=== PATIENT | female | born 1945 | race Caucasian/White ===

== ENCOUNTER → 2019-02-20 11:33 | Outpatient (BNVA) | payer MEDICARE, OTHER, SELFPAY | PROVIDERS: Family Provider Family Medicine; PCP Family Medicine; Visit Provider Orthopaedic Surgery | DX: S42.341D Displaced spiral fracture of shaft of humerus, right arm, subsequent encounter for fracture with routine healing (principal); X58.XXXD Exposure to other specified factors, subsequent encounter | CPT/HCPCS: 73060 ==

== ENCOUNTER → 2019-03-29 10:48 | Outpatient (BNVA) | payer MEDICARE, OTHER, SELFPAY | PROVIDERS: Family Provider Family Medicine; PCP Family Medicine; Visit Provider Orthopaedic Surgery | DX: S42.341D Displaced spiral fracture of shaft of humerus, right arm, subsequent encounter for fracture with routine healing (principal); X58.XXXD Exposure to other specified factors, subsequent encounter | CPT/HCPCS: 73060 ==

== ENCOUNTER 2019-08-27 20:00 | Outpatient (CLI) | payer MEDICARE, OTHER, SELFPAY | END 2019-08-27 20:01 | disposition home or self-care (01) | LOC: SLEEP 08-28 09:43 | PROVIDERS: Family Provider Family Medicine; PCP Family Medicine; Visit Provider Family Medicine | DX: G47.33 Obstructive sleep apnea (adult) (pediatric) (principal); J44.9 Chronic obstructive pulmonary disease, unspecified | CPT/HCPCS: 95811 ==

== ENCOUNTER 2020-10-12 08:13 | Emergency (ER) | payer MEDICARE, OTHER, SELFPAY ==
[2020-10-12 08:18] VITALS: BP 130/76; PULSE 61; RESP 18; TEMP 36.6; BMI 34.2
--- NOTE | 2020-10-12 08:34 | PC.NURSE ---
unable to obtain accurate pulse oximeter reading. will chart when accurate reading obtained
[2020-10-12 08:35] VITALS: BP 130/76; PULSE 67
--- NOTE | 2020-10-12 08:35 | ED_ITS ---
HPI - General Adult General: Chief complaint: Fall Stated complaint: FALL HIT HEAD; CONFUSED Time Seen by Provider: 10/12/20 08:21 History of Present Illness: HPI narrative: Patient is a 75-year-old female with a history of hypertension, hypothyroidism, CAD who presents to the emergency room after an episode of mechanical fall. Patient reports that today she was walking on floor tiles when she fell onto her right side and hit her head. She denies any associated chest pain shortness breath, palpitation, nausea, lightheadedness prior to the fall. She reports that her legs gave way and she fell because of that. Patient has a right elbow hematoma and right elbow pain. Lives at home by herself and alerted EMS with her medical brace. Per triage note, patient was noted by EMS to be confused. However on arrival, patient is AAO x3 GCS 15 and fully conversant. Onset:30 minutes ago Duration:30 minutes Location:home Severity:moderate Review of Systems Narrative: Constitutional: No fever, no chills. HEENT: No vision changes CV: No chest pain, no palpitations PULM: no cough, no dyspnea. GI: No abdominal pain, no N/V/D. : No dysuria MSKEL: +R elbow pain and hematoma, +b/l gluteal pain SKIN: No new rashes, no lesions. NEURO: No headache, no focal weakness. HEME: No visible bruises PSYCH: Normal mood PFSH ED PFSH: Medical History (Updated 10/12/20 @ 18:27 by Ravi Marcelino MD) Displaced spiral fracture of shaft of right humerus with routine healing Fracture of humerus, proximal, right, closed Physical Exam Narrative: EXAM NARRATIVE: Head: Atraumatic Eyes: PERRL, conjunctiva without injection ENT: Mucous membrane moist NECK: Supple, ROM intact LUNGS: LCTAB, no crackles/rhonchi CV: RRR ABDOMEN: Soft, nontender in all quadrants EXTREMITY: +Normal ROM of the R elobw with moderate tenderness to palpation, mild hematoma overr the R elbow, 2+ radial pulse R, neurovascular exam intact in the R upper extremities, no gross deformity, Forearm and arm compartments R non tense. SKIN: No rash or erythema NEURO: AAOX3, no focal motor deficits, GCS 15 PSYCH: Normal mood and affect Course Vital Signs: Vital signs: Vital Signs Temperature 97.8 F 10/12/20 08:18 Pulse Rate 75 10/12/20 10:06 Respiratory Rate 18 10/12/20 10:06 Blood Pressure 160/45 10/12/20 10:06 Pulse Oximetry 97 10/12/20 10:06 MDM - General Adult MDM Narrative: Medical decision making narrative: 75-year-old female presented to the emergency room after an episode of fall. Based on story, it is likely that this is a mechanical fall. Patient denies any chest pain shortness breath palpitation prior to the fall. No suspicion for anything cardiac at this time. On arrival, patient is hemodynamically stable, will evaluate for trauma with CT brain, x-ray of the elbow, and x-ray pelvis. Intervention: Tylenol for pain On reassessment, imaging studies today negative for any acute fractures or brain bleed. Continues to GCS 15, HDS, without any increased in pain. I have discussed need for warm compress and pain control. At baseline, patient ambulates with a walker. Given hx of living at home by self, I have ordered physical therapy and OT for patient through our case manger. Patient aware of the need to follow up with these services for evaluations of symptoms. Disposition: Discharge. Patient is given strict return precaution for any worsening pain, fever/chills, nausea vomiting, focal weakness, headache, confusion, or any new or concerning complaints. Lab Data: Labs: Lab Results 10/12/20 Range/Units 16:49 POC Glucose 157 H (70-110) mg/dL Imaging Data^: Other Imaging: Radiologist's impression: [address] [address]IWrt ReportSigned Patient: Elzbieta Church #: [id number]: 4Acct#:[id number]/Sex: 75 / FADM Date: 10/12/20Loc: ERRoom/Bed:Attending Dr: Ordering Provider/Ordering MD: Ravi Marcelino MD Date of Service: 10/12/20 Procedure(s): XR elbow RT 2V 42297 Accession Number(s): [id number] Report Number: [id number] PROCEDURE INFORMATION: Exam: XR Right Elbow Exam date and time: 10/12/2020 8:33 AM Age: 75 years old Clinical indication: Injury or trauma; Fall; Blunt trauma (contusions or hematomas); Elbow; Right; Additional info: Elbow hematoma TECHNIQUE: Imaging protocol: XR Right elbow. Views: 1 or 2 views. Total images: 2 COMPARISON: No relevant prior studies available. FINDINGS: Bones/joints: Small enthesophytes off the olecranon and lateral epicondyle. No acute fracture nor subluxation. No osseous erosion nor periosteal reaction. Soft tissues: Normal. XR/XR elbow RT 2V 95029 IMPRESSION: No acute osseous pathology. Dictated By:Aditya Epstein MDSigned By:Aditya Epstein MDSigned Date/Time:10/12/2033/ [address] [address]VWbn ReportSigned Patient: Elzbieta Church #: [id number]: 4Acct#:[id number]/Sex: 75 / FADM Date: 10/12/20Loc: ERRoom/Bed:Attending Dr: Ordering Provider/Ordering MD: Ravi Marcelino MD Date of Service: 10/12/20 Procedure(s): XR pelvis 1-2V* 65571 Accession Number(s): [id number] Report Number: [id number] PROCEDURE INFORMATION: Exam: XR Pelvis Exam date and time: 10/12/2020 8:33 AM Age: 75 years old Clinical indication: Injury or trauma; Fall; Blunt trauma (contusions or hematomas); Bilateral; Pelvic region; Additional info: Lower back pain TECHNIQUE: Imaging protocol: XR pelvis. Views: 1 or 2 view. Total images: 1 COMPARISON: No relevant prior studies available. FINDINGS: Bones/joints: Unremarkable. No acute fracture. Soft tissues: Unremarkable. Vasculature: Atherosclerosis is evident. XR/XR pelvis 1-2V* [id number] IMPRESSION: No acute findings. Dictated By:Aditya Epstein MDSigned By:Aditya Epsteinigned Date/Time:10/12/2034/ [address] [address]GH Scan ReportSigned Patient: Elzbieta Church #: [id number]: 4Acct#:[id number]/Sex: 75 / FADM Date: 10/12/20Loc: ERRoom/Bed:Attending Dr: Ordering Provider/Ordering MD: Ravi Marcelino MD Date of Service: 10/12/20 Procedure(s): CT head wo con* 46316 Accession Number(s): [id number] Report Number: [id number] PROCEDURE INFORMATION: Exam: CT Head Without Contrast Exam date and time: 10/12/2020 8:33 AM Age: 75 years old Clinical indication: Injury or trauma; Fall; Blunt trauma (contusions or hematomas); Additional info: Rule out brain bleed, fall, loc TECHNIQUE: Imaging protocol: Computed tomography of the head without contrast. Total images: 188 Radiation optimization: All CT scans at this facility use at least one of these dose optimization techniques: automated exposure control; mA and/or kV adjustment per patient size (includes targeted exams where dose is matched to clinical indication); or iterative reconstruction. COMPARISON: CT head wo con* [id number] 01/03/2019 1:54 AM RADIATION DOSE METRICS: Total DLP (mGy-cm): 587.36 FINDINGS: Brain: Global brain atrophy and chronic white matter ischemic changes are present. Multifocal encephalomalacia. Cerebral ventricles: Ventricles are appropriate in size for degree of atrophy. Paranasal sinuses: Visualized sinuses are unremarkable. No fluid levels. Mastoid air cells: Visualized mastoid air cells are well aerated. Orbital cavity: Prior bilateral lens replacements noted. Bones/joints: Unremarkable. No acute fracture. Soft tissues: Unremarkable. CT/CT head wo con* [id number] IMPRESSION: No acute intracranial abnormality. Radiation Dose CTDIVOL = (mGy): DLP = 587.36 (mGy-cm) Dictated By:Aditya Epstein MDSigned By:Aditya Epstein MDSigned Date/Time:10/12/2035DD/ [address] [address]GKnp ReportSigned Patient: Elzbieta Church #: [id number]: 1945cct#:[id number]/Sex: 75 / FADM Date: 10/12/20Loc: ERRoom/Bed:Attending Dr: Ordering Provider/Ordering MD: Ravi Marcelino MD Date of Service: 10/12/20 Procedure(s): XR pelvis 1-2V* 03973 Accession Number(s): [id number] Report Number: [id number] PROCEDURE INFORMATION: Exam: XR Pelvis Exam date and time: 10/12/2020 8:33 AM Age: 75 years old Clinical indication: Injury or trauma; Fall; Blunt trauma (contusions or hematomas); Bilateral; Pelvic region; Additional info: Lower back pain TECHNIQUE: Imaging protocol: XR pelvis. Views: 1 or 2 view. Total images: 1 COMPARISON: No relevant prior studies available. FINDINGS: Bones/joints: Unremarkable. No acute fracture. Soft tissues: Unremarkable. Vasculature: Atherosclerosis is evident. XR/XR pelvis 1-2V* 18948 IMPRESSION: No acute findings. Dictated By:Aditya Epstein MDSigned By:Aditya Epstein MDSigned Date/Time:0 10/12/2034DD/ 0 Discharge Plan Discharge Patient Disposition: Home Clinical Impression: Fall Condition: Stable Prescriptions: New acetaminophen 500 mg tablet 500 mg PO TID PRN (Reason: pain) 7 Days Qty: 21 RF: 0 No Action cholecalciferol (vitamin D3) 1,000 unit capsule 1,000 unit PO DAILY RF: 0 lutein-zeaxanthin [Ocuvite Lutein 25] 25-5 mg capsule 1 cap PO BID RF: 0 furosemide [Lasix] 20 mg tablet 20 mg PO QAM RF: 0 amiodarone 200 mg tablet 200 mg PO BID RF: 0 clonazepam [Klonopin] 1 mg tablet 1 mg PO BID PRN (Reason: Anxiety) RF: 0 aspirin [Adult Low Dose Aspirin] 81 mg tablet,delayed release (DR/EC) 81 mg PO DAILY RF: 0 alprazolam 0.5 mg tablet 0.5 mg PO QID PRN (Reason: Anxiety) RF: 0 clopidogrel 75 mg tablet 75 mg PO DAILY RF: 0 levothyroxine [Synthroid] 175 mcg tablet 175 mcg PO DAILY RF: 0 Spiriva with HandiHaler 18 mcg capsule, w/inhalation device 1 cap INHALATION DAILY RF: 0 atorvastatin 10 mg tablet 10 mg PO DAILY RF: 0 Discharge Orders: Discharge ED (Routine); Ordered 10/12/20 Ordered By: Ravi Marcelino Referrals: Marco Antonio Thompson MD [Primary Care Provider] - Discharge Diet: Advance as tolerated Discharge Activity: Resume usual activity Patient Instructions: Fall Prevention (ED) Activity Restrictions/Additional Instructions: Come back to the ER if you have any new or concerning issues. Coding Level of Care Code ED Roll Up Helper for Pattie Cisneros
[2020-10-12] MEDS: acetaminophen 500 mg Tablet 1000 MG PO (08:42)
[2020-10-12 08:47] VITALS: O2SAT 94
[2020-10-12 10:06] VITALS: BP 160/45; PULSE 75; RESP 18; O2SAT 97
[2020-10-12 16:52] LABS: Glucose Point of Care 157 mg/dL (70-110)
--- NOTE | 2020-10-15 09:27 | DCPLANNER ---
court manager had message to have patient follow up with occupational therapy and physical therapy. court manager called phone number [phone], unable to speak with patient or leave a voicemail for patient at this time.
== END 2020-10-12 10:06 | disposition home or self-care (01) ==
PROVIDERS: Emergency Provider Emergency Medicine; PCP Family Medicine
DX: S50.01XA Contusion of right elbow, initial encounter (principal); I10 Essential (primary) hypertension; E03.9 Hypothyroidism, unspecified; I25.10 Atherosclerotic heart disease of native coronary artery without angina pectoris; R40.2412 Glasgow coma scale score 13-15, at arrival to emergency department; W18.39XA Other fall on same level, initial encounter; Y92.009 Unspecified place in unspecified non-institutional (private) residence as the place of occurrence of the external cause
CPT/HCPCS: 36416; 70450; 72170; 73070; 82962; 99283

== ENCOUNTER 2020-10-12 16:53 | Emergency (ER) | payer MEDICARE, OTHER, SELFPAY ==
[2020-10-12] VITALS (7 sets, daily range): BP systolic 106–162; BP diastolic 50–119; PULSE 83–90; RESP 14–20; TEMP 36.4; O2SAT 97–100
--- NOTE | 2020-10-12 17:05 | CTR_ITS ---
PROCEDURE INFORMATION: Exam: CT Head Without Contrast Exam date and time: 10/12/2020 5:05 PM Age: 75 years old Clinical indication: Speech disturbance; Patient HX: Sudden onset of aphasia/slurred speech. History of RT sided stroke. ; Additional info: Poss CVA TECHNIQUE: Imaging protocol: Computed tomography of the head without contrast. Radiation optimization: All CT scans at this facility use at least one of these dose optimization techniques: automated exposure control; mA and/or kV adjustment per patient size (includes targeted exams where dose is matched to clinical indication); or iterative reconstruction. Other technique: STROKE PROTOCOL was implemented. COMPARISON: CT head wo con* [id number] 10/12/2020 8:57 AM RADIATION DOSE METRICS: Total DLP (mGy-cm): 782.1 FINDINGS: Brain: There are old cortical infarcts in the right posterior parietal, right frontal and right temporal lobes and also in the left occipital region. There is moderate cortical atrophy. Low-density changes in the white matter are consistent with nonspecific small vessel chronic ischemic change. There is no intracranial mass, hemorrhage or edema. Cerebral ventricles: No ventriculomegaly. Paranasal sinuses: Visualized sinuses are unremarkable. No fluid levels. Mastoid air cells: Visualized mastoid air cells are well aerated. Bones/joints: Unremarkable. No acute fracture. Soft tissues: Unremarkable. CT/CT head wo con* [id number] IMPRESSION: Old infarcts. No acute intracranial finding. ASSESSMENT: ASPECTS ([place] Stroke Program Early CT Score) is 10. Radiation Dose CTDIVOL = (mGy): DLP = 782.1 (mGy-cm)
--- NOTE | 2020-10-12 17:06 | CTR_ITS ---
PROCEDURE INFORMATION: Exam: CT Angiography Head With Contrast, Arteriography Exam date and time: 10/12/2020 5:06 PM Age: 75 years old Clinical indication: Speech disturbance; Patient HX: Sudden onset of aphasia/slurred speech. History of RT sided stroke. ; Additional info: Poss CVA TECHNIQUE: Imaging protocol: Computed tomography angiography of the head with contrast. Exam focused on the arteries. 3D rendering (Not supervised by radiologist): MIP and/or 3D reconstructed images were created by the technologist. Radiation optimization: All CT scans at this facility use at least one of these dose optimization techniques: automated exposure control; mA and/or kV adjustment per patient size (includes targeted exams where dose is matched to clinical indication); or iterative reconstruction. Contrast material: VISI 320; Contrast volume: 95 ml; Contrast route: INTRAVENOUS (IV); COMPARISON: CT head wo con* [id number] 10/12/2020 4:58 PM RADIATION DOSE METRICS: Total DLP (mGy-cm): 4654.87 FINDINGS: Limitations: Study is significantly limited by patient motion. ANTERIOR CIRCULATION: Right internal carotid artery: There is extensive atherosclerotic plaque in severe stenosis in the right cavernous carotid artery. Right middle cerebral artery: Unremarkable. No occlusion or significant stenosis. No aneurysm. Right anterior cerebral artery: Unremarkable. No occlusion or significant stenosis. No aneurysm. Left internal carotid artery: Left internal carotid artery is occluded from the skull base through the level of the cavernous carotid artery. Distally left internal carotid artery reconstitutes via collateral flow from the left ophthalmic artery Left middle cerebral artery: Unremarkable. No occlusion or significant stenosis. No aneurysm. Left anterior cerebral artery: Unremarkable. No occlusion or significant stenosis. No aneurysm. POSTERIOR CIRCULATION: Right vertebral artery: There is narrowing and possible stenosis of the distal right V4 segment. This is difficult to say with certainty due to motion artifact. Left vertebral artery: Left vertebral artery is dominant and provides most of the supply to basilar artery. Basilar artery: Unremarkable. No occlusion or significant stenosis. No aneurysm. Right posterior cerebral artery: Unremarkable. No occlusion or significant stenosis. No aneurysm. Left posterior cerebral artery: Unremarkable. No occlusion or significant stenosis. No aneurysm. Brain: No definite mass, mass effect, or midline shift. Cerebral ventricles: No ventriculomegaly. Bones/joints: Unremarkable. No acute fracture. Soft tissues: Unremarkable. IMPRESSION: 1. Proximal occlusion of the left internal carotid artery of uncertain age. 2. Stenosis distal right vertebral artery. 3. No gross intracranial occlusion or aneurysm is identified. 4. Limited study due to patient motion PROCEDURE INFORMATION: Exam: CT Angiography Neck With Contrast Exam date and time: 10/12/2020 5:06 PM Age: 75 years old Clinical indication: Speech disturbance; Patient HX: Sudden onset of aphasia/slurred speech. History of RT sided stroke. ; Additional info: Poss CVA TECHNIQUE: Imaging protocol: Computed tomography angiography of the neck with contrast. 3D rendering (Not supervised by radiologist): MIP and/or 3D reconstructed images were created by the technologist. Radiation optimization: All CT scans at this facility use at least one of these dose optimization techniques: automated exposure control; mA and/or kV adjustment per patient size (includes targeted exams where dose is matched to clinical indication); or iterative reconstruction. Contrast material: VISI 320; Contrast volume: 95 ml; Contrast route: INTRAVENOUS (IV); COMPARISON: CT head wo con* [id number] 10/12/2020 4:58 PM RADIATION DOSE METRICS: Total DLP (mGy-cm): 4654.87 FINDINGS: Limitations: Study is significantly limited by patient motion. Right common carotid artery: No stenosis. No dissection or occlusion. Right internal carotid artery: There is severe focal stenosis in the proximal right internal carotid artery at the level of the bifurcation. This is difficult to measure due to motion artifact but appears to be measure in the 60-80% range as measured according to the NASCET criteria. Right external carotid artery: Stenotic origin. Left common carotid artery: Left common carotid artery does not enhance and appears to be occluded from its origin. Left internal carotid artery: There is extensive calcified plaque at the left carotid bifurcation. Short segment of the proximal left internal carotid artery reconstitutes via collaterals but the left internal carotid artery is proximally occluded which is a finding of uncertain age but the left internal carotid artery occlusion is a new finding from 01/04/2019. Left external carotid artery: Patent but with stenotic origin. Right vertebral artery: There is very severe stenosis or occlusion in the proximal right vertebral artery. The mid V2 vertebral artery reconstitutes apparently via collaterals. Left vertebral artery: Origin of the left vertebral artery is not well seen on this examination but is patent. There is mild focal calcified plaque in the mid left V2 segment but no hemodynamically significant stenosis. Soft tissues: Normal. No significant soft tissue swelling. Bones/joints: No acute fracture. CT/CT angio headneck* [id number] IMPRESSION: 1. Occlusion left common carotid artery 2. Occlusion left internal carotid artery 3. Severe stenosis right internal carotid artery 4. Proximal occlusion of the right vertebral artery. REFERENCES: NASCET CRITERIA. The degree of internal carotid artery stenosis is based on NASCET criteria. Normal is no stenosis. Mild is less than 50% stenosis. Moderate is 50-69% stenosis. Severe is 70% to 99% stenosis. Total occlusion is no detectable patent lumen. Radiation Dose CTDIVOL = (mGy): DLP = 4654.87~4654.87 (mGy-cm)
[2020-10-12] MEDS: iodixanol 320 mg/mL 100mL Btl IV (17:23)
--- NOTE | 2020-10-12 18:12 | ECG_ITS ---
[facility] Test Date: 2020-10-12 Pat Name: Elzbieta Church Department: Room: Gender: Female Bogger Operator: : 1945 Requested By: Ravi Marcelino Order Number: [id number] Jas MD: Tariq Gilliam M.D. Measurements Intervals [place] Rate: 87 P: -90 SC: 133 QRS: 80 QRSD: 129 T: 36 QT: 410 QTc: 493 Interpretive Statements SINUS RHYTHM RIGHT BUNDLE BRANCH BLOCK [120+ ms QRS DURATION, UPRIGHT V1, 40+ ms S IN I/aVL/V4/V5/V6] Compared to ECG 01/03/2019 08:38:58 Right-axis deviation no longer present Electronically Signed On 10-13-2020 6:58:31 CDT by Tariq Gilliam M.D. [email or web address] Technologieswiser [facility] for women and infantsCyber-[facility].[employer]/store/OV/[id number]
--- NOTE | 2020-10-12 18:16 | ED_ITS ---
HPI - General Adult General: Chief complaint: Neuro Symptoms/Deficit Stated complaint: STROKE LIKE SYMPTOMS Time Seen by Provider: 10/12/20 17:39 History of Present Illness: HPI narrative: CC: R sided weakness and aphsia HPI: 75yo patient w/ hx of stroke in 2019, HTN, CAD on ASA and plavix only brought in by friend for sudden onset of acute R sided weakness and expressive aphasia x 3 hrs and 40 minutes ago. Patient was last seen normal at 1:10PM and woke up at 2:20pm with complete R sided paralysis and expressive aphasia. Since then, symptoms have been persistent and have not improved. Denies any chest pain, SOB, palpitations, /GI complaints. Patient is not on any anticoagulation. Onset: 1:10PM Duration: 3 hrs and 40 minutes ago Location: home Severity: severe Review of Systems Narrative: Constitutional: No fever, no chills. HEENT: No vision changes CV: No chest pain, no palpitations PULM: No cough, no dyspnea. GI: No abdominal pain, no N/V/D. : No dysuria MSKEL: No edema SKIN: No new rashes, no lesions. NEURO: +Focal weakness of the R arm and leg +difficulty speaking HEME: No visible bruises PSYCH: Normal mood PFSH ED PFSH: Medical History (Updated 10/12/20 @ 18:27 by Ravi Marcelino MD) Displaced spiral fracture of shaft of right humerus with routine healing Fracture of humerus, proximal, right, closed Physical Exam Narrative: EXAM NARRATIVE: Head: Atraumatic Eyes: PERRL, conjunctiva without injection ENT: Mucous membrane moist NECK: Supple without lymphadenopathy LUNGS: CTA CV: RRR ABDOMEN: Soft, nontender EXTREMITY: Normal ROM SKIN: No rash or erythema NEURO: NIHSS: 8 1. Level of Consciousness A) LOC Responsiveness 0 B) LOC Questions 0 C) LOC Commands 0 2. Horizontal Eye Movement 0 3. Visual field test 0 4. Facial Palsy 0 5. Motor Arm 3 6. Motor Leg 3 7. Limb Ataxia 0 9. Language 1 10. Speech 1 11. Extinction and Inattention 0 PSYCH: Normal mood and affect. Course Vital Signs: Vital signs: Vital Signs Temperature 97.5 F L 10/12/20 16:55 Pulse Rate 89 10/12/20 18:04 Respiratory Rate 18 10/12/20 18:04 Blood Pressure 161/111 10/12/20 18:04 Pulse Oximetry 100 10/12/20 18:04 MDM - General Adult MDM Narrative: Medical decision making narrative: [99]yo patient w/ pMH of CA D, HTN, prior stroke > 1 yr presenting for focal neurological deficits. Presentation concerning for possible ischemic stroke requiring workup. Given History and Exam I have lower suspicion for infectious etiology, neurologic changes secondary to toxicologic ingestion, seizure, complex migraine. Fingerstick of 157. PMH risk factors: CAD, HTN, prior stroke Neurologic Deficits: R arm and R leg weakness, dysarthria, and expressive aphasia Last known Well Time:1:10pm NIH Stroke Score: 8 At [4:52], a stroke alert was called. Case was discussed with Dr. Banegas from [facility] telestroke service regarding patient?s neurological symptoms and last well-known time approximately 1:10PM and eligibility for TPA criteria. EKG without evidence of STEMI or ischemia, fingerstick BS not hypoglycemic, and clinical picture does not suggest other stroke mimic. Plan to workup for acute CVA/TIA. [4:56] Telestroke Neurology discussed case and agrees with plans for TPA since patient?s onset of symptoms < 4.5 hours. Risks and benefits of TPA discussed with the patient. Patient verbalizes understanding and agrees to proceed with administration of tPA. Patient does NOT have the following absolute contraindications to TPA including: Current intracranial hemorrhage, Subarachnoid hemorrhage, Active internal bleeding, Recent (within 3 months) intracranial or intraspinal surgery or serious head trauma, presence of intracranial conditions that may increase the risk of bleeding,bBleeding diathesis, or current severe uncontrolled hypertension. [5:15] TPA administered at 0.9mg/kg IV (max 90mg total). 10% of dose is administered as bolus; rest is given over 60min. CT showed old infarcations and CTA findings showed L ICA/CCA complete occlusion, severe R ICA occlusoin and R proximal vertebral occlusion. [5:45] On reassessment, patient improved significantly while on TPA. NIHSS improved from 8 to 3. Patient nows appears to have drift on the L and R arms (2) with mild disarthyria. Case discussed with Dr. Banks at [facility] who agrees with plan for transfer to tertiary ICU and possible mechanical thrombectomy. BP stable w/ SBP <185, will not need nicardipine drip. Disposition: Transfer to outside hospital Lab Data: Labs: Lab Results 10/12/20 Range/Units 16:55 PT 13.20 (12.1-14.9) SECO NDS INR 0.97 (0.8-1.2) Imaging Data^: Other Imaging: Radiologist's impression: [place] [id number], [place] [address]TO Scan ReportSigned Patient: Elzbieta Church #: [id number]: [id number]#:[id number]/Sex: 75 / FADM Date: 10/12/20Loc: ERRoom/Bed:Attending Dr: Ordering Provider/Ordering MD: Ravi Marcelino MD Date of Service: 10/12/20 Procedure(s): CT angio headneck* [id number] Accession Number(s): [id number] Report Number: [id number] PROCEDURE INFORMATION: Exam: CT Angiography Head With Contrast, Arteriography Exam date and time: 10/12/2020 5:06 PM Age: 75 years old Clinical indication: Speech disturbance; Patient HX: Sudden onset of aphasia/slurred speech. History of RT sided stroke. ; Additional info: Poss CVA TECHNIQUE: Imaging protocol: Computed tomography angiography of the head with contrast. Exam focused on the arteries. 3D rendering (Not supervised by radiologist): MIP and/or 3D reconstructed images were created by the technologist. Radiation optimization: All CT scans at this facility use at least one of these dose optimization techniques: automated exposure control; mA and/or kV adjustment per patient size (includes targeted exams where dose is matched to clinical indication); or iterative reconstruction. Contrast material: VISI 320; Contrast volume: 95 ml; Contrast route: INTRAVENOUS (IV); COMPARISON: CT head wo con* [id number] 10/12/2020 4:58 PM RADIATION DOSE METRICS: Total DLP (mGy-cm): 4654.87 FINDINGS: Limitations: Study is significantly limited by patient motion. ANTERIOR CIRCULATION: Right internal carotid artery: There is extensive atherosclerotic plaque in severe stenosis in the right cavernous carotid artery. Right middle cerebral artery: Unremarkable. No occlusion or significant stenosis. No aneurysm. Right anterior cerebral artery: Unremarkable. No occlusion or significant stenosis. No aneurysm. Left internal carotid artery: Left internal carotid artery is occluded from the skull base through the level of the cavernous carotid artery. Distally left internal carotid artery reconstitutes via collateral flow from the left ophthalmic artery Left middle cerebral artery: Unremarkable. No occlusion or significant stenosis. No aneurysm. Left anterior cerebral artery: Unremarkable. No occlusion or significant stenosis. No aneurysm. POSTERIOR CIRCULATION: Right vertebral artery: There is narrowing and possible stenosis of the distal right V4 segment. This is difficult to say with certainty due to motion artifact. Left vertebral artery: Left vertebral artery is dominant and provides most of the supply to basilar artery. Basilar artery: Unremarkable. No occlusion or significant stenosis. No aneurysm. Right posterior cerebral artery: Unremarkable. No occlusion or significant stenosis. No aneurysm. Left posterior cerebral artery: Unremarkable. No occlusion or significant stenosis. No aneurysm. Brain: No definite mass, mass effect, or midline shift. Cerebral ventricles: No ventriculomegaly. Bones/joints: Unremarkable. No acute fracture. Soft tissues: Unremarkable. IMPRESSION: 1. Proximal occlusion of the left internal carotid artery of uncertain age. 2. Stenosis distal right vertebral artery. 3. No gross intracranial occlusion or aneurysm is identified. 4. Limited study due to patient motion PROCEDURE INFORMATION: Exam: CT Angiography Neck With Contrast Exam date and time: 10/12/2020 5:06 PM Age: 75 years old Clinical indication: Speech disturbance; Patient HX: Sudden onset of aphasia/slurred speech. History of RT sided stroke. ; Additional info: Poss CVA TECHNIQUE: Imaging protocol: Computed tomography angiography of the neck with contrast. 3D rendering (Not supervised by radiologist): MIP and/or 3D reconstructed images were created by the technologist. Radiation optimization: All CT scans at this facility use at least one of these dose optimization techniques: automated exposure control; mA and/or kV adjustment per patient size (includes targeted exams where dose is matched to clinical indication); or iterative reconstruction. Contrast material: VISI 320; Contrast volume: 95 ml; Contrast route: INTRAVENOUS (IV); COMPARISON: CT head wo con* [id number] 10/12/2020 4:58 PM RADIATION DOSE METRICS: Total DLP (mGy-cm): 4654.87 FINDINGS: Limitations: Study is significantly limited by patient motion. Right common carotid artery: No stenosis. No dissection or occlusion. Right internal carotid artery: There is severe focal stenosis in the proximal right internal carotid artery at the level of the bifurcation. This is difficult to measure due to motion artifact but appears to be measure in the 60-80% range as measured according to the NASCET criteria. Right external carotid artery: Stenotic origin. Left common carotid artery: Left common carotid artery does not enhance and appears to be occluded from its origin. Left internal carotid artery: There is extensive calcified plaque at the left carotid bifurcation. Short segment of the proximal left internal carotid artery reconstitutes via collaterals but the left internal carotid artery is proximally occluded which is a finding of uncertain age but the left internal carotid artery occlusion is a new finding from 01/04/2019. Left external carotid artery: Patent but with stenotic origin. Right vertebral artery: There is very severe stenosis or occlusion in the proximal right vertebral artery. The mid V2 vertebral artery reconstitutes apparently via collaterals. Left vertebral artery: Origin of the left vertebral artery is not well seen on this examination but is patent. There is mild focal calcified plaque in the mid left V2 segment but no hemodynamically significant stenosis. Soft tissues: Normal. No significant soft tissue swelling. Bones/joints: No acute fracture. CT/CT angio headneck* [id number] IMPRESSION: 1. Occlusion left common carotid artery 2. Occlusion left internal carotid artery 3. Severe stenosis right internal carotid artery 4. Proximal occlusion of the right vertebral artery. REFERENCES: NASCET CRITERIA. The degree of internal carotid artery stenosis is based on NASCET criteria. Normal is no stenosis. Mild is less than 50% stenosis. Moderate is 50-69% stenosis. Severe is 70% to 99% stenosis. Total occlusion is no detectable patent lumen. Radiation Dose CTDIVOL = (mGy): DLP = 4654.87~4654.87 (mGy-cm) Dictated By:Yanelis Leahyigned By:Gaurav Leahy Date/Time:10/12/201747DD/ [address] [address]IC Scan ReportSigned Patient: Elzbieta Church #: [id number]: [id number]#:[id number] ge/Sex: 75 / FADM Date: 10/12/20Loc: ERRoom/Bed:Attending Dr: Ordering Provider/Ordering MD: Ravi Marcelino MD Date of Service: 10/12/20 Procedure(s): CT head wo con* [id number] Accession Number(s): [id number] Report Number: [id number] PROCEDURE INFORMATION: Exam: CT Head Without Contrast Exam date and time: 10/12/2020 5:05 PM Age: 75 years old Clinical indication: Speech disturbance; Patient HX: Sudden onset of aphasia/slurred speech. History of RT sided stroke. ; Additional info: Poss CVA TECHNIQUE: Imaging protocol: Computed tomography of the head without contrast. Radiation optimization: All CT scans at this facility use at least one of these dose optimization techniques: automated exposure control; mA and/or kV adjustment per patient size (includes targeted exams where dose is matched to clinical indication); or iterative reconstruction. Other technique: STROKE PROTOCOL was implemented. COMPARISON: CT head wo con* [id number] 10/12/2020 8:57 AM RADIATION DOSE METRICS: Total DLP (mGy-cm): 782.1 FINDINGS: Brain: There are old cortical infarcts in the right posterior parietal, right frontal and right temporal lobes and also in the left occipital region. There is moderate cortical atrophy. Low-density changes in the white matter are consistent with nonspecific small vessel chronic ischemic change. There is no intracranial mass, hemorrhage or edema. Cerebral ventricles: No ventriculomegaly. Paranasal sinuses: Visualized sinuses are unremarkable. No fluid levels. Mastoid air cells: Visualized mastoid air cells are well aerated. Bones/joints: Unremarkable. No acute fracture. Soft tissues: Unremarkable. CT/CT head wo con* [id number] IMPRESSION: Old infarcts. No acute intracranial finding. ASSESSMENT: ASPECTS ([place] Stroke Program Early CT Score) is 10. Radiation Dose CTDIVOL = (mGy): DLP = 782.1 (mGy-cm) Dictated By:Gaurav Leahy By:Gaurav Leahy Date/Time:10/12/201726DD/ 25 Discharge Plan Discharge Patient Disposition: Transfer to ED Clinical Impression: Acute ischemic stroke, Cerebrovascular accident Condition: Stable Prescriptions: No Action cholecalciferol (vitamin D3) 1,000 unit capsule 1,000 unit PO DAILY RF: 0 lutein-zeaxanthin [Ocuvite Lutein 25] 25-5 mg capsule 1 cap PO BID RF: 0 furosemide [Lasix] 20 mg tablet 20 mg PO QAM RF: 0 amiodarone 200 mg tablet 200 mg PO BID RF: 0 clonazepam [Klonopin] 1 mg tablet 1 mg PO BID PRN (Reason: Anxiety) RF: 0 aspirin [Adult Low Dose Aspirin] 81 mg tablet,delayed release (DR/EC) 81 mg PO DAILY RF: 0 alprazolam 0.5 mg tablet 0.5 mg PO QID PRN (Reason: Anxiety) RF: 0 clopidogrel 75 mg tablet 75 mg PO DAILY RF: 0 levothyroxine [Synthroid] 175 mcg tablet 175 mcg PO DAILY RF: 0 Spiriva with HandiHaler 18 mcg capsule, w/inhalation device 1 cap INHALATION DAILY RF: 0 acetaminophen 500 mg tablet 500 mg PO TID PRN (Reason: pain) 7 Days Qty: 21 RF: 0 atorvastatin 10 mg tablet 10 mg PO DAILY RF: 0 Referrals: Marco Antonio Thompson MD [Primary Care Provider] - Coding Level of Care Code ED Import/Export [employer] for [facility] [place]
[2020-10-12 18:19] LABS: Mean Corpuscular HGB Conc 29.5 g/dL (30.0-36.0); Mean Corpuscular Hemoglobin 27.3 pg (28.0-34.0); Mean Corpuscular Volume 92.5 fl (81-99); Mean Platelet Volume 9.8 fL (7.4-10.4); Platelet Count 379 10^3/cmm (130-400); Red Blood Count 2.27 10^6/uL (4.1-5.3); Red Cell Distribution Width 16.2 % (12.1-15.1); White Blood Count 15.6 10^3/uL (4.0-10.0)
[2020-10-12 18:24] LABS: INR 0.97 (0.8-1.2)
[2020-10-12 18:31] LABS: Anion Gap 16.3 (5-19); Blood Urea Nitrogen 62 mg/dL (8-23); Calcium 9.6 mg/dL (8.5-10.5); Carbon Dioxide 32 mmol/L (22-29); Chloride 93 mmol/L (98-107); Glucose 139 mg/dL (65-115); Osmolality Calculated 304 mOsm/kg (285-295); Potassium 4.3 mmol/L (3.5-5.1); Sodium 137 mmol/L (136-145)
[2020-10-12 18:37] LABS: Hemoglobin 6.2 g/dL (11.5-15.3)
== END 2020-10-12 18:47 ==
PROVIDERS: Emergency Provider Emergency Medicine; PCP Family Medicine
DX: I63.9 Cerebral infarction, unspecified (principal); R47.01 Aphasia; G81.91 Hemiplegia, unspecified affecting right dominant side; I10 Essential (primary) hypertension; I25.10 Atherosclerotic heart disease of native coronary artery without angina pectoris; Z79.82 Long term (current) use of aspirin; Z79.02 Long term (current) use of antithrombotics/antiplatelets; R29.708 NIHSS score 8
CPT/HCPCS: 36416; 70450; 70496; 70498; 72170; 73070; 80048; 82962; 85027; 85610; 86900; 86920; 93005; 96374; 99283; 99291; 99292; J2997; P9016; Q9967

== ENCOUNTER 2020-10-30 07:44 | Emergency (ER) | payer MEDICARE, OTHER, SELFPAY ==
[2020-10-30] VITALS (9 sets, daily range): BP systolic 80–159; BP diastolic 40–68; PULSE 75–91; RESP 16–24; TEMP 36.6; O2SAT 92–100; BMI 40.4
--- NOTE | 2020-10-30 07:56 | XR_ITS ---
WS: [id number] XR chest 1V portable [id number] REASON FOR EXAM: sob FINDINGS: Moderately tortuous calcified thoracic aorta without aneurysmal dilatation. Cardiac enlargement. Extensive calcified granulomatous disease in the mediastinum and both hilar regions. There is obscura tion of the left hemidiaphragmatic contour which may indicate the presence of left lower lung consoli dation and or pleural effusion. There is a right pleural effusion XR/XR chest 1V portable [id number] IMPRESSION: Pleural fluid and possible left lung consolidation, unknown chronicity. No rece nt examination for comparison.
--- NOTE | 2020-10-30 07:56 | ED_ITS ---
HPI - SOB/Dyspnea General: Chief Complaint: Shortness of Breath/Dyspnea Stated Complaint: RESP DISTRESS/now resolved Time Seen by Provider: 10/30/20 07:50 History of Present Illness: HPI Narrative: Ms. Church is a 75-year-old lady with complex history including recent pneumonia s/p completed antibiotics, stroke, halfway resident who presents emergency department due to initial respiratory distress. She reports being on chronically 4.5 L of oxygen and tends to have fairly low exercise tolerance. She was sitting on the commode earlier and felt like she was left there too long which led to respiratory distress. Currently she was 70% on room air and placed on her home BiPAP as well as given albuterol and EMS was activated. Upon EMS arrival she was somewhat improved. On clinical exam here she is mildly hypotensive with MAP greater than 65 but mentating adequately. She denies other significant changes in health. She denies specific other exacerbating or relieving factors. Review of Systems General: Reports: 10 or more systems reviewed and unremarkable except in HPI and below PFSH ED PFSH: Medical History (Updated 10/30/20 @ 23:11 by Ian Castillo MD) Bilateral carotid artery stenosis Carotid atherosclerosis Chronic kidney disease Congestive heart failure COPD (chronic obstructive pulmonary disease) CVA (cerebral vascular accident) Displaced spiral fracture of shaft of right humerus with routine healing Fracture of humerus, proximal, right, closed History of CVA (cerebrovascular accident) Hyperlipidemia Hypertension Hypothyroidism Surgical History (Updated 10/30/20 @ 23:06 by Ian Castillo MD) History of carpal tunnel release of both wrists History of renal stent Hx of cholecystectomy Family History (Updated 10/30/20 @ 23:07 by Ian Castillo MD) Father Stroke Mother Stroke Social History (Updated 10/30/20 @ 23:07 by Ian Castillo MD) Smoking and tobacco status: former smoker Alcohol intake: never Physical Exam Narrative: EXAM NARRATIVE: GENERAL/CONSTITUTIONAL -chronically ill-appearing. No acute distress. Baseline supplemental oxygen via nasal cannula in place. Eyes - PERRL, no conjunctival injection ENMT - Atraumatic external nose and ears. Moist mucous membranes NECK - supple. trachea midline CARDIOVASCULAR -rate and rhythm. Peripheral pulses 2+ and equal RESPIRATORY -mildly diminished and coarse to auscultation bilaterally. No retractions or accessory muscle use. ABDOMEN/GI - Nontender, Nondistended. No tenderness to percussion or evidence of peritonitis MSK - Extremities without obvious deformity or tenderness to palpation SKIN - Warm, Dry NEURO - alert and appropriately oriented. strength and sensation intact. Moves all extremities equally. PSYCH - Appropriate mood and affect Course ED course: - Patient was seen and evaluated by me at bedside - Patient placed on cardiac monitors, IV access obtained - Initial evaluation notable for no acute distress, nontoxic appearance. Mild hypotension noted with adequate mentation peripheral perfusion. The patient reports a longstanding history of asymmetric blood pressures and upon checking the other arm blood pressures more consistent with patient's clinical picture and not hypotensive. She reports being at her baseline health and largely denies complaints. - Labs notable for leukocytosis which is similar to prior, normocytic anemia. Creatinine similar to prior, mildly up from baseline. - Imaging notable for possible pleural effusion versus consolidation. The patient just completed her last dose of Levaquin earlier today. - Given likely volume overload which is mild given physical exam without significant pitting edema and baseline oxygen requirement Lasix was ordered. - Upon serial reexamination after treatment the patient was similar. The steffaine desai has many complex past medical problems however she appears unchanged from her baseline and denies feeling different from her baseline. - Based on patient history, evaluation, labs, and imaging as interpreted the most likely cause of the patient's condition is unclear, possibly due to persistence of pneumonia with component of mild volume overload as noted by pleural effusions. - The results of ED evaluation were discussed with the patient including prescriptions and/or symptomatic cares (if applicable) including appropriate and responsible use, followup plan, and return precautions. The patient verbalized understanding and felt safe for discharge. - Case management to have close follow-up for patient though initial outpatient follow-up with primary care provider not possible due to her being in a nursing facility. Plan to have her nursing facility call the physician for that facility to review ED evaluation and perhaps titrate diuretic. - Patient discharged in satisfactory condition. Vital Signs: Vital signs: Vital Signs Temperature 97.8 F 10/30/20 07:50 Pulse Rate 80 10/30/20 14:00 Respiratory Rate 20 H 10/30/20 14:00 Blood Pressure 124/62 10/30/20 14:00 Pulse Oximetry 98 10/30/20 14:00 MDM - SOB/Dyspnea 2 Medical Records: Attestation: I reviewed the patient's medical records. Lab Data: Attestation: I reviewed the patient's lab results. Labs: Lab Results 10/30/20 10/30/20 10/30/20 Range/Units 08:10 08:10 08:10 WBC 15.0 H (4.0-10.0) 10^3/ uL RBC 3.52 L (4.1-5.3) 10^6/u L Hgb 9.7 L (11.5-15.3) g/dL Hct 32.1 L (37.0-47.0) % MCV 91.2 (81-99) fl MCH 27.6 L (28.0-34.0) pg MCHC 30.2 (30.0-36.0) g/dL RDW 16.5 H (12.1-15.1) % Plt Count 331 (130-400) 10^3/c mm MPV 9.4 (7.4-10.4) fL Neut % (Auto) 85.0 % Lymph % (Auto) 6.7 % [place] % (Auto) 5.5 % Eos % (Auto) 0.7 % Baso % (Auto) 0.2 % Neut # (Auto) 12.71 H (1.8-7.7) 10^3/u L Lymph # (Auto) 1.0 (0.8-4.8) 10^3/u L [place] # (Auto) 0.8 (0.2-0.9) 10^3/u L Eos # (Auto) 0.1 (0.0-0.8) 10^3/u L Baso # (Auto) 0.0 (0.0-0.1) 10^3/u L Nucleated RBC % (a uto) 0 % Nucleated RBCs # 0.0 /100WBC Specimen Type Sample Site ABG pH (7.35-7.45) ABG pCO2 (35-45) mmHg ABG pO2 (80.0-100.0) mmH g ABG HCO3 (22-26) mmol/L ABG Base Excess (-2.0-2.0) mmol/ L Julio Test Hematocrit (37-47) % Hgb O2 Saturation (95-100) % Carboxyhemoglobin (0.4-20.1) %THgb Methemoglobin (0.4-1.5) % Total Hemoglobin (12-16) g/dL O2 Delivery Device O2 Liters/Min % FiO2 % Cnc Operator ID Sodium 138 (136-145) mmol/L Potassium 4.4 (3.5-5.1) mmol/L Chloride 93 L (98-107) mmol/L Carbon Dioxide 38 H (22-29) mmol/L Anion Gap 12.4 (5-19) BUN 32 H (8-23) mg/dL Creatinine 1.6 H (0.5-0.9) mg/dL GFR Calculation Not Reportable Glucose 101 (65-115) mg/dL Calculated Osmolal ity 295 (285-295) mOsm/k g Calcium 8.2 L (8.5-10.5) mg/dL Troponin T Baselin e 52 H (0-10) ng/L Troponin T 120 Min pamunkey (0-10) ng/L Delta Troponin T (0-10) ABS# NT-Pro-B Natriuret Pep 9612 H (0-450) pg/mL Procalcitonin 0.10 (0-0.5) ng/mL 10/30/20 10/30/20 Range/Units 08:18 10:00 WBC (4.0-10.0) 10^3/ uL RBC (4.1-5.3) 10^6/u L Hgb (11.5-15.3) g/dL Hct (37.0-47.0) % MCV (81-99) fl MCH (28.0-34.0) pg MCHC (30.0-36.0) g/dL RDW (12.1-15.1) % Plt Count (130-400) 10^3/c mm MPV (7.4-10.4) fL Neut % (Auto) % Lymph % (Auto) % [place] % (Auto) % Eos % (Auto) % Baso % (Auto) % Neut # (Auto) (1.8-7.7) 10^3/u L Lymph # (Auto) (0.8-4.8) 10^3/u L [place] # (Auto) (0.2-0.9) 10^3/u L Eos # (Auto) (0.0-0.8) 10^3/u L Baso # (Auto) (0.0-0.1) 10^3/u L Nucleated RBC % (a uto) % Nucleated RBCs # /100WBC Specimen Type Arterial Sample Site Radial, left ABG pH 7.48 H (7.35-7.45) ABG pCO2 54.4 H (35-45) mmHg ABG pO2 96.1 (80.0-100.0) mmH g ABG HCO3 40.0 H (22-26) mmol/L ABG Base Excess 14.6 H (-2.0-2.0) mmol/ L Julio Test Pos Hematocrit 28.2 L (37-47) % Hgb O2 Saturation 95.8 (95-100) % Carboxyhemoglobin 1.8 (0.4-20.1) %THgb Methemoglobin 0.9 (0.4-1.5) % Total Hemoglobin 9.2 L (12-16) g/dL O2 Delivery Device Nc O2 Liters/Min 4.5 % FiO2 38.0 % Cnc Operator ID Cak Sodium (136-145) mmol/L Potassium (3.5-5.1) mmol/L Chloride (98-107) mmol/L Carbon Dioxide (22-29) mmol/L Anion Gap (5-19) BUN (8-23) mg/dL Creatinine (0.5-0.9) mg/dL GFR Calculation Glucose (65-115) mg/dL Calculated Osmolal ity (285-295) mOsm/k g Calcium (8.5-10.5) mg/dL Troponin T Baselin e (0-10) ng/L Troponin T 120 Min pamunkey 52.58 H (0-10) ng/L Delta Troponin T 0.58 (0-10) ABS# NT-Pro-B Natriuret Pep (0-450) pg/mL Procalcitonin (0-0.5) ng/mL EKG Data^: EKG 1: Attestation: I personally reviewed and interpreted this EKG as follows: EKG Interpretation Date: 10/31/20 EKG interpretation time: 08:31 Interpretation: Twelve-lead EKG shows a regular sinus rhythm at a rate of 77. WA interval 155, QRS duration 133, QTc 451.\Indeterminate axis Interpretation: Sinus rhythm, right bundle branch block. EKG 2: Attestation: I personally reviewed and interpreted this EKG as follows: EKG Interpretation Date: 10/30/20 EKG interpretation time: 10:08 Interpretation: Twelve-lead EKG shows a regular sinus rhythm with a rate of 86. WA interval 178, QRS duration 133, QTc 457. Indeterminate axis. Interpretation: Sinus rhythm. Right bundle branch block. Similar to prior. Discharge Plan Discharge Patient Disposition: Home Clinical Impression: Congestive heart failure Community acquired pneumonia Qualifiers: Laterality: right Lung location: unspecified part of lung Qualified Code(s): J18.9 - Pneumonia, unspecified organism Condition: Stable Prescriptions: New levofloxacin 750 mg tablet 750 mg PO Q24H 5 Days Qty: 5 RF: 0 No Action clonazepam [Klonopin] 1 mg tablet 0.5 mg PO DAILY RF: 0 alprazolam 0.5 mg tablet 0.5 mg PO QID PRN (Reason: Anxiety) RF: 0 levothyroxine 175 mcg Tablet 175 mcg PO DAILY RF: 0 acetaminophen 325 mg Tablet 325 mg PO QID PRN (Reason: Pain) RF: 0 DuoNeb 0.5 mg-3 mg(2.5 mg base)/3 mL Solution For Nebulization 0.5 ml INHALATION TID RF: 0 Milk of Magnesia 400 mg/5 mL Suspension 400 mg PO DAILY PRN (Reason: Constipation) RF: 0 Dulcolax (bisacodyl) 10 mg Suppository 10 mg WA DAILY PRN (Reason: Constipation) RF: 0 calcium carbonate 200 mg calcium (500 mg) Tablet,Chewable 200 mg PO BID PRN (Reason: Heartburn) RF: 0 Fleet Enema 19-7 gram/118 mL Enema 118 ml WA DAILY PRN (Reason: Constipation) RF: 0 fluoxetine 20 mg capsule 20 mg PO DAILY@0800 RF: 0 Artificial Tears (glycerin) Drops 2 drp OPHTHALMIC (EYE) Q4H PRN (Reason: Dry Eyes) RF: 0 Multivitamin And Mineral Tablet 1 tab PO DAILY@0800 RF: 0 Saline Nasal 0.65 % Aerosol,[place] 1 spray INTRANASAL QID PRN (Reason: UNKNOWN) RF: 0 metoprolol tartrate 25 mg tablet 12.5 mg PO BID@0800,2000 RF: 0 albuterol sulfate 2.5 mg/0.5 mL Solution For Nebulization 2.5 mg inhalation Q4H PRN (Reason: SOB/WHEEZING) RF: 0 Eliquis 5 mg tablet 5 mg PO BID@0800,1999 RF: 0 furosemide 40 mg tablet 40 mg PO BID RF: 0 atorvastatin 10 mg tablet 10 mg PO DAILY@0800 RF: 0 Discharge Orders: Discharge ED (Routine); Ordered 10/30/20 Ordered By: Krishna Barba Referrals: Marco Antonio Thompson MD [Primary Care Provider] - Discharge Diet: Usual diet Discharge Activity: Resume usual activity Patient Instructions: Heart Failure (ED), Pleural Effusion (ED), Pneumonia (ED) Activity Restrictions/Additional Instructions: Thank you for visiting the emergency department. You were seen and evaluated for an event of respiratory distress that resolved prior to arrival. The exact cause of your symptoms is unclear. You probably have a component of fluid overload in addition to possibly continued pneumonia. Your course of antibiotics will be extended and you received Lasix in the emergency department. Please follow-up with your primary care provider in the next day or 2. Please return to the emergency department for repeated symptoms, worsening of your breathing, or anything else that you are concerned about and feel needs emergency department evaluation. Coding Level of Care Code ED Wire Stitcher for Pattie Cisneros
--- NOTE | 2020-10-30 07:57 | ECG_ITS ---
[facility] Test Date: 2020-10-30 Pat Name: Elzbieta Church Department: Room: Gender: Female Account Installation Specialist: : 1945 Requested By: Krishna Barba Order Number: [id number] Jas MD: Leticia Galindo M.D. Measurements Intervals [place] Rate: 77 P: -36 GA: 155 QRS: 73 QRSD: 133 T: -4 QT: 397 QTc: 451 Interpretive Statements SINUS RHYTHM WITH OCCASIONAL SUPRAVENTRICULAR PREMATURE COMPLEXES RIGHT BUNDLE BRANCH BLOCK [120+ ms QRS DURATION, UPRIGHT V1, 40+ ms S IN I/aVL/V4/V5/V6] Compared to ECG 10/12/2020 16:49:58 No significant changes Electronically Signed On 10-31-2020 18:54:31 CDT by Leticia Galindo M.D. [email or web address] [id number]
[2020-10-30] MEDS: ipratropium-albuterol 3 mL Neb INHALATION (08:14)
[2020-10-30 08:22] LABS: Basophils % 0.2 %; Eosinophils # 0.1 10^3/uL (0.0-0.8); Eosinophils % 0.7 %; Hematocrit 32.1 % (37.0-47.0); Hemoglobin 9.7 g/dL (11.5-15.3); Lymphocytes % 6.7 %; Mean Corpuscular HGB Conc 30.2 g/dL (30.0-36.0); Mean Corpuscular Hemoglobin 27.6 pg (28.0-34.0); Mean Corpuscular Volume 91.2 fl (81-99); Mean Platelet Volume 9.4 fL (7.4-10.4); Monocytes # 0.8 10^3/uL (0.2-0.9); Monocytes % 5.5 %; Neutrophils # 12.71 10^3/uL (1.8-7.7); Nucleated Red Blood Cells % 0 %; Platelet Count 331 10^3/cmm (130-400); Red Blood Count 3.52 10^6/uL (4.1-5.3); Red Cell Distribution Width 16.5 % (12.1-15.1)
[2020-10-30] MEDS: sodium chloride 0.9% 500 ML 999 ML IV (08:30)
[2020-10-30 08:32] LABS: ABG PCO2 54.4 mmHg (35-45); ABG PH Result 7.48 (7.35-7.45); Arterial Blood Gas Hematocrit 28.2 % (37-47); Base Excess ABG 14.6 mmol/L (-2.0-2.0); Blood Gas Allen Test Pos; Blood Gas LPM 4.5 %; Blood Gas Operator Identificat CAK; Blood Gas Sample Site Radial, left; Blood Gas Sample Type Arterial; Carboxyhemoglobin 1.8 %THgb (0.4-20.1); HGB O2 Sat 95.8 % (95-100); Methemoglobin 0.9 % (0.4-1.5); Oxygen Device NC; PO2 ABG 96.1 mmHg (80.0-100.0); Total Hemoglobin 9.2 g/dL (12-16)
[2020-10-30 08:41] LABS: Troponin(5th) Baseline 52 ng/L (0-10)
[2020-10-30 08:48] LABS: NT Pro B Type Natriuretic Pept 9612 pg/mL (0-450)
[2020-10-30 08:53] LABS: Potassium 4.4 mmol/L (3.5-5.1); Sodium 138 mmol/L (136-145)
[2020-10-30 09:03] LABS: Anion Gap 12.4 (5-19); Blood Urea Nitrogen 32 mg/dL (8-23); Calcium 8.2 mg/dL (8.5-10.5); Carbon Dioxide 38 mmol/L (22-29); Chloride 93 mmol/L (98-107); Glucose 101 mg/dL (65-115); Osmolality Calculated 295 mOsm/kg (285-295)
[2020-10-30] MEDS: doxycycline 100 MG in sodium chloride 0.9% (plus) 100 ML IV (09:38)
[2020-10-30] MEDS: amiodarone 200 mg Tablet PO (09:55)
[2020-10-30] MEDS: clopidogrel 75 mg Tablet PO (09:55)
[2020-10-30] MEDS: FUROsemide 10 mg/mL SDV 4mL 40 MG IVP (09:57)
--- NOTE | 2020-10-30 09:57 | ECG_ITS ---
[facility] Test Date: 2020-10-30 Pat Name: Elzbieta Church Department: Room: Gender: Female Ruby Software Developer: : 1945 Requested By: Krishna Barba Order Number: [id number] Jas MD: Leticia Galindo M.D. Measurements Intervals [place] Rate: 86 P: 55 FL: 178 QRS: 78 QRSD: 133 T: -5 QT: 382 QTc: 457 Interpretive Statements SINUS RHYTHM WITH FREQUENT SUPRAVENTRICULAR PREMATURE COMPLEXES RIGHT BUNDLE BRANCH BLOCK [120+ ms QRS DURATION, UPRIGHT V1, 40+ ms S IN I/aVL/V4/V5/V6] Compared to ECG 10/30/2020 08:27:58 No significant changes Electronically Signed On 10-31-2020 19:21:04 CDT by Leticia Galindo M.D. [id number]
[2020-10-30 10:40] LABS: Troponin 5 2HR 52.58 ng/L (0-10); Troponin 5 2HR Delta 0.58 ABS# (0-10)
--- NOTE | 2020-10-30 13:23 | DCPLANNER ---
biofuels production manager had message to schedule a follow up appointment for patient with primary care. Patient is in [facility]. biofuels production manager called [facility], spoke with patients nurse. Dr. Del Castillo is the physician at the [facility], he will be back in the facility next week and will see patient when he is in the facility. biofuels production manager explained this to ER physician, he wanted case planner to call [facility] back, speak with the nurse and have the nurse speak with the physician at the facility to have them review patients information from ER visit, to make any necessary medication changes. biofuels production manager called the [facility], spoke with patients nurse Codie. Nurse stated that she would speak with the physician.
== END 2020-10-30 14:50 | disposition home or self-care (01) ==
PROVIDERS: Emergency Provider Emergency Medicine; PCP Family Medicine
DX: J44.0 Chronic obstructive pulmonary disease with (acute) lower respiratory infection (principal); J18.9 Pneumonia, unspecified organism; I11.0 Hypertensive heart disease with heart failure; I50.9 Heart failure, unspecified; Z79.01 Long term (current) use of anticoagulants; Z86.73 Personal history of transient ischemic attack (TIA), and cerebral infarction without residual deficits; E78.5 Hyperlipidemia, unspecified; Z87.891 Personal history of nicotine dependence
CPT/HCPCS: 36600; 71045; 80048; 82805; 83880; 84145; 84484; 85025; 93005; 94640; 96365; 96375; 99285; J1940; J2930; J3490; J7040

== ENCOUNTER 2020-10-30 18:38 | Emergency (ER) | payer MEDICARE, OTHER, SELFPAY ==
[2020-10-30] VITALS (8 sets, daily range): BP systolic 78–98; BP diastolic 46–65; PULSE 91–127; RESP 18–22; TEMP 36.6–36.8; O2SAT 93–99; BMI 41.0
--- NOTE | 2020-10-30 19:02 | CTR_ITS ---
PROCEDURE INFORMATION: Exam: CTA Chest With Contrast Exam date and time: 10/30/2020 7:02 PM Age: 75 years old Clinical indication: Shortness of breath; Prior surgery; Surgery type: Lung; Patient HX: HX of sarcoma; Additional info: cholo SIDHU TECHNIQUE: Imaging protocol: Computed tomographic angiography of the chest with contrast. 3D rendering (Not supervised by radiologist): MIP and/or 3D reconstructed images were created by the technologist. Total images: 887 Radiation optimization: All CT scans at this facility use at least one of these dose optimization techniques: automated exposure control; mA and/or kV adjustment per patient size (includes targeted exams where dose is matched to clinical indication); or iterative reconstruction. Contrast material: VISI 320; Contrast volume: 88 ml; Contrast route: INTRAVENOUS (IV); COMPARISON: CT chest wo [facility] [id number] 01/13/2018 2:19 PM RADIATION DOSE METRICS: Total DLP (mGy-cm): 570.96 FINDINGS: Pulmonary arteries: No visible evidence of pulmonary embolism/pulmonary arterial thrombus. Aorta: The thoracic aorta is nonaneurysmal. No grossly visible intimal flap or dissection. Moderately advanced arterial sclerotic disease. Other arteries: Right renal artery stent. Lungs: Bilateral lower lobe and right middle lobe consolidated alveolar airspace disease of segmental volume which could reflect atelectasis, focal edema, and/or pneumonia. Findings of mild interstitial edema/pulmonary edema, right lung more involved than left. Centrilobular emphysema. COPD/chronic bronchitis. Mild senile fibrosis. Pleural spaces: Small right pleural effusion. Heart: Cardiomegaly. Left ventricular prominence. No visible pericardial effusion. Advanced 3 vessel coronary artery disease. Lymph nodes: No visible evidence of active mediastinal or hilar lymphadenopathy. Calcified complexes of antecedent granulomatous disease. Few marginally prominent aortopulmonic and pretracheal nodes that have been stable since 01/13/2018. Gallbladder and bile ducts: Status post cholecystectomy. Bones/joints: No visible active or acute osseous pathology. Old right rib fractures. Antecedent compression wedge fracture T11. Age-appropriate degenerative disease and degenerative disc disease of the spine. Soft tissues: Obesity. CT/CT angio chest [place] protcl [id number] IMPRESSION: 1. No visible evidence of pulmonary embolism/pulmonary arterial thrombus. 2. Bilateral lower lobe and right middle lobe consolidated alveolar airspace disease of segmental volume which could reflect atelectasis, focal edema, and/or pneumonia. 3. Findings of mild interstitial edema/pulmonary edema, right lung more involved than left. 4. Centrilobular emphysema. COPD/chronic bronchitis. 5. Small right pleural effusion. 6. Cardiomegaly. 7. Advanced 3 vessel coronary artery disease. 8. Antecedent granulomatous disease. Radiation Dose CTDIVOL = (mGy): DLP = 570.96 (mGy-cm)
--- NOTE | 2020-10-30 20:10 | ED_ITS ---
HPI - SOB/Dyspnea General: Chief Complaint: Shortness of Breath/Dyspnea Stated Complaint: HYPOXIA Time Seen by Provider: 10/30/20 18:47 History of Present Illness: HPI Narrative: Patient is a 75-year-old female with a past medical history of COPD congestive heart failure among other complicated past medical history. She was seen here this morning for hypoxia. Was worked up and discharged on her home oxygen. When she returned back to the emergency department they were unable to find a blood pressure on her so they returned her here. States she has not had any new symptoms this since this morning. States she is chronically short of breath has been worse over the last week. No fevers chills chest pain nausea vomiting diarrhea altered mental status or syncope. Review of Systems General: Reports: 10 or more systems reviewed and unremarkable except in HPI and below PFSH ED PFSH: Medical History Displaced spiral fracture of shaft of right humerus with routine healing Fracture of humerus, proximal, right, closed Physical Exam Const: COMMON NORMALS: no acute distress, patient oriented x3, no limitations, healthy appearing and well nourished GENERAL APPEARANCE: cooperative, comfortable and well developed; not in distress, not anxious, not combative, not lethargic and not ill appearing NUTRITIONAL APPEARANCE: obese ORIENTATION/CONSCIOUSNESS: not lethargic HENMT: COMMON NORMALS: normocephalic and atraumatic HEAD & SCALP: normocephalic and atraumatic Eye: COMMON NORMALS: Equal, round and reactive pupils present and EOMs intact bilaterally PUPIL: Yes Equal, round and reactive pupils present Neck/C-Spine: COMMON NORMALS: no JVD Resp: COMMON NORMALS: normal respiratory effort, No retractions, No use of accessory muscles and clear to auscultation bilaterally EFFORT & INSPECTION: Yes able to speak in complete sentences, Yes symmetric chest movement, No abnormal respiratory pattern, No tachypneic and No respiratory distress AUSCULTATION: clear to auscultation bilaterally Cardio: COMMON NORMALS: no JVD, regular rate and regular rhythm RATE: regular rate RHYTHM: regular rhythm GI: COMMON NORMALS: Normal to inspection, nondistended, normoactive bowel sounds present and Soft to palpation PALPATION: Yes Soft to palpation Extremity: COMMON NORMALS: normal to inspection, full ROM, capillary refill normal and no clubbing, cyanosis or edema Neuro: COMMON NORMALS: patient oriented x3 and CN's II-XII intact bilaterally SENSORIUM/ORIENTATION: No lethargic Psych: COMMON NORMALS: mental status grossly normal and Normal thought process present THOUGHT PROCESS: Normal thought process present Skin: COMMON NORMALS: no rashes or lesions noted and no wounds GENERAL SKIN EXAM: no rashes or lesions noted Course ED course: Patient is well-appearing in no acute respiratory distress. She is however very tachycardic in 120s to 130s. Moderately hypotensive with a MAP of 67. She is mentating appropriately has good capillary refill so do not think she is septic at this point. Do have some concern about possible PEs we will get a CT on her. Reviewed labs and imaging from earlier.find any significant abnormalities but will repeat them here. Limited bedside ultrasound shows relatively poor left ventricular output but no cardiac wall abnormalities no pericardial effusion or tamponade. IVC seems to be normal. Do not think that she is hypovolemic and given her heart failure and elevated BNP from earlier today would be loath to give her a large fluid bolus we will give her 500 mL and reassess see if it brings her blood pressure. After 500 mL fluid blood pressure seems to be about the same with a MAP of 68- 70. Still mentating well. CT showed possible lower right middle lobe pneumonia. But no pulmonary malaise and. Will start Rocephin on her. Get blood cultures and wait for lactate. Will need to admit her for sepsis criteria Given her congestive heart failure will need to be very careful about fluid resuscitation. We will going to give her another 500mL bolus but not a full 30 mL/kg kilogram as this Patient's lactic acid was 4.0. She does have good capillary refill and good mental status. Will discuss admission for sepsis secondary to pneumonia with hospitalist Vital Signs: Vital signs: Vital Signs Temperature 98 F 10/30/20 20:41 Pulse Rate 124 H 10/30/20 20:41 Respiratory Rate 22 H 10/30/20 20:41 Blood Pressure 88/58 10/30/20 20:41 Pulse Oximetry 96 10/30/20 20:41 MDM - SOB/Dyspnea MDM Narrative: Medical decision making narrative: Pulmonary embolism, sepsis, pneumonia, hypoxia, Covid is on the differential. Patient is in no acute respiratory distress vital signs do have some concern given tachycardia and hypotension. Not requiring any oxygen past her normal Lab Data: Attestation: I reviewed the patient's lab results. Labs: Lab Results 10/30/20 10/30/20 10/30/20 Range/Units 20:22 20:22 20:22 WBC 12.8 H (4.0-10.0) 10^3/ uL RBC 3.78 L (4.1-5.3) 10^6/u L Hgb 10.3 L (11.5-15.3) g/dL Hct 34.7 L (37.0-47.0) % MCV 91.8 (81-99) fl MCH 27.2 L (28.0-34.0) pg MCHC 29.7 L (30.0-36.0) g/dL RDW 16.7 H (12.1-15.1) % Plt Count 369 (130-400) 10^3/c mm MPV 9.5 (7.4-10.4) fL Neut % (Auto) 93.3 % Lymph % (Auto) 3.2 % Louisa % (Auto) 1.5 % Eos % (Auto) 0.0 % Baso % (Auto) 0.1 % Neut # (Auto) 11.98 H (1.8-7.7) 10^3/u L Lymph # (Auto) 0.4 L (0.8-4.8) 10^3/u L Louisa # (Auto) 0.2 (0.2-0.9) 10^3/u L Eos # (Auto) 0.0 (0.0-0.8) 10^3/u L Baso # (Auto) 0.0 (0.0-0.1) 10^3/u L Nucleated RBC % (a uto) 0 % Nucleated RBCs # 0.0 /100WBC Sodium 137 (136-145) mmol/L Potassium 4.3 (3.5-5.1) mmol/L Chloride 91 L (98-107) mmol/L Carbon Dioxide 35 H (22-29) mmol/L Anion Gap 15.3 (5-19) BUN 36 H (8-23) mg/dL Creatinine 1.8 H (0.5-0.9) mg/dL GFR Calculation Not Reportable Glucose 167 H (65-115) mg/dL Calculated Osmolal ity 296 H (285-295) mOsm/k g Lactic Acid 4.0 H (0.5-2.2) mmol/L Calcium 8.6 (8.5-10.5) mg/dL Magnesium 2.1 (1.7-2.3) mg/dL Total Bilirubin 0.4 (0.15-1.2) mg/dL AST 13 (0-32) U/L ALT 38 H (0-33) U/L Alkaline Phosphata se 142 H (35-105) IU/L Total Protein 5.9 L (6.6-8.7) g/dL Albumin 3.3 L (3.5-5.2) g/dL Globulin 2.6 (1.3-4.6) g/dL SARS-CoV-2 Ag (Rap id) (Negative) 10/30/20 Range/Units 20:22 WBC (4.0-10.0) 10^3/ uL RBC (4.1-5.3) 10^6/u L Hgb (11.5-15.3) g/dL Hct (37.0-47.0) % MCV (81-99) fl MCH (28.0-34.0) pg MCHC (30.0-36.0) g/dL RDW (12.1-15.1) % Plt Count (130-400) 10^3/c mm MPV (7.4-10.4) fL Neut % (Auto) % Lymph % (Auto) % Louisa % (Auto) % Eos % (Auto) % Baso % (Auto) % Neut # (Auto) (1.8-7.7) 10^3/u L Lymph # (Auto) (0.8-4.8) 10^3/u L Louisa # (Auto) (0.2-0.9) 10^3/u L Eos # (Auto) (0.0-0.8) 10^3/u L Baso # (Auto) (0.0-0.1) 10^3/u L Nucleated RBC % (a uto) % Nucleated RBCs # /100WBC Sodium (136-145) mmol/L Potassium (3.5-5.1) mmol/L Chloride (98-107) mmol/L Carbon Dioxide (22-29) mmol/L Anion Gap (5-19) BUN (8-23) mg/dL Creatinine (0.5-0.9) mg/dL GFR Calculation Glucose (65-115) mg/dL Calculated Osmolal ity (285-295) mOsm/k g Lactic Acid (0.5-2.2) mmol/L Calcium (8.5-10.5) mg/dL Magnesium (1.7-2.3) mg/dL Total Bilirubin (0.15-1.2) mg/dL AST (0-32) U/L ALT (0-33) U/L Alkaline Phosphata se (35-105) IU/L Total Protein (6.6-8.7) g/dL Albumin (3.5-5.2) g/dL Globulin (1.3-4.6) g/dL SARS-CoV-2 Ag (Rap id) Negative (Negative) Discharge Plan Discharge Prescriptions: No Action clonazepam [Klonopin] 1 mg tablet 0.5 mg PO DAILY RF: 0 alprazolam 0.5 mg tablet 0.5 mg PO QID PRN (Reason: Anxiety) RF: 0 levothyroxine 175 mcg Tablet 175 mcg PO DAILY RF: 0 acetaminophen 325 mg Tablet 325 mg PO QID PRN (Reason: Pain) RF: 0 DuoNeb 0.5 mg-3 mg(2.5 mg base)/3 mL Solution For Nebulization 0.5 ml INHALATION TID RF: 0 Milk of Magnesia 400 mg/5 mL Suspension 400 mg PO DAILY PRN (Reason: Constipation) RF: 0 Dulcolax (bisacodyl) 10 mg Suppository 10 mg CA DAILY PRN (Reason: Constipation) RF: 0 calcium carbonate 200 mg calcium (500 mg) Tablet,Chewable 200 mg PO BID PRN (Reason: Heartburn) RF: 0 Fleet Enema 19-7 gram/118 mL Enema 118 ml CA DAILY PRN (Reason: Constipation) RF: 0 fluoxetine 20 mg capsule 20 mg PO DAILY@0800 RF: 0 Artificial Tears (glycerin) Drops 2 drp OPHTHALMIC (EYE) Q4H PRN (Reason: Dry Eyes) RF: 0 Multivitamin And Mineral Tablet 1 tab PO DAILY@0800 RF: 0 Saline Nasal 0.65 % Aerosol,[place] 1 spray INTRANASAL QID PRN (Reason: UNKNOWN) RF: 0 metoprolol tartrate 25 mg tablet 12.5 mg PO BID@799,1999 RF: 0 albuterol sulfate 2.5 mg/0.5 mL Solution For Nebulization 2.5 mg inhalation Q4H PRN (Reason: SOB/WHEEZING) RF: 0 Eliquis 5 mg tablet 5 mg PO BID@799,1999 RF: 0 furosemide 40 mg tablet 40 mg PO BID RF: 0 levofloxacin 750 mg tablet 750 mg PO Q24H 5 Days Qty: 5 RF: 0 atorvastatin 10 mg tablet 10 mg PO DAILY@0800 RF: 0 Coding Level of Care Code ED 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
[2020-10-30 20:33] LABS: Basophils % 0.1 %; Hematocrit 34.7 % (37.0-47.0); Hemoglobin 10.3 g/dL (11.5-15.3); Lymphocytes # 0.4 10^3/uL (0.8-4.8); Lymphocytes % 3.2 %; Mean Corpuscular HGB Conc 29.7 g/dL (30.0-36.0); Mean Corpuscular Hemoglobin 27.2 pg (28.0-34.0); Mean Corpuscular Volume 91.8 fl (81-99); Mean Platelet Volume 9.5 fL (7.4-10.4); Monocytes # 0.2 10^3/uL (0.2-0.9); Monocytes % 1.5 %; Neutrophils # 11.98 10^3/uL (1.8-7.7); Neutrophils % 93.3 %; Nucleated Red Blood Cells % 0 %; Platelet Count 369 10^3/cmm (130-400); Red Blood Count 3.78 10^6/uL (4.1-5.3); Red Cell Distribution Width 16.7 % (12.1-15.1); White Blood Count 12.8 10^3/uL (4.0-10.0)
[2020-10-30 20:57] LABS: SARS Covid-2 Antigen Negative (Negative)
[2020-10-30 20:58] LABS: Alanine Aminotransferase 38 U/L (0-33); Albumin Level 3.3 g/dL (3.5-5.2); Alkaline Phosphatase 142 IU/L (35-105); Anion Gap 15.3 (5-19); Aspartate Amino Transferase 13 U/L (0-32); Blood Urea Nitrogen 36 mg/dL (8-23); Calcium 8.6 mg/dL (8.5-10.5); Carbon Dioxide 35 mmol/L (22-29); Chloride 91 mmol/L (98-107); Globulin 2.6 g/dL (1.3-4.6); Glucose 167 mg/dL (65-115); Magnesium 2.1 mg/dL (1.7-2.3); Osmolality Calculated 296 mOsm/kg (285-295); Potassium 4.3 mmol/L (3.5-5.1); Sodium 137 mmol/L (136-145); Total Bilirubin 0.4 mg/dL (0.15-1.2); Total Protein 5.9 g/dL (6.6-8.7)
[2020-10-30] MEDS: sodium chloride 0.9% 500 ML 999 ML IV ×2 (21:01→21:35)
[2020-10-30 21:02] LABS: NT Pro B Type Natriuretic Pept 8264 pg/mL (0-450)
[2020-10-30] MEDS: cefTRIAXone 1,000 MG in sodium chloride 0.9% (plus) 50 ML 100 MG IV (21:35)
--- NOTE | 2020-10-30 22:03 | PC.NURSE ---
Blood pressure has been reported to Dr Dodson.
[2020-10-30 22:17] LABS: Reflex Lactate Order REFLEX LACTIC ORDERD
--- NOTE | 2020-10-30 22:24 | PC.NURSE ---
Dr Castillo notified of blood pressure.
--- NOTE | 2020-10-30 22:56 | P.HP_ITS ---
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 fib on Eliquis, hypertension, hyperlipidemia, hypothyroidism, CAD, COPD chronically 4 L oxygen dependent, CKD, history of right wrist fracture in a cast, who presents to [facility] due to complaints of cough and shortness of breath. Patient was recently discharged from [facility] in November 01, 2020, to [facility], she has been getting physical therapy there, for residual right upper right lower extremity weakness, she ambulates with a walker, she can feed herself, she is alert oriented x3, she was tested, negative for Covid on October 28, 2020, she tells me that recently she has been experiencing increased shortness of breath with exertion, shortness of breath at rest, productive cough, yellow-green sputum, no fevers, no chest pain, no palpitations, no lightheadedness, no dizziness, no recent falls. She presented to [facility] was diagnosed with a pneumonia, was put on Levaquin, she has finished roughly 5 days of Levaquin, however she continues to have shortness of breath, cough, fatigue, malaise so she she was brought back to the emergency room. In the emergency room patient was hypotensive, tachycardic, she was given a liter bolus, found to be in CHF, BNP elevated over 8000, leukocytosis, lactic acid 4, on 4 L, patient since septic shock. CT angiogram of the chest shows bilateral lower lobe and right middle lobe consolidation, lik roque evidence of healthcare associated pneumonia. Currently we do not have ICU beds, I have advised ER physician that patient will be in ICU hold in the ER, however they should call different facilities to see if she can be transferred for ICU beds Review of Systems Const: Reports: fatigue and malaise; Denies: fever(s) or chills Eyes: Denies: change in vision or blurry vision ENMT: Denies: nasal congestion Card: Denies: chest pain, palpitations or edema Resp: Reports: dyspnea and non-productive cough; Denies: productive cough or wheezing GI: Denies: abdominal pain, nausea, vomiting, hematemesis, diarrhea, constipation, hematochezia or melena : Denies: flank pain, dysuria, urinary frequency or oliguria Musc: Reports: joint pain; Denies: neck pain or back pain Skin/Breast: Denies: rash Neuro: Denies: headache(s), dizziness or vertigo Psych: Denies: anxiety or depression Endo: Denies: polyuria or polydipsia Medications/Allergies Home Medications Medication Instructions Recorded Confirmed Last Taken Type alprazolam 0.5 mg tablet 0.5 mg PO QID PRN 02/20/19 10/30/20 Unknown History clonazepam 1 mg tablet 0.5 mg PO DAILY 02/20/19 10/30/20 10/29/20 History atorvastatin 10 mg PO DAILY@0800 10/12/20 10/30/20 10/29/20 History acetaminophen 325 mg PO QID PRN 10/30/20 10/30/20 Unknown History albuterol sulfate 2.5 mg INHALATION Q4H PRN 10/30/20 10/30/20 Unknown History apixaban [Eliquis] 5 mg PO BID@08,199910/30/20 10/30/20 10/29/20 History bisacodyl [Dulcolax (bisacodyl)] 10 mg FL DAILY PRN 10/30/20 10/30/20 Unknown History calcium carbonate 200 mg PO BID PRN 10/30/20 10/30/20 Unknown History fluoxetine 20 mg PO DAILY@0800 10/30/20 10/30/20 10/29/20 History furosemide 40 mg PO BID 10/30/20 10/30/20 10/29/20 History glycerin [Artificial Tears 2 drp OPHTHALMIC (EYE) Q4H PRN 10/30/20 10/30/20 Unknown History (glycerin)] ipratropium-albuterol [DuoNeb] 0.5 ml INHALATION TID 10/30/20 10/30/20 10/30/20 History levofloxacin 750 mg PO Q24H 5 Days #5 tab 10/30/20 Unknown Rx levothyroxine 175 mcg PO DAILY 10/30/20 10/30/20 10/29/20 History magnesium hydroxide [Milk of 400 mg PO DAILY PRN 10/30/20 10/30/20 Unknown History Magnesia] metoprolol tartrate 12.5 mg PO BID@0800,199910/30/20 10/30/20 10/29/20 History multivitamin,oa-xoec-Wk-FA-min 1 tab PO DAILY@0800 10/30/20 10/30/20 10/29/20 History [Multivitamin And Mineral] sodium chloride [Saline Nasal] 1 spray INTRANASAL QID PRN 10/30/20 10/30/20 10/29/20 History sodium phosphates [Fleet Enema] 118 ml FL DAILY PRN 10/30/20 10/30/20 Unknown History Allergies Allergy/AdvReac Type Severity Reaction Status Date / Time codeine Allergy unknown Verified 10/12/20 16:55 ketoprofen [From Oruvail] Allergy unknown Verified 10/12/20 16:55 nitrofurantoin Allergy unknown Verified 10/12/20 16:55 [From Macrobid] olmesartan [From Benicar] Allergy unknown Verified 10/12/20 16:55 quinapril [From Accupril] Allergy unknown Verified 10/12/20 16:55 Zobavvm-Zfu-Yin Reductase Allergy unknowm Verified 10/12/20 16:55 Inhibitor PFSH Acute PFSH: Medical History (Updated 10/30/20 @ 23:11 by Ian Castillo MD) Bilateral carotid artery stenosis Carotid atherosclerosis Chronic kidney disease Congestive heart failure COPD (chronic obstructive pulmonary disease) CVA (cerebral vascular accident) Displaced spiral fracture of shaft of right humerus with routine healing Fracture of humerus, proximal, right, closed History of CVA (cerebrovascular accident) Hyperlipidemia Hypertension Hypothyroidism Surgical History (Updated 10/30/20 @ 23:06 by Ian Castillo MD) History of carpal tunnel release of both wrists History of renal stent Hx of cholecystectomy Family History (Updated 10/30/20 @ 23:07 by Ian Castillo MD) Father Stroke Mother Stroke Social History (Updated 10/30/20 @ 23:07 by Ian Castillo MD) Smoking and tobacco status: former smoker Alcohol intake: never Substance/Drug Use: never Vitals/I&O/Wt Last Vital Signs Temp 98.2 F 10/30/20 21:41 Pulse 91 10/30/20 22:21 Resp 22 H 10/30/20 22:21 BP 80/46 10/30/20 22:21 Pulse Ox 93 10/30/20 22:21 10/30/20 10/30/20 10/30/20 06:59 14:59 22:59 Intake Total 550 / 550 Balance 550 / 550 Weight last 48 hrs Weight 95.254 kg Physical Exam Const: COMMON NORMALS: no acute distress and patient oriented x3 HENMT: COMMON NORMALS: normocephalic HEAD & SCALP: normocephalic Eye: COMMON NORMALS: Equal, round and reactive pupils present and EOMs intact bilaterally GENERAL EYE: appearance normal, both eyes and all related structures PUPIL: Yes Equal, round and reactive pupils present Neck/C-Spine: COMMON NORMALS: full ROM and no lymphadenopathy THYROID: Thyroid normal Lymph: LYMPHATIC: no lymphadenopathy noted Resp: COMMON NORMALS: normal respiratory effort, No retractions and No use of accessory muscles AUSCULTATION: crackles and rales Cardio: COMMON NORMALS: S1 normal heart sound present, S2 normal heart sound present, No gallops present (Cardio), No clicks present (Cardio) and No murmurs present (Cardio) RATE: tachycardic RHYTHM: abnormal rhythm irregularly irregular HEART SOUNDS: S1 normal heart sound present and S2 normal heart mariano nd present GI: COMMON NORMALS: Normal to inspection, nondistended, normoactive bowel sounds present, Soft to palpation, non-tender and No hepatosplenomegaly present PALPATION: Yes Soft to palpation and Yes No hepatosplenomegaly present Extremity: COMMON NORMALS: normal to inspection, full ROM and no pedal edema Neuro: COMMON NORMALS: patient oriented x3, CN's II-XII intact bilaterally and moves all extremities OTHER: Right upper extremity weakness, right lower extremity weakness Psych: COMMON NORMALS: mental status grossly normal, Normal thought process present and cooperative THOUGHT PROCESS: Normal thought process present Sepsis: Is patient septic: Yes Focused sepsis exam performed: Yes Date exam was performed: 10/30/20 Time exam was performed: 22:00 Data : 10/30/20 20:22 10/30/20 20:22 Micro: Microbiology 10/30/20 20:22 Blood Culture - Preliminary Blood SPECIMEN COLLECTED A&P Assessment and plan (1) Healthcare-associated pneumonia: Plan: -Admit to ICU, currently ICU hold, working on transfer to higher level of care -Monitor respiratory status closely -Currently hypercarbic, start BiPAP -After CVA, she might have had recurrent aspiration events, start dysphagia diet, speech therapy eval, aspiration precautions -Solu-Medrol 125, followed by 40 every 8 hours -Creatinine 1.8, start Bumex 1 mg every 24 hours, monitor urine output, place Buck -Broad-spectrum antibiotic therapy, vancomycin, cefepime, Levaquin -Follow blood cultures, sputum cultures, urine bacterial antigen, MRSA nares PCR -Continue DuoNeb treatment -Maintain MAP greater than 65, currently on Levophed, avoid fluid boluses given heart failure -Await cardiac echocardiogram -Telemetry monitoring, such, serial EKGs, serial troponins -Protonix for GI prophylaxis -Full code -Eliquis for DVT prophylaxis Septic shock secondary to healthcare associate pneumonia, treatment as above COPD exacerbation, treated as above CHF exacerbation, treated as above SHILPA on CKD, monitor urine output, monitor creatinine, likely second to sepsis, CHF Lactic acidosis secondary to sepsis History of CVA, with right-sided deficits, residual right upper right lower extremity weakness Hypothyroidism, continue home medications Hypertension, hold home medications Anxiety depression, continue alprazolam, hold clonazepam Status: Acute (2) Septic shock: Status: Acute (3) COPD exacerbation: Status: Acute (4) CHF exacerbation: Status: Acute (5) Acute kidney injury superimposed on CKD: Status: Acute (6) Lactic acidosis: Status: Acute Attestations Medical Necessity Statement*: Patient requires hospitalization for healthcare associate pneumonia, septic shock, COPD exacerbation, CHF exacerbation, inpatient, greater than 2 midnights, required ICU admission Coding Level of Care Code Acute Clerk To Justice for [facility] Diagnoses Healthcare-associated pneumonia J18.9 Septic shock A41.9; R65.21 COPD exacerbation J44.1 CHF exacerbation I50.9 Acute kidney injury superimposed on CKD N17.9; N18.9 Lactic acidosis E87.2 Sepsis Event Note Evaluation Current stage of sepsis: severe sepsis Initial hypotension due to sepsis/infection: SBP < 90 mmHg Persistent hypotension due to sepsis/infection: SBP < 90 mmHg Possible source: pulmonary Focused Exam Vital Signs Temp Pulse Pulse Resp BP BP Pulse Ox 10/30/20 22:21 91 22 H 80/46 93 10/30/20 21:45 78/48 10/30/20 21:41 98.2 F 117 H 22 H 95 10/30/20 20:41 98 F 124 H 22 H 88/58 96 10/30/20 20:04 98.2 F 120 H 18 98/62 99 10/30/20 18:45 97.8 F 122 H 22 H 94/54 98 Respiratory exam: Present wheezes Cardiovascular exam: Present tachycardia and irregular rhythm Capillary refill: < 3 Seconds Peripheral pulse strength: 2+ Slightly Diminished Skin exam: normal turgor Date exam was performed: 10/30/20 Time exam was performed: 23:09 Problem List (1) Healthcare-associated pneumonia: Status: Acute (2) Septic shock: Status: Acute (3) COPD exacerbation: Status: Acute (4) CHF exacerbation: Status: Acute (5) Acute kidney injury superimposed on CKD: Status: Acute (6) Lactic acidosis: Status: Acute
--- NOTE | 2020-10-30 23:20 | XRR_ITS ---
PROCEDURE INFORMATION: Exam: XR Chest Exam date and time: 10/30/2020 11:20 PM Age: 75 years old Clinical indication: Other vascular access device placement or adjustment; Central line, non-tunnelled TECHNIQUE: Imaging protocol: XR of the chest. Views: 1 view. COMPARISON: CR XR chest 1V portable [id number] 10/30/2020 8:02 AM FINDINGS: Tubes, catheters and devices: A right internal jugular vein central venous line is placed with its tip at the level of the superior vena cava. Lungs: Increased densities are seen in the retrocardiac region, findings that could represent a left basilar infiltrate or atelectasis. Pleural spaces: The right hemidiaphragm is obscured possibly secondary to a small right pleural effusion. Heart/Mediastinum: There are calcified mediastinal and hilar lymph nodes seen. Bones/joints: Unremarkable. XR/XR chest 1V portable [id number] IMPRESSION: 1. There are findings similar to those present earlier today. No new acute findings are seen. 2. Probable small right pleural effusion 3. Increased densities in the retrocardiac region could represent atelectasis although left basilar pneumonia cannot be excluded. 4. Right internal jugular vein central venous line placed with tip the level of the superior vena cava.
[2020-10-30 23:48] LABS: Troponin(5th) Baseline 37 ng/L (0-10)
[2020-10-30 23:54] LABS: Procalcitonin 0.09 ng/mL (0-0.5)
[2020-10-31] VITALS (18 sets, daily range): BP systolic 101–127; BP diastolic 71–90; PULSE 102–123; RESP 17–26; TEMP 36.8; O2SAT 81–96
[2020-10-31 00:04] LABS: C Reactive Protein 53.6 mg/L (0.0-4.9)
[2020-10-31 00:46] LABS: Add Urine Microscopic? NO; Urine Appearance Clear (CLEAR); Urine Color Yellow (Yellow); pH Urine 8 (5-7)
[2020-10-31 00:47] LABS: Bilirubin Urine Neg (Negative); Blood Urine Neg (Negative); Glucose Urine UA Norm (Normal); Ketones Urine Negative (Negative); Leukocyte Esterase Urine Negative (Negative); Nitrate Urine Negative (Negative); Protein Urine Neg (Negative); Specific Gravity, Urine 1.005 (1.005-1.030); Sulfosalicylic Acid Urine Negative (Negative); Urobilinogen Urine Norm (Negative)
[2020-10-31 00:48] LABS: Charge for UA Resulting for Rev
[2020-10-31] MEDS: pantoprazole 40 mg SDV IVP (00:56)
[2020-10-31] MEDS: cefepime 2,000 MG in sodium chloride 0.9% (plus) 50 ML 100 MG IV (00:58)
[2020-10-31] MEDS: vancomycin 750 MG in sodium chloride 0.9% 250 ML 250 MG IV (01:02)
--- NOTE | 2020-10-31 01:04 | PC.PHAR ---
Vancomycin is dosed at 750mg IVPB every 24 hours to produce a predicted trough level of 18.5 (population based pharmacokinetic analysis). A trough level has been ordered from the lab to be obtained before the fourth dose to confirm and adjust if needed.
[2020-10-31 01:36] LABS: Troponin 5 2HR 40.89 ng/L (0-10); Troponin 5 2HR Delta 3.89 ABS# (0-10)
--- NOTE | 2020-10-31 01:36 | PC.NURSE ---
report called to Melany ALEGRE
--- NOTE | 2020-10-31 01:52 | PC.NURSE ---
calling [facility] at this time for air transport.
--- NOTE | 2020-10-31 01:54 | PC.NURSE ---
Reilly at states that [facility] is closest aircraft and will be dispatching them to [facility] for transfer pending weather check.
--- NOTE | 2020-10-31 01:58 | PC.NURSE ---
0158 [facility] declined flight d/t low visibility.
--- NOTE | 2020-10-31 01:59 | PC.NURSE ---
contacting [facility] at this time for possible air transport
--- NOTE | 2020-10-31 02:00 | PC.NURSE ---
[facility] decline flight d/t decreased visibility in the area.
--- NOTE | 2020-10-31 02:09 | PC.NURSE ---
calling [facility] at this time for possible flight. Was advised by [facility] that [facility] has instrument ratings for their arcrafts
--- NOTE | 2020-10-31 04:04 | PC.NURSE ---
[facility] here to transport patient. [facility].
== END 2020-10-31 04:18 | disposition short-term general hospital (02) ==
PROVIDERS: Family Medicine; Emergency Provider Family Medicine; PCP Family Medicine
DX: R09.02 Hypoxemia (principal); Z79.1 Long term (current) use of non-steroidal anti-inflammatories (NSAID); Z20.822 Contact with and (suspected) exposure to COVID-19; J44.0 Chronic obstructive pulmonary disease with (acute) lower respiratory infection; J18.9 Pneumonia, unspecified organism; I11.0 Hypertensive heart disease with heart failure; I50.9 Heart failure, unspecified; Z79.01 Long term (current) use of anticoagulants; Z86.73 Personal history of transient ischemic attack (TIA), and cerebral infarction without residual deficits; E78.5 Hyperlipidemia, unspecified; Z87.891 Personal history of nicotine dependence
CPT/HCPCS: 36600; 51702; 71045; 71275; 80048; 80053; 81003; 82805; 83605; 83735; 83880; 84145; 84484; 85025; 86140; 86403; 87040; 87205; 87426; 93005; 94640; 96365; 96366; 96367; 96375; 99285; 99291; C9113; J0692; J0696; J1940; J2930; J3370; J3490; J7040; J7050; Q9967

== ENCOUNTER → 2020-11-17 13:30 | Outpatient (BNVA) | payer MEDICARE, OTHER, SELFPAY | PROVIDERS: PCP Family Medicine; Visit Provider Specialist | DX: S52.501A Unspecified fracture of the lower end of right radius, initial encounter for closed fracture (principal); X58.XXXA Exposure to other specified factors, initial encounter; Z46.89 Encounter for fitting and adjustment of other specified devices; S52.591D Other fractures of lower end of right radius, subsequent encounter for closed fracture with routine healing; X58.XXXD Exposure to other specified factors, subsequent encounter | CPT/HCPCS: 73110 ==

== ENCOUNTER 2020-11-17 14:50 | Outpatient (CLI) | payer MEDICARE, OTHER, SELFPAY | END 2020-11-17 14:51 | disposition home or self-care (01) | LOC: SPT 14:51 | PROVIDERS: PCP Family Medicine; Visit Provider Specialist | DX: Z46.89 Encounter for fitting and adjustment of other specified devices (principal); S52.591D Other fractures of lower end of right radius, subsequent encounter for closed fracture with routine healing; X58.XXXD Exposure to other specified factors, subsequent encounter | CPT/HCPCS: 97760; L3982 ==

== ENCOUNTER 2020-11-17 18:40 | Inpatient (IN) | payer MEDICARE, OTHER, SELFPAY ==
[2020-11-17 18:59] VITALS: BP 144/60; PULSE 91; RESP 30; TEMP 36.8; O2SAT 100; BMI 38.0
--- NOTE | 2020-11-17 19:17 | XRR_ITS ---
PROCEDURE INFORMATION: Exam: XR Chest Exam date and time: 11/17/2020 7:17 PM Age: 75 years old Clinical indication: Shortness of breath; Additional info: Dyspnea TECHNIQUE: Imaging protocol: XR of the chest. Views: 1 view. COMPARISON: CR (CHEST, ) 10/30/2020 11:23 PM FINDINGS: There is cardiomegaly. There are basilar infiltrates. There is increased interstitial markings throughout the lungs. There is no pleural effusion or pneumothorax. Previously seen central venous catheter has been removed. XR/XR chest 1V portable [id number] IMPRESSION: 1. Cardiomegaly, stable. 2. Basilar infiltrates. 3. Increased interstitial markings. Radiation Dose CTDIVOL = (mGy): DLP = (mGy-cm)
--- NOTE | 2020-11-17 19:17 | ECG_ITS ---
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 Measurements Intervals [place] Rate: 83 P: -79 [place]: 158 QRS: 73 QRSD: 134 T: 5 QT: 396 QTc: 467 Interpretive Statements ECTOPIC ATRIAL RHYTHM RIGHT BUNDLE BRANCH BLOCK [120+ ms QRS DURATION, UPRIGHT V1, 40+ ms S IN I/aVL/V4/V5/V6] Compared to ECG 11/18/2020 00:59:08 Ectopic atrial rhythm now present Sinus rhythm no longer present Electronically Signed On 11-18-2020 17:29:03 CDT by Ganesh Maguire M.D. [id number]
[2020-11-17 19:46] LABS: Basophils % 0.4 %; Eosinophils # 0.2 10^3/uL (0.0-0.8); Eosinophils % 2.6 %; Hematocrit 28.3 % (37.0-47.0); Hemoglobin 8.1 g/dL (11.5-15.3); Lymphocytes # 1.3 10^3/uL (0.8-4.8); Lymphocytes % 18.7 %; Mean Corpuscular HGB Conc 28.6 g/dL (30.0-36.0); Mean Corpuscular Volume 90.7 fl (81-99); Mean Platelet Volume 9.6 fL (7.4-10.4); Monocytes # 0.6 10^3/uL (0.2-0.9); Monocytes % 7.8 %; Neutrophils # 4.82 10^3/uL (1.8-7.7); Neutrophils % 68.8 %; Nucleated Red Blood Cells % 0.4 %; Platelet Count 322 10^3/cmm (130-400); Red Blood Count 3.12 10^6/uL (4.1-5.3); Red Cell Distribution Width 17.6 % (12.1-15.1)
--- NOTE | 2020-11-17 19:55 | W.ED.GENADLT ---
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 Jones for evaluation of right distal radial fracture for concerns of hypoxemia. Patient says that since her discharge from [facility] for septic shock secondary to pneumonia she has lingering dyspnea. However the last few days it has gotten significantly worse. Patient went to see Dr. Jones. Noted that her O2 sat was low. EMS was called patient was brought to the emergency room for evaluation. Arrival, patient is satting at 70% on room air improved to 10 L on NRB. Denies any fever/chills, abdominal complaints or complaints. Patient denies any diarrhea, loss of taste, runny nose/sore throat, generalized malaise. Patient was tested multiple times for Covid in the past which are all negative. Onset: 4 days ago acutely Duration:4 days Location:home Severity:severe Review of Systems Narrative: Constitutional: No fever, no chills. HEENT: No vision changes CV: No chest pain, no palpitations PULM: +cough, +dyspnea. GI: No abdominal pain, no N/V/D. : No dysuria MSKEL: No muscle pain SKIN: No new rashes, no lesions. NEURO: No headache, no focal weakness. HEME: No visible bruises PSYCH: Normal mood PFSH ED PFSH: Medical History (Updated 01/08/21 @ 00:01 by ) Acute and chronic respiratory failure with hypoxia Acute exacerbation of chronic obstructive airways disease Anemia Atrial fibrillation with rapid ventricular response Bilateral carotid artery stenosis Carotid atherosclerosis Chronic kidney disease Congestive heart failure Congestive heart failure COPD (chronic obstructive pulmonary disease) CVA (cerebral vascular accident) Displaced spiral fracture of shaft of right humerus with routine healing DNR (do not resuscitate) Fracture of humerus, proximal, right, closed Fracture of right distal radius Healthcare-associated pneumonia Heme positive stool History of CVA (cerebrovascular accident) Hyperlipidemia Hypertension Hypothyroidism Lung infiltrate on CT NSAID long-term use Physical deconditioning Pneumonia Severe pulmonary hypertension Steroid-induced hyperglycemia Subclavian steal syndrome Thrombus of atrial appendage Surgical History History of carpal tunnel release of both wrists History of renal stent Hx of cholecystectomy Family History Father Stroke Mother Stroke Social History Smoking and tobacco status: former smoker Alcohol intake: never Female Reproductive History: Date of last menstrual period: 05/08/20 Physical Exam Narrative: EXAM NARRATIVE: Head: Atraumatic Eyes: PERRL, conjunctiva without injection ENT: Mucous membrane moist NECK: Supple, ROM intact LUNGS: +Coarse breath sounds b/l, +able to speak full sentence without issues CV: RRR ABDOMEN: Soft, nontender in all quadrants EXTREMITY: Normal ROM SKIN: No rash or erythema NEURO: Awake and alert, no focal motor deficits PSYCH: Normal mood and affect Course Vital Signs: Vital signs: Vital Signs Temperature 97.4 F L 11/21/20 12:15 Pulse Rate 98 11/21/20 12:15 Respiratory Rate 21 H 11/21/20 12:15 Blood Pressure 87/62 11/21/20 12:15 Pulse Oximetry 95 11/21/20 12:15 MDM - General Adult MDM Narrative: Medical decision making narrative: 75-year-old female with history of pneumonia, right-sided hemiplegia presenting to the emergency room for evaluation of new onset of dyspnea and hypoxemia today. On exam, patient has coarse breath sounds bilaterally. Was satting at 70s on room air to improve to 90% on 7 L nasal cannula. WBC wnl. CTA is consistent with possible new interstitial findings. Covid negative. Patient received cefepime, vancomycin and azithromycin in the ER. Patient will be admitted to hospital for evaluation of worsening hypoxemia, increased oxygen requirement, possible superimposed vs worsening pneumonia. Disposition: Admission Lab Data: Labs: Lab Results 11/17/20 11/17/20 11/17/20 19:15 19:15 19:15 WBC 7.0 10^3/uL 10^3/ uL (4.0-10.0) RBC 3.12 10^6/uL L 10 ^6/uL (4.1-5.3) Hgb 8.1 g/dL L g/dL (11.5-15.3) Hct 28.3 % L % (37.0-47.0) MCV 90.7 fl fl (81-99) MCH 26.0 pg L pg (28.0-34.0) MCHC 28.6 g/dL L g/dL (30.0-36.0) RDW 17.6 % H % (12.1-15.1) Plt Count 322 10^3/cmm 10^3 /cmm (130-400) MPV 9.6 fL fL (7.4-10.4) Neut % (Auto) 68.8 % % Lymph % (Auto) 18.7 % % [place] % (Auto) 7.8 % % Eos % (Auto) 2.6 % % Baso % (Auto) 0.4 % % Neut # (Auto) 4.82 10^3/uL 10^3 /uL (1.8-7.7) Lymph # (Auto) 1.3 10^3/uL 10^3/ uL (0.8-4.8) [place] # (Auto) 0.6 10^3/uL 10^3/ uL (0.2-0.9) Eos # (Auto) 0.2 10^3/uL 10^3/ uL (0.0-0.8) Baso # (Auto) 0.0 10^3/uL 10^3/ uL (0.0-0.1) Nucleated RBC % (a uto) 0.4 % % Nucleated RBCs # 0.0 /100WBC /100W BC Specimen Type Sample Site ABG pH ABG pCO2 ABG pO2 ABG HCO3 ABG O2 Saturation ABG Base Excess Julio Test A-a O2 Gradient Hematocrit Hgb O2 Saturation Carboxyhemoglobin Methemoglobin Total Hemoglobin Ionized Calcium O2 Delivery Device O2 Liters/Min Personal Fitness Trainer ID Sodium 139 mmol/L mmol/L (136-145) Potassium 4.7 mmol/L mmol/L (3.5-5.1) Chloride 97 mmol/L L mmol/ L (98-107) Carbon Dioxide 34 mmol/L H mmol/ L (22-29) Anion Gap 12.7 (5-19) BUN 24 mg/dL H mg/dL (8-23) Creatinine 1.3 mg/dL H mg/dL (0.5-0.9) GFR Calculation Not Reportable Glucose 114 mg/dL mg/dL (65-115) Calculated Osmolal ity 293 mOsm/kg mOsm/ kg (285-295) Lactic Acid 1.1 mmol/L mmol/L (0.5-2.2) Calcium 8.8 mg/dL mg/dL (8.5-10.5) Total Bilirubin 0.4 mg/dL mg/dL (0.15-1.2) AST 17 U/L U/L (0-32) ALT 17 U/L U/L (0-33) Alkaline Phosphata se 110 IU/L H IU/L (35-105) Troponin T Baselin e Troponin T 120 Min [place] Troponin T NT-Pro-B Natriuret Pep 7259 pg/mL H pg/m L (0-450) Total Protein 5.9 g/dL L g/dL (6.6-8.7) Albumin 3.1 g/dL L g/dL (3.5-5.2) Globulin 2.8 g/dL g/dL (1.3-4.6) Lipase 37 U/L U/L (13-60) SARS-CoV-2 Ag (Rap id) Beta-(1,3)-D-Gluca n B-(1,3)-D-Glucan I ntrp 11/17/20 11/17/20 11/17/20 19:15 19:15 19:35 WBC RBC Hgb Hct MCV MCH MCHC RDW Plt Count MPV Neut % (Auto) Lymph % (Auto) [place] % (Auto) Eos % (Auto) Baso % (Auto) Neut # (Auto) Lymph # (Auto) [place] # (Auto) Eos # (Auto) Baso # (Auto) Nucleated RBC % (a uto) Nucleated RBCs # Specimen Type Sample Site ABG pH ABG pCO2 ABG pO2 ABG HCO3 ABG O2 Saturation ABG Base Excess Julio Test A-a O2 Gradient Hematocrit Hgb O2 Saturation Carboxyhemoglobin Methemoglobin Total Hemoglobin Ionized Calcium O2 Delivery Device O2 Liters/Min Personal Fitness Trainer ID Sodium Potassium Chloride Carbon Dioxide Anion Gap BUN Creatinine GFR Calculation Glucose Calculated Osmolal ity Lactic Acid Calcium Total Bilirubin AST ALT Alkaline Phosphata se Troponin T Baselin e 53 ng/L H ng/L (0-10) Troponin T 120 Min [place] Troponin T NT-Pro-B Natriuret Pep Total Protein Albumin Globulin Lipase SARS-CoV-2 Ag (Rap id) Negative (Negative) Beta-(1,3)-D-Gluca n <31 pg/mL pg/mL B-(1,3)-D-Glucan I ntrp Negative 11/17/20 11/17/20 19:59 21:30 WBC RBC Hgb Hct MCV MCH MCHC RDW Plt Count MPV Neut % (Auto) Lymph % (Auto) [place] % (Auto) Eos % (Auto) Baso % (Auto) Neut # (Auto) Lymph # (Auto) [place] # (Auto) Eos # (Auto) Baso # (Auto) Nucleated RBC % (a uto) Nucleated RBCs # Specimen Type Arterial Sample Site Radial, left ABG pH 7.44 (7.35-7.45) ABG pCO2 54.9 mmHg H mmHg (35-45) ABG pO2 50.4 mmHg L mmHg (80.0-100.0) ABG HCO3 37.6 mmol/L H mmo l/L (22-26) ABG O2 Saturation 86.7 ABG Base Excess 12.1 mmol/L H mmo l/L (-2.0-2.0) Julio Test Pos A-a O2 Gradient 4.3 mmHg L mmHg (5-10) Hematocrit 26.0 % L % (37-47) Hgb O2 Saturation 84.1 % L % (95-100) Carboxyhemoglobin 2.4 %THgb %THgb (0.4-20.1) Methemoglobin 0.7 % % (0.4-1.5) Total Hemoglobin 8.5 g/dL L g/dL (12-16) Ionized Calcium 1.2 mmol/L mmol/L (1.1-1.4) O2 Delivery Device Nc O2 Liters/Min 6.0 % % Personal Fitness Trainer ID Buttr Sodium 138.0 mmol/L mmol /L (131-143) Potassium 4.3 mmol/L mmol/L (3.5-5.0) Chloride Carbon Dioxide Anion Gap BUN Creatinine GFR Calculation Glucose 126.0 mg/dL H mg/ dL (70-115) Calculated Osmolal ity Lactic Acid Calcium Total Bilirubin AST ALT Alkaline Phosphata se Troponin T Baselin e Troponin T 120 Min [place] 54.82 ng/L H ng/L (0-10) Delta Troponin T 1.82 ABS# ABS# (0-10) NT-Pro-B Natriuret Pep Total Protein Albumin Globulin Lipase SARS-CoV-2 Ag (Rap id) Beta-(1,3)-D-Gluca n B-(1,3)-D-Glucan I ntrp Imaging Data^: Other Imaging: Radiologist's impression: [employer] [address] [id number] [place], [place] [address]VD Scan ReportSigned Patient: Elzbieta Church #: [id number]: 1945cct#:[id number]/Sex: 75 / FADM Date: 11/17/20Loc: ERRoom/Bed:Attending Dr: Ordering Provider/Ordering MD: Ravi Marcelino MD Date of Service: 11/17/20 Procedure(s): CT angio chest PE protcl [id number] Accession Number(s): [id number] Report Number: [id number] PROCEDURE INFORMATION: Exam: CTA Chest With Contrast Exam date and time: 11/17/2020 7:54 PM Age: 75 years old Clinical indication: Cough and shortness of breath; Additional info: Evaluate of worsening multifocal pna TECHNIQUE: Imaging protocol: Computed tomographic angiography of the chest with contrast. 3D rendering (Not supervised by radiologist): MIP and/or 3D reconstructed images were created by the technologist. Radiation optimization: All CT scans at this facility use at least one of these dose optimization techniques: automated exposure control; mA and/or kV adjustment per patient size (includes targeted exams where dose is matched to clinical indication); or iterative reconstruction. Contrast material: VISI 320; Contrast volume: 69 ml; Contrast route: INTRAVENOUS (IV); COMPARISON: CT angio chest PE protcl [id number] 10/30/2020 7:16 PM RADIATION DOSE METRICS: Total DLP (mGy-cm): 569.61 FINDINGS: Basilar infiltrates and bilateral pleural effusions are again noted. These appear similar to the prior exam. There is new infiltrate within the left upper lobe with increased interstitial markings throughout the lungs. There are no suspicious pulmonary nodules. The central airways are normal in caliber. The thyroid gland is unremarkable. There is no axillary adenopathy. There is mediastinal adenopathy which is unchanged. There is no hilar adenopathy. There is no evidence for pulmonary embolism. The aorta is normal in caliber with no evidence for aneurysm or dissection. The heart size is prominent but stable. The upper abdominal structures demonstrate a left renal cyst. CT/CT angio chest PE protcl [id number] IMPRESSION: 1. Basilar infiltrates appear similar to the old exam. 2. New infiltrates within the right upper lobe with increased interstitial markings throughout both lungs. 3. Stable mediastinal adenopathy. Radiation Dose CTDIVOL = (mGy): DLP = 569.61 (mGy-cm) Dictated By:Gigi Mena MDSigned By:Gigi Mena MDSigned Date/Time:11/17/20/ [address] [id number] ReportSigned Patient: Elzbieta Church #: [id number]: 1945cct#:[id number]/Sex: 75 / FADM Date: 11/17/20Loc: ERRoom/Bed:Attending Dr: Ordering Provider/Ordering MD: Ravi Marcelino MD Date of Service: 11/17/20 Procedure(s): XR chest 1V portable [id number] Accession Number(s): [id number] Report Number: [id number] PROCEDURE INFORMATION: Exam: XR Chest Exam date and time: 11/17/2020 7:17 PM Age: 75 years old Clinical indication: Shortness of breath; Additional info: Dyspnea TECHNIQUE: Imaging protocol: XR of the chest. Views: 1 view. COMPARISON: CR (CHEST, ) 10/30/2020 11:23 PM FINDINGS: There is cardiomegaly. There are basilar infiltrates. There is increased interstitial markings throughout the lungs. There is no pleural effusion or pneumothorax. Previously seen central venous catheter has been removed. XR/XR chest 1V portable [id number] IMPRESSION: 1. Cardiomegaly, stable. 2. Basilar infiltrates. 3. Increased interstitial markings. Radiation Dose CTDIVOL = (mGy): DLP = (mGy-cm) Dictated By:Gigi Mena MDSigned By:Gigi Menaigned Date/Time:11/17/202037DD/ 16 Discharge Plan Discharge Patient Disposition: Admitted As Inpatient Admit Provider: Carola Lakhani Clinical Impression: Pneumonia, Hypoxemia Condition: Stable Discharge Diet: Cardiac Discharge Activity: Increase activity as tolerated and As per PT/OT instructions Coding Level of Care Code ED Curb Setter for Chg Fwd Documented by User: Carola Lakhani MD 01/16/21 12:10 HPI - General Adult History of Present Illness: HPI narrative: Addendum by Dr. Carola Lakhani per medical records request. This chart has been assigned to my que to co sign for unclear reason. Please note this is ER physician documentation and assessment. For my charting and assessment please see my dictated H&P for this admission. PFS ED PFSH: Medical History (Updated 01/08/21 @ 00:01 by ) Acute and chronic respiratory failure with hypoxia Acute exacerbation of chronic obstructive airways disease Anemia Atrial fibrillation with rapid ventricular response Bilateral carotid artery stenosis Carotid atherosclerosis Chronic kidney disease Congestive heart failure Congestive heart failure COPD (chronic obstructive pulmonary disease) CVA (cerebral vascular accident) Displaced spiral fracture of shaft of right humerus with routine healing DNR (do not resuscitate) Fracture of humerus, proximal, right, closed Fracture of right distal radius Healthcare-associated pneumonia Heme positive stool History of CVA (cerebrovascular accident) Hyperlipidemia Hypertension Hypothyroidism Lung infiltrate on CT NSAID long-term use Physical deconditioning Pneumonia Severe pulmonary hypertension Steroid-induced hyperglycemia Subclavian steal syndrome Thrombus of atrial appendage Surgical History History of carpal tunnel release of both wrists History of renal stent Hx of cholecystectomy Family History Father Stroke Mother Stroke Social History Smoking and tobacco status: former smoker Alcohol intake: never Course Vital Signs: Vital signs: Vital Signs Temperature 97.4 F L 11/21/20 12:15 Pulse Rate 98 11/21/20 12:15 Respiratory Rate 21 H 11/21/20 12:15 Blood Pressure 87/62 11/21/20 12:15 Pulse Oximetry 95 11/21/20 12:15 [facility] - General Adult Lab Data: Labs: Lab Results 11/17/20 11/17/20 11/17/20 19:15 19:15 19:15 WBC 7.0 10^3/uL 10^3/ uL (4.0-10.0) RBC 3.12 10^6/uL L 10 ^6/uL (4.1-5.3) Hgb 8.1 g/dL L g/dL (11.5-15.3) Hct 28.3 % L % (37.0-47.0) MCV 90.7 fl fl (81-99) MCH 26.0 pg L pg (28.0-34.0) MCHC 28.6 g/dL L g/dL (30.0-36.0) RDW 17.6 % H % (12.1-15.1) Plt Count 322 10^3/cmm 10^3 /cmm (130-400) MPV 9.6 fL fL (7.4-10.4) Neut % (Auto) 68.8 % % Lymph % (Auto) 18.7 % % [place] % (Auto) 7.8 % % Eos % (Auto) 2.6 % % Baso % (Auto) 0.4 % % Neut # (Auto) 4.82 10^3/uL 10^3 /uL (1.8-7.7) Lymph # (Auto) 1.3 10^3/uL 10^3/ uL (0.8-4.8) [place] # (Auto) 0.6 10^3/uL 10^3/ uL (0.2-0.9) Eos # (Auto) 0.2 10^3/uL 10^3/ uL (0.0-0.8) Baso # (Auto) 0.0 10^3/uL 10^3/ uL (0.0-0.1) Nucleated RBC % (a uto) 0.4 % % Nucleated RBCs # 0.0 /100WBC /100W BC Specimen Type Sample Site ABG pH ABG pCO2 ABG pO2 ABG HCO3 ABG O2 Saturation ABG Base Excess Julio Test A-a O2 Gradient Hematocrit Hgb O2 Saturation Carboxyhemoglobin Methemoglobin Total Hemoglobin Ionized Calcium O2 Delivery Device O2 Liters/Min Personal Fitness Trainer ID Sodium 139 mmol/L mmol/L (136-145) Potassium 4.7 mmol/L mmol/L (3.5-5.1) Chloride 97 mmol/L L mmol/ L (98-107) Carbon Dioxide 34 mmol/L H mmol/ L (22-29) Anion Gap 12.7 (5-19) BUN 24 mg/dL H mg/dL (8-23) Creatinine 1.3 mg/dL H mg/dL (0.5-0.9) GFR Calculation Not Reportable Glucose 114 mg/dL mg/dL (65-115) Calculated Osmolal ity 293 mOsm/kg mOsm/ kg (285-295) Lactic Acid 1.1 mmol/L mmol/L (0.5-2.2) Calcium 8.8 mg/dL mg/dL (8.5-10.5) Total Bilirubin 0.4 mg/dL mg/dL (0.15-1.2) AST 17 U/L U/L (0-32) ALT 17 U/L U/L (0-33) Alkaline Phosphata se 110 IU/L H IU/L (35-105) Troponin T Baselin e Troponin T 120 Min [place] Troponin T NT-Pro-B Natriuret Pep 7259 pg/mL H pg/m L (0-450) Total Protein 5.9 g/dL L g/dL (6.6-8.7) Albumin 3.1 g/dL L g/dL (3.5-5.2) Globulin 2.8 g/dL g/dL (1.3-4.6) Lipase 37 U/L U/L (13-60) SARS-CoV-2 Ag (Rap id) Beta-(1,3)-D-Gluca n B-(1,3)-D-Glucan I ntrp 11/17/20 11/17/20 11/17/20 19:15 19:15 19:35 WBC RBC Hgb Hct MCV MCH MCHC RDW Plt Count MPV Neut % (Auto) Lymph % (Auto) [place] % (Auto) Eos % (Auto) Baso % (Auto) Neut # (Auto) Lymph # (Auto) [place] # (Auto) Eos # (Auto) Baso # (Auto) Nucleated RBC % (a uto) Nucleated RBCs # Specimen Type Sample Site ABG pH ABG pCO2 ABG pO2 ABG HCO3 ABG O2 Saturation ABG Base Excess Julio Test A-a O2 Gradient Hematocrit Hgb O2 Saturation Carboxyhemoglobin Methemoglobin Total Hemoglobin Ionized Calcium O2 Delivery Device O2 Liters/Min Personal Fitness Trainer ID Sodium Potassium Chloride Carbon Dioxide Anion Gap BUN Creatinine GFR Calculation Glucose Calculated Osmolal ity Lactic Acid Calcium Total Bilirubin AST ALT Alkaline Phosphata se Troponin T Baselin e 53 ng/L H ng/L (0-10) Troponin T 120 Min [place] Troponin T NT-Pro-B Natriuret Pep Total Protein Albumin Globulin Lipase SARS-CoV-2 Ag (Rap id) Negative (Negative) Beta-(1,3)-D-Gluca n <31 pg/mL pg/mL B-(1,3)-D-Glucan I ntrp Negative 11/17/20 11/17/20 19:59 21:30 WBC RBC Hgb Hct MCV MCH MCHC RDW Plt Count MPV Neut % (Auto) Lymph % (Auto) [place] % (Auto) Eos % (Auto) Baso % (Auto) Neut # (Auto) Lymph # (Auto) [place] # (Auto) Eos # (Auto) Baso # (Auto) Nucleated RBC % (a uto) Nucleated RBCs # Specimen Type Arterial Sample Site Radial, left ABG pH 7.44 (7.35-7.45) ABG pCO2 54.9 mmHg H mmHg (35-45) ABG pO2 50.4 mmHg L mmHg (80.0-100.0) ABG HCO3 37.6 mmol/L H mmo l/L (22-26) ABG O2 Saturation 86.7 ABG Base Excess 12.1 mmol/L H mmo l/L (-2.0-2.0) Julio Test Pos A-a O2 Gradient 4.3 mmHg L mmHg (5-10) Hematocrit 26.0 % L % (37-47) Hgb O2 Saturation 84.1 % L % (95-100) Carboxyhemoglobin 2.4 %THgb %THgb (0.4-20.1) Methemoglobin 0.7 % % (0.4-1.5) Total Hemoglobin 8.5 g/dL L g/dL (12-16) Ionized Calcium 1.2 mmol/L mmol/L (1.1-1.4) O2 Delivery Device Nc O2 Liters/Min 6.0 % % Personal Fitness Trainer ID Buttr Sodium 138.0 mmol/L mmol /L (131-143) Potassium 4.3 mmol/L mmol/L (3.5-5.0) Chloride Carbon Dioxide Anion Gap BUN Creatinine GFR Calculation Glucose 126.0 mg/dL H mg/ dL (70-115) Calculated Osmolal ity Lactic Acid Calcium Total Bilirubin AST ALT Alkaline Phosphata se Troponin T Baselin e Troponin T 120 Min [place] 54.82 ng/L H ng/L (0-10) [place] Troponin T 1.82 ABS# ABS# (0-10) NT-Pro-B Natriuret Pep Total Protein Albumin Globulin Lipase SARS-CoV-2 Ag (Rap id) Beta-(1,3)-D-Gluca n B-(1,3)-D-Glucan I ntrp Discharge Plan Discharge Patient Disposition: Admitted As Inpatient Admit Provider: Carola Lakhani Clinical Impression: Pneumonia, Hypoxemia Condition: Stable Discharge Diet: Cardiac Discharge Activity: Increase activity as tolerated and As per PT/OT instructions Coding Level of Care Code ED Curb Setter for Pattie Cisneros
[2020-11-17 20:00] VITALS: BP 151/78; PULSE 77; RESP 20; O2SAT 93
[2020-11-17 20:00] LABS: ABG PCO2 54.9 mmHg (35-45); ABG PH Result 7.44 (7.35-7.45); Alveolar-Arterial Oxygen Gradi 4.3 mmHg (5-10); Base Excess ABG 12.1 mmol/L (-2.0-2.0); Blood Gas Allen Test Pos; Blood Gas Sample Site Radial, left; Blood Gas Sample Type Arterial; Carboxyhemoglobin 2.4 %THgb (0.4-20.1); HCO3 ABG 37.6 mmol/L (22-26); HGB O2 Sat 84.1 % (95-100); Ionized Calcium Level - ABG 1.2 mmol/L (1.1-1.4); Methemoglobin 0.7 % (0.4-1.5); Oxygen Device NC; Oxygen Saturation ABG 86.7; PO2 ABG 50.4 mmHg (80.0-100.0); Potassium Level - ABG 4.3 mmol/L (3.5-5.0); Total Hemoglobin 8.5 g/dL (12-16)
[2020-11-17 20:28] LABS: SARS Covid-2 Antigen Negative (Negative)
[2020-11-17 20:39] LABS: Lactic Sepsis W/Reflex 1.1 mmol/L (0.5-2.2)
[2020-11-17 20:52] LABS: Troponin(5th) Baseline 53 ng/L (0-10)
[2020-11-17 21:01] LABS: Alanine Aminotransferase 17 U/L (0-33); Albumin Level 3.1 g/dL (3.5-5.2); Alkaline Phosphatase 110 IU/L (35-105); Anion Gap 12.7 (5-19); Aspartate Amino Transferase 17 U/L (0-32); Blood Urea Nitrogen 24 mg/dL (8-23); Calcium 8.8 mg/dL (8.5-10.5); Carbon Dioxide 34 mmol/L (22-29); Chloride 97 mmol/L (98-107); Globulin 2.8 g/dL (1.3-4.6); Glucose 114 mg/dL (65-115); Lipase 37 U/L (13-60); NT Pro B Type Natriuretic Pept 7259 pg/mL (0-450); Osmolality Calculated 293 mOsm/kg (285-295); Potassium 4.7 mmol/L (3.5-5.1); Sodium 139 mmol/L (136-145); Total Bilirubin 0.4 mg/dL (0.15-1.2); Total Protein 5.9 g/dL (6.6-8.7)
[2020-11-17] MEDS: iodixanol 320 mg/mL 100mL Btl IV (21:13)
--- NOTE | 2020-11-17 21:17 | ECG_ITS ---
[facility] Test Date: 2020-11-17 Pat Name: Elzbieta Church Department: Room: 108 Gender: Female Component Lab Tech: : 1945 Requested By: Ravi Marcelino Order Number: [id number] Jas MD: Ganesh Maguire M.D. Measurements Intervals [place] Rate: 86 P: 54 MI: 185 QRS: 84 QRSD: 133 T: 26 QT: 386 QTc: 462 Interpretive Statements SINUS RHYTHM WITH OCCASIONAL SUPRAVENTRICULAR PREMATURE COMPLEXES RIGHT BUNDLE BRANCH BLOCK [120+ ms QRS DURATION, UPRIGHT V1, 40+ ms S IN I/aVL/V4/V5/V6] Compared to ECG 10/30/2020 10:03:22 No significant changes Electronically Signed On 11-18-2020 17:31:06 CDT by Ganesh Maguire M.D. [email or web address] medical [facility].Jalousier/store/NU/[id number] f
[2020-11-17 21:35] VITALS: BP 139/87; PULSE 88; RESP 22; O2SAT 94
[2020-11-17 22:14] LABS: Add Urine Microscopic? YES; Bilirubin Urine Neg (Negative); Blood Urine Neg (Negative); Glucose Urine UA Norm (Normal); Ketones Urine Negative (Negative); Leukocyte Esterase Urine Negative (Negative); Nitrate Urine Negative (Negative); Protein Urine 2+ (Negative); Urine Appearance Clear (CLEAR); Urine Color Straw (Yellow); Urobilinogen Urine Norm (Negative); pH Urine 7 (5-7)
[2020-11-17 22:17] LABS: Troponin 5 2HR 54.82 ng/L (0-10); Troponin 5 2HR Delta 1.82 ABS# (0-10)
[2020-11-17 22:24] LABS: Add Urine Culture? No; Bacteria Urine TRACE /hpf
[2020-11-17] MEDS: cefepime 1,000 MG in sodium chloride 0.9% (plus) 50 ML 100 MG IV (22:46)
[2020-11-17] MEDS: azithromycin 250 mg Tablet 500 MG PO (22:47)
[2020-11-17 22:49] VITALS: BP 151/87; PULSE 81; RESP 22; O2SAT 94
[2020-11-17 23:21] VITALS: BP 126/33; PULSE 86; RESP 14; TEMP 36.4; O2SAT 91
[2020-11-18] VITALS (20 sets, daily range): BP systolic 110–160; BP diastolic 47–64; PULSE 80–99; RESP 10–28; TEMP 36.7–36.8; O2SAT 90–100
[2020-11-18 01:01] LABS: Basophils % 0.7 %; Eosinophils # 0.2 10^3/uL (0.0-0.8); Eosinophils % 3.6 %; Hematocrit 27.8 % (37.0-47.0); Hemoglobin 7.8 g/dL (11.5-15.3); Lymphocytes # 1.1 10^3/uL (0.8-4.8); Mean Corpuscular HGB Conc 28.1 g/dL (30.0-36.0); Mean Corpuscular Hemoglobin 25.9 pg (28.0-34.0); Mean Corpuscular Volume 92.4 fl (81-99); Mean Platelet Volume 9.8 fL (7.4-10.4); Monocytes # 0.6 10^3/uL (0.2-0.9); Monocytes % 9.3 %; Neutrophils # 3.88 10^3/uL (1.8-7.7); Neutrophils % 65.7 %; Nucleated Red Blood Cells % 0 %; Platelet Count 300 10^3/cmm (130-400); Red Blood Count 3.01 10^6/uL (4.1-5.3); Red Cell Distribution Width 17.9 % (12.1-15.1); White Blood Count 5.9 10^3/uL (4.0-10.0)
--- NOTE | 2020-11-18 01:17 | ECG_ITS ---
[facility] Test Date: 2020-11-18 Pat Name: Elzbieta Church Department: Room: 108 Gender: Female Instructor Bridge: : 1945 Requested By: Ravi Marcelino Order Number: [id number] Jas MD: Ganesh Maguire M.D. Measurements Intervals [place] Rate: 79 P: -73 ND: 161 QRS: 86 QRSD: 134 T: 42 QT: 413 QTc: 476 Interpretive Statements SINUS RHYTHM RIGHT BUNDLE BRANCH BLOCK [120+ ms QRS DURATION, UPRIGHT V1, 40+ ms S IN I/aVL/V4/V5/V6] Compared to ECG 11/17/2020 22:40:32 No significant changes Electronically Signed On 11-18-2020 17:31:18 CDT by Ganesh Maguire M.D. [email or web address] Localneshoba county general hospitalGaia Power Technologiesohio[facility].[employer]/store/OM/[id number]
[2020-11-18 01:29] LABS: Troponin 5 6HR 62.16 ng/L (0-10); Troponin 5 6HR Delta 9.16 ng/L (0-12)
[2020-11-18 01:31] LABS: Alanine Aminotransferase 14 U/L (0-33); Albumin Level 2.8 g/dL (3.5-5.2); Alkaline Phosphatase 96 IU/L (35-105); Anion Gap 13.2 (5-19); Aspartate Amino Transferase 15 U/L (0-32); Blood Urea Nitrogen 25 mg/dL (8-23); Carbon Dioxide 32 mmol/L (22-29); Chloride 95 mmol/L (98-107); Globulin 3.3 g/dL (1.3-4.6); Glucose 108 mg/dL (65-115); Osmolality Calculated 287 mOsm/kg (285-295); Potassium 4.2 mmol/L (3.5-5.1); Sodium 136 mmol/L (136-145); Total Bilirubin 0.4 mg/dL (0.15-1.2); Total Protein 6.1 g/dL (6.6-8.7)
--- NOTE | 2020-11-18 02:16 | P.HP_ITS ---
Providers/Chief Complaint Admitting Physician: Carola Lakhani MD Primary Care Provider: Marco Antonio Thompson MD Chief Complaint: SOB History of Present Illness Elzbieta Church is a 75 year old female with a past medical history of left ICA/cca stenosis, severe stenosis of right internal carotid artery, with history of left-sided CVA with residual right-sided deficits status post TPA and transferred to [facility], . fib on Eliquis, hypertension, hyperlipidemia, hypothyroidism, CAD, COPD chronically 4 L oxygen dependent, CKD, history of right wrist fracture in a cast, recetly seen at the ER on 10/30 for hospital acquired pneumonia and septic shock needing tx to OSH for higer level of care. She was discharged from latter facility to a SNF. Presented as outpatie nt today to Dr. Roberts's office for wrist frature follow up, noted to have 02 sat in the 70s and transfererd to ER for hypoxia, dyspnea. She initially required between 10-15lpm on NRB upon presentation, now between 6-8lpm on NC. She uses CPAP at night time. ABG today showed hypoxemia. CTA chest negative for any PE, unchanged bibasilar infiltrates, increased interstitial markings in both lungs. Patient reports feeling more short of breath over the last 3-4 days, denies any fever, chest pain, palpitations, increased cough or sputum production. Review of Systems General: Reports: 10 or more systems reviewed and unremarkable except in HPI and below Const: Denies: fever(s), chills or body aches Eyes: Denies: change in vision, blurry vision or photophobia ENMT: Reports: hoarseness; Denies: throat pain, enlarged tonsils, odynophagia or nasal congestion Card: Denies: chest pain, palpitations, irregular heart rhythm, edema, swelling of feet/ankles, lightheadedness, pre-syncope, dyspnea on exertion or orthopnea Resp: Denies: dyspnea, productive cough, non-productive cough, wheezing, stridor, pain on inspiration, change in phlegm color, hemoptysis or chest congestion GI: Denies: abdominal pain, nausea, vomiting, hematemesis, coffee ground emesis, dysphagia, heartburn, diarrhea, constipation, GI cramping, change in stool character, hematochezia or melena : Denies: flank pain, difficulty voiding, dysuria, urinary frequency, urinary urgency, urinary hesitancy or hematuria Musc: Denies: neck pain, back pain, extremity pain, joint swelling, joint warmth or deformity Neuro: Denies: headache(s), numbness in extremities, weakness in extremities, sensory changes, difficulty walking, frequent falls, dizziness, vertigo, behavioral changes, Slurred speech present or seizure-like activity Psych: Denies: anxiety, depression, suicidal ideation or homicidal ideation Endo: Denies: polyuria, polydipsia, tired all the time, cold intolerance or hot flashes Estevan/Lymph: Denies: easy bruising or easy bleeding Medications/Allergies Home Medications Medication Instructions Recorded Confirmed Last Taken Type alprazolam 0.5 mg tablet 0.5 mg PO QID PRN 02/20/19 11/17/20 Unknown History atorvastatin 10 mg PO DAILY@0800 10/12/20 11/17/20 10/29/20 History acetaminophen 325 mg PO QID PRN 10/30/20 11/17/20 Unknown History albuterol sulfate 2.5 mg INHALATION Q4H PRN 10/30/20 11/17/20 Unknown History apixaban [Eliquis] 5 mg PO BID@0800,199910/30/20 11/17/20 10/29/20 History bisacodyl [Dulcolax (bisacodyl)] 10 mg DE DAILY PRN 10/30/20 11/17/20 Unknown History fluoxetine 20 mg PO DAILY@0800 10/30/20 11/17/20 10/29/20 History furosemide 40 mg PO BID 10/30/20 11/17/20 10/29/20 History glycerin [Artificial Tears 2 drp OPHTHALMIC (EYE) Q4H PRN 10/30/20 11/17/20 Unknown History (glycerin)] ipratropium-albuterol [DuoNeb] 0.5 ml INHALATION TID 10/30/20 11/17/20 10/30/20 History levothyroxine 175 mcg PO DAILY 10/30/20 11/17/20 10/29/20 History Fast Form Cock Up Splint #1 ea 11/17/20 11/17/20 Unknown Rx bisacodyl 10 mg PO DAILY PRN 11/18/20 11/18/20 Unknown History calcium carbonate 600 mg PO BID PRN 11/18/20 11/18/20 Unknown History pantoprazole 40 mg PO DAILY 11/18/20 11/18/20 Unknown History Allergies Allergy/AdvReac Type Severity Reaction Status Date / Time codeine Allergy unknown Verified 11/17/20 13:17 ketoprofen [From Oruvail] Allergy unknown Verified 11/17/20 13:17 nitrofurantoin Allergy unknown Verified 11/17/20 13:17 [From Macrobid] olmesartan [From Benicar] Allergy unknown Verified 11/17/20 13:17 quinapril [From Accupril] Allergy unknown Verified 11/17/20 13:17 Tocxhim-Rux-Qbd Reductase Allergy unknowm Verified 11/17/20 13:17 Inhibitor PFSH Acute PFSH: Medical History Bilateral carotid artery stenosis Carotid atherosclerosis Chronic kidney disease Congestive heart failure COPD (chronic obstructive pulmonary disease) CVA (cerebral vascular accident) Displaced spiral fracture of shaft of right humerus with routine healing Fracture of humerus, proximal, right, closed History of CVA (cerebrovascular accident) Hyperlipidemia Hypertension Hypothyroidism Surgical History History of carpal tunnel release of both wrists History of renal stent Hx of cholecystectomy Family History Father Stroke Mother Stroke Social History Smoking and tobacco status: former smoker Alcohol intake: never Female Reproductive History: Date of last menstrual period: 05/08/20 Vitals/I&O/Wt Last Vital Signs Temp 97.5 F L 11/17/20 23:21 Pulse 83 11/18/20 01:10 Resp 14 11/17/20 23:21 BP 126/33 11/17/20 23:21 Pulse Ox 96 11/18/20 01:10 11/17/20 11/17/20 11/18/20 14:59 22:59 06:59 Intake Total 50 / 50 Balance 50 / 50 Weight last 48 hrs Weight 88.451 kg Physical Exam Narrative: EXAM NARRATIVE: General: No acute distress, AO x3 HEENT: PERRLA, pupils bilaterally equal and reactive, pallors not present Chest: B/L fine crackles to auscultation CVS: S1-S2 regular, no murmurs, no tachycardia, no gallops, no rubs Abdomen: Soft, nontender, no organomegaly, bowel sounds present Neuro: No focal deficits, no facial deformity, AO x3, power 5/5 in all limbs Data : 11/18/20 00:46 11/18/20 00:46 Micro: Microbiology 11/17/20 19:33 Blood Culture - Preliminary Blood SPECIMEN COLLECTED 11/17/20 19:15 Blood Culture - Preliminary Blood SPECIMEN COLLECTED A&P Assessment and plan (1) Hypoxemia: Suspect this to be multifactorial related to known COPD, CHF exacerbation and deconditioning CTA without PE, increased B/L interstitial markings noted which may be business process representative of inflammatory vs infectious changes vs fluid Check procalcitonin, lower possibility of pneumonia given absence of fever, increased cough/expectoration or leukocytosis. Monitor off abx for now Duoneb inhalation q6h lm,, add budesonide 0.25mg BID inhalation Lasix 40mg iv q12h for CHF , monitor I/O, urine output check COVID PCR CPAP for night time use Status: Acute (2) CHF exacerbation: this is a clinical diagnosis currently Check echocardiogram elevat dtroponin with 2 hr delta 1.8 and 6 hr delta of 9, may be additionally related to CHF. Status: Acute Qualifiers: Heart failure type: unspecified Qualified Code(s): I50.9 - Heart failure, unspecified (3) Lung infiltrate on CT: may be business process representative of inflammatory vs infectious changes vs fluid check urine histoplasma Ag, PJP screen with serum LDH and BD glucan assay , though lower suspicion given lack of overt immunocompromising conditions, no recent steroid use Status: Acute Additional A&P Information Epistaxis: Noted to have nasal bleed with fresh red blood trickling down face, stopped spontaneously, holding eliquis for now until resolved. 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
[2020-11-18 02:47] LABS: Lactate Dehydrogenase 247 U/L (135-214)
[2020-11-18 02:54] LABS: Procalcitonin 0.24 ng/mL (0-0.5)
[2020-11-18] MEDS: ipratropium-albuterol 3 mL Neb INHALATION ×4 (02:57→20:11)
[2020-11-18] MEDS: FUROsemide 10 mg/mL SDV 4mL 40 MG IVP ×2 (04:27→15:05)
--- NOTE | 2020-11-18 05:57 | USCV_ITS ---
Elzbieta Church Age: 75 Gender: F : 1945 Exam Date: 11/18/2020 06:27 Ordering Phys: Carola Lakhani MD Technologist: STALIN [place] [facility] [place]: [place]B BP: 148 / 47 HR: 85 Rhythm: Sinus Technical Quality: Technically difficult study MEASUREMENTS (Male / Female) Normal Values 2D ECHO LV Diastolic Diameter PLAX 3.1 cm 4.2 - 5.9 / 3.9 - 5.3 cm LV Systolic Diameter PLAX 2.2 cm IVS Diastolic Thickness 1.7 cm 0.6 - 1.0 / 0.6 - 0.9 cm IVS Systolic Thickness 2.1 cm LVPW Diastolic Thickness 1.8 cm 0.6 - 1.0 / 0.6 - 0.9 cm LVPW Systolic Thickness 2.2 cm LVOT Diameter 2.0 cm LV Ejection Fraction 2D Teich 59.1 % LV Ejection Fraction MOD 2C 54.1 % LV Ejection Fraction 2C AL 54.7 % LA Diameter 2.9 cm LA Width 3.5 cm LA Height 4.9 cm RA Width 3.3 cm RA Height 4.7 cm Aorta at Sinotubular Diameter 1.8 cm DOPPLER AV Peak Velocity 187.0 cm/s LVOT Peak Velocity 90.0 cm/s AV Area Cont Eq vti 1.8 cm squared AV Area Cont Eq pk 1.5 cm squared MV Area PHT 5.0 cm squared Mitral E to A Ratio 1.0 MV E' Velocity 79.3 cm/s Mitral E to MV E' Ratio 15.9 Mitral E to LV E' Lateral Ratio 13.0 Mitral E to LV E' Septal Ratio 20.7 TR Peak Velocity 329.0 cm/s TR Peak Gradient 43.3 mmHg TV Peak E Velocity 68.0 cm/s Right Atrial Pressure 3.0 mmHg Pulmonary Artery Systolic Pressu 46.3 mmHg PV Peak Velocity 92.0 cm/s RV Acceleration Time 0.1 s RV Ejection Time 0.4 s RV AcT/ET 0.2 FINDINGS Left Ventricle Normal left ventricular size and systolic function, EF 55 %. Segmental wall motion analysis difficult because of the poor ultrasonic window. However no gross abnormalities noted.Grade I/IV diastolic dysfunction (abnormal relaxation filling pattern), normal to mildly elevated filling pressures. Right Ventricle Right ventricle appears to be mildly dilated with a normal ejection fraction. Right Atrium Mildly dilated right atrium. Left Atrium The left atrium is normal in size. Mitral Valve Mild-moderate mitral valve regurgitation. Aortic Valve Thickened aortic valve. Tricuspid Valve Moderate tricuspid valve regurgitation. Estimated pulmonary artery peak systolic pressure was 30 mmHg. Pulmonic Valve Not visualized well Pericardium Normal pericardium without effusion. Aorta Normal ascending aorta dimension. CONCLUSIONS Normal left ventricular size and systolic function, EF 55 %. Segmental wall motion analysis difficult because of the poor ultrasonic window. However no gross abnormalities noted.Grade I/IV diastolic dysfunction (abnormal relaxation filling pattern), normal to mildly elevated filling pressures. Mild-moderate mitral valve regurgitation. Moderate tricuspid valve regurgitation. Estimated pulmonary artery peak systolic pressure was 60 mmHg. There is no pericardial effusion. There are no intracardiac masses. Compared to the study from 01/03/2019, the pulmonary hypertension, mitral and tricuspid regurgitation, etc. appear to be new Dr Ganesh Maguire MD FAC (Electronically Signed) Final Date: 18 November 2020 17:46 S
[2020-11-18] MEDS: saline nasal spray 44mL Btl 1 SPRAY NASAL (06:20)
[2020-11-18] MEDS: fluoxetine 20 mg Capsule PO (08:25)
[2020-11-18] MEDS: levothyroxine 175 mcg Tablet PO (08:25)
[2020-11-18] MEDS: pantoprazole DR 40 mg Tablet PO (08:26)
[2020-11-18] MEDS: atorvastatin 40 mg Tablet 10 MG PO (08:26)
[2020-11-18] MEDS: budesonide 0.5 mg/2 mL Neb INHALATION ×2 (09:55→20:11)
--- NOTE | 2020-11-18 12:47 | P.PN_ITS ---
Subjective Subjective: Interval history: Patient was seen and examined this morning, we did discuss CHF exacerbation and need of diuretics, at baseline she requires 4 L currently doing well on 6 L, has mild conversational dyspnea, cardiac wheezing Vitals/I&O/Wt Last Vital Signs Temp 98.2 F 11/18/20 04:29 Pulse 84 11/18/20 10:04 Resp 17 11/18/20 09:55 BP 110/64 11/18/20 09:13 Pulse Ox 98 11/18/20 09:55 11/17/20 11/18/20 11/18/20 22:59 06:59 14:59 Intake Total 1050 / 1050 Output Total 500 / 500 Balance 550 / 550 Weight last 48 hrs Weight 88.904 kg Weight 88.451 kg Physical Exam Narrative: EXAM NARRATIVE: Patient was sitting comfortably in her bed, appears stated age Saturating well on 6 L nasal cannula No active chest pain Cardiac wheezing bilateral crackles Abdomen soft Lower extremity no edema Awake alert oriented x3 GCS 15 Appropriate mood and affect Mild conversational dyspnea noted Data : 11/18/20 00:46 11/18/20 00:46 Micro: Microbiology 11/17/20 19:33 Blood Culture - Preliminary Blood SPECIMEN COLLECTED 11/17/20 19:15 Blood Culture - Preliminary Blood SPECIMEN COLLECTED A&P Assessment and plan (1) CHF exacerbation: Status: Acute Qualifiers: Heart failure type: unspecified Qualified Code(s): I50.9 - Heart failure, unspecified (2) COPD exacerbation: Status: Acute Additional A&P Information Acute on chronic hypoxic respiratory failure with underlying chronic obstructive pulmonary disease due to CHF exacerbation, EF unkown, will get echo High BNP, CT scan evident with bilateral interstitial infiltrates consistent with vascular congestion Patient has cardiac wheezing currently saturating well on 6 L nasal cannula at baseline uses 4 L Continue IV diuretics Follow-up with echo I do not see any evidence of pneumonia, follow-up with procalcitonin, I would not continue antibiotics at this time, no signs of sepsis CKD cr at baseline, no decompemsation Full code Cardiac diet DVT prophylaxis Lovenox Attestations Medical Necessity Statement*: continue med management Time Spent in Patient Care: less than 15 minutes Coding Level of Care Code Acute Arc Furnace Operator for g Fwd Diagnoses CHF exacerbation I50.9 Heart failure type: unspecified COPD exacerbation J44.1
[2020-11-18] MEDS: ALPRAZolam 0.5 mg Tablet PO ×2 (19:16→23:08)
[2020-11-18 20:04] LABS: Coronavirus Test Green County Not Detected
[2020-11-19] VITALS (19 sets, daily range): BP systolic 142–168; BP diastolic 49–67; PULSE 66–88; RESP 16–25; TEMP 36.5–36.7; O2SAT 90–100
[2020-11-19] MEDS: ipratropium-albuterol 3 mL Neb INHALATION ×4 (01:35→21:07)
[2020-11-19] MEDS: FUROsemide 10 mg/mL SDV 4mL 40 MG IVP (03:43)
[2020-11-19 04:59] LABS: Basophils % 0.4 %; Eosinophils # 0.4 10^3/uL (0.0-0.8); Eosinophils % 7.4 %; Hematocrit 25.9 % (37.0-47.0); Hemoglobin 7.5 g/dL (11.5-15.3); Lymphocytes % 18.5 %; Mean Corpuscular Hemoglobin 25.9 pg (28.0-34.0); Mean Corpuscular Volume 89.3 fl (81-99); Mean Platelet Volume 9.6 fL (7.4-10.4); Monocytes # 0.6 10^3/uL (0.2-0.9); Monocytes % 11.5 %; Neutrophils # 3.19 10^3/uL (1.8-7.7); Neutrophils % 60.9 %; Nucleated Red Blood Cells % 0 %; Platelet Count 313 10^3/cmm (130-400); Red Cell Distribution Width 17.9 % (12.1-15.1); White Blood Count 5.2 10^3/uL (4.0-10.0)
[2020-11-19 05:25] LABS: Anion Gap 9.2 (5-19); Blood Urea Nitrogen 24 mg/dL (8-23); Calcium 8.8 mg/dL (8.5-10.5); Carbon Dioxide 37 mmol/L (22-29); Chloride 95 mmol/L (98-107); Glucose 98 mg/dL (65-115); Osmolality Calculated 288 mOsm/kg (285-295); Potassium 4.2 mmol/L (3.5-5.1); Sodium 137 mmol/L (136-145)
--- NOTE | 2020-11-19 07:33 | PC.NURSE ---
Pt lying in bed eating breakfast and talking to staff. Pt resp even and non-labored no distress noted. Pt had no c/o pain or discomfort at the present time. No needs voiced. Call light in reach. Will cont to monitor.
--- NOTE | 2020-11-19 07:43 | XR_ITS ---
WS: [id number] XR chest 1V portable [id number] REASON FOR EXAM: Pl. oedema, hypoxia FINDINGS: Consolidation in both lower lungs. Pleural effusions. Stable compared with the previous examination o f 11/17/2020 There appears to be a decrease in the interstitial infiltrative changes seen on 11/17/2020 No new findings are identified. XR/XR chest 1V portable [id number] IMPRESSION: Possible decreasing interstitial changes which may indicate resolving pulmonary edema. Chest otherwise stable.
[2020-11-19 08:13] LABS: Hematocrit 27.4 % (37.0-47.0); Hemoglobin 7.9 g/dL (11.5-15.3)
[2020-11-19] MEDS: budesonide 0.5 mg/2 mL Neb INHALATION ×2 (08:23→21:07)
[2020-11-19] MEDS: fluoxetine 20 mg Capsule PO (09:31)
[2020-11-19] MEDS: atorvastatin 40 mg Tablet 10 MG PO (09:31)
[2020-11-19] MEDS: levothyroxine 175 mcg Tablet PO (09:32)
[2020-11-19] MEDS: pantoprazole DR 40 mg Tablet PO (09:32)
--- NOTE | 2020-11-19 12:09 | PM.PN ---
Subjective Subjective: Interval history: Patient was seen and examined this morning she is endorsing dry cough, she is saturating well on 3 L nasal cannula, Buck cath was placed because of her incontinence and indication of accurate ins and outs, still has mild wheezing, creatinine today worsened to 1.5 however baseline creatinine seems around 1.6 H&H repeated this morning, hemoglobin 7.9 Afebrile, no leukocytosis Levaquin added Procalcitonin unremarkable Vitals/I&O/Wt Last Vital Signs Temp 97.8 F 11/19/20 08:00 Pulse 82 11/19/20 08:28 Resp 17 11/19/20 08:28 BP 157/52 11/19/20 08:00 Pulse Ox 98 11/19/20 08:28 11/18/20 11/19/20 11/19/20 22:59 06:59 14:59 Output Total 1150 / 1150 250 / 1400 850 / 850 Balance -1150 / -1150 -250 / -1400 -850 / -850 Weight last 48 hrs Weight 88.904 kg Weight 88.451 kg Physical Exam Narrative: EXAM NARRATIVE: Patient was sitting in her bed saturating well on 3 L nasal cannula Awake alert oriented x3 GCS 15 Wheezing noted in diffuse pattern on expiration Chest congestion dry hacking cough Clinically looks euvolemic Abdomen soft Lower symmetry no edema Urinary Catheter Management^: Buck: Cath Placed During This Visit: yes Reason for Continuing Indwelling Catheter: Accurate Measurement of Urinary Output in Critically Ill Patients Urinary Catheter Date of Insertion: 11/18/20 Urinary Catheter Time of Insertion: 16:30 Data : 11/19/20 08:00 11/19/20 04:35 Micro: Microbiology 11/19/20 04:30 Legionella Urinary Antigen - Final Urine,Voided 11/17/20 19:33 Blood Culture - Preliminary Blood NEGATIVE TO DATE 11/17/20 19:15 Blood Culture - Preliminary Blood NEGATIVE TO DATE A&P Assessment and plan (1) Lung infiltrate on CT: Status: Acute (2) Hypoxemia: Status: Acute (3) Acute kidney injury superimposed on CKD: Status: Acute (4) CHF exacerbation: Status: Acute Qualifiers: Heart failure type: unspecified Qualified Code(s): I50.9 - Heart failure, unspecified (5) COPD exacerbation: Status: Acute Additional A&P Information Acute on chronic hypoxic respite failure Right upper lobe infiltrate Dry hacking cough Diffuse pattern of wheezing Physical deconditioning Acute on chronic kidney injury Acute on chronic hypoxic restaurant failure related to CHF exacerbation and possible pneumonia however procalcitonin unremarkable, patient has been afebrile no leukocytosis, I would keep her empirically on Levaquin For wheezing we will add budesonide and IV steroids For cough will add dextromethorphan and Mucomyst At baseline uses 4 L of oxygen Preserved ejection fraction heart failure exacerbation Echo shows EF 55% grade 1 diastolic dysfunction Does show evidence of pulmonary hypertension, mitral tricuspid regurgitation, Clinically does not look fluid overloaded we will cut back on her diuretics Remove Buck catheter tomorrow Physical deconditioning: Requested physical therapy, patient is stating that she has been bedbound at the custodial and physical therapy does help her no acute focal deficits, Acute on chronic kidney injury related to underlying CHF exacerbation, baseline creatinine seems to be around 1.4-1.6 This seems cardiorenal anticipating improvement with diuretics Chronic anemia: Hemoglobin stable Full code Cardiac diet DVT prophylaxis not indicated currently she is on Eliquis [facility] [place] Medical Necessity Statement*: Anticipating discharge tomorrow Time Spent in Patient Care: 16 - 35 minutes Coding Level of Care Code 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
[2020-11-19] MEDS: levoFLOXacin 750 mg Tablet PO (13:13)
[2020-11-19] MEDS: acetaminophen 325 mg Tablet 650 MG PO (13:18)
--- NOTE | 2020-11-19 15:52 | PC.NURSE ---
Applied SCDs to pts legs. Pt tolerated well.
[2020-11-19] MEDS: apixaban 5 mg Tablet PO (20:58)
[2020-11-19] MEDS: acetylcysteine 200 mg/mL SDV 4 mL 100 MG INHALATION (21:07)
[2020-11-20] VITALS (17 sets, daily range): BP systolic 101–184; BP diastolic 60–78; PULSE 83–92; RESP 17–25; TEMP 36.6–36.7; O2SAT 89–99
[2020-11-20] MEDS: acetylcysteine 200 mg/mL SDV 4 mL 100 MG INHALATION ×3 (03:50→14:30)
[2020-11-20] MEDS: ipratropium-albuterol 3 mL Neb INHALATION ×4 (03:50→20:20)
[2020-11-20 05:31] LABS: Basophils % 0.2 %; Hematocrit 27.9 % (37.0-47.0); Hemoglobin 8.2 g/dL (11.5-15.3); Lymphocytes # 0.4 10^3/uL (0.8-4.8); Lymphocytes % 7.9 %; Mean Corpuscular HGB Conc 29.4 g/dL (30.0-36.0); Mean Corpuscular Hemoglobin 26.2 pg (28.0-34.0); Mean Corpuscular Volume 89.1 fl (81-99); Mean Platelet Volume 9.8 fL (7.4-10.4); Monocytes # 0.1 10^3/uL (0.2-0.9); Monocytes % 1.4 %; Neutrophils # 4.37 10^3/uL (1.8-7.7); Neutrophils % 89.1 %; Nucleated Red Blood Cells % 0 %; Platelet Count 367 10^3/cmm (130-400); Red Blood Count 3.13 10^6/uL (4.1-5.3); Red Cell Distribution Width 17.3 % (12.1-15.1); White Blood Count 4.9 10^3/uL (4.0-10.0)
[2020-11-20 06:11] LABS: Anion Gap 13.7 (5-19); Blood Urea Nitrogen 29 mg/dL (8-23); Calcium 9.1 mg/dL (8.5-10.5); Carbon Dioxide 34 mmol/L (22-29); Chloride 93 mmol/L (98-107); Glucose 169 mg/dL (65-115); Osmolality Calculated 292 mOsm/kg (285-295); Potassium 4.7 mmol/L (3.5-5.1); Sodium 136 mmol/L (136-145); Thyroid Stimulating Hormone 0.72 uIU/mL (0.27-4.20)
[2020-11-20] MEDS: budesonide 0.5 mg/2 mL Neb INHALATION ×2 (08:11→20:20)
[2020-11-20] MEDS: fluoxetine 20 mg Capsule PO (08:45)
[2020-11-20] MEDS: levothyroxine 175 mcg Tablet PO (08:45)
[2020-11-20] MEDS: atorvastatin 40 mg Tablet 10 MG PO (08:46)
[2020-11-20] MEDS: apixaban 5 mg Tablet PO ×2 (08:46→20:01)
[2020-11-20] MEDS: pantoprazole DR 40 mg Tablet PO (08:46)
--- NOTE | 2020-11-20 09:49 | PC.SOCIAL ---
IMM Update Pg. 2 of IMM updated and reviewed with patient, who verbalized understanding. Copy provided.
--- NOTE | 2020-11-20 11:19 | PM.PN ---
Subjective Subjective: Interval history: Yesterday chest x-ray showed mild improvement in interstitial infiltrates however overnight oxygen requirement was increased to 9 L oxygen mask this morning she still requiring 8 L, she was saturating 84 to 85% on 6L Patient is not endorsing active chest pain however today she is bringing up clear sputum with her cough, still noticing wheezing she is getting Mucomyst and breathing regimen IV steroids were started yesterday along with Levaquin repeat chest x-ray today, requested ABG PE ruled out she is on Eliquis Hemoglobin stable 8.2 Compared to the study from 01/03/2019, the pulmonary hypertension, mitral and tricuspid regurgitation, etc. appear to be new At [facility] she does take Lasix 40 mg Will need Covid swab before she goes back to [facility] Target oxygen level above 89 considering severe pulmonary hypertension Vitals/I&O/Wt Last Vital Signs Temp 97.8 F 11/20/20 07:30 Pulse 87 11/20/20 08:14 Resp 18 11/20/20 08:14 BP 184/78 11/20/20 07:30 Pulse Ox 96 11/20/20 08:14 11/19/20 11/20/20 11/20/20 22:59 06:59 14:59 Intake Total 350 / 350 358 / 358 Output Total 400 / 1250 Balance -50 / -900 358 / 358 Weight last 48 hrs Weight 92.986 kg Physical Exam Narrative: EXAM NARRATIVE: Patient was sitting in his bed saturating 80-89% on 8 L nasal cannula S1, S2 systolic murmur Clinically looks euvolemic Active wheezing noted She is bringing up clear sputum as well EOMI, PERRLA Abdomen soft Lower symmetry no edema Has SCDs on No active bleeding, petechia noted left davdi no active bleeding or cellulitis Urinary Catheter Management^: Buck: Cath Placed During This Visit: yes Reason for Continuing Indwelling Catheter: Accurate Measurement of Urinary Output in Critically Ill Patients Urinary Catheter Date of Insertion: 11/18/20 Urinary Catheter Time of Insertion: 16:30 Data : 11/20/20 04:19 11/20/20 04:19 Micro: Microbiology 11/19/20 18:25 Bacterial Antigens - Final Urine,Clean Catch 11/19/20 04:30 Legionella Urinary Antigen - Final Urine,Voided A&P Assessment and plan (1) Lung infiltrate on CT: Status: Acute (2) Pneumonia: Status: Acute (3) Hypoxemia: Status: Acute (4) Acute kidney injury superimposed on CKD: Status: Acute (5) CHF exacerbation: Status: Acute Qualifiers: Heart failure type: unspecified Qualified Code(s): I50.9 - Heart failure, unspecified (6) Severe pulmonary hypertension: Status: Acute (7) COPD exacerbation: Status: Acute (8) Acute and chronic respiratory failure with hypoxia: Status: Acute (9) Physical deconditioning: Status: Acute Additional A&P Information Acute on chronic hypoxic respiratory failure Hypoxia is worsening requiring 8-9 L oxygen now, at baseline she requires 4 L Echo is revealing worsening of mitral and tricuspid valve regurgitation, severe pulmonary hypertension PE was ruled out We will repeat chest x-ray today ABG today Continue Eliquis DuoNeb treatment, Mucomyst She is also on Levaquin cultures have been negative so far O2 saturation goal is above 89% considering pulmonary hypertension Acute COPD exacerbation with underlying CHF exacerbation due to severe pulmonary hypertension Active wheezing currently on IV steroids and Levaquin Pneumonia to be ruled out Acute preserved ejection fraction heart failure exacerbation Diastolic dysfunction De-escalate diuretic regimen, discontinue Buck catheter Creatinine around baseline Adequate urine output Normal TSH Hypertension and tachycardia, added Bumex, amlodipine and Coreg Full code Will discharge back to [facility] once her wheezing improves Will need Covid test as well Cardiac diet DVT prophylaxis currently on Eliquis PT recommendation appreciated [employer] company Home to replace her machine at the detention Attestations Medical Necessity Statement*: Will discharge once clinically stable, reevaluate in 24 hours Time Spent in Patient Care: 16 - 35 minutes Coding Level of Care Code Acute Veterans' Counselor for Pattie Cisneros Diagnoses Lung infiltrate on CT R91.8 Pneumonia J18.9 Hypoxemia R09.02 Acute kidney injury superimposed on CKD N17.9; N18.9 CHF exacerbation I50.9 Heart failure type: unspecified Severe pulmonary hypertension I27.20 COPD exacerbation J44.1 Acute and chronic respiratory failure with hypoxia J96.21 Physical deconditioning R53.81
[2020-11-20 12:01] LABS: ABG PCO2 55.5 mmHg (35-45); ABG PH Result 7.41 (7.35-7.45); Arterial Blood Gas Hematocrit 27.7 % (37-47); Base Excess ABG 9.4 mmol/L (-2.0-2.0); Blood Gas Allen Test Pos; Blood Gas Sample Site Brachial, left; Blood Gas Sample Type Arterial; HCO3 ABG 35.3 mmol/L (22-26); Oxygen Device NC; PO2 ABG 98.4 mmHg (80.0-100.0)
[2020-11-20] MEDS: carvedilol 6.25 mg Tablet PO ×2 (12:24→17:21)
[2020-11-20] MEDS: bumetanide 1 mg Tablet 2 MG PO (12:24)
[2020-11-20] MEDS: amlodipine 10 mg Tablet PO (12:24)
[2020-11-20] MEDS: acetaminophen 325 mg Tablet 650 MG PO (14:03)
--- NOTE | 2020-11-20 18:16 | PC.NURSE ---
Asked patricia if he wanted another covid test on pt and he ordered to cancel request.
[2020-11-20] MEDS: ALPRAZolam 0.5 mg Tablet PO (20:01)
[2020-11-21] VITALS (12 sets, daily range): BP systolic 87–145; BP diastolic 51–63; PULSE 75–98; RESP 16–24; TEMP 36.3; O2SAT 90–99
--- NOTE | 2020-11-21 00:02 | PC.NURSE ---
Patient has had several episodes of urinary incontinence. Patient's absorbent pads have been replaced and skin cleansed each time.
--- NOTE | 2020-11-21 02:45 | PC.NURSE ---
Patient has been rounded on hourly. Patient frequent uses call light between rounds. Patient hit call light and stated to nurse, I feel like there's something on my face, can you scratch it for me?
--- NOTE | 2020-11-21 02:53 | PC.NURSE ---
Patient hit call light and asked for a drink of water. Patient was handed cup of water. Patient states, you're going to have to put it in my mouth for me, I can't do it. Patient was educated and encouraged to try to keep her strength up. Patient took the cup of water from the nurse.
[2020-11-21] MEDS: ipratropium-albuterol 3 mL Neb INHALATION ×2 (03:20→08:22)
[2020-11-21] MEDS: levoFLOXacin 750 mg Tablet PO (04:31)
[2020-11-21 06:39] LABS: Basophils % 0.1 %; Hematocrit 27.2 % (37.0-47.0); Hemoglobin 7.8 g/dL (11.5-15.3); Lymphocytes # 0.7 10^3/uL (0.8-4.8); Lymphocytes % 8.3 %; Mean Corpuscular HGB Conc 28.7 g/dL (30.0-36.0); Mean Corpuscular Hemoglobin 25.3 pg (28.0-34.0); Mean Corpuscular Volume 88.3 fl (81-99); Mean Platelet Volume 9.8 fL (7.4-10.4); Monocytes # 0.4 10^3/uL (0.2-0.9); Monocytes % 4.6 %; Neutrophils # 7.22 10^3/uL (1.8-7.7); Neutrophils % 86.2 %; Nucleated Red Blood Cells % 0 %; Platelet Count 395 10^3/cmm (130-400); Red Blood Count 3.08 10^6/uL (4.1-5.3); Red Cell Distribution Width 17.1 % (12.1-15.1); White Blood Count 8.4 10^3/uL (4.0-10.0)
[2020-11-21 06:57] LABS: Anion Gap 12.4 (5-19); Blood Urea Nitrogen 34 mg/dL (8-23); Calcium 9.4 mg/dL (8.5-10.5); Carbon Dioxide 33 mmol/L (22-29); Chloride 95 mmol/L (98-107); Glucose 133 mg/dL (65-115); Osmolality Calculated 292 mOsm/kg (285-295); Potassium 4.4 mmol/L (3.5-5.1); Sodium 136 mmol/L (136-145)
--- NOTE | 2020-11-21 08:10 | PC.NURSE ---
Addendum entered by Urvashi Bhatt RN 11/21/20 08:23: Entered on incorrect patient. Original Note: HARDBOARD PRESS OPERATOR at bedside with patient and came to nurse to report that patient was not feeling good. Patient became very flushed, diaphoretic, and short of breath. Dr. Lakhani came to bedside. Patient's heart rate 160s. Patient given 5 Lopressor IV at 0628, 10 Cardizem IV at 0632, 5 Cardizem IV at 0640, 20 Lasix at 0637, 5 Cardizem at 0655, Cardizem drip started at 0650, 200 PO Amio at 0718, 20 Lasix IV at 0647. Chest x-ray taken, ABG taken, EKG taken x2 per order at bedside. Ordered to get another ABG at 0830. PO Cardizem ordered q6 hours.
[2020-11-21] MEDS: budesonide 0.5 mg/2 mL Neb INHALATION (08:22)
[2020-11-21] MEDS: acetylcysteine 200 mg/mL SDV 4 mL 100 MG INHALATION (08:23)
[2020-11-21] MEDS: atorvastatin 40 mg Tablet 10 MG PO (09:06)
[2020-11-21] MEDS: pantoprazole DR 40 mg Tablet PO (09:07)
[2020-11-21] MEDS: apixaban 5 mg Tablet PO (09:07)
[2020-11-21] MEDS: levothyroxine 175 mcg Tablet PO (09:07)
[2020-11-21] MEDS: amlodipine 10 mg Tablet PO (09:07)
[2020-11-21] MEDS: carvedilol 6.25 mg Tablet PO (09:07)
[2020-11-21] MEDS: fluoxetine 20 mg Capsule PO (09:08)
[2020-11-21] MEDS: bumetanide 1 mg Tablet 2 MG PO (09:08)
--- NOTE | 2020-11-21 11:40 | P.DS_ITS ---
Discharge Providers Date of Admission: 11/17/20 21:43 Date of Discharge: November 21, 2020 Attending Provider at Admission: Carola Lakhani MD Attending Provider at Discharge: Noah Rojo MD Primary Care Provider: Marco Antonio Thompson MD Diagnoses at Discharge Discharge Diagnosis (1) Lung infiltrate on CT: Status: Acute (2) Pneumonia: Status: Acute (3) Hypoxemia: Status: Acute (4) Acute kidney injury superimposed on CKD: Status: Acute (5) CHF exacerbation: Status: Acute Qualifiers: Heart failure type: unspecified Qualified Code(s): I50.9 - Heart failure, unspecified (6) Severe pulmonary hypertension: Status: Acute (7) COPD exacerbation: Status: Acute (8) Acute and chronic respiratory failure with hypoxia: Status: Acute (9) Physical deconditioning: Status: Acute Reason for Visit Reason for Visit: SOB Hospital Course Hospital Course History of Present Illness by Dr. 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 fib on Eliquis, hypertension, hyperlipidemia, hypothyroidism, CAD, COPD chronically 4 L oxygen dependent, CKD, history of right wrist fracture in a cast, recetly seen at the ER on 10/30 for hospital acquired pneumonia and septic shock needing tx to OSH for higer level of care. She was discharged from latter facility to a SNF. Presented as outpatient today to Dr. Roberts's office for wrist frature follow up, noted to have 02 sat in the 70s and transfererd to ER for hypoxia, dyspnea. She initially required between 10-15lpm on NRB upon presentation, now between 6-8lpm on NC. She uses CPAP at night time. ABG today showed hypoxemia. CTA chest negative for any PE, unchanged bibasilar infiltrates, increased interstitial markings in both lungs. Patient reports feeling more short of breath over the last 3-4 days, denies any fever, chest pain, palpitations, increased cough or sputum production. Hospital course Patient was admitted to the hospital from custodial for worsening shortness of breath. She was diagnosed with CHF exacerbation, was adequately diuresed with IV Lasix which was then transition to p.o., -2.5 L fluid balance which improved her oxygenation. Her ABG was repeated which showed improvement in PaO2on 7L. Patient was experiencing productive cough, with clear secretions, she remained afebrile, no leukocytosis, urine antigens, blood cultures negative, she was put on Levaquin for new infiltrate seen on CTA chest. No signs of PE. She takes Eliquis chronically. For her wheezing she was started on steroids. Her echo findings are as stated CONCLUSIONS Normal left ventricular size and systolic function, EF 55 %. Segmental wall motion analysis difficult because of the poor ultrasonic window. However no gross abnormalities noted.Grade I/IV diastolic dysfunction (abnormal relaxation filling pattern), normal to mildly elevated filling pressures. Mild-moderate mitral valve regurgitation. Moderate tricuspid valve regurgitation. Estimated pulmonary artery peak systolic pressure was 60 mmHg. There is no pericardial effusion. There are no intracardiac masses. Compared to the study from 01/03/2019, the pulmonary hypertension, mitral and tricuspid regurgitation, etc. appear to be new I did discuss her clinical course and increased oxygen requirement with her DPOA, her friend and brother Stephan Weaver who is in [facility] phone number [phone] Patient did work with physical therapy during her hospitalization, she is suffering from physical deconditioning from staying in the bed most of the time, she does not have any active neurological deficits, TSH 0.7 Pending results of histoplasma antigen, Covid PCR negative, beta D glucan test is pending as well which was requested by admitting doctor Considering severe pulmonary hypertension her O2 saturation goal is above 89% Physical Exam Narrative: EXAM NARRATIVE: Patient was sitting in his bed saturating 92% on 6 L nasal cannula S1, S2 systolic murmur Clinically looks euvolemic Active wheezing noted She is bringing up clear sputum as well EOMI, PERRLA Abdomen soft Lower symmetry no edema Has SCDs on No active bleeding, petechia noted left david no active bleeding or cellulitis Urinary Catheter Management^: Buck: Cath Placed During This Visit: yes, but has since been removed by the nurse Reason for Continuing Indwelling Catheter: Not indwelling catheter Urinary Catheter Date of Insertion: 11/18/20 Urinary Catheter Time of Insertion: 16:30 Date Urinary Catheter Removed: 11/20/20 Time Urinary Catheter Discontinued: 17:00 Discharge Data Data Completed and Pending: Completed Studies During Hospitalization Category Date Time Status CT angio chest PE protcl [id number] Urge nt Cat Scan 11/17/20 19:54 Completed XR chest 1V terry ble [id number] Routine Exams 11/19/20 07:43 Completed XR chest 1V terry ble [id number] Urgent Exams 11/17/20 19:17 Completed CV. echo complete * [id number] Routine Ultrasound 11/18/20 05:57 Completed Pending at discharge Category Date Time Status Blood Culture Sta t Lab 11/17/20 19:33 Results Fungitell Glucan Assay Routine Lab 11/18/20 02:15 Received Histoplasma Quant itative AG Routine Lab 11/18/20 02:09 Received Immunochemical Fe sergio OCB Routine Lab 11/19/20 07:42 Uncollected Sputum Culture an d Gram Stain Routi ne Lab 11/18/20 02:09 Uncollected Labs from last 24 hours 11/21/20 11/21/20 11/20/20 06:00 06:00 11:49 WBC 8.4 RBC 3.08 L Hgb 7.8 L Hct 27.2 L MCV 88.3 MCH 25.3 L MCHC 28.7 L RDW 17.1 H Plt Count 395 MPV 9.8 Neut % (Auto) 86.2 Lymph % (Auto) 8.3 Glenn % (Auto) 4.6 Eos % (Auto) 0.0 Baso % (Auto) 0.1 Neut # (Auto) 7.22 Lymph # (Auto) 0.7 L Glenn # (Auto) 0.4 Eos # (Auto) 0.0 Baso # (Auto) 0.0 Nucleated RBC % (a uto) 0 Nucleated RBCs # 0.0 Specimen Type Arterial Sample Site Brachial, left ABG pH 7.41 ABG pCO2 55.5 H ABG pO2 98.4 ABG HCO3 35.3 H ABG Base Excess 9.4 H Julio Test Pos Hematocrit 27.7 L O2 Delivery Device Nc O2 Liters/Min 7.0 Health Professional ID [id number] Sodium 136 Potassium 4.4 Chloride 95 L Carbon Dioxide 33 H Anion Gap 12.4 BUN 34 H Creatinine 1.5 H GFR Calculation Not Reportable Glucose 133 H Calculated Osmolal ity 292 Calcium 9.4 Vitals: Last Vital Signs Temp 97.4 F L 11/21/20 11:34 Pulse 98 11/21/20 11:34 Resp 21 H 11/21/20 11:34 BP 87/62 11/21/20 11:34 Pulse Ox 95 11/21/20 11:34 Discharge Plan Discharge Patient Disposition: Xfer SNF Condition: Stable Prescriptions: New Medrol (Patricio) 4 mg tablets,dose pack See Rx Instructions .ROUTE .COMPLEX Qty: 21 RF: 0 amlodipine 10 mg tablet 10 mg PO DAILY Qty: 30 RF: 0 levofloxacin 750 mg tablet 750 mg PO DAILY 7 Days Qty: 7 RF: 0 Continued alprazolam 0.5 mg tablet 0.5 mg PO QID PRN (Reason: Anxiety) RF: 0 (DME) Fast Form Cock Up Splint See Rx Instructions .ROUTE .MEDSUPPLY Qty: 1 RF: 0 levothyroxine 175 mcg Tablet 175 mcg PO DAILY RF: 0 acetaminophen 325 mg Tablet 325 mg PO QID PRN (Reason: Fever Or Pain) RF: 0 ipratropium-albuterol 0.5 mg-3 mg(2.5 mg base)/3 mL Solution For Nebulization 0.5 ml INHALATION TID RF: 0 bisacodyl [Dulcolax (bisacodyl)] 10 mg Suppository 10 mg NM DAILY PRN (Reason: Constipation) RF: 0 fluoxetine 20 mg capsule 20 mg PO DAILY@0800 RF: 0 glycerin Drops 2 drp OPHTHALMIC (EYE) BID PRN (Reason: Dry Eyes) RF: 0 albuterol sulfate 2.5 mg/0.5 mL Solution For Nebulization 2.5 mg inhalation Q4H PRN (Reason: SOB/WHEEZING) RF: 0 Eliquis 5 mg tablet 5 mg PO BID@0800,2000 RF: 0 atorvastatin 10 mg tablet 10 mg PO DAILY@0800 RF: 0 pantoprazole 40 mg Tablet,Delayed Release (Dr/Ec) 40 mg PO DAILY RF: 0 calcium carbonate 600 mg calcium (1,500 mg) Tablet 600 mg PO BID PRN (Reason: Indigestion) RF: 0 bisacodyl 5 mg Tablet,Delayed Release (Dr/Ec) 10 mg PO DAILY PRN (Reason: Constipation) RF: 0 furosemide 40 mg tablet 40 mg PO DAILY 30 Days Qty: 30 RF: 0 Discharge Orders: Discharge Order (Routine); Ordered 11/21/20 Ordered By: Noah Rojo Referrals: Marco Antonio Thompson MD [Primary Care Provider] - 4-7 days (You will have a follow up appointment with Jay Malone on TuesdayNovember 25 at 1020am. If you cannot make this appointment, and you need to reschedule or you have question please call . ) Discharge Diet: Cardiac Discharge Activity: Increase activity as tolerated and As per PT/OT instructions Discharge Attestations Time Spent in Discharge Care*: less than 30 min Quality Metrics Clinical Quality Measures During this hospital stay, did patient experience: None Coding Level of Care Code Acute g [facility] note Diagnoses Lung infiltrate on CT R91.8 Pneumonia J18.9 Hypoxemia R09.02 Acute kidney injury superimposed on CKD N17.9; N18.9 CHF exacerbation I50.9 Heart failure type: unspecified Severe pulmonary hypertension I27.20 COPD exacerbation J44.1 Acute and chronic respiratory failure with hypoxia J96.21 Physical deconditioning R53.81
--- NOTE | 2020-11-21 15:09 | PC.RESP ---
PULMONARY REHAB INFORMATION SENT TO PATIENT.
[2020-11-22 21:08] LABS: Fungitell 1-3-B Glucan Assay <31 pg/mL; Interpretation NEGATIVE
[2020-11-25 07:08] LABS: Histoplasma Antigen (Quant) NONE DETECTED; Histoplasma Antigen Interpreta NEGATIVE; Histoplasma Antigen Specimen URINE
--- NOTE | 2020-11-26 07:52 | PC.SOCIAL ---
discharge follow up call made, spoke with Codie at [facility]. She reports pt is doing good, all medications available for patient and she is taking as prescribed. nurse voices no concerns.
== END 2020-11-21 14:42 | disposition skilled nursing facility (03) | DRG 291 ==
LOC: ER 21:57 → CSU 22:01
PROVIDERS: Admitting Provider Student in an Organized Health Care Education/Training Program; Emergency Provider Emergency Medicine; PCP Family Medicine; Visit Provider Internal Medicine
DX: I13.0 Hypertensive heart and chronic kidney disease with heart failure and stage 1 through stage 4 chronic kidney disease, or unspecified chronic kidney disease (principal); I50.31 Acute diastolic (congestive) heart failure; J96.21 Acute and chronic respiratory failure with hypoxia; I69.351 Hemiplegia and hemiparesis following cerebral infarction affecting right dominant side; J44.1 Chronic obstructive pulmonary disease with (acute) exacerbation; N17.9 Acute kidney failure, unspecified; N18.9 Chronic kidney disease, unspecified; I65.23 Occlusion and stenosis of bilateral carotid arteries; I25.10 Atherosclerotic heart disease of native coronary artery without angina pectoris; E78.5 Hyperlipidemia, unspecified; E03.9 Hypothyroidism, unspecified; Z87.891 Personal history of nicotine dependence; I48.91 Unspecified atrial fibrillation; Z99.81 Dependence on supplemental oxygen; S62.101D Fracture of unspecified carpal bone, right wrist, subsequent encounter for fracture with routine healing; X58.XXXD Exposure to other specified factors, subsequent encounter; R04.0 Epistaxis; I27.20 Pulmonary hypertension, unspecified; Z79.01 Long term (current) use of anticoagulants; I08.1 Rheumatic disorders of both mitral and tricuspid valves; D63.1 Anemia in chronic kidney disease
CPT/HCPCS: 36415; 36600; 51702; 71045; 71275; 73110; 80048; 80051; 80053; 81001; 82330; 82803; 82805; 83605; 83615; 83690; 83880; 84145; 84443; 84484; 85014; 85018; 85025; 86403; 87040; 87385; 87426; 87449; 87635; 93005; 93306; 94640; 94660; 96365; 96367; 97161; 97530; 97760; 99285; J0692; J1940; J2920; J2930; J7608; J7626; L3982; Q0144; Q9967

== ENCOUNTER 2020-11-30 08:40 | Inpatient (IN) | payer MEDICARE, OTHER, SELFPAY ==
[2020-11-30] VITALS (21 sets, daily range): BP systolic 84–161; BP diastolic 41–75; PULSE 73–813; RESP 16–27; TEMP 36.4–37.2; O2SAT 87–100; BMI 37.0
--- NOTE | 2020-11-30 09:26 | XRR_ITS ---
PROCEDURE INFORMATION: Exam: XR Chest Exam date and time: 11/30/2020 9:26 AM Age: 75 years old Clinical indication: Shortness of breath TECHNIQUE: Imaging protocol: XR of the chest. Views: 1 view. COMPARISON: CR XR chest 1V portable [id number] 11/19/2020 7:55 AM FINDINGS: Lungs: There is redistribution and indistinctness of the pulmonary vasculature, in association with haziness of the lungs and small right pleural effusion, which in the setting of cardiomegaly is consistent with pulmonary edema. Pneumonia should be excluded clinically. No pneumothorax. Pleural spaces: See Lungs finding. Heart/Mediastinum: Stable cardiomediastinal silhouette. Bones/joints: Unremarkable. XR/XR chest 1V portable [id number] IMPRESSION: Imaging findings of pulmonary edema. Pneumonia should be excluded clinically. Radiation Dose CTDIVOL = (mGy): DLP = (mGy-cm)
--- NOTE | 2020-11-30 09:29 | ECG_ITS ---
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 Measurements Intervals [place] Rate: 83 P: 52 [place]: 167 QRS: 79 QRSD: 136 T: 11 QT: 409 QTc: 481 Interpretive Statements SINUS RHYTHM WITH OCCASIONAL SUPRAVENTRICULAR PREMATURE COMPLEXES RIGHT BUNDLE BRANCH BLOCK [120+ ms QRS DURATION, UPRIGHT V1, 40+ ms S IN I/aVL/V4/V5/V6] Compared to ECG 11/18/2020 05:35:33 Ectopic atrial rhythm no longer present Electronically Signed On 11-30-2020 21:03:59 CDT by Leticia Galindo M.D. [id number]
[2020-11-30 09:49] LABS: Basophils % 0.2 %; Eosinophils # 0.1 10^3/uL (0.0-0.8); Eosinophils % 0.4 %; Hematocrit 30.7 % (37.0-47.0); Hemoglobin 8.8 g/dL (11.5-15.3); Lymphocytes # 0.9 10^3/uL (0.8-4.8); Lymphocytes % 5.5 %; Mean Corpuscular HGB Conc 28.7 g/dL (30.0-36.0); Mean Corpuscular Hemoglobin 24.4 pg (28.0-34.0); Mean Platelet Volume 9.5 fL (7.4-10.4); Monocytes # 1.4 10^3/uL (0.2-0.9); Monocytes % 8.2 %; Neutrophils # 14.14 10^3/uL (1.8-7.7); Neutrophils % 83.2 %; Nucleated Red Blood Cells % 0.1 %; Platelet Count 360 10^3/cmm (130-400); Red Blood Count 3.61 10^6/uL (4.1-5.3); Red Cell Distribution Width 17.5 % (12.1-15.1)
[2020-11-30 09:55] LABS: INR 1.25 (0.8-1.2)
[2020-11-30 10:03] LABS: Troponin(5th) Baseline 63 ng/L (0-10)
[2020-11-30 10:11] LABS: Alanine Aminotransferase 16 U/L (0-33); Albumin Level 3.3 g/dL (3.5-5.2); Alkaline Phosphatase 97 IU/L (35-105); Aspartate Amino Transferase 14 U/L (0-32); Blood Urea Nitrogen 32 mg/dL (8-23); Carbon Dioxide 35 mmol/L (22-29); Chloride 95 mmol/L (98-107); Globulin 2.7 g/dL (1.3-4.6); Glucose 142 mg/dL (65-115); Lipase 20 U/L (13-60); NT Pro B Type Natriuretic Pept 3699 pg/mL (0-450); Osmolality Calculated 295 mOsm/kg (285-295); Sodium 138 mmol/L (136-145); Total Bilirubin 0.5 mg/dL (0.15-1.2)
[2020-11-30] MEDS: ipratropium-albuterol 3 mL Neb INHALATION ×2 (10:12→20:16)
[2020-11-30] MEDS: sodium chloride 0.9% 1,000 ML 999 ML IV (10:15)
[2020-11-30] MEDS: magnesium sulfate premix 2 GM/50 ML PIGGYBACK IV (10:18)
--- NOTE | 2020-11-30 10:19 | PC.NURSE ---
Pt allergies verified.
[2020-11-30 10:41] LABS: Lactic Sepsis W/Reflex 1.1 mmol/L (0.5-2.2)
--- NOTE | 2020-11-30 10:44 | W.ED.SOB ---
HPI - SOB/Dyspnea General: Chief Complaint: Shortness of Breath/Dyspnea Stated Complaint: RESP DISTRESS Time Seen by Provider: 11/30/20 08:43 Source: patient, EMS and old records reviewed Mode of arrival: EMS History of Present Illness: HPI Narrative: 75-year-old female recent released from our hospital for pneumonia chief complaint of progressive shortness of breath difficulty breathing from the [place] [facility] apparently this all started earlier this morning patient reports just got off of a steroid regimen as well as antibiotics 2 days ago patient has a known history of both cardiac and pulmonary issues. MD elicited complaint: shortness of breath, cough and anxiety Pertinent past history: COPD Onset (ago): day(s) (1) Context: recent illness Severity: similar to previous episodes Relieving factors: oxygen, rest and bronchodilators Known history of: COPD Associated symptoms: Reports chest congestion and cough; Deny abdominal pain, chest pain, extremity pain, fever(s), nausea, palpitations or vomiting Review of Systems General: Reports: 10 or more systems reviewed and unremarkable except in HPI and below Const: Denies: fever(s), chills, fatigue or malaise Eyes: Denies: change in vision or blurry vision Card: Denies: chest pain or palpitations Resp: Reports: dyspnea, productive cough, wheezing and chest congestion GI: Denies: abdominal pain, nausea or vomiting : Denies: flank pain Musc: Denies: extremity pain or extremity swelling Skin/Breast: Denies: rash or pruritus Neuro: Denies: headache(s) Psych: Denies: anxiety or depression [place]/Lymph: Denies: easy bleeding All/Imm: Denies: urticaria, throat swelling or facial swelling PFSH ED PFSH: Medical History Bilateral carotid artery stenosis Carotid atherosclerosis Chronic kidney disease Congestive heart failure COPD (chronic obstructive pulmonary disease) CVA (cerebral vascular accident) Displaced spiral fracture of shaft of right humerus with routine healing Fracture of humerus, proximal, right, closed History of CVA (cerebrovascular accident) Hyperlipidemia Hypertension Hypothyroidism Surgical History History of carpal tunnel release of both wrists History of renal stent Hx of cholecystectomy Family History Father Stroke Mother Stroke Social History Smoking and tobacco status: former smoker Alcohol intake: never Female Reproductive History: Date of last menstrual period: 05/08/20 Physical Exam Narrative: EXAM NARRATIVE: Patient appears to be in moderate respiratory distress moderate splinting noted tachypnea and inspiratory expiratory wheezing noted Const: COMMON NORMALS: no acute distress, patient oriented x3 and healthy appearing HENMT: COMMON NORMALS: normocephalic and atraumatic HEAD & SCALP: normocephalic and atraumatic Eye: COMMON NORMALS: Equal, round and reactive pupils present and EOMs intact bilaterally PUPIL: Yes Equal, round and reactive pupils present Neck/C-Spine: COMMON NORMALS: full ROM, supple and no JVD Lymph: LYMPHATIC: no lymphadenopathy noted Chest: COMMONS NORMALS: normal inspection of the chest and normal palpation of entire chest wall Resp: COMMON NORMALS: normal respiratory effort, No retractions and clear to auscultation bilaterally EFFORT & INSPECTION: Yes symmetric chest movement, Yes tachypneic, Yes respiratory distress and Yes uses accessory muscles AUSCULTATION: clear to auscultation bilaterally and wheezes expiratory wheezes, inspiratory wheezes and scattered wheezes Cardio: COMMON NORMALS: no JVD and regular rhythm RATE: tachycardic RHYTHM: regular rhythm GI: COMMON NORMALS: Normal to inspection, nondistended, normoactive bowel sounds present, Soft to palpation and non-tender INSPECTION: Yes normal to inspection PALPATION: Yes Soft to palpation : COMMON NORMALS: Yes no CVA tenderness BLADDER/KIDNEY EXAM: Yes no CVA tenderness Back/Pelvis: COMMON NORMALS: no CVA tenderness Extremity: COMMON NORMALS: normal to inspection and full ROM Neuro: COMMON NORMALS: patient oriented x3, CN's II-XII intact bilaterally, moves all extremities and no focal motor deficits Psych: COMMON NORMALS: mental status grossly normal, Normal thought process present, cooperative and normal affect THOUGHT PROCESS: Normal thought process present Skin: COMMON NORMALS: no rashes or lesions noted GENERAL SKIN EXAM: no rashes or lesions noted Course Vital Signs: Vital signs: Vital Signs Temperature 98.9 F 11/30/20 14:47 Pulse Rate 84 11/30/20 14:47 Respiratory Rate 26 H 11/30/20 14:47 Blood Pressure 155/68 11/30/20 14:47 Pulse Oximetry 97 11/30/20 14:47 MDM - SOB/Dyspnea MDM Narrative: Medical decision making narrative: Due to the patient's symptoms condition lab and imaging will be obtained online concerns of recurrent pneumonia are probably due to the most recent infections. The patient will be started on additional neb treatments as well as steroids we will continue to follow. Patient had findings suggestive of acute congestive heart failure exacerbation elevated troponin elevated BNP spoke to the on-call hospitalist Dr. Castillo there is great acceptance of the patient patient be admitted for further evaluation to the cardiac floor. Lab Data: Labs: Lab Results 11/30/20 11/30/20 11/30/20 08:31 08:31 08:31 WBC 17.0 10^3/uL H 10 ^3/uL (4.0-10.0) RBC 3.61 10^6/uL L 10 ^6/uL (4.1-5.3) Hgb 8.8 g/dL L g/dL (11.5-15.3) Hct 30.7 % L % (37.0-47.0) MCV 85.0 fl fl (81-99) MCH 24.4 pg L pg (28.0-34.0) MCHC 28.7 g/dL L g/dL (30.0-36.0) RDW 17.5 % H % (12.1-15.1) Plt Count 360 10^3/cmm 10^3 /cmm (130-400) MPV 9.5 fL fL (7.4-10.4) Neut % (Auto) 83.2 % % Lymph % (Auto) 5.5 % % [place] % (Auto) 8.2 % % Eos % (Auto) 0.4 % % Baso % (Auto) 0.2 % % Neut # (Auto) 14.14 10^3/uL H 1 0^3/uL (1.8-7.7) Lymph # (Auto) 0.9 10^3/uL 10^3/ uL (0.8-4.8) [place] # (Auto) 1.4 10^3/uL H 10^ 3/uL (0.2-0.9) Eos # (Auto) 0.1 10^3/uL 10^3/ uL (0.0-0.8) Baso # (Auto) 0.0 10^3/uL 10^3/ uL (0.0-0.1) Nucleated RBC % (a uto) 0.1 % % Nucleated RBCs # 0.0 /100WBC /100W BC PT 16.00 SECONDS H S ECONDS (12.1-14.9) INR 1.25 H (0.8-1.2) Sodium 138 mmol/L mmol/L (136-145) Potassium 5.0 mmol/L mmol/L (3.5-5.1) Chloride 95 mmol/L L mmol/ L (98-107) Carbon Dioxide 35 mmol/L H mmol/ L (22-29) Anion Gap 13.0 (5-19) BUN 32 mg/dL H mg/dL (8-23) Creatinine 1.1 mg/dL H mg/dL (0.5-0.9) GFR Calculation Not Reportable Glucose 142 mg/dL H mg/dL (65-115) Calculated Osmolal ity 295 mOsm/kg mOsm/ kg (285-295) Lactic Acid Calcium 9.0 mg/dL mg/dL (8.5-10.5) Total Bilirubin 0.5 mg/dL mg/dL (0.15-1.2) AST 14 U/L U/L (0-32) ALT 16 U/L U/L (0-33) Alkaline Phosphata se 97 IU/L IU/L (35-105) Troponin T Baselin e Troponin T 120 Min [place] Delta Troponin T NT-Pro-B Natriuret Pep 3699 pg/mL H pg/m L (0-450) Total Protein 6.0 g/dL L g/dL (6.6-8.7) Albumin 3.3 g/dL L g/dL (3.5-5.2) Globulin 2.7 g/dL g/dL (1.3-4.6) Lipase 20 U/L U/L (13-60) SARS-CoV-2 Ag (Rap id) 11/30/20 11/30/20 11/30/20 08:31 10:00 12:30 WBC RBC Hgb Hct MCV MCH MCHC RDW Plt Count MPV Neut % (Auto) Lymph % (Auto) [place] % (Auto) Eos % (Auto) Baso % (Auto) Neut # (Auto) Lymph # (Auto) [place] # (Auto) Eos # (Auto) Baso # (Auto) Nucleated RBC % (a uto) Nucleated RBCs # PT INR Sodium Potassium Chloride Carbon Dioxide Anion Gap BUN Creatinine GFR Calculation Glucose Calculated Osmolal ity Lactic Acid 1.1 mmol/L mmol/L (0.5-2.2) Calcium Total Bilirubin AST ALT Alkaline Phosphata se Troponin T Baselin e 63 ng/L H ng/L (0-10) Troponin T 120 Min [place] 59.66 ng/L H ng/L (0-10) Delta Troponin T -3.34 ABS# L ABS# (0-10) NT-Pro-B Natriuret Pep Total Protein Albumin Globulin Lipase SARS-CoV-2 Ag (Rap id) 11/30/20 13:23 WBC RBC Hgb Hct MCV MCH MCHC RDW Plt Count MPV Neut % (Auto) Lymph % (Auto) [place] % (Auto) Eos % (Auto) Baso % (Auto) Neut # (Auto) Lymph # (Auto) [place] # (Auto) Eos # (Auto) Baso # (Auto) Nucleated RBC % (a uto) Nucleated RBCs # PT INR Sodium Potassium Chloride Carbon Dioxide Anion Gap BUN Creatinine GFR Calculation Glucose Calculated Osmolal ity Lactic Acid Calcium Total Bilirubin AST ALT Alkaline Phosphata se Troponin T Baselin e Troponin T 120 Min [place] Troponin T NT-Pro-B Natriuret Pep Total Protein Albumin Globulin Lipase SARS-CoV-2 Ag (Rap id) Negative (Negative) Discharge Plan Discharge Patient Disposition: Admitted As Inpatient Clinical Impression: Acute exacerbation of chronic obstructive airways disease, Congestive heart failure Condition: Stable Prescriptions: No Action alprazolam 0.5 mg tablet 0.5 mg PO QID PRN (Reason: Anxiety) RF: 0 (DME) Fast Form Cock Up Splint See Rx Instructions .ROUTE .MEDSUPPLY Qty: 1 RF: 0 levothyroxine 175 mcg Tablet 175 mcg PO DAILY RF: 0 acetaminophen 325 mg Tablet 325 mg PO QID PRN (Reason: Fever Or Pain) RF: 0 ipratropium-albuterol 0.5 mg-3 mg(2.5 mg base)/3 mL Solution For Nebulization 0.5 ml INHALATION TID RF: 0 bisacodyl [Dulcolax (bisacodyl)] 10 mg Suppository 10 mg [place] DAILY PRN (Reason: Constipation) RF: 0 fluoxetine 20 mg capsule 20 mg PO DAILY@0800 RF: 0 albuterol sulfate 2.5 mg/0.5 mL Solution For Nebulization 2.5 mg inhalation Q4H PRN (Reason: SOB/WHEEZING) RF: 0 Eliquis 5 mg tablet 5 mg PO BID@0800,2000 RF: 0 Milk of Magnesia 400 mg/5 mL Suspension 30 ml PO DAILY PRN (Reason: Constipation) RF: 0 prednisone 10 mg Tablet 10 mg PO DAILY@0800 RF: 0 Refresh Tears 0.5 % Drops 2 drp OPHTHALMIC (EYE) BID PRN (Reason: Dry Eyes) RF: 0 Fleet Enema 19-7 gram/118 mL Enema 118 ml KS DAILY PRN (Reason: Constipation) RF: 0 Miralax 17 gram/dose Powder 17 g PO DAILY RF: 0 atorvastatin 10 mg tablet 10 mg PO DAILY@0800 RF: 0 pantoprazole 40 mg Tablet,Delayed Release (Dr/Ec) 40 mg PO DAILY RF: 0 calcium carbonate 600 mg calcium (1,500 mg) Tablet 600 mg PO BID PRN (Reason: Indigestion) RF: 0 bisacodyl 5 mg Tablet,Delayed Release (Dr/Ec) 10 mg PO DAILY PRN (Reason: Constipation) RF: 0 furosemide 40 mg tablet 40 mg PO DAILY 30 Days Qty: 30 RF: 0 amlodipine 10 mg tablet 10 mg PO DAILY Qty: 30 RF: 0 Referrals: Marco Antonio Thompson MD [Primary Care Provider] - Coding Level of Care Code ED Slot Tag Inserter for Chg Fwd Exam Comprehensive
--- NOTE | 2020-11-30 11:29 | ECG_ITS ---
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 Measurements Intervals [place] Rate: 78 P: 173 [place]: 156 QRS: 74 QRSD: 132 T: 9 QT: 395 QTc: 452 Interpretive Statements SINUS RHYTHM WITH SINUS ARRHYTHMIA RIGHT BUNDLE BRANCH BLOCK [120+ ms QRS DURATION, UPRIGHT V1, 40+ ms S IN I/aVL/V4/V5/V6] Compared to ECG 11/30/2020 10:29:36 No significant changes Electronically Signed On 11-30-2020 21:16:18 CDT by Leticia Galindo M.D. [id number]
[2020-11-30] MEDS: FUROsemide 10 mg/mL SDV 10mL 60 MG IVP (12:37)
[2020-11-30 13:35] LABS: Troponin 5 2HR 59.66 ng/L (0-10)
[2020-11-30 13:36] LABS: Troponin 5 2HR Delta -3.34 ABS# (0-10)
[2020-11-30 14:19] LABS: SARS Covid-2 Antigen Negative (Negative)
--- NOTE | 2020-11-30 15:08 | PM.HP ---
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 Currently patient is a resident at [facility] according to nursing staff, she does not ambulate, can do simple transfers, can feed herself, is alert oriented x3, she was recently discharged from the hospital, she has been doing better. Continues to have a chronic cough. Has received both Covid vaccines. No fevers, no complaints of chest pain. However this morning she started complaining of increased shortness of breath, she did have an episode during a meal this morning that her oxygen saturations dropped into the low 40s, no chest pain complaints, with short of breath, improved with increase of her ox requirements up to 10 L, however on 10 L, her oxygen saturations would drop into the low 80s prompting nursing staff to call EMS. No recent falls, no recent injuries, recent travel, no hemoptysis, no calf pain, no calf swelling, Review of Systems Const: Denies: fever(s), chills, fatigue or malaise Eyes: Denies: change in vision or blurry vision ENMT: Denies: nasal congestion Card: Denies: chest pain, palpitations, irregular heart rhythm, edema, lightheadedness or syncope Resp: Reports: dyspnea and non-productive cough; Denies: productive cough or wheezing GI: Denies: abdominal pain, nausea, vomiting, hematemesis, diarrhea, constipation, hematochezia or melena : Denies: flank pain, dysuria or urinary frequency Musc: Denies: neck pain or back pain Skin/Breast: Denies: rash Neuro: Denies: headache(s), dizziness or vertigo Endo: Denies: polyuria or polydipsia Medications/Allergies Home Medications Medication Instructions Recorded Confirmed Last Taken Type alprazolam 0.5 mg tablet 0.5 mg PO QID PRN 02/20/19 11/30/20 11/29/20 History atorvastatin 10 mg PO DAILY@0800 10/12/20 11/30/20 11/29/20 History Eliquis 5 mg PO BID@08,199910/30/20 11/30/20 11/30/20 History acetaminophen 325 mg PO QID PRN 10/30/20 11/30/20 11/30/20 History albuterol sulfate 2.5 mg INHALATION Q4H PRN 10/30/20 11/30/20 Unknown History bisacodyl [Dulcolax (bisacodyl)] 10 mg NJ DAILY PRN 10/30/20 11/30/20 Unknown History fluoxetine 20 mg PO DAILY@0810/30/20 11/30/20 11/30/20 History ipratropium-albuterol 0.5 ml INHALATION TID 10/30/20 11/30/20 11/30/20 History levothyroxine 175 mcg PO DAILY 10/30/20 11/30/20 11/30/20 History Fast Form Cock Up Splint #1 ea 11/17/20 11/30/20 Unknown Rx bisacodyl 10 mg PO DAILY PRN 11/18/20 11/30/20 11/25/20 History calcium carbonate 600 mg PO BID PRN 11/18/20 11/30/20 11/28/20 History pantoprazole 40 mg PO DAILY 11/18/20 11/30/20 11/30/20 History amlodipine 10 mg PO DAILY #30 tab 11/21/20 11/30/20 11/30/20 Rx furosemide 40 mg PO DAILY 30 Days #30 tab 11/21/20 11/30/20 11/30/20 Rx carboxymethylcellulose sodium 2 drp OPHTHALMIC (EYE) BID PRN 11/30/20 11/30/20 Unknown History [Refresh Tears] magnesium hydroxide [Milk of 30 ml PO DAILY PRN 11/30/20 11/30/20 Unknown History Magnesia] polyethylene glycol 3350 [Miralax] 17 g PO DAILY 11/30/20 11/30/20 11/30/20 History prednisone 10 mg PO DAILY@0800 11/30/20 11/30/20 11/30/20 History sodium phosphates [Fleet Enema] 118 ml NJ DAILY PRN 11/30/20 11/30/20 Unknown History Allergies Allergy/AdvReac Type Severity Reaction Status Date / Time codeine Allergy unknown Verified 11/17/20 13:17 ketoprofen [From Oruvail] Allergy unknown Verified 11/17/20 13:17 nitrofurantoin Allergy unknown Verified 11/17/20 13:17 [From Macrobid] olmesartan [From Benicar] Allergy unknown Verified 11/17/20 13:17 quinapril [From Accupril] Allergy unknown Verified 11/17/20 13:17 Otwtxsx-ADL-EcY Reductase Allergy unknowm Verified 11/17/20 13:17 Inhibitor [Munjksy-Brn-Zpn Reductase Inhibitor] PFSH Acute PFSH: Medical History Bilateral carotid artery stenosis Carotid atherosclerosis Chronic kidney disease Congestive heart failure COPD (chronic obstructive pulmonary disease) CVA (cerebral vascular accident) Displaced spiral fracture of shaft of right humerus with routine healing Fracture of humerus, proximal, right, closed History of CVA (cerebrovascular accident) Hyperlipidemia Hypertension Hypothyroidism Lung infiltrate on CT Pneumonia Surgical History History of carpal tunnel release of both wrists History of renal stent Hx of cholecystectomy Family History Father Stroke Mother Stroke Social History Smoking and tobacco status: former smoker Alcohol intake: never Female Reproductive History: Date of last menstrual period: 05/08/20 Vitals/I&O/Wt Last Vital Signs Temp 98.9 F 11/30/20 14:47 Pulse 84 11/30/20 14:47 Resp 26 H 11/30/20 14:47 BP 155/68 11/30/20 14:47 Pulse Ox 97 11/30/20 14:47 11/30/20 11/30/20 11/30/20 06:59 14:59 22:59 Intake Total 50 / 50 Balance 50 / 50 Weight last 48 hrs Weight 86.183 kg Physical Exam Const: COMMON NORMALS: no acute distress and patient oriented x3 GENERAL APPEARANCE: cooperative and comfortable Eye: COMMON NORMALS: Equal, round and reactive pupils present and EOMs intact bilaterally GENERAL EYE: appearance normal, both eyes and all related structures PUPIL: Yes Equal, round and reactive pupils present Neck/C-Spine: COMMON NORMALS: full ROM and no lymphadenopathy THYROID: Thyroid normal Lymph: LYMPHATIC: no lymphadenopathy noted Resp: COMMON NORMALS: normal respiratory effort, No retractions, No use of accessory muscles and clear to auscultation bilaterally AUSCULTATION: clear to auscultation bilaterally Cardio: COMMON NORMALS: regular rate, regular rhythm, S1 normal heart sound present, S2 normal heart sound present and No murmurs present (Cardio) RATE: regular rate RHYTHM: regular rhythm HEART SOUNDS: S1 normal heart sound present and S2 normal heart sound present GI: COMMON NORMALS: Normal to inspection, nondistended, normoactive bowel sounds present, Soft to palpation and non-tender PALPATION: Yes Soft to palpation Extremity: COMMON NORMALS: normal to inspection, full ROM and no pedal edema Neuro: COMMON NORMALS: patient oriented x3 and CN's II-XII intact bilaterally OTHER: Right upper extremity, right lower extremity weakness Psych: COMMON NORMALS: mental status grossly normal, Normal thought process present and cooperative THOUGHT PROCESS: Normal thought process present Urinary Catheter Management^: Buck: Cath Placed During This Visit: yes Urinary Catheter Date of Insertion: 11/30/20 Urinary Catheter Time of Insertion: 14:48 Data : 11/30/20 08:31 11/30/20 08:31 A&P Assessment and plan (1) Acute and chronic respiratory failure with hypoxia: -Secondary to CHF exacerbation, diastolic, CHF exacerbation, with pulmonary hypertension -With underlying evidence of healthcare associated pneumonia Plan: -Admit to general medical floors -Telemetry monitoring -Continue BiPAP therapy -Continue diuretic therapy, Bumex 1 mg every 12 hours -No active wheezing, hold prednisone -Fluid restrictions, monitor potassium, creatinine -Follow blood cultures, sputum cultures, urine bacterial antigen, MRSA nares PCR -We will start vancomycin, cefepime -Continue DuoNeb treatment -Continue to monitor respiratory status closely -Continue DVT prophylaxis Eliquis -Full code for DVT prophylaxis COPD not exacerbation Chronic kidney disease, creatinine 1.1 Acute on chronic anemia, hemoglobin 8.8, continue to monitor, likely multifactorial from chronic kidney disease, pneumonia, continue Protonix, Hemoccult stool Atrial fibrillation, continue Eliquis, Anxiety depression, continue fluoxetine, alprazolam CVA, 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 Pulmonary pretension Hypothyroidism, continue levothyroxine Right wrist fracture, continue splint Status: Acute (2) Fracture of right distal radius: Status: Acute (3) Physical deconditioning: Status: Acute (4) Severe pulmonary hypertension: Status: Acute (5) Healthcare-associated pneumonia: Status: Acute Attestations Medical Necessity Statement*: Patient requires hospitalization for acute respiratory failure with hypoxia secondary to CHF, underlying healthcare associate pneumonia, requires inpatient admission, greater than 2 midnights Coding Level of Care Code Acute Procedures Analyst for [facility] Diagnoses Acute and chronic respiratory failure with hypoxia J96.21 Fracture of right distal radius S52.501A Physical deconditioning R53.81 Severe pulmonary hypertension I27.20 Healthcare-associated pneumonia J18.9
[2020-11-30 15:33] LABS: Troponin 5 6HR 54.23 ng/L (0-10)
[2020-11-30 15:40] LABS: Troponin 5 6HR Delta -8.77 ng/L (0-12)
[2020-11-30 16:33] LABS: Procalcitonin 0.14 ng/mL (0-0.5)
--- NOTE | 2020-11-30 16:52 | PC.NURSE ---
Called and gave report to Heather ALEGRE. Pt going to room 250 bed 2. Called Chuy at [phone] to notify him that the patient is here and of the transport to the floor.
[2020-11-30] MEDS: cefepime 2,000 MG in sodium chloride 0.9% (plus) 50 ML 100 MG IV (17:53)
[2020-11-30] MEDS: vancomycin 1,000 MG in sodium chloride 0.9% 250 ML 250 MG IV (18:34)
--- NOTE | 2020-11-30 19:31 | PC.NURSE ---
Called to patients room as BP was soft when checked. Discovered that patient has low BP in left arm and high in the right arm after patient informed this nurse about the differences. This nurse perfomed manual BP checks in both arms and discovered this to be accurate. Patient states the doctors have all been aware and that this is not new for her.
[2020-11-30] MEDS: ALPRAZolam 0.5 mg Tablet PO (20:02)
[2020-11-30] MEDS: pantoprazole 40 mg SDV IVP (20:02)
[2020-11-30] MEDS: apixaban 5 mg Tablet PO (20:02)
[2020-11-30] MEDS: bumetanide 0.25 mg/mL SDV 4 mL 1 MG IVP (20:06)
[2020-12-01] VITALS (22 sets, daily range): BP systolic 71–171; BP diastolic 44–72; PULSE 76–102; RESP 16–27; TEMP 35.9–36.8; O2SAT 89–98
[2020-12-01] MEDS: ipratropium-albuterol 3 mL Neb INHALATION ×4 (02:27→20:27)
[2020-12-01 05:07] LABS: Basophils % 0.1 %; Hematocrit 25.4 % (37.0-47.0); Hemoglobin 7.3 g/dL (11.5-15.3); Lymphocytes # 0.5 10^3/uL (0.8-4.8); Lymphocytes % 5.9 %; Mean Corpuscular HGB Conc 28.7 g/dL (30.0-36.0); Mean Corpuscular Hemoglobin 24.8 pg (28.0-34.0); Mean Corpuscular Volume 86.4 fl (81-99); Mean Platelet Volume 9.2 fL (7.4-10.4); Monocytes # 0.7 10^3/uL (0.2-0.9); Monocytes % 7.8 %; Neutrophils # 7.19 10^3/uL (1.8-7.7); Neutrophils % 84.2 %; Nucleated Red Blood Cells % 0 %; Platelet Count 292 10^3/cmm (130-400); Red Blood Count 2.94 10^6/uL (4.1-5.3); Red Cell Distribution Width 17.6 % (12.1-15.1); White Blood Count 8.5 10^3/uL (4.0-10.0)
[2020-12-01 05:49] LABS: Alanine Aminotransferase 15 U/L (0-33); Albumin Level 2.7 g/dL (3.5-5.2); Alkaline Phosphatase 75 IU/L (35-105); Anion Gap 14.2 (5-19); Aspartate Amino Transferase 13 U/L (0-32); Blood Urea Nitrogen 37 mg/dL (8-23); Calcium 8.6 mg/dL (8.5-10.5); Carbon Dioxide 30 mmol/L (22-29); Chloride 96 mmol/L (98-107); Globulin 3.1 g/dL (1.3-4.6); Glucose 176 mg/dL (65-115); Magnesium 2.1 mg/dL (1.7-2.3); Osmolality Calculated 295 mOsm/kg (285-295); Phosphorus 4.8 mg/dL (2.5-4.5); Potassium 4.2 mmol/L (3.5-5.1); Sodium 136 mmol/L (136-145); Thyroid Stimulating Hormone 0.42 uIU/mL (0.27-4.20); Total Bilirubin 0.3 mg/dL (0.15-1.2); Total Protein 5.8 g/dL (6.6-8.7)
[2020-12-01 05:50] LABS: NT Pro B Type Natriuretic Pept 4574 pg/mL (0-450)
[2020-12-01] MEDS: levothyroxine 175 mcg Tablet PO (08:22)
[2020-12-01] MEDS: apixaban 5 mg Tablet PO (08:22)
[2020-12-01] MEDS: fluoxetine 20 mg Capsule PO (08:22)
[2020-12-01] MEDS: atorvastatin 40 mg Tablet 20 MG PO (08:22)
[2020-12-01] MEDS: amlodipine 10 mg Tablet PO (08:22)
[2020-12-01] MEDS: polyethylene glycol 3350 Pkt 17 gm PO (08:22)
--- NOTE | 2020-12-01 09:08 | CT_ITS ---
WS: [id number] CT CHEST TECHNIQUE: Noncontrast CT of the chest with coronal and sagittal reformatted images. CLINICAL INFORMATION: sob COMPARISON: CT November 17, 2020 DLP: 831.[address] scans at [facility] use at least one of these dose optimization techniques: automated e xposure control; mA and/or kV adjustment per patient size (includes targeted exams where dose is matc hed to clinical indication); or iterative reconstruction. FINDINGS: Moderate chronic emphysematous changes. Small bilateral pleural effusions. Compressive atelectasis th e lung bases. Cardiomegaly. Dense aortic calcification. Coronary vascular calcification. Right infrahilar lymphadenopathy unchanged measuring 2.0 cm. Prominent AP window lymph nodes. Calcifi ed pretracheal lymph nodes are stable. Calcified hilar lymph nodes bilaterally. Bronchovascular thick ening along the hilum bilaterally. Slight hazy groundglass infiltrates with interstitial thickening i n both upper lobes similar to previous can be seen with pneumonitis or edema. Moderate thoracic kyphosis. Anterior wedging in the lower thoracic spine unchanged. No axillary lymph adenopathy. Prior cholecystectomy. Adrenal glands are normal.Hemorrhagic cyst upper pole left kidney unchanged. CT/CT chest wo con [id number] IMPRESSION: 1. Small bilateral pleural effusions with compressive atelectasis in the lung bases slightly increased compared to November 17, 2020. 2. Enlarged right infrahilar lymph node measuring 2 cm unchanged since November 17, 2020. Bilateral bronchovascular thickening. 3. Cardiomegaly with dense coronary calcification and vascular calcification. 4. Slight hazy groundglass infiltrates in both upper lobes with interstitial t hickening can be seen with pulmonary edema versus pneumonitis.
--- NOTE | 2020-12-01 09:39 | PC.CHAP ---
Pastoral Care Encounter/Spiritual Assessment Type of Contact [] Declined ceramic capacitor processor visit [] Patient/Family/Request visit [] Outpatient visit [] Follow-up visit [] Physician referral [] Code/Alert [x]x Routine visit [] Staff referral [] Actively dying [] Patient sleeping [] Family support [] [] Out of room [] Palliative care [] [] Receiving care in room [] Pre-surgical visit [] Trauma [] Long length of stay [] ICU visit [] Other: Relational/Emotional Strength [x] Patient feels connected with others/family/visitors/staff [] Distress [] Loneliness/isolation [] Abandonment Spirituality of Patient [x]x Person of Erika [] Attends Caodaism of their Erika [x] Believes in Prayer [] Reads Bible or Taoism materials [] There are Spiritual issues to be addressed Alterations Expert Interventions x[] Prayer [] Active listening [] Non-anxious presence [] Spiritual/emotional support [] Crisis/trauma care [] Spiritual counseling [] Bereavement support [] Provided bereavement packet [] Provided Bible/devotional materials [] Provided toy/stuffed animal, coloring book to patient or family member [] Provided Communion [] Anointing/[place] [] Salvation [x] Completed spiritual assessment [] Other: Impact on Illness or Injury [] Angry [] Fearful [] Anxious [] Often cries [] Exhaustion [] Unable to work [] Unable to attend congregation [] Unable to walk/stand [] Unable to read [] Unable to drive [] Unable to eat/drink [] Unable to sleep [] Unable to be with family [] Patient intubated [] Other: Summary Time spent with patient 15 min
[2020-12-01] MEDS: pantoprazole 40 mg SDV IVP ×2 (11:06→20:06)
[2020-12-01] MEDS: bumetanide 0.25 mg/mL SDV 4 mL 1 MG IVP ×2 (11:06→20:05)
[2020-12-01] MEDS: metOLazone 5 MG Tablet 10 MG PO (11:07)
--- NOTE | 2020-12-01 12:17 | XR_ITS ---
WS: [id number] CHEST XRAY TECHNIQUE: Portable chest. 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 No pneumothorax. Heart: Cardiomegaly. Aortic calcification. Lungs: Small right greater than left pleural effusions with bibasilar atelectasis.. Bones: Normal visualized bony structures. XR/XR chest 1V portable [id number] IMPRESSION: Right PICC line with tip in the mid to distal SVC in good position. No pneumoth orax.
[2020-12-01] MEDS: acetaminophen 325 mg Tablet PO (13:40)
[2020-12-01 16:37] LABS: Lactate (Lactic Acid level) 1.5 mmol/L (0.5-2.2)
[2020-12-01] MEDS: sodium chloride 0.9% (100 ml) 100 ML 125 ML (17:00)
[2020-12-01] MEDS: midodrine 5 mg TABLET 10 MG PO ×2 (17:00→20:02)
--- NOTE | 2020-12-01 17:16 | PC.RESP ---
Pulmonary Rehab information sent to patient.
--- NOTE | 2020-12-01 17:22 | PM.PN ---
Subjective Subjective: Interval history: Patient was seen this morning, she required high flow throughout the night, she is placed back on BiPAP, she tells me that she is breathing better, no nausea, no vomiting, no chest pain, she has not had a bowel movement Patient was reexamined this afternoon, as her blood pressures were soft, denies any lightheadedness, dizziness, no chest pain, she is tolerating BiPAP well, alert oriented x3, her POA Chuy is at bedside, I advised her that we will move her down to ICU if she remains hypotensive after trial of midodrine, she wants to remain a full code Vitals/I&O/Wt Last Vital Signs Temp 98.1 F 12/01/20 16:34 Pulse 85 12/01/20 17:21 Resp 20 H 12/01/20 17:21 BP 81/55 12/01/20 16:34 Pulse Ox 91 12/01/20 17:21 12/01/20 12/01/20 12/01/20 06:59 14:59 22:59 Intake Total 400 / 1750 100 / 100 0 / 100 Output Total 1350 / 1350 Balance -950 / 400 100 / 100 0 / 100 Weight last 48 hrs Weight 87.146 kg Weight 86.183 kg Physical Exam Const: COMMON NORMALS: no acute distress ORIENTATION/CONSCIOUSNESS: Yes awake, Yes oriented to person, Yes oriented to place and Yes oriented to time Resp: COMMON NORMALS: normal respiratory effort and No retractions AUSCULTATION: crackles Cardio: COMMON NORMALS: regular rate, regular rhythm, S1 normal heart sound present and S2 normal heart sound present RATE: regular rate RHYTHM: regular rhythm HEART SOUNDS: S1 normal heart sound present and S2 normal heart sound present GI: COMMON NORMALS: Normal to inspection, nondistended, normoactive bowel sounds present, Soft to palpation and non-tender PALPATION: Yes Soft to palpation Extremity: NARRATIVE EXTREMITY EXAM: 1+ edema Neuro: SENSORIUM/ORIENTATION: Yes oriented to person, Yes oriented to place and Yes oriented to time Urinary Catheter Management^: Buck: Cath Placed During This Visit: yes Reason for Continuing Indwelling Catheter: Accurate Measurement of Urinary Output in Critically Ill Patients Urinary Catheter Date of Insertion: 11/30/20 Urinary Catheter Time of Insertion: 14:48 Data : 12/01/20 04:15 12/01/20 04:15 Micro: Microbiology 11/30/20 15:45 MRSA Culture - Final Nose 11/30/20 14:48 Urine Culture - Preliminary Urine,Clean Catch Bacterial Antigens - Final 11/30/20 22:20 Blood Culture - Preliminary Blood SPECIMEN COLLECTED 11/30/20 22:30 Blood Culture - Preliminary Blood SPECIMEN COLLECTED A&P Assessment and plan (1) Acute and chronic respiratory failure with hypoxia: -Secondary to CHF exacerbation, diastolic, CHF exacerbation, with pulmonary hypertension -With underlying evidence of healthcare associated pneumonia -Now with increasing oxygen requirements, and hypotension -Chest CT shows 1. Small bilateral pleural effusions with compressive atelectasis in the lung bases slightly increased compared to November 17, 2020. 2. Enlarged right infrahilar lymph node measuring 2 cm unchanged since November 17, 2020. Bilateral bronchovascular thickening. 3. Cardiomegaly with dense coronary calcification and vascular calcification. 4. Slight hazy groundglass infiltrates in both upper lobes with interstitial thickening can be seen with pulmonary edema versus pneumonitis. Plan: -We will move to ICU -Telemetry monitoring -Continue BiPAP therapy -Continue diuretic therapy, Bumex 1 mg every 12 hours -No active wheezing, hold prednisone -Fluid restrictions, monitor potassium, creatinine -Possible aspiration events, aspiration precautions speech therapy eval -Follow blood cultures, sputum cultures, urine bacterial antigen, MRSA nares PCR -We will start vancomycin, stop cefepime, broaden antibiotic coverage to Primaxin -Continue DuoNeb treatment -Continue to monitor respiratory status closely -Continue DVT prophylaxis Eliquis on hold given anemia -Full code COPD not exacerbation Chronic kidney disease, creatinine 1.5, continue to monitor Acute on chronic anemia, hemoglobin 7.3 continue to monitor, likely multifactorial from chronic kidney disease, pneumonia, continue Protonix, Hemoccult stool, hold Eliquis, transfuse 1 unit PRBC Atrial fibrillation, hold Eliquis Anxiety depression, continue fluoxetine, alprazolam CVA, 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 Pulmonary pretension Hypothyroidism, continue levothyroxine Right wrist fracture, continue splint Status: Acute (2) Fracture of right distal radius: Status: Acute (3) Physical deconditioning: Status: Acute (4) Severe pulmonary hypertension: Status: Acute (5) Healthcare-associated pneumonia: Status: Acute Attestations Medical Necessity Statement*: Patient requires hospitalization for acute respiratory failure with hypoxia secondary to CHF, pulmonary hypertension, healthcare associated pneumonia anemia, required ICU admission due to increased oxygen requirements, hypotension Coding Level of Care Code Acute Associate Pathologist for [facility] F[facility] Diagnoses Acute and chronic respiratory failure with hypoxia J96.21 Fracture of right distal radius S52.501A Physical deconditioning R53.81 Severe pulmonary hypertension I27.20 Healthcare-associated pneumonia J18.9
[2020-12-01] MEDS: vancomycin 1,000 MG in sodium chloride 0.9% 250 ML 250 MG IV (18:51)
[2020-12-01] MEDS: ALPRAZolam 0.5 mg Tablet PO (20:10)
[2020-12-02] VITALS (128 sets, daily range): BP systolic 64–131; BP diastolic 43–72; PULSE 73–103; RESP 13–35; TEMP 36.1–36.8; O2SAT 76–96
--- NOTE | 2020-12-02 00:20 | PC.NURSE ---
Patient BP has remained soft but stable as well as oxygen saturation on current HIflo heated settings. Patient has been resting comfortably and stable. Physician notified that patient has not transferred to ICU do to patients stable condition.
[2020-12-02] MEDS: ipratropium-albuterol 3 mL Neb INHALATION ×4 (02:46→20:21)
--- NOTE | 2020-12-02 03:54 | PC.NURSE ---
Patient BP low, contacted physician, orders recieved.
[2020-12-02] MEDS: midodrine 5 mg TABLET 10 MG PO ×5 (04:01→20:11)
[2020-12-02] MEDS: sodium chloride 0.9% 500 ML 999 ML IV (04:01)
--- NOTE | 2020-12-02 05:03 | PC.NURSE ---
Patient arrived to unit at approx 0445. Patient was A&Ox4, noted to be SOB with BP 70/40, orders to start levophed when it arrives from pharmacy. Patient noted to be in afib, controlled in the 70's. Will continue to monitor.
[2020-12-02 05:21] LABS: Basophils % 0.1 %; Eosinophils % 0.2 %; Hematocrit 28.8 % (37.0-47.0); Hemoglobin 8.5 g/dL (11.5-15.3); Lymphocytes # 1.4 10^3/uL (0.8-4.8); Lymphocytes % 10.8 %; Mean Corpuscular HGB Conc 29.5 g/dL (30.0-36.0); Mean Corpuscular Hemoglobin 25.4 pg (28.0-34.0); Mean Platelet Volume 9.6 fL (7.4-10.4); Monocytes # 1.1 10^3/uL (0.2-0.9); Neutrophils # 10.64 10^3/uL (1.8-7.7); Neutrophils % 79.9 %; Nucleated Red Blood Cells % 0.2 %; Platelet Count 307 10^3/cmm (130-400); Red Blood Count 3.35 10^6/uL (4.1-5.3); Red Cell Distribution Width 17.3 % (12.1-15.1); White Blood Count 13.3 10^3/uL (4.0-10.0)
[2020-12-02 05:47] LABS: Alanine Aminotransferase 17 U/L (0-33); Albumin Level 2.7 g/dL (3.5-5.2); Alkaline Phosphatase 77 IU/L (35-105); Anion Gap 13.1 (5-19); Aspartate Amino Transferase 16 U/L (0-32); Blood Urea Nitrogen 41 mg/dL (8-23); Calcium 8.7 mg/dL (8.5-10.5); Carbon Dioxide 34 mmol/L (22-29); Chloride 93 mmol/L (98-107); Globulin 2.8 g/dL (1.3-4.6); Glucose 128 mg/dL (65-115); Magnesium 1.8 mg/dL (1.7-2.3); Osmolality Calculated 294 mOsm/kg (285-295); Phosphorus 4.1 mg/dL (2.5-4.5); Potassium 4.1 mmol/L (3.5-5.1); Sodium 136 mmol/L (136-145); Total Bilirubin 0.4 mg/dL (0.15-1.2); Total Protein 5.5 g/dL (6.6-8.7)
[2020-12-02] MEDS: sucralfate 1 gm Tablet PO ×2 (06:13→17:44)
[2020-12-02] MEDS: acetaminophen 325 mg Tablet PO ×2 (06:13→09:08)
[2020-12-02 06:35] LABS: Ferritin 92 ng/mL (15-150); Iron 23 ug/dL (37-145); NT Pro B Type Natriuretic Pept 4226 pg/mL (0-450)
--- NOTE | 2020-12-02 07:00 | XRR_ITS ---
PROCEDURE INFORMATION: Exam: XR Chest Exam date and time: 12/02/2020 7:00 AM Age: 75 years old Clinical indication: Dyspnea; Additional info: SOB TECHNIQUE: Imaging protocol: XR of the chest. Views: 1 view. COMPARISON: CR XR chest 1V portable [id number] 12/01/2020 1:23 PM FINDINGS: Tubes, catheters and devices: A right arm PICC is present with tip projecting in the SVC. Lungs: There is bibasilar atelectasis greater on the left side which is unchanged. Pleural spaces: Small bilateral pleural effusions larger on the right side and unchanged. Heart/Mediastinum: The cardiac silhouette is enlarged but unchanged. Bones/joints: Unremarkable. XR/XR chest 1V portable [id number] IMPRESSION: 1. Cardiomegaly. 2. Bibasilar atelectasis and small effusions unchanged. Radiation Dose CTDIVOL = (mGy): DLP = (mGy-cm)
--- NOTE | 2020-12-02 08:19 | USCV_ITS ---
Elzbieta Church Age: 75 Gender: F : 1945 Exam Date: 12/02/2020 14:19 Ordering Phys: Ian Castillo MD Technologist: Exam [place] [facility] [place] [facility] [place] Indication: RESP DISTRESS PROCEDURES: Venous duplex imaging was performed in bilateral lower extremities. The following venous structures were evaluated: common femoral vein, profunda vein, proximal portion of the greater saphenous vein, superficial femoral vein, and the popliteal vein. In addition, the posterior tibial and peroneal trunk were evaluated. Serial compression, augmentation maneuvers, and spectral Doppler flow evaluation were performed. FINDINGS: Normal 2-D Doppler and augmentation and compressibility throughout the lower extremity venous structures. Additional imaging through the proximal calf veins also reveals no thrombus. Limited evaluation of the greater saphenous vein is patent with no thrombus.. CONCLUSIONS No evidence of right lower extremity DVT. No evidence of left lower extremity DVT. Devonte Wyman MD (Electronically Signed) Final Date: 02 December 2020 15:38 S
[2020-12-02] MEDS: atorvastatin 40 mg Tablet 20 MG PO (08:42)
[2020-12-02] MEDS: pantoprazole 40 mg SDV IVP ×2 (08:42→19:50)
[2020-12-02] MEDS: fluoxetine 20 mg Capsule PO (08:42)
[2020-12-02] MEDS: metOLazone 5 MG Tablet 10 MG PO (08:42)
[2020-12-02] MEDS: polyethylene glycol 3350 Pkt 17 gm PO (08:43)
[2020-12-02] MEDS: levothyroxine 175 mcg Tablet PO (08:43)
[2020-12-02] MEDS: bumetanide 0.25 mg/mL SDV 4 mL 1 MG IVP ×2 (08:43→20:10)
--- NOTE | 2020-12-02 10:40 | PC.NURSE ---
Shift Note Frequent safety and comfort rounds continue. Orders and/or nursing care completed as indicated. Patient monitored for response to intervention and treatment(s). Education provided includes[monitoring o2 saturation, increased mobility, and maintaining a MAP greater than 65.]. 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 Will continue to monitor. Received bed side shift report from off going nurse. Pt's plan of care reviewed. Pt was placed in bed side chair for breakfast. Respirations are even and unlabored. No s/sx of distress noted. Pt c/o of the food and practically everything else she could complain about. Pt is unable to be pleased regardless of what the staff does for her. Pt stated the staff has been keeping the call light from her. This statement is not true considering she has used the call light multiple times prior to this statement. Pt was placed back to bed per pt's wishes using a two person stand-by assist. Call light was attached to the bed rail and was placed where she could easily assess it. Bed in lowest and locked position, call light within reach, x's 3 rails up. Will continue to monitor pt.
--- NOTE | 2020-12-02 17:23 | PM.PN ---
Subjective Subjective: Interval history: Patient was seen this morning, she is sitting up to the side of the bed, on heated high flow, she tells me that she feels well, no nausea, no vomiting, no chest pain, no shortness of breath Vitals/I&O/Wt Last Vital Signs Temp 98.3 F 12/02/20 12:00 Pulse 82 12/02/20 16:20 Resp 19 H 12/02/20 16:20 BP 94/53 12/02/20 16:20 Pulse Ox 93 12/02/20 16:20 12/02/20 12/02/20 12/02/20 06:59 14:59 22:59 Intake Total 607.112 / 1577.112 796 / 796 Output Total 3200 / 3200 Balance -2592.888 / -1622.888 796 / 796 Weight last 48 hrs Weight 87.146 kg Physical Exam Const: COMMON NORMALS: no acute distress and patient oriented x3 HENMT: COMMON NORMALS: normocephalic HEAD & SCALP: normocephalic Resp: COMMON NORMALS: normal respiratory effort, No retractions and No use of accessory muscles AUSCULTATION: wheezes Cardio: COMMON NORMALS: regular rate, regular rhythm, S1 normal heart sound present and S2 normal heart sound present RATE: regular rate RHYTHM: regular rhythm HEART SOUNDS: S1 normal heart sound present and S2 normal heart sound present GI: COMMON NORMALS: Normal to inspection, nondistended, normoactive bowel sounds present, Soft to palpation and non-tender PALPATION: Yes Soft to palpation Extremity: COMMON NORMALS: no pedal edema Neuro: COMMON NORMALS: patient oriented x3 Psych: COMMON NORMALS: mental status grossly normal Urinary Catheter Management^: Buck: Cath Placed During This Visit: yes Reason for Continuing Indwelling Catheter: Acute Urinary Retention or Obstruction Urinary Catheter Date of Insertion: 11/30/20 Urinary Catheter Time of Insertion: 14:48 Data : 12/02/20 04:11 12/02/20 04:11 Micro: Microbiology 11/30/20 14:48 Urine Culture - Final Urine,Clean Catch Bacterial Antigens - Final 11/30/20 22:30 Blood Culture - Preliminary Blood NEGATIVE TO DATE 11/30/20 22:20 Blood Culture - Preliminary Blood NEGATIVE TO DATE 11/30/20 15:45 MRSA Culture - Final Nose A&P Assessment and plan (1) Acute and chronic respiratory failure with hypoxia: -Secondary to CHF exacerbation, diastolic, CHF exacerbation, with pulmonary hypertension -With underlying evidence of healthcare associated pneumonia -Now with increasing oxygen requirements, and hypotension -Chest CT shows 1. Small bilateral pleural effusions with compressive atelectasis in the lung bases slightly increased compared to November 17, 2020. 2. Enlarged right infrahilar lymph node measuring 2 cm unchanged since November 17, 2020. Bilateral bronchovascular thickening. 3. Cardiomegaly with dense coronary calcification and vascular calcification. 4. Slight hazy groundglass infiltrates in both upper lobes with interstitial thickening can be seen with pulmonary edema versus pneumonitis. Plan: -Moved to the ICU -Telemetry monitoring -Continue BiPAP therapy schedule during the night, as needed during the day, can use heated high flow during the day -Continue diuretic therapy, Bumex 1 mg every 12 hours -Active wheezing today, 1 dose of Solu-Medrol, followed by prednisone -Fluid restrictions, monitor potassium, creatinine -Seen by speech therapy, no significant aspiration risk -Follow blood cultures, sputum cultures, urine bacterial antigen, MRSA nares PCR -Continue vancomycin, Primaxin -Continue DuoNeb treatment -Continue to monitor respiratory status closely -Continue DVT prophylaxis Eliquis on hold given anemia -Full code -We will consult pulmonary service COPD not exacerbation Chronic kidney disease, creatinine 1.5, continue to monitor Acute on chronic anemia, hemoglobin 8.5, ferritin 92, iron 23, evidence of iron deficiency, continue to monitor, likely multifactorial from chronic kidney disease, pneumonia, continue Protonix, Hemoccult stool, hold Eliquis, transfuse 1 unit PRBC Atrial fibrillation, hold Eliquis Anxiety depression, continue fluoxetine, alprazolam CVA, 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 Pulmonary pretension Hypothyroidism, continue levothyroxine Right wrist fracture, continue splint Status: Acute (2) Fracture of right distal radius: Status: Acute (3) Physical deconditioning: Status: Acute (4) Severe pulmonary hypertension: Status: Acute (5) Healthcare-associated pneumonia: Status: Acute Attestations Medical Necessity Statement*: Patient requires hospitalization for acute respiratory with hypoxia secondary to CHF, pulmonary pretension, tricuspid valve regurg, pneumonia Coding Level of Care Code 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
[2020-12-02 18:00] LABS: Vancomycin Trough 13.6 ug/mL (10-15)
[2020-12-02] MEDS: vancomycin 1,000 MG in sodium chloride 0.9% 250 ML 250 MG IV (18:06)
[2020-12-02] MEDS: ALPRAZolam 0.5 mg Tablet PO (19:49)
[2020-12-03] VITALS (237 sets, daily range): BP systolic 76–126; BP diastolic 36–78; PULSE 69–101; RESP 13–43; TEMP 36.6–36.7; O2SAT 81–100
[2020-12-03] MEDS: ipratropium-albuterol 3 mL Neb INHALATION ×4 (02:38→20:26)
[2020-12-03 05:19] LABS: Basophils % 0.1 %; Hematocrit 29.9 % (37.0-47.0); Lymphocytes # 0.5 10^3/uL (0.8-4.8); Lymphocytes % 4.1 %; Mean Corpuscular HGB Conc 30.1 g/dL (30.0-36.0); Mean Corpuscular Hemoglobin 25.1 pg (28.0-34.0); Mean Corpuscular Volume 83.3 fl (81-99); Mean Platelet Volume 9.6 fL (7.4-10.4); Monocytes # 0.7 10^3/uL (0.2-0.9); Monocytes % 5.8 %; Neutrophils # 11.24 10^3/uL (1.8-7.7); Nucleated Red Blood Cells % 0 %; Platelet Count 302 10^3/cmm (130-400); Red Blood Count 3.59 10^6/uL (4.1-5.3); Red Cell Distribution Width 17.1 % (12.1-15.1); White Blood Count 12.6 10^3/uL (4.0-10.0)
[2020-12-03 05:31] LABS: Lactate (Lactic Acid level) 0.9 mmol/L (0.5-2.2)
[2020-12-03 05:51] LABS: NT Pro B Type Natriuretic Pept 6814 pg/mL (0-450); Procalcitonin 0.16 ng/mL (0-0.5)
[2020-12-03 06:03] LABS: Alanine Aminotransferase 22 U/L (0-33); Alkaline Phosphatase 132 IU/L (35-105); Anion Gap 12.7 (5-19); Aspartate Amino Transferase 15 U/L (0-32); Blood Urea Nitrogen 41 mg/dL (8-23); C Reactive Protein 53.1 mg/L (0.0-4.9); Carbon Dioxide 36 mmol/L (22-29); Chloride 89 mmol/L (98-107); Creatine Phosphokinase 11 U/L (26-192); Globulin 2.9 g/dL (1.3-4.6); Glucose 216 mg/dL (65-115); Magnesium 1.9 mg/dL (1.7-2.3); Osmolality Calculated 295 mOsm/kg (285-295); Phosphorus 4.5 mg/dL (2.5-4.5); Potassium 3.7 mmol/L (3.5-5.1); Sodium 134 mmol/L (136-145); Total Bilirubin 0.4 mg/dL (0.15-1.2); Total Protein 5.9 g/dL (6.6-8.7)
[2020-12-03] MEDS: sucralfate 1 gm Tablet PO ×2 (06:22→17:53)
--- NOTE | 2020-12-03 07:11 | PC.NURSE ---
Shift Note Frequent safety and comfort rounds continue. Orders and/or nursing care completed as indicated. Patient monitored for response to intervention and treatment(s). Education provided to patient. The patient remained off of the levophed drip the entire shift. The rest of the vitals were good, and there were no uneventful occurrences during the shift.
[2020-12-03] MEDS: pantoprazole 40 mg SDV IVP ×2 (08:50→20:04)
[2020-12-03] MEDS: bumetanide 0.25 mg/mL SDV 4 mL 1 MG IVP ×2 (08:51→20:05)
[2020-12-03] MEDS: midodrine 5 mg TABLET 10 MG PO ×4 (08:51→20:05)
[2020-12-03] MEDS: polyethylene glycol 3350 Pkt 17 gm PO (08:51)
[2020-12-03] MEDS: metOLazone 5 MG Tablet 10 MG PO (08:51)
[2020-12-03] MEDS: levothyroxine 175 mcg Tablet PO (08:51)
[2020-12-03] MEDS: potassium chloride ER 20 mEq Tablet 40 MEQ PO (08:51)
[2020-12-03] MEDS: fluoxetine 20 mg Capsule PO (08:51)
[2020-12-03] MEDS: atorvastatin 40 mg Tablet 20 MG PO (08:52)
[2020-12-03] MEDS: predniSONE 20 mg Tablet 40 MG PO (08:52)
--- NOTE | 2020-12-03 09:48 | PC.CHAP ---
Pastoral Care Encounter/Spiritual Assessment Type of Contact [] Declined peoplesoft developer visit [] Patient/Family/Request visit [] Outpatient visit [] Follow-up visit [] Physician referral [] Code/Alert [x] Routine visit [] Staff referral [] Actively dying [] Patient sleeping [] Family support [] [] Out of room [] Palliative care [] [x] Receiving care in room [] Pre-surgical visit [] Trauma [] Long length of stay [x] ICU visit [x] Other: sitting in chair Relational/Emotional Strength [] Patient feels connected with others/family/visitors/staff [] Distress [] Loneliness/isolation [] Abandonment Spirituality of Patient [] Person of Erika [] Attends Episcopalian of their Erika [] Believes in Prayer [] Reads Bible or Religion materials [] There are Spiritual issues to be addressed 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[employer] Interventions [x] Prayer [] Active listening [] Non-anxious presence [] Spiritual/emotional support [] Crisis/trauma care [] Spiritual counseling [] Bereavement support [] Provided bereavement packet [] Provided Bible/devotional materials [] Provided toy/stuffed animal, coloring book to patient or family member [] Provided Communion [] Anointing/[place] [] Salvation [x] Completed spiritual assessment [] Other: Impact on Illness or Injury [] Angry [] Fearful [] Anxious [] Often cries [] Exhaustion [] Unable to work [] Unable to attend christian [] Unable to walk/stand [] Unable to read [] Unable to drive [] Unable to eat/drink [] Unable to sleep [] Unable to be with family [] Patient intubated [] Other: Summary Time spent with patient x
--- NOTE | 2020-12-03 14:25 | PC.SOCIAL ---
Pg 2 IMM Explained to pt's friend, Chuy, on Pg 2 IMM. No questions voiced. Provided pt care nurse a copy to give to pt. Initialed, dated, & timed a copy & placed in chart.
--- NOTE | 2020-12-03 17:18 | P.PN_ITS ---
Subjective Subjective: Interval history: Patient was seen this morning, she sitting up in a chair, she tells me that she is feeling a lot better, she is a bit upset that she did not get her BiPAP during the night, Vitals/I&O/Wt Last Vital Signs Temp 97.9 F 12/03/20 16:45 Pulse 83 12/03/20 16:45 Resp 22 H 12/03/20 16:45 BP 110/59 12/03/20 16:45 Pulse Ox 95 12/03/20 16:45 12/03/20 12/03/20 12/03/20 06:59 14:59 22:59 Intake Total 300 / 1686 676 / 676 Output Total 1600 / 3850 Balance -1300 / -2164 676 / 676 Physical Exam Const: COMMON NORMALS: no acute distress and patient oriented x3 Resp: COMMON NORMALS: normal respiratory effort, No retractions, No use of accessory muscles and clear to auscultation bilaterally AUSCULTATION: clear to auscultation bilaterally Cardio: COMMON NORMALS: regular rate, regular rhythm, S1 normal heart sound present and S2 normal heart sound present RATE: regular rate RHYTHM: regular rhythm HEART SOUNDS: S1 normal heart sound present and S2 normal heart sound present GI: COMMON NORMALS: Normal to inspection, nondistended, normoactive bowel sounds present, Soft to palpation and non-tender PALPATION: Yes Soft to palpation Extremity: COMMON NORMALS: no pedal edema Neuro: COMMON NORMALS: patient oriented x3 Psych: COMMON NORMALS: mental status grossly normal Urinary Catheter Management^: Buck: Cath Placed During This Visit: yes Reason for Continuing Indwelling Catheter: Accurate Measurement of Urinary Output in Critically Ill Patients Urinary Catheter Date of Insertion: 11/30/20 Urinary Catheter Time of Insertion: 14:48 Data : 12/03/20 04:26 12/03/20 04:26 A&P Assessment and plan (1) Acute and chronic respiratory failure with hypoxia: -Secondary to CHF exacerbation, diastolic, CHF exacerbation, with pulmonary hypertension -With underlying evidence of healthcare associated pneumonia -Now with increasing oxygen requirements, and hypotension -Chest CT shows 1. Small bilateral pleural effusions with compressive atelectasis in the lung bases slightly increased compared to November 17, 2020. 2. Enlarged right infrahilar lymph node measuring 2 cm unchanged since November 17, 2020. Bilateral bronchovascular thickening. 3. Cardiomegaly with dense coronary calcification and vascular calcification. 4. Slight hazy groundglass infiltrates in both upper lobes with interstitial thickening can be seen with pulmonary edema versus pneumonitis. Plan: -Moved to the ICU -Telemetry monitoring -Continue BiPAP therapy schedule during the night, as needed during the day, can use heated high flow during the day -Continue diuretic therapy, Bumex 1 mg every 12 hours, 1 dose of metolazone to day -Active wheezing today, 1 dose of Solu-Medrol, followed by prednisone -Fluid restrictions, monitor potassium, creatinine -Seen by speech therapy, no significant aspiration risk -Follow blood cultures, sputum cultures, urine bacterial antigen, MRSA nares PCR negative -Shock stop vancomycin -Continue Primaxin -Continue DuoNeb treatment -Continue to monitor respiratory status closely -Continue DVT prophylaxis Eliquis will resume today hemoglobin stable -Full code -We will consult pulmonary service CT scan shows evidence of tracheomalacia, tracheal compression, will require CPAP at home, she tells me that she uses CPAP regularly COPD not exacerbation Chronic kidney disease, creatinine 1.5, continue to monitor Acute on chronic anemia, hemoglobin 9.0, ferritin 92, iron 23, evidence of iron deficiency, continue to monitor, likely multifactorial from chronic kidney disease, pneumonia, continue Protonix, Hemoccult stool, continue Eliquis, monitor hemoglobin closely Atrial fibrillation, continue Eliquis Anxiety depression, continue fluoxetine, alprazolam CVA, 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 Pulmonary pretension Hypothyroidism, continue levothyroxine Right wrist fracture, continue splint Status: Acute (2) Fracture of right distal radius: Status: Acute (3) Physical deconditioning: Status: Acute (4) Severe pulmonary hypertension: Status: Acute (5) Healthcare-associated pneumonia: Status: Acute Attestations Medical Necessity Statement*: Patient requires hospitalization for acute on chronic respiratory failure secondary to diastolic CHF, CHF, hypertension, pneumonia Coding Level of Care Code 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
[2020-12-03] MEDS: apixaban 5 mg Tablet PO (20:04)
[2020-12-03] MEDS: ALPRAZolam 0.5 mg Tablet PO (20:06)
[2020-12-04] VITALS (101 sets, daily range): BP systolic 81–126; BP diastolic 44–70; PULSE 68–102; RESP 14–26; TEMP 36.3–36.9; O2SAT 79–99
[2020-12-04] MEDS: ipratropium-albuterol 3 mL Neb INHALATION ×4 (02:44→20:55)
[2020-12-04 05:54] LABS: Basophils % 0.1 %; Hematocrit 30.3 % (37.0-47.0); Hemoglobin 9.1 g/dL (11.5-15.3); Lymphocytes # 1.2 10^3/uL (0.8-4.8); Lymphocytes % 7.8 %; Mean Corpuscular Hemoglobin 25.3 pg (28.0-34.0); Mean Corpuscular Volume 84.4 fl (81-99); Mean Platelet Volume 9.5 fL (7.4-10.4); Monocytes # 1.1 10^3/uL (0.2-0.9); Monocytes % 7.2 %; Nucleated Red Blood Cells % 0 %; Platelet Count 333 10^3/cmm (130-400); Red Blood Count 3.59 10^6/uL (4.1-5.3); Red Cell Distribution Width 17.4 % (12.1-15.1); White Blood Count 15.8 10^3/uL (4.0-10.0)
[2020-12-04 06:19] LABS: Lactate (Lactic Acid level) 1.3 mmol/L (0.5-2.2)
[2020-12-04] MEDS: sucralfate 1 gm Tablet PO ×2 (06:23→17:33)
--- NOTE | 2020-12-04 06:26 | PC.NURSE ---
Shift Note Frequent safety and comfort rounds continue. Orders and/or nursing care completed as indicated. Patient monitored for response to intervention and treatment(s). Education provided to patient, however patient does not talk. It's uncertain how much she actually understands. During the shift the patient experienced several hypertensive episodes where the SBP was in the high 160's to high 170's. Current SBP is in the 140's. The patient did well on heated HiFLO at 35/40, with a oxygen saturation that remained in the low 90's. It was difficult to determine if the patient could follow any commands, as her response was not very quick when being asked to squeeze the hands. The patient's central line was pulled during the shift per request from a daytime physician. A critical lab was called this morning for a low potassium of 2.9.
[2020-12-04 06:30] LABS: Alanine Aminotransferase 27 U/L (0-33); Albumin Level 3.3 g/dL (3.5-5.2); Alkaline Phosphatase 163 IU/L (35-105); Anion Gap 11.1 (5-19); Aspartate Amino Transferase 22 U/L (0-32); Blood Urea Nitrogen 45 mg/dL (8-23); C Reactive Protein 25.6 mg/L (0.0-4.9); Calcium 9.4 mg/dL (8.5-10.5); Carbon Dioxide 36 mmol/L (22-29); Chloride 90 mmol/L (98-107); Globulin 2.8 g/dL (1.3-4.6); Glucose 174 mg/dL (65-115); Magnesium 1.8 mg/dL (1.7-2.3); Osmolality Calculated 292 mOsm/kg (285-295); Phosphorus 3.7 mg/dL (2.5-4.5); Potassium 4.1 mmol/L (3.5-5.1); Sodium 133 mmol/L (136-145); Total Bilirubin 0.3 mg/dL (0.15-1.2); Total Protein 6.1 g/dL (6.6-8.7)
[2020-12-04 07:07] LABS: NT Pro B Type Natriuretic Pept 7544 pg/mL (0-450); Procalcitonin 0.13 ng/mL (0-0.5)
--- NOTE | 2020-12-04 07:09 | PC.NURSE ---
Shift Note Frequent safety and comfort rounds continue. Orders and/or nursing care completed as indicated. Patient monitored for response to intervention and treatment(s). Education provided to patient. There were no new changes, the patient had a good night. The levophed drip was turned off at 0130.
[2020-12-04 07:17] LABS: Creatine Phosphokinase 8 U/L (26-192)
[2020-12-04] MEDS: apixaban 5 mg Tablet PO ×2 (08:02→19:53)
[2020-12-04] MEDS: levothyroxine 175 mcg Tablet PO (08:02)
[2020-12-04] MEDS: midodrine 5 mg TABLET 10 MG PO (08:02)
[2020-12-04] MEDS: predniSONE 20 mg Tablet 40 MG PO (08:02)
[2020-12-04] MEDS: amlodipine 10 mg Tablet PO (08:03)
[2020-12-04] MEDS: atorvastatin 40 mg Tablet 20 MG PO (08:03)
[2020-12-04] MEDS: fluoxetine 20 mg Capsule PO (08:03)
[2020-12-04] MEDS: pantoprazole 40 mg SDV IVP ×2 (08:06→19:53)
[2020-12-04] MEDS: polyethylene glycol 3350 Pkt 17 gm PO (08:06)
[2020-12-04] MEDS: bumetanide 0.25 mg/mL SDV 4 mL 1 MG IVP ×2 (08:06→20:00)
[2020-12-04] MEDS: metOLazone 5 MG Tablet 10 MG PO (08:08)
--- NOTE | 2020-12-04 10:47 | PC.CHAP ---
Pastoral Care Encounter/Spiritual Assessment Type of Contact [] Declined wiper blender visit [] Patient/Family/Request visit [] Outpatient visit [] Follow-up visit [] Physician referral [] Code/Alert [x] Routine visit [] Staff referral [] Actively dying [] Patient sleeping [] Family support [] [] Out of room [] Palliative care [] [x] Receiving care in room [] Pre-surgical visit [] Trauma [] Long length of stay [x] ICU visit [] Other: Relational/Emotional Strength [] Patient feels connected with others/family/visitors/staff [] Distress [] Loneliness/isolation [] Abandonment Spirituality of Patient [] Person of Erika [] Attends Yazidi of their Erika [] Believes in Prayer [] Reads Bible or Adventist materials [] There are Spiritual issues to be addressed 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 Interventions [x] Prayer [] Active listening [] Non-anxious presence [] Spiritual/emotional support [] Crisis/trauma care [] Spiritual counseling [] Bereavement support [] Provided bereavement packet [] Provided Bible/devotional materials [] Provided toy/stuffed animal, coloring book to patient or family member [] Provided Communion [] Anointing/[place] [] Salvation [x] Completed spiritual assessment [] Other: Impact on Illness or Injury [] Angry [] Fearful [] Anxious [] Often cries [] Exhaustion [] Unable to work [] Unable to attend oriental orthodox [] Unable to walk/stand [] Unable to read [] Unable to drive [] Unable to eat/drink [] Unable to sleep [] Unable to be with family [] Patient intubated [] Other: Summary Time spent with patient
[2020-12-04] MEDS: midodrine 5 mg TABLET 15 MG PO ×3 (13:39→20:00)
--- NOTE | 2020-12-04 15:35 | PM.PN ---
Subjective Subjective: Interval history: Patient was seen this morning, she tolerated BiPAP well overnight, no fevers, chills, nausea, vomiting, did require a brief episode of Levophed, this morning was weaned down to 5 L Vitals/I&O/Wt Last Vital Signs Temp 97.7 F 12/04/20 04:00 Pulse 74 12/04/20 14:29 Resp 18 12/04/20 14:29 BP 114/58 12/04/20 02:45 Pulse Ox 96 12/04/20 14:29 12/04/20 12/04/20 12/04/20 06:59 14:59 22:59 Intake Total 250 / 1512.888 400 / 400 Output Total 1500 / 2250 2250 / 2250 Balance -1250 / -737.112 -1850 / -1850 Physical Exam Const: COMMON NORMALS: no acute distress and patient oriented x3 Resp: COMMON NORMALS: normal respiratory effort, No retractions, No use of accessory muscles and clear to auscultation bilaterally AUSCULTATION: clear to auscultation bilaterally Cardio: COMMON NORMALS: regular rate, regular rhythm, S1 normal heart sound present and S2 normal heart sound present RATE: regular rate RHYTHM: regular rhythm HEART SOUNDS: S1 normal heart sound present and S2 normal heart sound present GI: COMMON NORMALS: Normal to inspection, nondistended, normoactive bowel sounds present and Soft to palpation PALPATION: Yes Soft to palpation Extremity: COMMON NORMALS: no pedal edema Neuro: COMMON NORMALS: patient oriented x3 Psych: COMMON NORMALS: mental status grossly normal Urinary Catheter Management^: Buck: Cath Placed During This Visit: yes Reason for Continuing Indwelling Catheter: Accurate Measurement of Urinary Output in Critically Ill Patients Urinary Catheter Date of Insertion: 11/30/20 Urinary Catheter Time of Insertion: 14:48 Data : 12/04/20 04:50 12/04/20 04:50 A&P Assessment and plan (1) Acute and chronic respiratory failure with hypoxia: -Secondary to CHF exacerbation, diastolic, CHF exacerbation, with pulmonary hypertension -With underlying evidence of healthcare associated pneumonia -Now with increasing oxygen requirements, and hypotension -Chest CT shows 1. Small bilateral pleural effusions with compressive atelectasis in the lung bases slightly increased compared to November 17, 2020. 2. Enlarged right infrahilar lymph node measuring 2 cm unchanged since November 17, 2020. Bilateral bronchovascular thickening. 3. Cardiomegaly with dense coronary calcification and vascular calcification. 4. Slight hazy groundglass infiltrates in both upper lobes with interstitial thickening can be seen with pulmonary edema versus pneumonitis. Plan: -We will move to second floor -Telemetry monitoring -Continue BiPAP therapy schedule during the night, as needed during the day, can use heated high flow during the day -Continue diuretic therapy, Bumex 1 mg every 12 hours, 1 dose of metolazone today -Creatinine 1.4, -6 L -Continue prednisone -Fluid restrictions, monitor potassium, creatinine -Seen by speech therapy, no significant aspiration risk -Follow blood cultures, sputum cultures, urine bacterial antigen, MRSA nares PCR negative -Continue Primaxin -Continue DuoNeb treatment -Continue to monitor respiratory status closely -Continue DVT prophylaxis Eliquis, hemoglobin 9.1 -Full code CT scan shows evidence of tracheomalacia, tracheal compression, will require CPAP at home, she tells me that she uses CPAP regularly COPD not exacerbation Chronic kidney disease, creatinine 1.4, continue to monitor Acute on chronic anemia, hemoglobin 9.1, ferritin 92, iron 23, evidence of iron deficiency, continue to monitor, likely multifactorial from chronic kidney disease, pneumonia, continue Protonix, Hemoccult stool, continue Eliquis, monitor hemoglobin closely Atrial fibrillation, continue Eliquis Anxiety depression, continue fluoxetine, alprazolam CVA, 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 Pulmonary pretension Hypothyroidism, continue levothyroxine Right wrist fracture, continue splint Plan for today continue diuretics, moved to general medical floors, Status: Acute (2) Fracture of right distal radius: Status: Acute (3) Physical deconditioning: Status: Acute (4) Severe pulmonary hypertension: Status: Acute (5) Healthcare-associated pneumonia: Status: Acute Attestations Medical Necessity Statement*: Patient requires hospitalization for acute respiratory failure secondary to pneumonia, CHF Coding Level of Care Code 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
--- NOTE | 2020-12-04 18:33 | PC.NURSE ---
Shift Note Frequent safety and comfort rounds continue. Orders and/or nursing care completed as indicated. Patient monitored for response to intervention and treatment(s). Education provided includes the importance of sitting up in the chair. Patient and/or client service representative verbalize understanding. Pt has been up in the chair the entire day shift. She has had 700ml intake leaving her 800ml left on her 1500ml restriction for 12/04. Will continue to monitor.
[2020-12-04] MEDS: acetaminophen 325 mg Tablet PO (21:06)
--- NOTE | 2020-12-04 22:08 | PC.NURSE ---
BEGINNING OF SHIFT SHIFT REPORT COMPLETE. PT RESTING IN CHAIR WITH NO S/S OF DISTRESS-- NC IN PLACE. ASSESSMENT COMPLETE. MEDICATIONS ADMINISTERED ORDERED. EDUCATED PT ON HYPOTENSION AND DISCONTINUATION OF LORAZEPAM. PT VERBALIZED UNDERSTANDING. TRANSFERRED FROM CHAIR TO BED X2 ASSIST. LEO PATENT AND DRAINING.
[2020-12-05] VITALS (19 sets, daily range): BP systolic 91–125; BP diastolic 52–74; PULSE 66–84; RESP 16–29; TEMP 36.3–37.6; O2SAT 90–96
--- NOTE | 2020-12-05 01:20 | PC.NURSE ---
TRANSFER REPORT GIVEN TO SIS DAN. PT CONNECTED TO SUPPLEMENTAL O2 AND TRANSFERRED TO [facility]- VIA BED WITH BLENDING TANK TENDER AND RT PRESENT. BEDSIDE UPDATE GIVEN. PT AAOX3 AND ABLE TO VERBALIZE NEEDS.
[2020-12-05] MEDS: ipratropium-albuterol 3 mL Neb INHALATION ×4 (03:43→20:06)
[2020-12-05 05:35] LABS: Basophils % 0.1 %; Hematocrit 29.9 % (37.0-47.0); Lymphocytes # 1.4 10^3/uL (0.8-4.8); Lymphocytes % 10.9 %; Mean Corpuscular HGB Conc 30.1 g/dL (30.0-36.0); Mean Corpuscular Volume 83.1 fl (81-99); Mean Platelet Volume 9.2 fL (7.4-10.4); Monocytes # 0.9 10^3/uL (0.2-0.9); Monocytes % 7.2 %; Neutrophils # 10.15 10^3/uL (1.8-7.7); Neutrophils % 81.1 %; Nucleated Red Blood Cells % 0 %; Platelet Count 313 10^3/cmm (130-400); Red Cell Distribution Width 17.2 % (12.1-15.1); White Blood Count 12.5 10^3/uL (4.0-10.0)
[2020-12-05 06:00] LABS: Alanine Aminotransferase 25 U/L (0-33); Albumin Level 3.9 g/dL (3.5-5.2); Alkaline Phosphatase 176 IU/L (35-105); Aspartate Amino Transferase 19 U/L (0-32); Blood Urea Nitrogen 52 mg/dL (8-23); C Reactive Protein 12.3 mg/L (0.0-4.9); Carbon Dioxide 38 mmol/L (22-29); Chloride 87 mmol/L (98-107); Globulin 2.8 g/dL (1.3-4.6); Glucose 139 mg/dL (65-115); Magnesium 1.9 mg/dL (1.7-2.3); Osmolality Calculated 294 mOsm/kg (285-295); Phosphorus 4.1 mg/dL (2.5-4.5); Sodium 134 mmol/L (136-145); Total Bilirubin 0.7 mg/dL (0.15-1.2); Total Protein 6.7 g/dL (6.6-8.7)
[2020-12-05] MEDS: sucralfate 1 gm Tablet PO ×2 (06:03→17:59)
[2020-12-05 06:05] LABS: Lactate (Lactic Acid level) 0.8 mmol/L (0.5-2.2); Procalcitonin 0.11 ng/mL (0-0.5)
[2020-12-05 06:16] LABS: Creatine Phosphokinase 8 U/L (26-192)
--- NOTE | 2020-12-05 08:03 | PC.SOCIAL ---
IMM Update Pg. 2 of IMM updated and reviewed with patient, who verbalized understanding. Copy provided.
[2020-12-05] MEDS: pantoprazole 40 mg SDV IVP ×2 (08:30→21:00)
[2020-12-05] MEDS: acetaminophen 325 mg Tablet PO (10:08)
[2020-12-05] MEDS: fluoxetine 20 mg Capsule PO (10:09)
[2020-12-05] MEDS: atorvastatin 40 mg Tablet 20 MG PO (10:09)
[2020-12-05] MEDS: midodrine 5 mg TABLET 15 MG PO ×4 (10:09→19:56)
[2020-12-05] MEDS: amlodipine 10 mg Tablet PO (10:09)
[2020-12-05] MEDS: apixaban 5 mg Tablet PO ×2 (10:09→19:56)
--- NOTE | 2020-12-05 10:09 | PC.NUTR ---
Nutrition assessment for LOS: Discussed rationale for cardiac diet and fluid restriction with pt. Pt states skilled nursing needs to be informed of her dietary restrictions, as they provide her a regular diet. Obtained meal preferences from pt and notified dietary staff. Recommend assistance with tray set up as needed. See full RD assessment for further details.
[2020-12-05] MEDS: levothyroxine 175 mcg Tablet PO (10:10)
[2020-12-05] MEDS: predniSONE 20 mg Tablet 40 MG PO (10:10)
[2020-12-05] MEDS: polyethylene glycol 3350 Pkt 17 gm PO (10:10)
--- NOTE | 2020-12-05 12:04 | P.PN_ITS ---
Subjective Subjective: Interval history: Patient was seen this morning, she is currently on 5 L, she tells me that she is doing better, no fevers, chills, nausea, vomiting, chest pain Vitals/I&O/Wt Last Vital Signs Temp 97.8 F 12/05/20 11:11 Pulse 69 12/05/20 11:11 Resp 18 12/05/20 11:11 BP 95/62 12/05/20 11:11 Pulse Ox 90 12/05/20 11:11 12/04/20 12/05/20 12/05/20 22:59 06:59 14:59 Intake Total 570 / 820 400 / 1220 480 / 480 Output Total 2650 / 4900 1600 / 6500 Balance -2080 / -4080 -1200 / -5280 480 / 480 Physical Exam Const: COMMON NORMALS: no acute distress and patient oriented x3 Resp: COMMON NORMALS: normal respiratory effort, No retractions, No use of accessory muscles and clear to auscultation bilaterally AUSCULTATION: clear to auscultation bilaterally Cardio: COMMON NORMALS: regular rate, regular rhythm, S1 normal heart sound present and S2 normal heart sound present RATE: regular rate RHYTHM: regular rhythm HEART SOUNDS: S1 normal heart sound present and S2 normal heart sound present GI: COMMON NORMALS: Normal to inspection, nondistended, normoactive bowel sounds present, Soft to palpation and non-tender PALPATION: Yes Soft to palpation Extremity: COMMON NORMALS: no pedal edema Neuro: COMMON NORMALS: patient oriented x3 Psych: COMMON NORMALS: mental status grossly normal Urinary Catheter Management^: Buck: Cath Placed During This Visit: yes Reason for Continuing Indwelling Catheter: Accurate Measurement of Urinary Output in Critically Ill Patients Urinary Catheter Date of Insertion: 11/30/20 Urinary Catheter Time of Insertion: 14:48 Data : 12/05/20 05:05 12/05/20 05:05 A&P Assessment and plan (1) Acute and chronic respiratory failure with hypoxia: -Secondary to CHF exacerbation, diastolic, CHF exacerbation, with pulmonary hypertension -With underlying evidence of healthcare associated pneumonia -Now with increasing oxygen requirements, and hypotension -Chest CT shows 1. Small bilateral pleural effusions with compressive atelectasis in the lung bases slightly increased compared to November 17, 2020. 2. Enlarged right infrahilar lymph node measuring 2 cm unchanged since November 17, 2020. Bilateral bronchovascular thickening. 3. Cardiomegaly with dense coronary calcification and vascular calcification. 4. Slight hazy groundglass infiltrates in both upper lobes with interstitial thickening can be seen with pulmonary edema versus pneumonitis. Plan: -Currently on general medical floors -Telemetry monitoring -Continue BiPAP therapy schedule during the night, as needed during the day, can use heated high flow during the day -Diuretic therapy on hold given creatinine 1.7, -Creatinine 1.7, -9L -Continue prednisone -Fluid restrictions, monitor potassium, creatinine -Seen by speech therapy, no significant aspiration risk -Follow blood cultures, sputum cultures, urine bacterial antigen, MRSA nares PCR negative -Stop Robaxin switch to Levaquin -Continue DuoNeb treatment -Continue to monitor respiratory status closely -Continue DVT prophylaxis Eliquis, hemoglobin 9.0 -Full code CT scan shows evidence of tracheomalacia, tracheal compression, will require CPAP at home, she tells me that she uses CPAP regularly COPD not exacerbation Chronic kidney disease, creatinine 1.7, continue to monitor Acute on chronic anemia, hemoglobin 9.0, ferritin 92, iron 23, evidence of iron deficiency, continue to monitor, likely multifactorial from chronic kidney disease, pneumonia, continue Protonix, Hemoccult stool, continue Eliquis, monitor hemoglobin closely Atrial fibrillation, continue Eliquis Anxiety depression, continue fluoxetine, alprazolam CVA, 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 Status: Acute (2) Fracture of right distal radius: Status: Acute (3) Physical deconditioning: Status: Acute (4) Severe pulmonary hypertension: Status: Acute (5) Healthcare-associated pneumonia: Status: Acute Attestations Medical Necessity Statement*: Current hospitalization for acute respiratory failure with hypoxia secondary to CHF Coding Level of Care Code Acute Executive Advisor for 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
--- NOTE | 2020-12-05 13:09 | PC.CHAP ---
Pastoral Care Encounter/Spiritual Assessment Type of Contact [] Declined board of education secretary visit [] Patient/Family/Request visit [] Outpatient visit [xx] Follow-up visit [] Physician referral [] Code/Alert [xx] Routine visit [] Staff referral [] Actively dying [] Patient sleeping [] Family support [] [] Out of room [] Palliative care [] [] Receiving care in room [] Pre-surgical visit [] Trauma [xx] Long length of stay [] ICU visit [] Other: Relational/Emotional Strength [xx] Patient feels connected with others/family/visitors/staff [] Distress [] Loneliness/isolation [] Abandonment Spirituality of Patient [xx] Person of Erika [] Attends Orthodox of their Erika [xx] Believes in Prayer [xx] Reads Bible or Tenriism materials [] There are Spiritual issues to be addressed Child Support Specialist Interventions [xx] Prayer [xx] Active listening [xx] Non-anxious presence [] Spiritual/emotional support [] Crisis/trauma care [] Spiritual counseling [] Bereavement support [] Provided bereavement packet [xx] Provided Bible/devotional materials [] Provided toy/stuffed animal, coloring book to patient or family member [] Provided Communion [] Anointing/[place] [] Salvation [xx] Completed spiritual assessment [] Other: Impact on Illness or Injury [] Angry [] Fearful [] Anxious [] Often cries [] Exhaustion [] Unable to work [] Unable to attend latter-day [] Unable to walk/stand [] Unable to read [] Unable to drive [] Unable to eat/drink [] Unable to sleep [] Unable to be with family [] Patient intubated [] Other: Summary Patient stated she is feeling better but does not feel like visiting. Prayer was all she wanted. Time spent with patient 5 minutes
[2020-12-05 14:46] LABS: ABG PH Result 7.47 (7.35-7.45); Alveolar-Arterial Oxygen Gradi 29.7 mmHg (5-10); Arterial Blood Gas Hematocrit 28.1 % (37-47); Base Excess ABG 15.5 mmol/L (-2.0-2.0); Blood Gas Allen Test Pos; Blood Gas Operator Identificat AMH; Blood Gas Sample Site Radial, left; Blood Gas Sample Type Arterial; Carboxyhemoglobin 1.9 %THgb (0.4-20.1); HCO3 ABG 41.2 mmol/L (22-26); Ionized Calcium Level - ABG 1.2 mmol/L (1.1-1.4); Methemoglobin 0.7 % (0.4-1.5); Oxygen Device BIPAP; Oxygen Saturation ABG 92.3; PO2 ABG 60.3 mmHg (80.0-100.0); Potassium Level - ABG 4.5 mmol/L (3.5-5.0); Total Hemoglobin 9.2 g/dL (12-16)
--- NOTE | 2020-12-05 15:19 | XRR_ITS ---
PROCEDURE INFORMATION: Exam: XR Chest Exam date and time: 12/05/2020 3:19 PM Age: 75 years old Clinical indication: Shortness of breath; Additional info: SOB TECHNIQUE: Imaging protocol: XR of the chest. Views: 1 view. COMPARISON: CR (CHEST, ) 12/02/2020 5:04 AM FINDINGS: Tubes, catheters and devices: Right PICC line with tip over the mid SVC. Lungs: Diffuse interstitial opacities in both lungs. Airspace consolidation in the right lung base. Pleural spaces: Small right pleural effusion. No pneumothorax. Heart/Mediastinum: Calcified mediastinal and right hilar lymph nodes. Mild cardiomegaly. 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 XR/XR chest 1V portable [id number] IMPRESSION: 1. Stable congestive heart failure pattern. 2. Atelectasis versus pneumonia in the right base. Radiation Dose CTDIVOL = (mGy): DLP = (mGy-cm)
[2020-12-05] MEDS: bumetanide 0.25 mg/mL SDV 4 mL 1 MG IVP (16:29)
[2020-12-05 16:43] LABS: Anion Gap 11.8 (5-19); Blood Urea Nitrogen 53 mg/dL (8-23); Calcium 9.8 mg/dL (8.5-10.5); Carbon Dioxide 39 mmol/L (22-29); Chloride 87 mmol/L (98-107); Glucose 234 mg/dL (65-115); Osmolality Calculated 298 mOsm/kg (285-295); Potassium 4.8 mmol/L (3.5-5.1); Sodium 133 mmol/L (136-145)
[2020-12-05] MEDS: piperacillin-tazobactam 3.375 GM in sodium chloride 0.9% (plus) 50 ML IV (17:56)
[2020-12-05] MEDS: LORazepam 2 mg/mL INJ 1 mL 0.5 MG IVP (22:19)
--- NOTE | 2020-12-05 22:20 | PC.NURSE ---
lorazepam adm for primary nurse
[2020-12-06] VITALS (15 sets, daily range): BP systolic 91–104; BP diastolic 55–67; PULSE 68–81; RESP 16–26; TEMP 36.7–37; O2SAT 91–96
[2020-12-06] MEDS: piperacillin-tazobactam 3.375 GM in sodium chloride 0.9% (plus) 50 ML IV ×3 (02:51→17:17)
[2020-12-06] MEDS: ipratropium-albuterol 3 mL Neb INHALATION ×4 (03:24→20:41)
[2020-12-06] MEDS: sucralfate 1 gm Tablet PO ×2 (06:22→17:16)
[2020-12-06 06:47] LABS: Hematocrit 27.9 % (37.0-47.0); Hemoglobin 8.2 g/dL (11.5-15.3); Lymphocytes # 0.9 10^3/uL (0.8-4.8); Lymphocytes % 7.6 %; Mean Corpuscular HGB Conc 29.4 g/dL (30.0-36.0); Mean Corpuscular Hemoglobin 24.8 pg (28.0-34.0); Mean Corpuscular Volume 84.3 fl (81-99); Mean Platelet Volume 9.7 fL (7.4-10.4); Monocytes # 0.7 10^3/uL (0.2-0.9); Monocytes % 5.8 %; Neutrophils % 85.5 %; Nucleated Red Blood Cells % 0 %; Platelet Count 296 10^3/cmm (130-400); Red Blood Count 3.31 10^6/uL (4.1-5.3); Red Cell Distribution Width 17.2 % (12.1-15.1); White Blood Count 11.8 10^3/uL (4.0-10.0)
[2020-12-06 07:13] LABS: Alanine Aminotransferase 15 U/L (0-33); Albumin Level 4.4 g/dL (3.5-5.2); Alkaline Phosphatase 132 IU/L (35-105); Aspartate Amino Transferase 14 U/L (0-32); Blood Urea Nitrogen 55 mg/dL (8-23); C Reactive Protein 9.5 mg/L (0.0-4.9); Carbon Dioxide 37 mmol/L (22-29); Chloride 88 mmol/L (98-107); Globulin 2.5 g/dL (1.3-4.6); Glucose 145 mg/dL (65-115); Osmolality Calculated 300 mOsm/kg (285-295); Phosphorus 4.2 mg/dL (2.5-4.5); Sodium 136 mmol/L (136-145); Total Bilirubin 1.2 mg/dL (0.15-1.2); Total Protein 6.9 g/dL (6.6-8.7)
[2020-12-06] MEDS: atorvastatin 40 mg Tablet 20 MG PO (08:09)
[2020-12-06] MEDS: levothyroxine 175 mcg Tablet PO (08:09)
[2020-12-06] MEDS: pantoprazole 40 mg SDV IVP ×2 (08:09→21:16)
[2020-12-06] MEDS: polyethylene glycol 3350 Pkt 17 gm PO (08:09)
[2020-12-06] MEDS: fluoxetine 20 mg Capsule PO (08:10)
[2020-12-06] MEDS: apixaban 5 mg Tablet PO ×2 (08:10→21:17)
[2020-12-06] MEDS: midodrine 5 mg TABLET 15 MG PO ×4 (08:10→21:15)
[2020-12-06] MEDS: predniSONE 20 mg Tablet 40 MG PO (08:10)
[2020-12-06 09:21] LABS: ABG PCO2 52.5 mmHg (35-45); ABG PH Result 7.49 (7.35-7.45); Arterial Blood Gas Hematocrit 27.3 % (37-47); Base Excess ABG 14.4 mmol/L (-2.0-2.0); Blood Gas Allen Test Pos; Blood Gas Sample Type Arterial; HCO3 ABG 39.5 mmol/L (22-26); PO2 ABG 67.9 mmHg (80.0-100.0)
[2020-12-06 09:22] LABS: Blood Gas Operator Identificat CAK; Blood Gas Sample Site Radial, left; Oxygen Device NC
[2020-12-06] MEDS: bumetanide 0.25 mg/mL SDV 4 mL 1 MG IVP ×2 (10:02→21:17)
--- NOTE | 2020-12-06 16:10 | P.PN_ITS ---
Subjective Subjective: Interval history: Patient was seen this morning, yesterday afternoon she had episodes of shortness of breath requiring BiPAP, this morning she is significantly doing better, use BiPAP throughout the night, currently on 5 L nasal cannula, no chest pain, no shortness of breath, no lightheadedness, no dizziness, no nausea, no vomiting, she is worried about going to the [facility] too soon Vitals/I&O/Wt Last Vital Signs Temp 98.1 F 12/06/20 16:00 Pulse 81 12/06/20 16:00 Resp 16 12/06/20 16:00 BP 91/55 12/06/20 16:00 Pulse Ox 92 12/06/20 16:00 12/06/20 12/06/20 12/06/20 06:59 14:59 22:59 Intake Total 350 / 1080 920 / 920 Output Total 1300 / 1300 Balance -950 / -220 920 / 920 Physical Exam Const: COMMON NORMALS: no acute distress and patient oriented x3 Resp: COMMON NORMALS: normal respiratory effort, No retractions, No use of accessory muscles and clear to auscultation bilaterally AUSCULTATION: clear to auscultation bilaterally Cardio: COMMON NORMALS: regular rate, regular rhythm, S1 normal heart sound present and S2 normal heart sound present RATE: regular rate RHYTHM: regular rhythm HEART SOUNDS: S1 normal heart sound present and S2 normal heart sound present GI: COMMON NORMALS: Normal to inspection, nondistended, normoactive bowel sounds present, Soft to palpation and non-tender PALPATION: Yes Soft to palpation Extremity: COMMON NORMALS: no pedal edema Neuro: COMMON NORMALS: patient oriented x3 Psych: COMMON NORMALS: mental status grossly normal Urinary Catheter Management^: Buck: Cath Placed During This Visit: yes Reason for Continuing Indwelling Catheter: Other Urinary Catheter Date of Insertion: 11/30/20 Urinary Catheter Time of Insertion: 14:48 Data : 12/06/20 05:27 12/06/20 05:27 Micro: Microbiology 11/30/20 22:20 Blood Culture - Final Blood NO GROWTH AFTER 5 DAYS 11/30/20 22:30 Blood Culture - Final Blood NO GROWTH AFTER 5 DAYS A&P Assessment and plan (1) Acute and chronic respiratory failure with hypoxia: -Secondary to CHF exacerbation, diastolic, CHF exacerbation, with pulmonary hypertension -With underlying evidence of healthcare associated pneumonia -With episode of aspiration on 12/05/2020, resulting in increased shortness of breath hypoxia, now resolved -Chest CT shows 1. Small bilateral pleural effusions with compressive atelectasis in the lung bases slightly increased compared to November 17, 2020. 2. Enlarged right infrahilar lymph node measuring 2 cm unchanged since November 17, 2020. Bilateral bronchovascular thickening. 3. Cardiomegaly with dense coronary calcification and vascular calcification. 4. Slight hazy groundglass infiltrates in both upper lobes with interstitial thickening can be seen with pulmonary edema versus pneumonitis. Plan: -Currently on general medical floors -Telemetry monitoring -Continue BiPAP therapy schedule during the night, as needed during the day, can use heated high flow during the day -Diuretic therapy creatinine 1.5, continue Bumex 1 mg twice daily -Creatinine 1.5, -9 L -Continue prednisone -Fluid restrictions, monitor potassium, creatinine -Seen by speech therapy, no significant aspiration risk -I suspect high aspiration, given her her episode of shortness of breath yesterday, that resolved, recommend aspiration precautions, slow feeding, -Follow blood cultures, sputum cultures, urine bacterial antigen, also far u nremarkable, MRSA nares PCR negative -Continue Zosyn -Continue DuoNeb treatment -Continue to monitor respiratory status closely -Continue DVT prophylaxis Eliquis, hemoglobin 9.0 -Full code CT scan shows evidence of tracheomalacia, tracheal compression, will require CPAP at home, she tells me that she uses CPAP regularly COPD not exacerbation Chronic kidney disease, creatinine 1.7, continue to monitor Acute on chronic anemia, hemoglobin 9.0, ferritin 92, iron 23, evidence of iron deficiency, continue to monitor, likely multifactorial from chronic kidney disease, pneumonia, continue Protonix, Hemoccult stool, continue Eliquis, monitor hemoglobin closely Atrial fibrillation, continue Eliquis Anxiety depression, continue fluoxetine, alprazolam CVA, 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 Pulmonary pretension Hypothyroidism, continue levothyroxine Right wrist fracture, continue splint Plan for today continue to diurese, continue antibiotic therapy, monitor creatinine, plan on discharging in the next 24 hours Status: Acute (2) Fracture of right distal radius: Status: Acute (3) Physical deconditioning: Status: Acute (4) Severe pulmonary hypertension: Status: Acute (5) Healthcare-associated pneumonia: Status: Acute Attestations Medical Necessity Statement*: Patient requires hospitalization for acute respiratory failure with hypoxia secondary to CHF, pneumonia, Coding Level of Care Code Acute Process Improvement Analyst for [facility] Diagnoses Acute and chronic respiratory failure with hypoxia J96.21 Fracture of right distal radius S52.501A Physical deconditioning R53.81 Severe pulmonary hypertension I27.20 Healthcare-associated pneumonia J18.9
[2020-12-06] MEDS: acetaminophen 325 mg Tablet PO (21:16)
[2020-12-07] VITALS (12 sets, daily range): BP systolic 98–121; BP diastolic 61–79; PULSE 66–123; RESP 6–22; TEMP 36.4–36.8; O2SAT 91–97
[2020-12-07] MEDS: ipratropium-albuterol 3 mL Neb INHALATION ×3 (02:55→14:25)
[2020-12-07 05:07] LABS: Basophils % 0.2 %; Eosinophils % 0.1 %; Hematocrit 27.4 % (37.0-47.0); Hemoglobin 8.3 g/dL (11.5-15.3); Lymphocytes # 1.6 10^3/uL (0.8-4.8); Lymphocytes % 13.2 %; Mean Corpuscular HGB Conc 30.3 g/dL (30.0-36.0); Mean Corpuscular Hemoglobin 25.5 pg (28.0-34.0); Mean Platelet Volume 9.9 fL (7.4-10.4); Monocytes # 0.9 10^3/uL (0.2-0.9); Monocytes % 7.5 %; Neutrophils # 9.49 10^3/uL (1.8-7.7); Nucleated Red Blood Cells % 0 %; Platelet Count 296 10^3/cmm (130-400); Red Blood Count 3.26 10^6/uL (4.1-5.3); Red Cell Distribution Width 17.2 % (12.1-15.1); White Blood Count 12.2 10^3/uL (4.0-10.0)
[2020-12-07 05:31] LABS: Alanine Aminotransferase 13 U/L (0-33); Albumin Level 4.7 g/dL (3.5-5.2); Alkaline Phosphatase 109 IU/L (35-105); Anion Gap 13.9 (5-19); Aspartate Amino Transferase 13 U/L (0-32); Blood Urea Nitrogen 64 mg/dL (8-23); C Reactive Protein 5.5 mg/L (0.0-4.9); Calcium 10.2 mg/dL (8.5-10.5); Carbon Dioxide 39 mmol/L (22-29); Chloride 89 mmol/L (98-107); Globulin 2.1 g/dL (1.3-4.6); Glucose 152 mg/dL (65-115); Magnesium 2.2 mg/dL (1.7-2.3); Osmolality Calculated 307 mOsm/kg (285-295); Phosphorus 3.5 mg/dL (2.5-4.5); Potassium 3.9 mmol/L (3.5-5.1); Sodium 138 mmol/L (136-145); Total Protein 6.8 g/dL (6.6-8.7)
[2020-12-07 05:43] LABS: NT Pro B Type Natriuretic Pept 10064 pg/mL (0-450); Procalcitonin 0.14 ng/mL (0-0.5)
[2020-12-07] MEDS: atorvastatin 40 mg Tablet 20 MG PO (08:01)
[2020-12-07] MEDS: midodrine 5 mg TABLET 15 MG PO ×4 (08:01→20:12)
[2020-12-07] MEDS: levothyroxine 175 mcg Tablet PO (08:01)
[2020-12-07] MEDS: pantoprazole 40 mg SDV IVP ×2 (08:02→20:12)
[2020-12-07] MEDS: bumetanide 0.25 mg/mL SDV 4 mL 1 MG IVP ×2 (08:02→20:12)
[2020-12-07] MEDS: amlodipine 10 mg Tablet PO (08:02)
[2020-12-07] MEDS: sucralfate 1 gm Tablet PO ×2 (08:02→17:14)
[2020-12-07] MEDS: fluoxetine 20 mg Capsule PO (08:02)
[2020-12-07] MEDS: predniSONE 20 mg Tablet 40 MG PO (08:02)
[2020-12-07] MEDS: apixaban 5 mg Tablet PO ×2 (08:03→20:12)
[2020-12-07] MEDS: polyethylene glycol 3350 Pkt 17 gm PO (08:03)
--- NOTE | 2020-12-07 10:23 | PC.SOCIAL ---
IMM Update Pg. 2 of IMM updated and reviewed with patient, who verbalized understanding. Copy provided.
[2020-12-07] MEDS: metOLazone 5 MG Tablet 10 MG PO (10:30)
[2020-12-07] MEDS: piperacillin-tazobactam 3.375 GM in sodium chloride 0.9% (plus) 50 ML IV (10:30)
--- NOTE | 2020-12-07 13:01 | P.PN_ITS ---
Subjective Subjective: Interval history: Patient was seen this morning, she tells me that her breathing has improved, she is on 7 L, no repeat coughing episodes, no choking episodes, no fevers overnight Vitals/I&O/Wt Last Vital Signs Temp 98.2 F 12/07/20 11:09 Pulse 74 12/07/20 11:09 Resp 16 12/07/20 11:09 BP 103/69 12/07/20 11:09 Pulse Ox 91 12/07/20 11:09 12/06/20 12/07/20 12/07/20 22:59 06:59 14:59 Intake Total 480 / 1400 20 / 1420 730 / 730 Output Total 1150 / 1150 1300 / 2450 Balance -670 / 250 -1280 / -1030 730 / 730 Physical Exam Const: COMMON NORMALS: no acute distress and patient oriented x3 HENMT: COMMON NORMALS: normocephalic HEAD & SCALP: normocephalic Resp: COMMON NORMALS: normal respiratory effort, No retractions, No use of accessory muscles and clear to auscultation bilaterally AUSCULTATION: clear to auscultation bilaterally Cardio: COMMON NORMALS: regular rate, regular rhythm, S1 normal heart sound present and S2 normal heart sound present RATE: regular rate RHYTHM: regular rhythm HEART SOUNDS: S1 normal heart sound present and S2 normal heart sound present GI: COMMON NORMALS: Normal to inspection, nondistended, normoactive bowel sounds present, Soft to palpation and non-tender PALPATION: Yes Soft to palp ation Extremity: COMMON NORMALS: no pedal edema Neuro: COMMON NORMALS: patient oriented x3 Psych: COMMON NORMALS: mental status grossly normal Urinary Catheter Management^: Buck: Cath Placed During This Visit: yes Reason for Continuing Indwelling Catheter: Acute Urinary Retention or Obstruction Urinary Catheter Date of Insertion: 11/30/20 Urinary Catheter Time of Insertion: 14:48 Data : 12/07/20 04:35 12/07/20 04:35 A&P Assessment and plan (1) Acute and chronic respiratory failure with hypoxia: -Secondary to CHF exacerbation, diastolic, CHF exacerbation, with pulmonary hypertension -With underlying evidence of healthcare associated pneumonia -With episode of aspiration on 12/05/2020, resulting in increased shortness of breath hypoxia, now resolved -Chest CT shows 1. Small bilateral pleural effusions with compressive atelectasis in the lung bases slightly increased compared to November 17, 2020. 2. Enlarged right infrahilar lymph node measuring 2 cm unchanged since November 17, 2020. Bilateral bronchovascular thickening. 3. Cardiomegaly with dense coronary calcification and vascular calcification. 4. Slight hazy groundglass infiltrates in both upper lobes with interstitial thickening can be seen with pulmonary edema versus pneumonitis. Plan: -Currently on general medical floors -Telemetry monitoring -Continue BiPAP therapy schedule during the night, as needed during the day, can use heated high flow during the day -Diuretic therapy creatinine 1.5, continue Bumex 1 mg twice daily, one dose of metolazone today -Creatinine 1.5, -10 L, still on 7L -Continue prednisone -Fluid restrictions, monitor potassium, creatinine -Seen by speech therapy, no significant aspiration risk -I suspect high aspiration, given her her episode of shortness of breath yesterday, that resolved, recommend aspiration precautions, slow feeding -Follow blood cultures, sputum cultures, urine bacterial antigen, also far unremarkable, MRSA nares PCR negative -Switch to Augmentin -Continue DuoNeb treatment -Continue to monitor respiratory status closely -Continue DVT prophylaxis Eliquis, hemoglobin 8.3 -Full code CT scan shows evidence of tracheomalacia, tracheal compression, will require CPAP at home, she tells me that she uses CPAP regularly COPD not exacerbation Chronic kidney disease, creatinine 1.7, continue to monitor Acute on chronic anemia, hemoglobin 8.3, ferritin 92, iron 23, evidence of iron deficiency, continue to monitor, likely multifactorial from chronic kidney disease, pneumonia, continue Protonix, Hemoccult stool, continue Eliquis, monitor hemoglobin closely Atrial fibrillation, continue Eliquis Anxiety depression, continue fluoxetine, alprazolam CVA, 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 Pulmonary pretension Hypothyroidism, continue levothyroxine Right wrist fracture, continue splint Plan for today continue to diurese, de-escalate to Augmentin, remains at 7 L, Status: Acute (2) Fracture of right distal radius: Status: Acute (3) Physical deconditioning: Status: Acute (4) Severe pulmonary hypertension: Status: Acute (5) Healthcare-associated pneumonia: Status: Acute Attestations Medical Necessity Statement*: Patient requires hospitalization for acute respiratory failure secondary to diastolic CHF Coding Level of Care Code Acute Stars Coordinator for [facility] Fwd Diagnoses Acute and chronic respiratory failure with hypoxia J96.21 Fracture of right distal radius S52.501A Physical deconditioning R53.81 Severe pulmonary hypertension I27.20 Healthcare-associated pneumonia J18.9
[2020-12-07] MEDS: potassium chloride ER 20 mEq Tablet 40 MEQ PO (13:33)
[2020-12-07] MEDS: acetaminophen 325 mg Tablet PO (17:13)
[2020-12-07] MEDS: amoxicillin-clav 875-125 mg Tablet 1 TAB PO (17:14)
[2020-12-08] VITALS (11 sets, daily range): BP systolic 97–108; BP diastolic 60–68; PULSE 65–82; RESP 16–22; TEMP 36.3–36.8; O2SAT 91–99
[2020-12-08 05:23] LABS: Basophils % 0.1 %; Eosinophils % 0.1 %; Hematocrit 27.6 % (37.0-47.0); Hemoglobin 8.3 g/dL (11.5-15.3); Lymphocytes # 1.2 10^3/uL (0.8-4.8); Lymphocytes % 9.7 %; Mean Corpuscular HGB Conc 30.1 g/dL (30.0-36.0); Mean Corpuscular Hemoglobin 24.9 pg (28.0-34.0); Mean Corpuscular Volume 82.6 fl (81-99); Mean Platelet Volume 9.9 fL (7.4-10.4); Monocytes # 0.7 10^3/uL (0.2-0.9); Monocytes % 6.3 %; Neutrophils # 9.86 10^3/uL (1.8-7.7); Neutrophils % 83.2 %; Nucleated Red Blood Cells % 0 %; Platelet Count 297 10^3/cmm (130-400); Red Blood Count 3.34 10^6/uL (4.1-5.3); Red Cell Distribution Width 17.1 % (12.1-15.1); White Blood Count 11.8 10^3/uL (4.0-10.0)
[2020-12-08 05:43] LABS: Alanine Aminotransferase 12 U/L (0-33); Albumin Level 5.1 g/dL (3.5-5.2); Alkaline Phosphatase 100 IU/L (35-105); Anion Gap 14.1 (5-19); Aspartate Amino Transferase 11 U/L (0-32); Blood Urea Nitrogen 75 mg/dL (8-23); Calcium 10.3 mg/dL (8.5-10.5); Carbon Dioxide 39 mmol/L (22-29); Chloride 88 mmol/L (98-107); Glucose 158 mg/dL (65-115); Magnesium 2.2 mg/dL (1.7-2.3); Osmolality Calculated 310 mOsm/kg (285-295); Phosphorus 3.7 mg/dL (2.5-4.5); Potassium 4.1 mmol/L (3.5-5.1); Sodium 137 mmol/L (136-145); Total Protein 7.1 g/dL (6.6-8.7)
[2020-12-08] MEDS: sucralfate 1 gm Tablet PO ×2 (06:26→17:28)
[2020-12-08 06:41] LABS: NT Pro B Type Natriuretic Pept 11994 pg/mL (0-450); Procalcitonin 0.15 ng/mL (0-0.5)
[2020-12-08] MEDS: predniSONE 20 mg Tablet 40 MG PO (08:19)
[2020-12-08] MEDS: fluoxetine 20 mg Capsule PO (08:19)
[2020-12-08] MEDS: amlodipine 10 mg Tablet PO (08:19)
[2020-12-08] MEDS: atorvastatin 40 mg Tablet 20 MG PO (08:19)
[2020-12-08] MEDS: polyethylene glycol 3350 Pkt 17 gm PO (08:20)
[2020-12-08] MEDS: apixaban 5 mg Tablet PO ×2 (08:20→20:19)
[2020-12-08] MEDS: midodrine 5 mg TABLET 15 MG PO ×4 (08:20→20:19)
[2020-12-08] MEDS: amoxicillin-clav 875-125 mg Tablet 1 TAB PO ×2 (08:20→17:28)
[2020-12-08] MEDS: levothyroxine 175 mcg Tablet PO (08:20)
[2020-12-08] MEDS: pantoprazole 40 mg SDV IVP ×2 (08:52→22:25)
[2020-12-08] MEDS: bumetanide 0.25 mg/mL SDV 4 mL 1 MG IVP ×2 (08:52→22:26)
--- NOTE | 2020-12-08 08:59 | XR_ITS ---
WS: [id number] Exam: XR wrist RT min 3V* [id number] Date/Time of Exam: 12/08/2020 9:00 AM Reason For Exam: R wrist fracture Comparison 11/17/2020. Progressively healing fracture of the distal radial metaphysis remaining in satisfactory alignment. N o other acute fractures. Soft tissues are unremarkable. A splint stabilizes the wrist. XR/XR wrist RT min 3V* [id number] IMPRESSION: 1. Healing distal radial fracture remaining in satisfactory alignment.
[2020-12-08] MEDS: ipratropium-albuterol 3 mL Neb INHALATION ×3 (11:34→21:10)
--- NOTE | 2020-12-08 12:58 | PM.PN ---
Subjective Subjective: Interval history: She says overall is doing all right, although more dyspneic than usual. Today she has been coughing, coughed up some yellow sputum. Oxygen saturation goes down with coughing, with talking. Reports she intermittently coughs with food/drink. Requests to contact Dr. Jones after imaging of the right wrist with regards to possibility of removing the right wrist splint. Vitals/I&O/Wt Last Vital Signs Temp 97.8 F 12/08/20 12:00 Pulse 72 12/08/20 12:00 Resp 16 12/08/20 12:00 BP 108/67 12/08/20 12:00 Pulse Ox 91 12/08/20 12:00 12/07/20 12/08/20 12/08/20 22:59 06:59 14:59 Intake Total 220 / 1120 340 / 340 Output Total 1200 / 1200 1050 / 2250 Balance -980 / -80 -1050 / -1130 339 / 339 Physical Exam Const: COMMON NORMALS: no acute distress, patient oriented x3 and alert GENERAL APPEARANCE: cooperative NUTRITIONAL APPEARANCE: obese ORIENTATION/CONSCIOUSNESS: Yes awake HENMT: COMMON NORMALS: oropharynx normal Neck/C-Spine: COMMON NORMALS: no JVD Resp: COMMON NORMALS: normal respiratory effort and clear to auscultation bilaterally AUSCULTATION: clear to auscultation bilaterally Cardio: COMMON NORMALS: no JVD, regular rhythm, S1 normal heart sound present, S2 normal heart sound present and No murmurs present (Cardio) RHYTHM: regular rhythm HEART SOUNDS: S1 normal heart sound present and S2 normal heart sound present GI: COMMON NORMALS: Normal to inspection, nondistended, normoactive bowel sounds present, Soft to palpation and non-tender PALPATION: Yes Soft to palpation Extremity: COMMON NORMALS: no joint enlargement and no pedal edema OTHER: R wrist splint Neuro: COMMON NORMALS: patient oriented x3 and moves all extremities SENSORIUM/ORIENTATION: Yes alert Skin: COMMON NORMALS: no rashes or lesions noted GENERAL SKIN EXAM: no rashes or lesions noted Urinary Catheter Management^: Buck: Cath Placed During This Visit: yes Reason for Continuing Indwelling Catheter: Acute Urinary Retention or Obstruction Urinary Catheter Date of Insertion: 11/30/20 Urinary Catheter Time of Insertion: 14:48 Data : 12/08/20 05:07 12/08/20 05:07 A&P Assessment and plan (1) Acute and chronic respiratory failure with hypoxia: Worsening of hypoxia. Requiring up to 10 L nasal cannula. Wheezing, decreased air entry. Switch from prednisone to methylprednisolone IV every 6 hours due to COPD exacerbation. Continue Augmentin for now for pneumonia, possible aspiration. Repeat chest x-ray. She reports cough with food and drink, requested assessment with MBS. Mild pooling noted with mild difficulty initiating swallowing process with elevating the tongue. Continue diuresis with Bumex. Currently also receiving albumin infusions. Nightly BiPAP support as usual. -Secondary to CHF exacerbation, diastolic, CHF exacerbation, with pulmonary hypertension -With underlying evidence of healthcare associated pneumonia -With episode of aspiration on 12/05/2020, resulting in increased shortness of breath hypoxia, now resolved -Chest CT shows 1. Small bilateral pleural effusions with compressive atelectasis in the lung bases slightly increased compared to November 17, 2020. 2. Enlarged right infrahilar lymph node measuring 2 cm unchanged since November 17, 2020. Bilateral bronchovascular thickening. 3. Cardiomegaly with dense coronary calcification and vascular calcification. 4. Slight hazy groundglass infiltrates in both upper lobes with interstitial thickening can be seen with pulmonary edema versus pneumonitis. CT scan shows evidence of tracheomalacia, tracheal compression, will require CPAP at home, she tells me that she uses CPAP regularly Status: Acute (2) Fracture of right distal radius: Status: Acute (3) Physical deconditioning: Status: Acute (4) Severe pulmonary hypertension: Status: Acute (5) Healthcare-associated pneumonia: Status: Acute Additional A&P Information Chronic kidney disease, creatinine 1.7, continue to monitor Acute on chronic anemia, hemoglobin 8.3, ferritin 92, iron 23, evidence of iron deficiency, continue to monitor, likely multifactorial from chronic kidney disease, pneumonia, continue Protonix, Hemoccult stool, continue Eliquis, monitor hemoglobin closely Atrial fibrillation, continue Eliquis Anxiety depression, continue fluoxetine, alprazolam CVA, 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 Will need to continue for 6 weeks. May be taken off for range of motion exercises with PT. Attestations Medical Necessity Statement*: Continue admission for assessment management of worsening hypoxic acute on chronic respiratory failure, COPD exacerbation, with also underlying pneumonia, CHF exacerbation, with chronic pulmonary hypertension. Coding Level of Care Code Acute Market News Reporter for [facility] Fwd Diagnoses Acute and chronic respiratory failure with hypoxia J96.21 Fracture of right distal radius S52.501A Physical deconditioning R53.81 Severe pulmonary hypertension I27.20 Healthcare-associated pneumonia J18.9
--- NOTE | 2020-12-08 13:01 | FL_ITS ---
WS: [id number] Exam: FL barium swallow modifd [id number] Date/Time of Exam: 12/08/2020 1:01 PM Reason For Exam: Oropharyngeal dysphagia Fluoroscopy time: 1.9 minutes Modified barium swallow is performed in conjunction with the speech therapy service. The patient experienced mild difficulty initiating the swallowing process specifically elevating the tongue to the hard palate. There was no evidence of aspiration or penetration involving thin liquid, nectar consistency, pudding consistency or solid barium mixture foodstuffs. The patient swallowed the barium pill which passed into the stomach. There is some pooling of thin liquid barium solution into the vallecula during swallowing. No penetration was seen. FL/FL barium swallow modifd [id number] IMPRESSION: 1. The patient tolerated thin liquid, nectar consistency and pudding consistenc y barium foodstuffs without aspiration or penetration. Solid barium mixture mehdi dstuffs and barium pill were tolerated without incident. 2. The patient experienced mild difficulty initiating the swallowing process wh en elevating the tongue the hard palate. There was some mild pooling of thin l iquid barium into the vallecula during swallowing. A separate report of findings and recommendations will follow from the speech t herapy department.
--- NOTE | 2020-12-08 14:14 | PM.MISC ---
Miscellaneous Note Purpose of Documentation: Fracture follow-up Note: This 75-year-old woman was seen in my office earlier this month on November 17. At that time, she presented in a cast for a distal radius fracture. There was no information as to when the cast was placed, who placed it, where it was placed, or her date of injury. The patient was unable to express any of these things, and the skilled facility from whence she came did not send any paperwork. They were called and could provide no further information. The cast was removed, and the patient was placed in a fast form splint with intent to treat her fracture for 6 weeks given that we did not know the age of the fracture. As no further information has been obtained as to the age of the fracture, the patient will need to continue in her fast form cock up splint for a total of 6 weeks from November 17. We will see her in the office in follow-up for x-rays out of her fast form splint within the timeframe of 6 weeks from November 17. X-rays were obtained at hospital, and these are reviewed. There has been no change in position of the fracture, and it does remain stable. It is healing, but is not healed.
--- NOTE | 2020-12-08 16:27 | PC.NURSE ---
PHYSICIAN NOTIFICATION CAMILLE notified me that the patients oxygen was in the low 80s while getting her noon vitals. This nurse went in to check on the patient and her oxygen was at 84%. This nurse had the patient close her mouth and take deep breaths through her nose, but was only able to get her oxygen up to 87%. Notified respiratory and they came up and completed a breathing treatment. They also turned her o2 up from 8L to 10L. The patient has developed a productive cough. Notified Dr. Prince of all of the above. He ordered a sputum culture and stated that the patient wouldn't be discharged today as previously planned. Jae, KYARA------
[2020-12-09] VITALS (17 sets, daily range): BP systolic 99–114; BP diastolic 60–73; PULSE 67–106; RESP 16–23; TEMP 36.3–37; O2SAT 90–96
--- NOTE | 2020-12-09 06:00 | XR_ITS ---
WS: [id number] Exam: XR chest 1V portable [id number] Date/Time of Exam: 12/09/2020 6:00 AM Reason For Exam: Hypoxia Comparison 12/05/2020. There is atelectasis and/or infiltrate in the right lower lobe which is improv ed. Right basal pleural effusion unchanged. The heart remains enlarged and unchanged in size. Pulmona ry vascularity is increased. The lungs are fully inflated. A right-sided PICC line ends in the lower one third of the SVC in satisfactory position. Regional bony structures are intact. At least one old right rib fracture. Old bilateral proximal humeri fractures. Opaque material in the stomach. XR/XR chest 1V portable [id number] IMPRESSION: 1. Atelectasis and/or infiltrate in the right lung base has improved. Unchanged right basal pleural effusion 2. Cardiac enlargement with increased pulmonary vascularity unchanged.
[2020-12-09 06:04] LABS: Basophils % 0.1 %; Hematocrit 25.5 % (37.0-47.0); Hemoglobin 7.7 g/dL (11.5-15.3); Lymphocytes # 0.2 10^3/uL (0.8-4.8); Lymphocytes % 2.1 %; Mean Corpuscular HGB Conc 30.2 g/dL (30.0-36.0); Mean Corpuscular Hemoglobin 24.8 pg (28.0-34.0); Mean Corpuscular Volume 82.3 fl (81-99); Mean Platelet Volume 10.6 fL (7.4-10.4); Monocytes # 0.1 10^3/uL (0.2-0.9); Monocytes % 0.6 %; Neutrophils # 11.25 10^3/uL (1.8-7.7); Neutrophils % 96.6 %; Nucleated Red Blood Cells % 0 %; Platelet Count 284 10^3/cmm (130-400); Red Cell Distribution Width 17.1 % (12.1-15.1); White Blood Count 11.6 10^3/uL (4.0-10.0)
[2020-12-09 06:36] LABS: Alanine Aminotransferase 10 U/L (0-33); Albumin Level 5.2 g/dL (3.5-5.2); Alkaline Phosphatase 86 IU/L (35-105); Anion Gap 19.8 (5-19); Aspartate Amino Transferase 10 U/L (0-32); C Reactive Protein 3.8 mg/L (0.0-4.9); Calcium 10.7 mg/dL (8.5-10.5); Carbon Dioxide 34 mmol/L (22-29); Chloride 84 mmol/L (98-107); Globulin 2.3 g/dL (1.3-4.6); Glucose 242 mg/dL (65-115); Magnesium 2.2 mg/dL (1.7-2.3); Osmolality Calculated 315 mOsm/kg (285-295); Phosphorus 4.5 mg/dL (2.5-4.5); Potassium 3.8 mmol/L (3.5-5.1); Sodium 134 mmol/L (136-145); Total Bilirubin 1.2 mg/dL (0.15-1.2); Total Protein 7.5 g/dL (6.6-8.7)
[2020-12-09 06:42] LABS: Blood Urea Nitrogen 95 mg/dL (8-23)
[2020-12-09] MEDS: sucralfate 1 gm Tablet PO ×2 (07:03→16:16)
--- NOTE | 2020-12-09 07:32 | PC.NURSE ---
AM NOTE UPON RECEIVING BEDSIDE REPORT WITH KYARA SANDERS - NOTED RIGHT UPPER ARM PICC TO HAVE EDEMA TO INSERTION SITE - WITH BRUISING AROUND ARM - NO CHANGE PER NOC NURSE
[2020-12-09] MEDS: ipratropium-albuterol 3 mL Neb INHALATION ×3 (08:00→20:15)
[2020-12-09 08:10] LABS: NT Pro B Type Natriuretic Pept 10499 pg/mL (0-450); Procalcitonin 0.16 ng/mL (0-0.5)
[2020-12-09] MEDS: artificial tears Op Soln 15 mL Btl 1 DROP EYE-BOTH (08:48)
[2020-12-09] MEDS: atorvastatin 40 mg Tablet 20 MG PO (09:16)
[2020-12-09] MEDS: apixaban 5 mg Tablet PO ×2 (09:16→22:59)
[2020-12-09] MEDS: amlodipine 10 mg Tablet PO (09:17)
[2020-12-09] MEDS: fluoxetine 20 mg Capsule PO (09:17)
[2020-12-09] MEDS: amoxicillin-clav 875-125 mg Tablet 1 TAB PO ×2 (09:18→16:16)
[2020-12-09] MEDS: levothyroxine 175 mcg Tablet PO (09:18)
[2020-12-09] MEDS: polyethylene glycol 3350 Pkt 17 gm PO (09:18)
[2020-12-09] MEDS: midodrine 5 mg TABLET 15 MG PO ×4 (09:18→22:58)
[2020-12-09] MEDS: bumetanide 1 mg Tablet PO (09:18)
--- NOTE | 2020-12-09 09:31 | PC.CHAP ---
Pastoral Care Encounter/Spiritual Assessment Type of Contact [x] Declined arabic linguist visit [] Patient/Family/Request visit [] Outpatient visit [] Follow-up visit [] Physician referral [] Code/Alert [] Routine visit [] Staff referral [] Actively dying [] Patient sleeping [] Family support [] [] Out of room [] Palliative care [] [] Receiving care in room [] Pre-surgical visit [] Trauma [] Long length of stay [] ICU visit [] Other: Relational/Emotional Strength [] Patient feels connected with others/family/visitors/staff [] Distress [] Loneliness/isolation [] Abandonment Spirituality of Patient [] Person of Erika [] Attends Yazdanism of their Erika [] Believes in Prayer [] Reads Bible or Oriental Orthodox materials [] There are Spiritual issues to be addressed Flight Radio Operator Interventions [] Prayer [] Active listening [] Non-anxious presence [] Spiritual/emotional support [] Crisis/trauma care [] Spiritual counseling [] Bereavement support [] Provided bereavement packet [] Provided Bible/devotional materials [] Provided toy/stuffed animal, coloring book to patient or family member [] Provided Communion [] Anointing/[place] [] Salvation [] Completed spiritual assessment [] Other: Impact on Illness or Injury [] Angry [] Fearful [] Anxious [] Often cries [] Exhaustion [] Unable to work [] Unable to attend yazidi [] Unable to walk/stand [] Unable to read [] Unable to drive [] Unable to eat/drink [] Unable to sleep [] Unable to be with family [] Patient intubated [] Other: Summary Flight Radio Operator visiting with roommate so stopped by Pt's bed. She stated she has seen a arabic linguist everyday and indicated she did not want to speak or was not in need of anything. Time spent with patient 1m
[2020-12-09] MEDS: pantoprazole 40 mg SDV IVP (10:05)
--- NOTE | 2020-12-09 10:21 | PC.NUTR ---
Nutrition note: Received call from blast furnace auxiliaries supervisor that pt reports she does not want to receive orange juice. Have added to meal preference information.
--- NOTE | 2020-12-09 10:51 | PC.NURSE ---
UP IN ROOM PREVIOUSLY UP WITH TC PT - BED BATH GIVEN AND COMPLETE LINEN CHANGE - WITH CAMILLE LORA
[2020-12-09] MEDS: CARBOXYMETHYLCELLULOSE SODIUM 0.5% 2 EACH EYEAFF (11:44)
--- NOTE | 2020-12-09 12:32 | PC.SOCIAL ---
IMM Updated Updated pt on Pg 2 IMM. No questions voiced. Provided pt a copy. Initialed, dated, & timed copy in chart.
--- NOTE | 2020-12-09 14:02 | PM.PN ---
Subjective Subjective: Interval history: She is doing little better, but still requiring 8 L of oxygen, getting dyspneic with exertion. Denies chest pain. Discussed with her additional mild rise in creatinine, BUN. Discussed recommendations as per orthopedic to maintain brace in place for 6 weeks, which may come out for ROM with PT. Vitals/I&O/Wt Last Vital Signs Temp 97.5 F L 12/09/20 11:55 Pulse 88 12/09/20 11:55 Resp 18 12/09/20 11:55 BP 110/60 12/09/20 11:55 Pulse Ox 92 12/09/20 11:55 12/08/20 12/09/20 12/09/20 22:59 06:59 14:59 Intake Total 600 / 940 100 / 1040 480 / 480 Output Total 1000 / 1851 Balance 600 / 89 -900 / -811 480 / 480 Physical Exam Const: COMMON NORMALS: no acute distress, patient oriented x3 and alert GENERAL APPEARANCE: cooperative NUTRITIONAL APPEARANCE: obese ORIENTATION/CONSCIOUSNESS: Yes awake HENMT: COMMON NORMALS: oropharynx normal Neck/C-Spine: COMMON NORMALS: no JVD Resp: COMMON NORMALS: normal respiratory effort AUSCULTATION: wheezes and diminished lung sounds Cardio: COMMON NORMALS: no JVD, regular rhythm, S1 normal heart sound present, S2 normal heart sound present and No murmurs present (Cardio) RHYTHM: regular rhythm HEART SOUNDS: S1 normal heart sound present and S2 normal heart sound present GI: COMMON NORMALS: Normal to inspection, nondistended, normoactive bowel sounds present, Soft to palpation and non-tender PALPATION: Yes Soft to palpation Extremity: COMMON NORMALS: no joint enlargement and no pedal edema OTHER: R wrist splint Neuro: COMMON NORMALS: patient oriented x3 and moves all extremities SENSORIUM/ORIENTATION: Yes alert Skin: COMMON NORMALS: no rashes or lesions noted GENERAL SKIN EXAM: no rashes or lesions noted Urinary Catheter Management^: Buck: Cath Placed During This Visit: yes Reason for Continuing Indwelling Catheter: Other Urinary Catheter Date of Insertion: 11/30/20 Urinary Catheter Time of Insertion: 14:48 Data : 12/09/20 05:22 12/09/20 05:22 Micro: Microbiology 12/08/20 14:00 Sputum Culture - Preliminary Sputum - Expectorated Sputum A&P Assessment and plan (1) Acute and chronic respiratory failure with hypoxia: Hypoxia slightly better. Wheezing with mild improvement, but still wheezing, still diminished air entry. Continue Solu-Medrol IV for now, without increase in dose for now. Worsening of hypoxia. Requiring up to 10 L nasal cannula. Wheezing, decreased air entry. Switch from prednisone to methylprednisolone IV every 6 hours due to COPD exacerbation. Continue Augmentin for now for pneumonia, possible aspiration. Repeat chest x-ray with some improvement in right base infiltrate. Unchanged small right pleural effusion. MBS with mild pooling noted with mild difficulty initiating swallowing process with elevating the tongue. Discussed with her some worsening in renal function. Transition from IV Bumex to oral. Received additional albumin, will hold off further albumin infusions for now. Nightly BiPAP support as usual. -Secondary to CHF exacerbation, diastolic, CHF exacerbation, with pulmonary hypertension -With underlying evidence of healthcare associated pneumonia -With episode of aspiration on 12/05/2020, resulting in increased shortness of breath hypoxia, now resolved -Chest CT shows 1. Small bilateral pleural effusions with compressive atelectasis in the lung bases slightly increased compared to November 17, 2020. 2. Enlarged right infrahilar lymph node measuring 2 cm unchanged since November 17, 2020. Bilateral bronchovascular thickening. 3. Cardiomegaly with dense coronary calcification and vascular calcification. 4. Slight hazy groundglass infiltrates in both upper lobes with interstitial thickening can be seen with pulmonary edema versus pneumonitis. CT scan shows evidence of tracheomalacia, tracheal compression, will require CPAP at home, she tells me that she uses CPAP regularly Status: Acute (2) Fracture of right distal radius: Status: Acute (3) Physical deconditioning: Status: Acute (4) Severe pulmonary hypertension: Status: Acute (5) Healthcare-associated pneumonia: Status: Acute Additional A&P Information Chronic kidney disease, creatinine 1.8, continue to monitor Acute on chronic anemia, hemoglobin 7.7, ferritin 92, iron 23, evidence of iron deficiency, continue to monitor, likely multifactorial from chronic kidney disease, pneumonia, continue Protonix, Hemoccult stool requested, continue Eliquis. Continue pantoprazole. Recheck hemoglobin. 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 Will need to continue for 6 weeks. May be taken off for range of motion exercises with PT. Attestations Medical Necessity Statement*: Continue admission for assessment management of hypoxic respiratory failure, optimization of diuretic with CHF, with worsening renal function, treatment of COPD exacerbation requiring steroids, with worsening anemia. Coding Level of Care Code Acute [employer]um[employer]pers for Chg Fwd Diagnoses Acute and chronic respiratory failure with hypoxia J96.21 Fracture of right distal radius S52.501A Physical deconditioning R53.81 Severe pulmonary hypertension I27.20 Healthcare-associated pneumonia J18.9
[2020-12-09] MEDS: acetaminophen 325 mg Tablet PO (16:18)
[2020-12-10] VITALS (14 sets, daily range): BP systolic 93–112; BP diastolic 64–76; PULSE 84–108; RESP 16–22; TEMP 36.3–36.7; O2SAT 90–99
[2020-12-10] MEDS: pantoprazole 40 mg SDV IVP ×3 (01:09→21:09)
[2020-12-10] MEDS: ipratropium-albuterol 3 mL Neb INHALATION ×4 (03:50→20:04)
[2020-12-10 05:49] LABS: Basophils % 0.1 %; Hematocrit 25.1 % (37.0-47.0); Hemoglobin 7.6 g/dL (11.5-15.3); Lymphocytes # 0.2 10^3/uL (0.8-4.8); Lymphocytes % 2.1 %; Mean Corpuscular HGB Conc 30.3 g/dL (30.0-36.0); Mean Corpuscular Hemoglobin 24.6 pg (28.0-34.0); Mean Corpuscular Volume 81.2 fl (81-99); Mean Platelet Volume 10.2 fL (7.4-10.4); Monocytes # 0.3 10^3/uL (0.2-0.9); Monocytes % 2.7 %; Neutrophils # 10.53 10^3/uL (1.8-7.7); Neutrophils % 94.5 %; Nucleated Red Blood Cells % 0 %; Platelet Count 288 10^3/cmm (130-400); Red Blood Count 3.09 10^6/uL (4.1-5.3); Red Cell Distribution Width 17.2 % (12.1-15.1); White Blood Count 11.1 10^3/uL (4.0-10.0)
[2020-12-10 06:15] LABS: Anion Gap 19.5 (5-19); Calcium 10.5 mg/dL (8.5-10.5); Carbon Dioxide 34 mmol/L (22-29); Chloride 85 mmol/L (98-107); Glucose 352 mg/dL (65-115); Potassium 3.5 mmol/L (3.5-5.1); Sodium 135 mmol/L (136-145)
[2020-12-10 06:28] LABS: Blood Urea Nitrogen 125 mg/dL (8-23); Osmolality Calculated 334 mOsm/kg (285-295)
[2020-12-10] MEDS: levothyroxine 175 mcg Tablet PO (08:31)
[2020-12-10] MEDS: amlodipine 10 mg Tablet PO (08:31)
[2020-12-10] MEDS: amoxicillin-clav 875-125 mg Tablet 1 TAB PO ×2 (08:31→17:42)
[2020-12-10] MEDS: midodrine 5 mg TABLET 15 MG PO ×4 (08:31→21:07)
[2020-12-10] MEDS: fluoxetine 20 mg Capsule PO (08:31)
[2020-12-10] MEDS: polyethylene glycol 3350 Pkt 17 gm PO (08:31)
[2020-12-10] MEDS: apixaban 5 mg Tablet PO ×2 (08:32→20:36)
[2020-12-10] MEDS: atorvastatin 40 mg Tablet 20 MG PO (08:35)
[2020-12-10] MEDS: acetaminophen 325 mg Tablet PO (17:39)
[2020-12-10] MEDS: sucralfate 1 gm Tablet PO (17:42)
--- NOTE | 2020-12-10 22:03 | P.PN_ITS ---
Subjective Subjective: Interval history: She is doing about the same. Discussed with her worsening renal function and that we have reached limitation as to what we can do with the diuretics at the moment. This had to be held. She still wheezing. We will continue with steroids. Discussed with her overall unfortunately it may be limited as to how much better we may be able to get her given we are running into limitation to further diuresis with worsening renal function despite persistent hypoxia. Discussed with her also presence of mitral regurgitation likely worsening the condition, possibly altogether with CHF contributing also to pulmonary hypertension likely contributing to the hypoxia. Overall prognosis unfortunately probably not good, but we will try to optimize as best we can. She wants to continue with IV steroids, antibiotic, breathing treatments for COPD. Reassess renal function. Discussed with her follow-up with cardiology, pulmonology after discharge. Discussed with her consideration of follow-up at a larger/tertiary medical facility given the complexity of her condition. She states does not really want to drive far out, and even [place] is a very difficult trip for her to make. States that she may follow-up here in town. Vitals/I&O/Wt Last Vital Signs Temp 97.8 F 12/10/20 20:00 Pulse 91 12/10/20 20:11 Resp 18 12/10/20 20:04 BP 104/67 12/10/20 20:00 Pulse Ox 92 12/10/20 20:11 12/10/20 12/10/20 12/10/20 06:59 14:59 22:59 Intake Total 120 / 120 Output Total 400 / 1200 Balance -400 / -620 120 / 120 Physical Exam Const: COMMON NORMALS: no acute distress, patient oriented x3 and alert GENERAL APPEARANCE: cooperative NUTRITIONAL APPEARANCE: obese ORIENTATION/CONSCIOUSNESS: Yes awake HENMT: COMMON NORMALS: oropharynx normal Neck/C-Spine: COMMON NORMALS: no JVD Resp: COMMON NORMALS: normal respiratory effort AUSCULTATION: wheezes and diminished lung sounds Cardio: COMMON NORMALS: no JVD, regular rhythm, S1 normal heart sound present, S2 normal heart sound present and No murmurs present (Cardio) RHYTHM: regular rhythm HEART SOUNDS: S1 normal heart sound present and S2 normal heart sound present GI: COMMON NORMALS: Normal to inspection, nondistended, normoactive bowel sounds present, Soft to palpation and non-tender PALPATION: Yes Soft to palpation Extremity: COMMON NORMALS: no joint enlargement and no pedal edema OTHER: R wrist splint Neuro: COMMON NORMALS: patient oriented x3 and moves all extremities SENSORIUM/ORIENTATION: Yes alert Skin: COMMON NORMALS: no rashes or lesions noted GENERAL SKIN EXAM: no rashes or lesions noted Urinary Catheter Management^: Buck: Cath Placed During This Visit: yes Reason for Continuing Indwelling Catheter: Acute Urinary Retention or Obstruction Urinary Catheter Date of Insertion: 11/30/20 Urinary Catheter Time of Insertion: 14:48 Data : 12/10/20 05:30 12/10/20 05:30 Micro: Microbiology 12/08/20 14:00 Sputum Culture - Preliminary Sputum - Expectorated Sputum A&P Assessment and plan (1) Acute and chronic respiratory failure with hypoxia: Oxygen requirement studies at 8 L, without further improvement so far. Discussed with her worsening renal function. Diuretics held at the moment. Discussed unfortunately this may portend poor prognosis given lack of further response to diuresis despite CHF, also in the setting of mitral regurgitation, pulmonary hypertension. At this time she would like to continue with IV steroids, antibiotic for COPD as inpatient, previously possible aspiration. Continue oxygen support. States it would be too much for to follow-up at a tertiary center, but intends to follow-up here with cardiology, pulmonology. Hypoxia slightly better. Wheezing with mild improvement, but still wheezing, still diminished air entry. Continue Solu-Medrol IV for now, without increase in dose for now. Continue methylprednisolone IV every 6 hours due to COPD exacerbation. Continue Augmentin for now for pneumonia, possible aspiration. Repeat chest x-ray with some improvement in right base infiltrate. Unchanged small right pleural effusion. MBS with mild pooling noted with mild difficulty initiating swallowing process with elevating the tongue. Nightly BiPAP support as usual. -Secondary to CHF exacerbation, diastolic, CHF exacerbation, with pulmonary hypertension -With underlying evidence of healthcare associated pneumonia -With episode of aspiration on 12/05/2020, resulting in increased shortness of breath hypoxia, now resolved -Chest CT shows 1. Small bilateral pleural effusions with compressive atelec tasis in the lung bases slightly increased compared to November 17, 2020. 2. Enlarged right infrahilar lymph node measuring 2 cm unchanged since November 17, 2020. Bilateral bronchovascular thickening. 3. Cardiomegaly with dense coronary calcification and vascular calcification. 4. Slight hazy groundglass infiltrates in both upper lobes with interstitial thickening can be seen with pulmonary edema versus pneumonitis. CT scan shows evidence of tracheomalacia, tracheal compression, will require CPAP at home, she tells me that she uses CPAP regularly Status: Acute (2) Fracture of right distal radius: Right wrist fracture, continue splint. Will need to continue for 6 weeks. May be taken off for range of motion exercises with PT. Status: Acute (3) Physical deconditioning: Status: Acute (4) Severe pulmonary hypertension: Status: Acute (5) Healthcare-associated pneumonia: Status: Acute Additional A&P Information Chronic kidney disease, creatinine 1.8, continue to monitor Acute on chronic anemia, hemoglobin 7.7, ferritin 92, iron 23, evidence of iron deficiency, continue to monitor, likely multifactorial from chronic kidney disease, pneumonia, continue Protonix, Hemoccult stool requested, continue Eliquis. Continue pantoprazole. Recheck hemoglobin. 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 Coding Level of Care Code Acute Coffee Urn Attendant for 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
[2020-12-11] VITALS (19 sets, daily range): BP systolic 100–124; BP diastolic 64–81; PULSE 63–120; RESP 17–25; TEMP 36.4–36.6; O2SAT 90–99
[2020-12-11] MEDS: ipratropium-albuterol 3 mL Neb INHALATION ×4 (03:12→20:15)
[2020-12-11 06:24] LABS: Hematocrit 22.9 % (37.0-47.0); Hemoglobin 6.8 g/dL (11.5-15.3); Lymphocytes # 0.2 10^3/uL (0.8-4.8); Lymphocytes % 1.7 %; Mean Corpuscular HGB Conc 29.7 g/dL (30.0-36.0); Mean Corpuscular Hemoglobin 24.1 pg (28.0-34.0); Mean Corpuscular Volume 81.2 fl (81-99); Mean Platelet Volume 11.6 fL (7.4-10.4); Monocytes # 0.3 10^3/uL (0.2-0.9); Monocytes % 3.4 %; Neutrophils % 93.6 %; Nucleated Red Blood Cells % 0 %; Platelet Count 292 10^3/cmm (130-400); Red Blood Count 2.82 10^6/uL (4.1-5.3); Red Cell Distribution Width 17.3 % (12.1-15.1)
[2020-12-11] MEDS: sucralfate 1 gm Tablet PO ×2 (06:32→17:45)
[2020-12-11 06:54] LABS: Anion Gap 18.3 (5-19); Calcium 10.3 mg/dL (8.5-10.5); Carbon Dioxide 32 mmol/L (22-29); Chloride 81 mmol/L (98-107); Potassium 3.3 mmol/L (3.5-5.1); Sodium 128 mmol/L (136-145)
[2020-12-11 07:15] LABS: Blood Urea Nitrogen 140 mg/dL (8-23)
[2020-12-11 07:17] LABS: Glucose 566 mg/dL (65-115); Osmolality Calculated 337 mOsm/kg (285-295)
[2020-12-11 07:59] LABS: Glucose Point of Care 600 mg/dL (70-110)
[2020-12-11] MEDS: insulin lispro 100 unit/1 mL SUBCUT ×4 (08:18→21:48)
[2020-12-11] MEDS: apixaban 5 mg Tablet PO ×2 (08:19→19:44)
[2020-12-11] MEDS: atorvastatin 40 mg Tablet 20 MG PO (08:19)
[2020-12-11] MEDS: amoxicillin-clav 875-125 mg Tablet 1 TAB PO ×2 (08:19→17:44)
[2020-12-11] MEDS: fluoxetine 20 mg Capsule PO (08:19)
[2020-12-11] MEDS: midodrine 5 mg TABLET 15 MG PO ×4 (08:19→21:35)
[2020-12-11] MEDS: amlodipine 10 mg Tablet PO (08:19)
[2020-12-11] MEDS: levothyroxine 175 mcg Tablet PO (08:19)
[2020-12-11] MEDS: polyethylene glycol 3350 Pkt 17 gm PO (08:19)
[2020-12-11] MEDS: pantoprazole 40 mg SDV IVP ×2 (08:44→19:44)
[2020-12-11 09:59] LABS: Glucose Point of Care 568 mg/dL (70-110)
[2020-12-11] MEDS: calcium carbonate 500 mg Chew Tablet 1000 MG PO ×2 (10:36→19:45)
[2020-12-11 11:38] LABS: Glucose Point of Care 499 mg/dL (70-110)
--- NOTE | 2020-12-11 14:11 | PC.SOCIAL ---
IMM update IMM updated with patient and family at bedside. Verbalized an understanding. Copy pg 2 provided. Initialled, dated, timed, and placed in chart.
--- NOTE | 2020-12-11 15:36 | PC.NURSE ---
Physician Notification Notified physician of patients critical blood glucose of 566 and BUN of 140. Also told him that I did and Accu-chk on her and it read 600. This patient is not a diabetic, physician is aware of this. He ordered her a low insulin sliding scale.
[2020-12-11 17:17] LABS: Glucose Point of Care 367 mg/dL (70-110)
[2020-12-11] MEDS: predniSONE 20 mg Tablet 40 MG PO (19:44)
--- NOTE | 2020-12-11 21:03 | P.PN_ITS ---
Subjective Subjective: Interval history: She is doing about the same. Oxygenation with mild improvement, coming down to 6 L nasal cannula. Did not enjoy her lunch today. Does not want to go back to long-term until she is doing better. Vitals/I&O/Wt Last Vital Signs Temp 97.6 F 12/11/20 15:42 Pulse 66 12/11/20 20:20 Resp 19 H 12/11/20 20:15 BP 106/71 12/11/20 15:42 Pulse Ox 95 12/11/20 20:19 12/11/20 12/11/20 12/11/20 06:59 14:59 22:59 Intake Total 200 / 320 1120 / 1120 120 / 1240 Output Total 500 / 1100 400 / 400 Balance -300 / -780 1120 / 1120 -280 / 840 Weight last 48 hrs Weight 87.226 kg Physical Exam Const: COMMON NORMALS: no acute distress, patient oriented x3 and alert GENERAL APPEARANCE: cooperative NUTRITIONAL APPEARANCE: obese ORIENTATION/CONSCIOUSNESS: Yes awake HENMT: COMMON NORMALS: oropharynx normal Neck/C-Spine: COMMON NORMALS: no JVD Resp: COMMON NORMALS: normal respiratory effort AUSCULTATION: wheezes (Improving wheezing) and diminished lung sounds Cardio: COMMON NORMALS: no JVD, regular rhythm, S1 normal heart sound present, S2 normal heart sound present and No murmurs present (Cardio) RHYTHM: regular rhythm HEART SOUNDS: S1 normal heart sound present and S2 normal heart sound present GI: COMMON NORMALS: Normal to inspection, nondistended, normoactive bowel sounds present, Soft to palpation and non-tender PALPATION: Yes Soft to palpation Extremity: COMMON NORMALS: no joint enlargement and no pedal edema OTHER: R wrist splint Neuro: COMMON NORMALS: patient oriented x3 and moves all extremities SENSORIUM/ORIENTATION: Yes alert Skin: COMMON NORMALS: no rashes or lesions noted GENERAL SKIN EXAM: no rashes or lesions noted Urinary Catheter Management^: Buck: Cath Placed During This Visit: yes Reason for Continuing Indwelling Catheter: Acute Urinary Retention or Obstruction Urinary Catheter Date of Insertion: 11/30/20 Urinary Catheter Time of Insertion: 14:48 Data : 12/11/20 05:43 12/11/20 05:43 Micro: Microbiology 12/08/20 14:00 Sputum Culture - Final Sputum - Expectorated Sputum A&P Assessment and plan (1) Acute and chronic respiratory failure with hypoxia: Gradually improving oxygenation, down to 6 L today. Wheezing with some improvement. Continue steroid for now, but try to de-escalate to prednisone due to steroid-induced hyperglycemia and worsening anemia today hemoglobin down to 6.8. PRBC transfusion. Continue Protonix every 12 hours IV. Diuretics on hold due to worsening renal function. As per prior discussion poor response to diuretic with renal failure unfortunately may portend poor prognosis given lack of further response to diuresis despite CHF, also in the setting of mitral regurgitation, pulmonary hypertension. Continue Augmentin for now for pneumonia, possible aspiration. Repeat chest x-ray with some improvement in right base infiltrate. Unchanged small right pleural effusion. MBS with mild pooling noted with mild difficulty initiating swallowing process with elevating the tongue. Nightly BiPAP support as usual. -Secondary to CHF exacerbation, diastolic, CHF exacerbation, with pulmonary hypertension -With underlying evidence of healthcare associated pneumonia -With episode of aspiration on 12/05/2020, resulting in increased shortness of breath hypoxia, now resolved -Chest CT shows 1. Small bilateral pleural effusions with compressive atelectasis in the lung bases slightly increased compared to November 17, 2020. 2. Enlarged right infrahilar lymph node measuring 2 cm unchanged since November 17, 2020. Bilateral bronchovascular thickening. 3. Cardiomegaly with dense coronary calcification and vascular calcification. 4. Slight hazy groundglass infiltrates in both upper lobes with interstitial thickening can be seen with pulmonary edema versus pneumonitis. CT scan shows evidence of tracheomalacia, tracheal compression, will require CPAP at home, she tells me that she uses CPAP regularly Status: Acute (2) Fracture of right distal radius: Right wrist fracture, continue splint. Will need to continue for 6 weeks. May be taken off for range of motion exercises with PT. Status: Acute (3) Physical deconditioning: Status: Acute (4) Severe pulmonary hypertension: Status: Acute (5) Healthcare-associated pneumonia: Status: Acute (6) Steroid-induced hyperglycemia: Status: Acute Additional A&P Information Chronic kidney disease, with acute kidney injury creatinine 1.7, elevated BUN. Further diuretics held. Continue to monitor Acute on chronic anemia, transfuse 1 unit. BC 4 hemoglobin 6.8. ferritin 92, iron 23, evidence of iron deficiency, continue to monitor, likely multifactorial from chronic kidney disease, pneumonia, continue Protonix, Hemoccult stool requested, continue Eliquis. Continue pantoprazole. Recheck hemoglobin. 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 Coding Level of Care Code Acute Head Inspector [employer]er for g Fwd Diagnoses Acute and chronic respiratory failure with hypoxia J96.21 Fracture of right distal radius S52.501A Physical deconditioning R53.81 Severe pulmonary hypertension I27.20 Healthcare-associated pneumonia J18.9 Steroid-induced hyperglycemia R73.9; T38.0X5A
[2020-12-11 21:44] LABS: Glucose Point of Care 271 mg/dL (70-110)
[2020-12-12] VITALS (18 sets, daily range): BP systolic 105–115; BP diastolic 60–75; PULSE 73–129; RESP 17–22; TEMP 36.3–36.7; O2SAT 89–98
[2020-12-12] MEDS: ipratropium-albuterol 3 mL Neb INHALATION ×4 (03:02→20:22)
[2020-12-12] MEDS: sodium chloride 0.9% (100 ml) 100 ML (03:05)
[2020-12-12 05:41] LABS: Basophils % 0.1 %; Hematocrit 26.9 % (37.0-47.0); Hemoglobin 8.6 g/dL (11.5-15.3); Lymphocytes # 0.3 10^3/uL (0.8-4.8); Lymphocytes % 2.2 %; Mean Corpuscular Hemoglobin 25.8 pg (28.0-34.0); Mean Corpuscular Volume 80.8 fl (81-99); Mean Platelet Volume 10.8 fL (7.4-10.4); Monocytes # 0.6 10^3/uL (0.2-0.9); Neutrophils # 12.83 10^3/uL (1.8-7.7); Neutrophils % 92.5 %; Nucleated Red Blood Cells % 0.1 %; Platelet Count 251 10^3/cmm (130-400); Red Blood Count 3.33 10^6/uL (4.1-5.3); Red Cell Distribution Width 15.6 % (12.1-15.1); White Blood Count 13.9 10^3/uL (4.0-10.0)
[2020-12-12] MEDS: sucralfate 1 gm Tablet PO ×2 (05:41→18:21)
[2020-12-12 06:00] LABS: Anion Gap 19.5 (5-19); Calcium 10.3 mg/dL (8.5-10.5); Carbon Dioxide 31 mmol/L (22-29); Chloride 83 mmol/L (98-107); Glucose 271 mg/dL (65-115); Potassium 3.5 mmol/L (3.5-5.1); Sodium 130 mmol/L (136-145)
[2020-12-12 06:27] LABS: Blood Urea Nitrogen 150 mg/dL (8-23); Osmolality Calculated 329 mOsm/kg (285-295)
[2020-12-12] MEDS: amoxicillin-clav 875-125 mg Tablet 1 TAB PO ×2 (08:29→18:20)
[2020-12-12] MEDS: apixaban 5 mg Tablet PO ×2 (08:29→20:31)
[2020-12-12] MEDS: predniSONE 20 mg Tablet 40 MG PO (08:29)
[2020-12-12] MEDS: polyethylene glycol 3350 Pkt 17 gm PO (08:29)
[2020-12-12] MEDS: levothyroxine 175 mcg Tablet PO (08:29)
[2020-12-12] MEDS: amlodipine 10 mg Tablet PO (08:29)
[2020-12-12] MEDS: midodrine 5 mg TABLET 15 MG PO ×4 (08:29→20:27)
[2020-12-12] MEDS: fluoxetine 20 mg Capsule PO (08:29)
[2020-12-12] MEDS: pantoprazole 40 mg SDV IVP ×2 (08:30→20:28)
[2020-12-12] MEDS: insulin lispro 100 unit/1 mL SUBCUT ×4 (08:30→22:45)
[2020-12-12] MEDS: atorvastatin 40 mg Tablet 20 MG PO (08:30)
[2020-12-12 11:04] LABS: Glucose Point of Care 305 mg/dL (70-110)
--- NOTE | 2020-12-12 12:20 | PC.NURSE ---
Nurse notified of O2 stat of 87 on 4L NC.
[2020-12-12 17:10] LABS: Glucose Point of Care 301 mg/dL (70-110)
[2020-12-12] MEDS: acetaminophen 325 mg Tablet PO (20:27)
--- NOTE | 2020-12-12 20:57 | PC.NURSE ---
i reported low temp 97.5 and high pulse 121 to nurse
[2020-12-12 22:38] LABS: Glucose Point of Care 238 mg/dL (70-110)
--- NOTE | 2020-12-12 23:11 | PM.PN ---
Subjective Subjective: Interval history: She is showing some gradual improvement in oxygenation, today coming down to as low as 3-1/2 L. Denies chest pain or pressure. Vitals/I&O/Wt Last Vital Signs Temp 97.5 F L 12/12/20 20:00 Pulse 99 12/12/20 22:07 Resp 20 H 12/12/20 20:22 BP 106/70 12/12/20 20:00 Pulse Ox 94 12/12/20 22:07 12/12/20 12/12/20 12/13/20 14:59 22:59 06:59 Intake Total 360 / 360 120 / 480 Output Total 1550 / 1550 Balance 360 / 360 -1430 / -1070 Weight last 48 hrs Weight 87.09 kg Weight 87.226 kg Physical Exam Const: COMMON NORMALS: no acute distress, patient oriented x3 and alert NUTRITIONAL APPEARANCE: obese ORIENTATION/CONSCIOUSNESS: Yes awake HENMT: COMMON NORMALS: oropharynx normal Neck/C-Spine: COMMON NORMALS: no JVD Resp: COMMON NORMALS: normal respiratory effort AUSCULTATION: wheezes (Mild wheeze on the left) and diminished lung sounds Cardio: COMMON NORMALS: no JVD, regular rhythm, S1 normal heart sound present, S2 normal heart sound present and No murmurs present (Cardio) RHYTHM: regular rhythm HEART SOUNDS: S1 normal heart sound present and S2 normal heart sound present GI: COMMON NORMALS: Normal to inspection, nondistended, normoactive bowel sounds present, Soft to palpation and non-tender PALPATION: Yes Soft to palpation Extremity: COMMON NORMALS: no joint enlargement and no pedal edema OTHER: R wrist splint Neuro: COMMON NORMALS: patient oriented x3 and moves all extremities SENSORIUM/ORIENTATION: Yes alert Skin: COMMON NORMALS: no rashes or lesions noted GENERAL SKIN EXAM: no rashes or lesions noted Urinary Catheter Management^: Buck: Cath Placed During This Visit: yes Reason for Continuing Indwelling Catheter: Acute Urinary Retention or Obstruction Urinary Catheter Date of Insertion: 11/30/20 Urinary Catheter Time of Insertion: 14:48 Data : 12/12/20 05:16 12/12/20 05:16 A&P Assessment and plan (1) Acute and chronic respiratory failure with hypoxia: Today slight improvement in oxygenation down to about 3-1/2-4 L. However, again this evening up to 6 L nasal cannula. Continues to have mild wheezing, today on the left. Renal function without significant improvement, with mild downtrending creatinine to 1.6, BUN increased to 150. Did respond well to PRBC transfusion with hemoglobin up to 8.6. Wants to continue treatment with IV steroids, antibiotic, breathing treatments. Continue to withhold diuretics at this time given kidney injury. But continue fluid restriction. As per prior discussion poor response to diuretic with renal failure unfortunately may portend poor prognosis given lack of further response to diuresis despite CHF, also in the setting of mitral regurgitation, pulmonary hypertension. Continue Augmentin for now for pneumonia, possible aspiration. Repeat chest x-ray with some improvement in right base infiltrate. Unchanged small right pleural effusion. MBS with mild pooling noted with mild difficulty initiating swallowing process with elevating the tongue. Nightly BiPAP support as usual. -Secondary to CHF exacerbation, diastolic, CHF exacerbation, with pulmonary hypertension -With underlying evidence of healthcare associated pneumonia -With episode of aspiration on 12/05/2020, resulting in increased shortness of breath hypoxia, now resolved -Chest CT shows 1. Small bilateral pleural effusions with compressive atelectasis in the lung bases slightly increased compared to November 17, 2020. 2. Enlarged right infrahilar lymph node measuring 2 cm unchanged since November 17, 2020. Bilateral bronchovascular thickening. 3. Cardiomegaly with dense coronary calcification and vascular calcification. 4. Slight hazy groundglass infiltrates in both upper lobes with interstitial thickening can be seen with pulmonary edema versus pneumonitis. CT scan shows evidence of tracheomalacia, tracheal compression, will require CPAP at home, she tells me that she uses CPAP regularly With multiple comorbidities, inadequate response to treatment, overall prognosis is guarded, possibly poor. Status: Acute (2) Fracture of right distal radius: Right wrist fracture, continue splint. Will need to continue for 6 weeks. May be taken off for range of motion exercises with PT. Status: Acute (3) Physical deconditioning: Status: Acute (4) Severe pulmonary hypertension: Status: Acute (5) Healthcare-associated pneumonia: Status: Acute (6) Steroid-induced hyperglycemia: Status: Acute Additional A&P Information Chronic kidney disease, with acute kidney injury creatinine with slight improvement to 1.6, but still elevated BUN. Further diuretics held. Continue to monitor. With acute anemia, BUN elevation could be secondary to slow GI bleed as well. Acute on chronic anemia, transfuse 1 unit. BC 4 hemoglobin 6.8. ferritin 92, iron 23, evidence of iron deficiency, continue to monitor, likely multifactorial from chronic kidney disease, pneumonia, continue Protonix, Hemoccult stool requested, continue Eliquis. Continue pantoprazole IV twice daily. Attempting to de-escalate steroid. Recheck hemoglobin. 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
[2020-12-13] VITALS (15 sets, daily range): BP systolic 91–103; BP diastolic 53–72; PULSE 66–130; RESP 17–22; TEMP 36.3–36.6; O2SAT 90–98
--- NOTE | 2020-12-13 00:17 | PC.NURSE ---
i reported high pulse 112 to nurse
[2020-12-13] MEDS: ipratropium-albuterol 3 mL Neb INHALATION ×4 (03:06→20:50)
[2020-12-13 05:19] LABS: Basophils % 0.1 %; Hemoglobin 8.3 g/dL (11.5-15.3); Lymphocytes # 0.8 10^3/uL (0.8-4.8); Lymphocytes % 5.7 %; Mean Corpuscular HGB Conc 31.9 g/dL (30.0-36.0); Mean Corpuscular Hemoglobin 26.1 pg (28.0-34.0); Mean Corpuscular Volume 81.8 fl (81-99); Mean Platelet Volume 11.2 fL (7.4-10.4); Monocytes # 0.8 10^3/uL (0.2-0.9); Monocytes % 5.8 %; Neutrophils # 11.89 10^3/uL (1.8-7.7); Neutrophils % 86.4 %; Nucleated Red Blood Cells # 0.1 /100WBC; Nucleated Red Blood Cells % 0.4 %; Platelet Count 227 10^3/cmm (130-400); Red Blood Count 3.18 10^6/uL (4.1-5.3); White Blood Count 13.8 10^3/uL (4.0-10.0)
--- NOTE | 2020-12-13 05:19 | PC.NURSE ---
i reported high pulse 110 to nurse
[2020-12-13 05:41] LABS: Alanine Aminotransferase 18 U/L (0-33); Albumin Level 4.2 g/dL (3.5-5.2); Alkaline Phosphatase 77 IU/L (35-105); Anion Gap 17.5 (5-19); Aspartate Amino Transferase 14 U/L (0-32); Calcium 10.6 mg/dL (8.5-10.5); Carbon Dioxide 31 mmol/L (22-29); Chloride 87 mmol/L (98-107); Globulin 1.8 g/dL (1.3-4.6); Glucose 175 mg/dL (65-115); Potassium 3.5 mmol/L (3.5-5.1); Sodium 132 mmol/L (136-145); Total Bilirubin 1.2 mg/dL (0.15-1.2)
[2020-12-13 06:01] LABS: Blood Urea Nitrogen 154 mg/dL (8-23); Osmolality Calculated 329 mOsm/kg (285-295)
[2020-12-13] MEDS: sucralfate 1 gm Tablet PO ×2 (06:28→17:49)
[2020-12-13 06:46] LABS: Glucose Point of Care 244 mg/dL (70-110)
[2020-12-13] MEDS: apixaban 5 mg Tablet PO (09:26)
[2020-12-13] MEDS: predniSONE 20 mg Tablet 40 MG PO (09:26)
[2020-12-13] MEDS: midodrine 5 mg TABLET 15 MG PO ×4 (09:26→21:00)
[2020-12-13] MEDS: amlodipine 10 mg Tablet PO (09:27)
[2020-12-13] MEDS: fluoxetine 20 mg Capsule PO (09:27)
[2020-12-13] MEDS: polyethylene glycol 3350 Pkt 17 gm PO (09:27)
[2020-12-13] MEDS: amoxicillin-clav 875-125 mg Tablet 1 TAB PO ×2 (09:27→17:49)
[2020-12-13] MEDS: pantoprazole 40 mg SDV IVP ×2 (09:28→20:56)
[2020-12-13] MEDS: atorvastatin 40 mg Tablet 20 MG PO (09:28)
[2020-12-13] MEDS: levothyroxine 175 mcg Tablet PO (09:29)
[2020-12-13] MEDS: insulin lispro 100 unit/1 mL SUBCUT ×4 (09:37→21:31)
--- NOTE | 2020-12-13 11:36 | PC.SOCIAL ---
IMM Update: pg 2 of IMM updated and reviewed w/ patient. Copy provided.
[2020-12-13 11:58] LABS: Glucose Point of Care 269 mg/dL (70-110)
--- NOTE | 2020-12-13 15:58 | PM.PN ---
Subjective Subjective: Interval history: She is doing slightly worse today. She states that she was trying to clear some secretions, and may have had something go down the wrong way. She is feeling congested, having phlegm, wheezing. Increased oxygen requirement again. Vitals/I&O/Wt Last Vital Signs Temp 97.8 F 12/13/20 15:07 Pulse 101 H 12/13/20 15:07 Resp 20 H 12/13/20 15:07 BP 103/53 12/13/20 15:07 Pulse Ox 95 12/13/20 15:07 12/13/20 12/13/20 12/13/20 06:59 14:59 22:59 Intake Total 480 / 960 1200 / 1200 Output Total 800 / 2350 750 / 750 Balance -320 / -1390 1200 / 1200 -750 / 450 Weight last 48 hrs Weight 87.09 kg Physical Exam Const: COMMON NORMALS: no acute distress, patient oriented x3 and alert GENERAL APPEARANCE: cooperative NUTRITIONAL APPEARANCE: obese ORIENTATION/CONSCIOUSNESS: Yes awake HENMT: COMMON NORMALS: oropharynx normal Neck/C-Spine: COMMON NORMALS: no JVD Resp: COMMON NORMALS: normal respiratory effort AUSCULTATION: rhonchi, wheezes and diminished lung sounds Cardio: COMMON NORMALS: no JVD, regular rhythm, S1 normal heart sound present, S2 normal heart sound present and No murmurs present (Cardio) RHYTHM: regular rhythm HEART SOUNDS: S1 normal heart sound present and S2 normal heart sound present GI: COMMON NORMALS: Normal to inspection, nondistended, normoactive bowel sounds present, Soft to palpation and non-tender PALPATION: Yes Soft to palpation Extremity: COMMON NORMALS: no joint enlargement and no pedal edema OTHER: R wrist splint Neuro: COMMON NORMALS: patient oriented x3 and moves all extremities SENSORIUM/ORIENTATION: Yes alert Skin: COMMON NORMALS: no rashes or lesions noted GENERAL SKIN EXAM: no rashes or lesions noted Urinary Catheter Management^: Buck: Cath Placed During This Visit: yes Reason for Continuing Indwelling Catheter: Acute Urinary Retention or Obstruction Urinary Catheter Date of Insertion: 11/30/20 Urinary Catheter Time of Insertion: 14:48 Data : 12/13/20 04:40 12/13/20 04:40 A&P Assessment and plan (1) Acute and chronic respiratory failure with hypoxia: Again deteriorated this morning, appears possibly episode of aspiration while trying to clear some secretions. Worsening oxygen requirement up to 6 L nasal cannula. She is wheezy, with rhonchi, diminished air entry. Possible worsening aspiration pneumonitis again on top of pneumonia. Encouraged her to use flutter valve. Continue antibiotic. Continue steroid at this time, although discussed with her possible acute blood loss anemia, with rising BUN possible slow upper GI bleed, with mild decrease in hemoglobin to 8.3 today. Has been the escalated to prednisone. Continuing on PPI. Will hold Eliquis. Continue aspiration precautions, speech therapy. Antibiotics, steroid, breathing treatments for COPD exacerbation. Diuretics on hold due to acute kidney injury. Continue fluid restriction. Discussed her multiple medical problems and slow progress and chronic process on her request with her friend Mr. Myrick. Discussed concerns of slow recovery leading to further deconditioning and functional decline, further worsening prognosis. Continue PT, OT. As per prior discussion poor response to diuretic with renal failure unfortunately may portend poor prognosis given lack of further response to diuresis despite CHF, also in the setting of mitral regurgitation, pulmonary hypertension. Continue Augmentin for now for pneumonia, possible aspiration. Repeat chest x-ray with some improvement in right base infiltrate. Unchanged small right pleural effusion. MBS with mild pooling noted with mild difficulty initiating swallowing process with elevating the tongue. Nightly BiPAP support as usual. -Secondary to CHF exacerbation, diastolic, CHF exacerbation, with pulmonary hypertension -With underlying evidence of healthcare associated pneumonia -With episode of aspiration on 12/05/2020, resulting in increased shortness of breath hypoxia, now resolved -Chest CT shows 1. Small bilateral pleural effusions with compressive atelectasis in the lung bases slightly increased compared to November 17, 2020. 2. Enlarged right infrahilar lymph node measuring 2 cm unchanged since November 17, 2020. Bilateral bronchovascular thickening. 3. Cardiomegaly with dense coronary calcification and vascular calcification. 4. Slight hazy groundglass infiltrates in both upper lobes with interstitial thickening can be seen with pulmonary edema versus pneumonitis. CT scan shows evidence of tracheomalacia, tracheal compression, will require CPAP at home, she tells me that she uses CPAP regularly Status: Acute (2) Fracture of right distal radius: Right wrist fracture, continue splint. Will need to continue for 6 weeks. May be taken off for range of motion exercises with PT. Status: Acute (3) Physical deconditioning: Status: Acute (4) Severe pulmonary hypertension: Status: Acute (5) Healthcare-associated pneumonia: Status: Acute (6) Steroid-induced hyperglycemia: SSI. Add Lantus. Status: Acute Additional A&P Information Chronic kidney disease, with acute kidney injury creatinine with slight improvement to 1.6, but still elevated BUN. Further diuretics held. Continue to monitor. With acute anemia, BUN elevation could be secondary to slow GI bleed as well. Acute on chronic anemia, responded well to transfusion of PRBC. Today with mild decline to 8.3. Hold Eliquis. Continue PPI. Transfused 1 unit. Ferritin 92, iron 23, evidence of iron deficiency, continue to monitor, likely multifactorial from chronic kidney disease, pneumonia, continue Protonix, Hemoccult stool requested. Attempting to de-escalate steroid. Recheck CBC. 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
[2020-12-13 17:08] LABS: Glucose Point of Care 175 mg/dL (70-110)
[2020-12-13] MEDS: insulin glargine 100 units/1 mL 10 UNIT SUBCUT (21:32)
[2020-12-14] VITALS (8 sets, daily range): BP systolic 91–107; BP diastolic 55–73; PULSE 69–117; RESP 16–18; TEMP 35.9–36.8; O2SAT 88–97; BMI 37.5
[2020-12-14] MEDS: ipratropium-albuterol 3 mL Neb INHALATION ×3 (02:45→21:07)
[2020-12-14] MEDS: sucralfate 1 gm Tablet PO ×2 (06:07→18:36)
[2020-12-14 06:23] LABS: Basophils % 0.1 %; Hematocrit 25.1 % (37.0-47.0); Hemoglobin 7.9 g/dL (11.5-15.3); Lymphocytes # 0.6 10^3/uL (0.8-4.8); Lymphocytes % 4.1 %; Mean Corpuscular HGB Conc 31.5 g/dL (30.0-36.0); Mean Corpuscular Volume 82.6 fl (81-99); Mean Platelet Volume 11.8 fL (7.4-10.4); Monocytes # 0.8 10^3/uL (0.2-0.9); Monocytes % 5.1 %; Neutrophils # 13.18 10^3/uL (1.8-7.7); Neutrophils % 88.9 %; Nucleated Red Blood Cells % 0.3 %; Platelet Count 253 10^3/cmm (130-400); Red Blood Count 3.04 10^6/uL (4.1-5.3); Red Cell Distribution Width 16.3 % (12.1-15.1); White Blood Count 14.8 10^3/uL (4.0-10.0)
[2020-12-14 06:37] LABS: Glucose Point of Care 193 mg/dL (70-110)
[2020-12-14 06:52] LABS: Alanine Aminotransferase 17 U/L (0-33); Albumin Level 4.2 g/dL (3.5-5.2); Alkaline Phosphatase 75 IU/L (35-105); Anion Gap 15.7 (5-19); Aspartate Amino Transferase 13 U/L (0-32); Calcium 10.5 mg/dL (8.5-10.5); Carbon Dioxide 34 mmol/L (22-29); Chloride 90 mmol/L (98-107); Globulin 1.9 g/dL (1.3-4.6); Glucose 175 mg/dL (65-115); Potassium 3.7 mmol/L (3.5-5.1); Sodium 136 mmol/L (136-145); Total Bilirubin 1.1 mg/dL (0.15-1.2); Total Protein 6.1 g/dL (6.6-8.7)
[2020-12-14 07:10] LABS: Blood Urea Nitrogen 118 mg/dL (8-23); Osmolality Calculated 324 mOsm/kg (285-295)
[2020-12-14] MEDS: polyethylene glycol 3350 Pkt 17 gm PO (11:20)
[2020-12-14] MEDS: amoxicillin-clav 875-125 mg Tablet 1 TAB PO ×2 (11:22→18:36)
[2020-12-14] MEDS: midodrine 5 mg TABLET 15 MG PO ×3 (11:22→20:20)
[2020-12-14] MEDS: fluoxetine 20 mg Capsule PO (11:23)
[2020-12-14] MEDS: predniSONE 20 mg Tablet 40 MG PO (11:23)
[2020-12-14] MEDS: levothyroxine 175 mcg Tablet PO (11:23)
[2020-12-14] MEDS: atorvastatin 40 mg Tablet 20 MG PO (11:23)
[2020-12-14] MEDS: pantoprazole 40 mg SDV IVP ×2 (11:24→20:20)
[2020-12-14] MEDS: amlodipine 10 mg Tablet PO (11:24)
[2020-12-14] MEDS: insulin lispro 100 unit/1 mL SUBCUT ×3 (11:24→22:15)
[2020-12-14 12:08] LABS: Glucose Point of Care 246 mg/dL (70-110)
[2020-12-14 17:00] LABS: Glucose Point of Care 292 mg/dL (70-110)
[2020-12-14] MEDS: insulin glargine 100 units/1 mL 10 UNIT SUBCUT (20:21)
--- NOTE | 2020-12-14 20:24 | PM.PN ---
Subjective Subjective: Interval history: She is having some discomfort while reclined in bed today, feeling she is requiring to be too much, wants to be readjusted. Feels she is constricted, having more difficulty breathing. Vitals/I&O/Wt Last Vital Signs Temp 98.2 F 12/14/20 16:00 Pulse 89 12/14/20 16:00 Resp 16 12/14/20 16:00 BP 98/72 12/14/20 16:00 Pulse Ox 95 12/14/20 16:00 12/14/20 12/14/20 12/14/20 06:59 14:59 22:59 Intake Total 240 / 240 240 / 480 Output Total 1450 / 1450 Balance -1210 / -1210 240 / -970 Weight last 48 hrs Weight 87.09 kg Physical Exam Const: COMMON NORMALS: no acute distress, patient oriented x3 and alert GENERAL APPEARANCE: cooperative NUTRITIONAL APPEARANCE: obese ORIENTATION/CONSCIOUSNESS: Yes awake HENMT: COMMON NORMALS: oropharynx normal Neck/C-Spine: COMMON NORMALS: no JVD Resp: COMMON NORMALS: normal respiratory effort AUSCULTATION: wheezes and diminished lung sounds Cardio: COMMON NORMALS: no JVD, regular rhythm, S1 normal heart sound present, S2 normal heart sound present and No murmurs present (Cardio) RHYTHM: regular rhythm HEART SOUNDS: S1 normal heart sound present and S2 normal heart sound present GI: COMMON NORMALS: Normal to inspection, nondistended, normoactive bowel sounds present, Soft to palpation and non-tender PALPATION: Yes Soft to palpation Extremity: COMMON NORMALS: no joint enlargement and no pedal edema OTHER: R wrist splint Neuro: COMMON NORMALS: patient oriented x3 and moves all extremities SENSORIUM/ORIENTATION: Yes alert Skin: COMMON NORMALS: no rashes or lesions noted GENERAL SKIN EXAM: no rashes or lesions noted Urinary Catheter Management^: Buck: Cath Placed During This Visit: yes Reason for Continuing Indwelling Catheter: Acute Urinary Retention or Obstruction Urinary Catheter Date of Insertion: 11/30/20 Urinary Catheter Time of Insertion: 14:48 Data : 12/14/20 05:12 12/14/20 05:12 A&P Assessment and plan (1) Acute and chronic respiratory failure with hypoxia: Does not feel as congested as yesterday. No phlegm today, no rhonchi. Sounds diminished, wheezing. Appears to be also having some orthopnea. Discussed with her cautiously resuming diuretic given improvement in renal function. Attempt to resume Bumex. Please reassess, monitor renal function closely. Monitor blood pressures. Continue fluid restriction. With wheezing, diminished air entry, will also increase scheduled breathing treatment frequency to every 4 hours. Continues to require 6 L of oxygen. Prior to the recent worsening reported 3-4 L. Multifactorial respiratory failure secondary to diastolic CHF exacerbation, with valvular heart disease, aspiration pneumonia, COPD exacerbation, with underlying pulmonary hypertension. Tracheomalacia. Continue Augmentin. Continue steroid at this time, although discussed with her possible acute blood loss anemia, with rising BUN possible slow upper GI bleed, with mild decrease in hemoglobin. Has been the escalated to prednisone. Continuing on PPI. Held Eliquis. Continue aspiration precautions, speech therapy. Antibiotics, steroid, breathing treatments for COPD exacerbation. Discussed her multiple medical problems and slow progress and chronic process on her request with her friend Mr. Myrick. Discussed concerns of slow recovery leading to further deconditioning and functional decline, further worsening prognosis. Continue PT, OT. As per prior discussion poor response to diuretic with renal failure unfortunately may portend poor prognosis given lack of further response to diuresis despite CHF, also in the setting of mitral regurgitation, pulmonary hypertension. Continue antibiotic for now for pneumonia, possible aspiration. Repeat chest x-ray with some improvement in right base infiltrate. Unchanged small right pleural effusion. MBS with mild pooling noted with mild difficulty initiating swallowing process with elevating the tongue. Nightly BiPAP support as usual. -Chest CT shows 1. Small bilateral pleural effusions with compressive atelectasis in the lung bases slightly increased compared to November 17, 2020. 2. Enlarged right infrahilar lymph node measuring 2 cm unchanged since November 17, 2020. Bilateral bronchovascular thickening. 3. Cardiomegaly with dense coronary calcification and vascular calcification. 4. Slight hazy groundglass infiltrates in both upper lobes with interstitial thickening can be seen with pulmonary edema versus pneumonitis. CT scan shows evidence of tracheomalacia, tracheal compression, will require CPAP at home, she tells me that she uses CPAP regularly Status: Acute (2) Fracture of right distal radius: Right wrist fracture, continue splint. Will need to continue for 6 weeks. May be taken off for range of motion exercises with PT. Status: Acute (3) Physical deconditioning: Status: Acute (4) Severe pulmonary hypertension: Status: Acute (5) Healthcare-associated pneumonia: Status: Acute (6) Steroid-induced hyperglycemia: SSI. Added Lantus. Increased to 12 units. Status: Acute Additional A&P Information Chronic kidney disease, with acute kidney injury creatinine with slight improvement to 1.4, improving BUN. Continue to monitor. With acute anemia, BUN elevation could be secondary to slow GI bleed as well. Acute on chronic anemia, responded well to transfusion of PRBC. Hemoglobin with mild decrease. Hold Eliquis. Continue PPI. Was transfused with 1 unit PRBC. Ferritin 92, iron 23, evidence of iron deficiency, continue to monitor, likely multifactorial from chronic kidney disease, pneumonia, continue Protonix, Hemoccult stool requested. Attempting to de-escalate steroid. 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
[2020-12-14 22:02] LABS: Glucose Point of Care 226 mg/dL (70-110)
[2020-12-14] MEDS: bumetanide 1 mg Tablet PO (22:17)
[2020-12-14] MEDS: insulin glargine 100 units/1 mL 2 UNIT SUBCUT (22:17)
[2020-12-15] VITALS (23 sets, daily range): BP systolic 105–149; BP diastolic 67–86; PULSE 66–142; RESP 16–23; TEMP 36.3–36.5; O2SAT 93–100
[2020-12-15] MEDS: ipratropium-albuterol 3 mL Neb INHALATION ×7 (00:50→23:15)
[2020-12-15 04:32] LABS: Basophils % 0.1 %; Eosinophils % 0.1 %; Hematocrit 25.8 % (37.0-47.0); Lymphocytes # 0.5 10^3/uL (0.8-4.8); Lymphocytes % 3.4 %; Mean Corpuscular Hemoglobin 25.8 pg (28.0-34.0); Mean Corpuscular Volume 83.2 fl (81-99); Mean Platelet Volume 11.3 fL (7.4-10.4); Monocytes # 0.6 10^3/uL (0.2-0.9); Monocytes % 3.8 %; Neutrophils # 13.25 10^3/uL (1.8-7.7); Neutrophils % 89.8 %; Nucleated Red Blood Cells # 0.1 /100WBC; Nucleated Red Blood Cells % 0.5 %; Platelet Count 269 10^3/cmm (130-400); Red Cell Distribution Width 16.6 % (12.1-15.1); White Blood Count 14.7 10^3/uL (4.0-10.0)
[2020-12-15 05:50] LABS: Alanine Aminotransferase 21 U/L (0-33); Albumin Level 4.2 g/dL (3.5-5.2); Alkaline Phosphatase 93 IU/L (35-105); Aspartate Amino Transferase 15 U/L (0-32); Calcium 10.2 mg/dL (8.5-10.5); Carbon Dioxide 33 mmol/L (22-29); Chloride 91 mmol/L (98-107); Globulin 2.1 g/dL (1.3-4.6); Glucose 112 mg/dL (65-115); Osmolality Calculated 313 mOsm/kg (285-295); Sodium 135 mmol/L (136-145); Total Bilirubin 1.1 mg/dL (0.15-1.2); Total Protein 6.3 g/dL (6.6-8.7)
[2020-12-15 05:56] LABS: Blood Urea Nitrogen 104 mg/dL (8-23)
[2020-12-15 06:29] LABS: Glucose Point of Care 178 mg/dL (70-110)
[2020-12-15] MEDS: sucralfate 1 gm Tablet PO ×2 (08:06→16:10)
[2020-12-15] MEDS: levothyroxine 175 mcg Tablet PO (08:06)
[2020-12-15] MEDS: amlodipine 10 mg Tablet PO (08:06)
[2020-12-15] MEDS: midodrine 5 mg TABLET 15 MG PO ×4 (08:06→20:45)
[2020-12-15] MEDS: atorvastatin 40 mg Tablet 20 MG PO (08:06)
[2020-12-15] MEDS: fluoxetine 20 mg Capsule PO (08:06)
[2020-12-15] MEDS: predniSONE 20 mg Tablet 40 MG PO (08:06)
[2020-12-15] MEDS: pantoprazole 40 mg SDV IVP ×2 (08:06→20:44)
[2020-12-15] MEDS: polyethylene glycol 3350 Pkt 17 gm PO (08:06)
[2020-12-15] MEDS: amoxicillin-clav 875-125 mg Tablet 1 TAB PO (08:06)
[2020-12-15] MEDS: insulin lispro 100 unit/1 mL SUBCUT ×4 (08:07→21:20)
--- NOTE | 2020-12-15 09:07 | XRR_ITS ---
PROCEDURE INFORMATION: Exam: XR Right Wrist Exam date and time: 12/15/2020 9:07 AM Age: 75 years old Clinical indication: Condition or disease; Patient HX: Check up right distal radius fracture with splint off. Best lateral patient could do; Additional info: Distal radius fracture, take splint off for xray TECHNIQUE: Imaging protocol: XR Right wrist. Views: 3 or more views. Total images: 4 COMPARISON: CR XR wrist RT min 3V* [id number] 12/08/2020 9:01 AM FINDINGS: Bones/joints: Healing fracture of the distal right radius appears unchanged from the prior exam. No additional fracture, subluxation, or dislocation detected. Soft tissues: Normal. XR/XR wrist RT min 3V* [id number] IMPRESSION: Healing fracture of the distal right radius appears unchanged from the prior exam. Radiation Dose CTDIVOL = (mGy): DLP = (mGy-cm)
--- NOTE | 2020-12-15 10:59 | CT_ITS ---
WS: [id number] CT CHEST TECHNIQUE: Noncontrast CT of the chest with coronal and sagittal reformatted images. CLINICAL INFORMATION: copd/pna COMPARISON: CT chest December 01, 2020 DLP: 1003.[address] scans at [facility] use at least one of these dose optimization techniques: automated e xposure control; mA and/or kV adjustment per patient size (includes targeted exams where dose is matc hed to clinical indication); or iterative reconstruction. FINDINGS: Mild chronic emphysematous changes. Interstitial thickening in the upper lobes improved com pared to previous. Bilateral pleural effusions have essentially resolved. No focal pneumonia or pleur al fluid. Subsegmental atelectasis involving the lingula is new from previous. Associated bronchovasc ular thickening. Slight hazy groundglass infiltrates in the right upper lobe along the fissure improv ed from previous. Prominent hilar lymph nodes are unchanged. No anterior mediastinal lymphadenopathy. No axillary lymph adenopathy. Calcified hilar and subcarinal lymph nodes. Right central venous catheter with tip in the SVC. Cardiomegaly with coronary calcification. Vascular calcification. Moderate thoracic kyphosis. Chronic compression fracture lower thoracic spine T11 unchanged. Prior cholecystectomy. Hemorrhagic cysts up per pole left kidney unchanged. Partially visualized left renal cyst measuring 6.01 fluid or 4. CM. Normal GE junction. CT/CT chest wo con [id number] IMPRESSION: 1. Bilateral upper lobe interstitial thickening likely due to edema has improv ed compared to previous. Resolution of the previously described pleural effusio ns. 2. Small amount of residual groundglass infiltrate in the right upper lobe ilia ng the fissure. Subsegmental atelectasis involving the lingula appears new from previous. 3. No focal pneumonia. 4. Mild chronic emphysematous changes. 5. Dense coronary vascular calcification. 6. No other significant changes from previous.
[2020-12-15 11:56] LABS: Glucose Point of Care 295 mg/dL (70-110)
[2020-12-15 11:59] LABS: NT Pro B Type Natriuretic Pept 4434 pg/mL (0-450); Procalcitonin 0.24 ng/mL (0-0.5)
[2020-12-15] MEDS: acetaminophen 325 mg Tablet PO (12:35)
[2020-12-15] MEDS: dilTIAZem 30 mg Tablet PO ×3 (12:35→18:22)
--- NOTE | 2020-12-15 14:00 | PC.SOCIAL ---
IMM Update: pg 2 of IMM updated and reviewed w/ patient and copy provided.
[2020-12-15 14:53] LABS: Potassium, Radom Urine 19 mmol/L; Urine Random Chloride 33 mmol/L; Urine Random Sodium 43 mmol/L
--- NOTE | 2020-12-15 16:25 | PC.RESP ---
RT Shift Note Frequent safety and respiratory rounds continue. Orders completed as indicated. Patient monitored pre and post treatments throughout shift. Patient [Did.] tolerate treatments appropriately. Condition [.DidNotChange]. Patient and/or customer field representative educated on respiratory treatment and medications. Patient and/or customer field representative [verbalized understanding. Will continue to monitor patient progress.
--- NOTE | 2020-12-15 17:00 | PM.PN ---
Subjective Subjective: Interval history: Hospital course, labs appreciated. Examination patient lying comfortably in bed. Denies any nausea, vomiting, headache. Anxious. State she has been getting multiple answers from multiple people and not sure of the plan going forward. Discussed in detail regarding her health including reasons for being hospitalization including congestive heart failure, COPD exacerbation, multiple aspiration pneumonitis, worsening SHILPA on CKD. Currently patient saturating 100% on 5 L oxygen supplementation. Today morning had mild tachycardia. Vitals/I&O/Wt Last Vital Signs Temp 97.3 F L 12/15/20 11:49 Pulse 99 12/15/20 16:25 Resp 20 H 12/15/20 16:25 BP 114/67 12/15/20 15:55 Pulse Ox 100 12/15/20 16:25 12/15/20 12/15/20 12/15/20 06:59 14:59 22:59 Intake Total 240 / 720 240 / 240 Output Total 950 / 2400 Balance -710 / -1680 240 / 240 Weight last 48 hrs Weight 82.645 kg Weight 87.09 kg Physical Exam Const: COMMON NORMALS: no acute distress, patient oriented x3 and alert GENERAL APPEARANCE: cooperative and comfortable NUTRITIONAL APPEARANCE: obese ORIENTATION/CONSCIOUSNESS: Yes awake, Yes oriented to person, Yes oriented to place and Yes oriented to time HENMT: COMMON NORMALS: normocephalic and oropharynx normal HEAD & SCALP: normocephalic Eye: COMMON NORMALS: Equal, round and reactive pupils present and EOMs intact bilaterally GENERAL EYE: appearance normal, both eyes and all related structures PUPIL: Yes Equal, round and reactive pupils present Neck/C-Spine: COMMON NORMALS: full ROM, no lymphadenopathy, no JVD and Thyroid normal THYROID: Thyroid normal Lymph: LYMPHATIC: no lymphadenopathy noted Resp: COMMON NORMALS: normal respiratory effort, No retractions and No use of accessory muscles AUSCULTATION: crackles, wheezes and diminished lung sounds Cardio: COMMON NORMALS: no JVD, regular rate, regular rhythm, S1 normal heart sound present, S2 normal heart sound present and No murmurs present (Cardio) RATE: regular rate RHYTHM: regular rhythm HEART SOUNDS: S1 normal heart sound present and S2 normal heart sound present GI: COMMON NORMALS: Normal to inspection, nondistended, normoactive bowel sounds present, Soft to palpation and non-tender PALPATION: Yes Soft to palpation Extremity: COMMON NORMALS: normal to inspection, full ROM, no joint enlargement and no pedal edema NARRATIVE EXTREMITY EXAM: 1+ edema OTHER: R wrist splint Neuro: COMMON NORMALS: patient oriented x3, CN's II-XII intact bilaterally and moves all extremities SENSORIUM/ORIENTATION: Yes alert, Yes oriented to person, Yes oriented to place and Yes oriented to time OTHER: Right upper extremity, right lower extremity weakness Psych: COMMON NORMALS: mental status grossly normal, Normal thought process present and cooperative THOUGHT PROCESS: Normal thought process present Skin: COMMON NORMALS: no rashes or lesions noted GENERAL SKIN EXAM: no rashes or lesions noted Urinary Catheter Management^: Buck: Cath Placed During This Visit: yes Reason for Continuing Indwelling Catheter: Acute Urinary Retention or Obstruction Urinary Catheter Date of Insertion: 11/30/20 Urinary Catheter Time of Insertion: 14:48 Data : 12/15/20 04:10 12/15/20 04:10 A&P Assessment and plan (1) Acute and chronic respiratory failure with hypoxia: Does not feel as congested as yesterday. No phlegm today, no rhonchi. Sounds diminished, wheezing. Appears to be also having some orthopnea. Discussed with her cautiously resuming diuretic given improvement in renal function. Attempt to resume Bumex. Please reassess, monitor renal function closely. Monitor blood pressures. Continue fluid restriction. With wheezing, diminished air entry, will also increase scheduled breathing treatment frequency to every 4 hours. Continues to require 6 L of oxygen. Prior to the recent worsening reported 3-4 L. Multifactorial respiratory failure secondary to diastolic CHF exacerbation, with valvular heart disease, aspiration pneumonia, COPD exacerbation, with underlying pulmonary hypertension. Tracheomalacia. Continue Augmentin. Continue steroid at this time, although discussed with her possible acute blood loss anemia, with rising BUN possible slow upper GI bleed, with mild decrease in hemoglobin. Has been the escalated to prednisone. Continuing on PPI. Held Eliquis. Continue aspiration precautions, speech therapy. Antibiotics, steroid, breathing treatments for COPD exacerbation. Discussed her multiple medical problems and slow progress and chronic process on her request with her friend Mr. Myrick. Discussed concerns of slow recovery leading to further deconditioning and functional decline, further worsening prognosis. Continue PT, OT. As per prior discussion poor response to diuretic with renal failure unfortunately may portend poor prognosis given lack of further response to diuresis despite CHF, also in the setting of mitral regurgitation, pulmonary hypertension. Continue antibiotic for now for pneumonia, possible aspiration. Repeat chest x-ray with some improvement in right base infiltrate. Unchanged small right pleural effusion. MBS with mild pooling noted with mild difficulty initiating swallowing process with elevating the tongue. Nightly BiPAP support as usual. -Chest CT shows 1. Small bilateral pleural effusions with compressive atelectasis in the lung bases slightly increased compared to November 17, 2020. 2. Enlarged right infrahilar lymph node measuring 2 cm unchanged since November 17, 2020. Bilateral bronchovascular thickening. 3. Cardiomegaly with dense coronary calcification and vascular calcification. 4. Slight hazy groundglass infiltrates in both upper lobes with interstitial thickening can be seen with pulmonary edema versus pneumonitis. CT scan shows evidence of tracheomalacia, tracheal compression, will require CPAP at home, she tells me that she uses CPAP regularly Status: Acute (2) Fracture of right distal radius: Right wrist fracture, continue splint. Will need to continue for 6 weeks. May be taken off for range of motion exercises with PT. Status: Acute (3) Physical deconditioning: Status: Acute (4) Severe pulmonary hypertension: Status: Acute (5) Healthcare-associated pneumonia: Status: Acute (6) Steroid-induced hyperglycemia: SSI. Added Lantus. Increased to 12 units. Status: Acute Additional A&P Information Chronic kidney disease, with acute kidney injury creatinine with slight improvement to 1.4, improving BUN. Continue to monitor. With acute anemia, BUN elevation could be secondary to slow GI bleed as well. Acute on chronic anemia, responded well to transfusion of PRBC. Hemoglobin with mild decrease. Hold Eliquis. Continue PPI. Was transfused with 1 unit PRBC. Ferritin 92, iron 23, evidence of iron deficiency, continue to monitor, likely multifactorial from chronic kidney disease, pneumonia, continue Protonix, Hemoccult stool requested. Attempting to de-escalate steroid. Atrial fibrillation, hold Eliquis due to acute anemia Anxiety depression, continue fluoxetine, alprazolam CVA, 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 Hypothyroidism, continue levothyroxine Plan for the day: For atrial fibrillation with rapid ventricular response add Cardizem 30 mg 3 times daily. Will uptitrate accordingly. Restart home dose of Eliquis. Patient states she has had EGD and colonoscopy earlier this year at [facility] which was negative. Patient will not want to continue anticoagulation for now. Stool for occult blood pending. Continue with Protonix, Carafate. And oral iron supplementation. Check lipid panel, HbA1c, procalcitonin, proBNP. Continue with mechanical soft diet. Repeat swallow evaluation. Target hemoglobin more than 8. Transfuse 1 unit of PRBC while monitoring for fluid overload. Hold Bumex for now given worsening BUN, stable creatinine. Wean oxygen supplementation keeping saturation over 88%. Discharge planning: If continues to remain stable can plan to discharge within next 24 hours back to SNF. Attestations Medical Necessity Statement*: Fertilization for management of hypoxia secondary to COPD exacerbation, congestive heart failure, anemia in setting of atrial fibrillation with rapid ventricular response, severe physical deconditioning Time Spent in Patient Care: Greater than 35 minutes (>than 50% of time spent in counselling and/or direct pt care on unit). 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
[2020-12-15 17:12] LABS: Glucose Point of Care 214 mg/dL (70-110)
[2020-12-15] MEDS: sodium chloride 0.9% (100 ml) 100 ML (17:27)
[2020-12-15] MEDS: ferrous gluconate 324 mg Tablet PO (18:23)
--- NOTE | 2020-12-15 19:04 | PC.NURSE ---
at 1810 the blood had been running for aprox. 45 minutes patients heart rate was in the 140's, with an irregular rhythm. the blood transfusion was stopped, and Dr. Kendall was notified. verbal orders given to adjust Cardizem and hold blood for 30 minutes, and then begin the blood at a slower rate. when it was stopped the blood was running at 100ml/hr. PO cardizem was administered and a air sampling and monitoring was placed on the patient. Current heart rate is 124.
[2020-12-15] MEDS: ondansetron 2 mg/ML SDV 2 mL 4 MG IVP (19:54)
--- NOTE | 2020-12-15 20:10 | ECG_ITS ---
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[id number] Requested By: Carola Lakhani Order Number: [id number] Jas MD: PABLITO ARAUJO Measurements Intervals [place] Rate: 116 P: VA: QRS: 93 QRSD: 145 T: -28 QT: 374 QTc: 521 Interpretive Statements ATRIAL FIBRILLATION WITH RAPID VENTRICULAR RESPONSE RIGHT BUNDLE BRANCH BLOCK [120+ ms QRS DURATION, UPRIGHT V1, 40+ ms S IN I/aVL/V4/V5/V6] ST DEPRESSION, CONSIDER SUBENDOCARDIAL INJURY [0.1+ mV ST DEPRESSION] INTERPRETATION BASED ON A DEFAULT AGE OF 40 YEARS Compared to ECG 11/30/2020 11:52:59 ST (T wave) deviation now present Sinus rhythm no longer present Sinus arrhythmia no longer present Electronically Signed On 12-15-2020 21:58:08 CDT by PABLITO ARAUJO [id number] f
[2020-12-15 20:21] LABS: Glucose Point of Care 324 mg/dL (70-110)
[2020-12-15] MEDS: metoprolol tartrate 1 mg/1 mL SDV 5 mL 2.5 MG IVP (20:45)
[2020-12-15] MEDS: insulin glargine 100 units/1 mL 12 UNIT SUBCUT (20:45)
[2020-12-15] MEDS: apixaban 5 mg Tablet PO (21:19)
[2020-12-16] VITALS (17 sets, daily range): BP systolic 114–151; BP diastolic 58–85; PULSE 101–131; RESP 6–23; TEMP 36.2–36.9; O2SAT 90–99; BMI 36.3
[2020-12-16] MEDS: dilTIAZem 30 mg Tablet PO ×2 (00:11→06:02)
[2020-12-16] MEDS: calcium carbonate 500 mg Chew Tablet 1000 MG PO ×2 (01:36→06:02)
[2020-12-16] MEDS: ipratropium-albuterol 3 mL Neb INHALATION ×6 (03:05→23:32)
[2020-12-16] MEDS: magnesium hydroxide 30 mL UDC PO (04:27)
[2020-12-16] MEDS: ondansetron 2 mg/ML SDV 2 mL 4 MG IVP (04:40)
--- NOTE | 2020-12-16 04:45 | PC.NURSE ---
One episode of emesis after being administered milk of mag. Patient complaining of painful abdomen. Has not had a bowel movement since Tuesday morning around 1 am. Lungs has advantageous sounds. Patient continue to have productive cough, possible aspiration of milk of mag when swallowing. Patient was sitting fully upright when being administered. MD notified. Administered zofran IVP. Patient stated feeling improved. Will continue to monitor.
[2020-12-16 05:20] LABS: Basophils % 0.2 %; Eosinophils % 0.1 %; Hematocrit 30.4 % (37.0-47.0); Hemoglobin 9.5 g/dL (11.5-15.3); Lymphocytes # 0.8 10^3/uL (0.8-4.8); Lymphocytes % 4.5 %; Mean Corpuscular HGB Conc 31.3 g/dL (30.0-36.0); Mean Corpuscular Hemoglobin 26.2 pg (28.0-34.0); Mean Platelet Volume 11.5 fL (7.4-10.4); Monocytes # 1.1 10^3/uL (0.2-0.9); Neutrophils % 85.3 %; Nucleated Red Blood Cells # 0.2 /100WBC; Nucleated Red Blood Cells % 0.8 %; Platelet Count 284 10^3/cmm (130-400); Red Blood Count 3.62 10^6/uL (4.1-5.3); Red Cell Distribution Width 16.6 % (12.1-15.1); White Blood Count 18.8 10^3/uL (4.0-10.0)
[2020-12-16 05:36] LABS: Alanine Aminotransferase 73 U/L (0-33); Albumin Level 4.2 g/dL (3.5-5.2); Alkaline Phosphatase 336 IU/L (35-105); Anion Gap 16.5 (5-19); Aspartate Amino Transferase 71 U/L (0-32); Calcium 9.9 mg/dL (8.5-10.5); Carbon Dioxide 31 mmol/L (22-29); Chloride 88 mmol/L (98-107); Chol HDL Ratio 1.89 mg/dL (0.0-4.40); Cholesterol 100 mg/dL (0-200); Estmated Average Glucose 120; Globulin 1.9 g/dL (1.3-4.6); Glucose 107 mg/dL (65-115); HDL Cholesterol 53 mg/dL (60-100); Hemoglobin A1C 5.8 % (4.0-6.0); LDL Cholesterol Calculated 33 mg/dL (50-129); Osmolality Calculated 306 mOsm/kg (285-295); Potassium 3.5 mmol/L (3.5-5.1); Sodium 132 mmol/L (136-145); Total Bilirubin 2.9 mg/dL (0.15-1.2); Total Protein 6.1 g/dL (6.6-8.7); Triglycerides 69 mg/dL (0-150); VLDL Cholestrol Calculation 14 mg/dL (0-30)
[2020-12-16 05:41] LABS: Blood Urea Nitrogen 102 mg/dL (8-23)
[2020-12-16] MEDS: sucralfate 1 gm Tablet PO ×2 (06:02→17:31)
[2020-12-16 06:37] LABS: Glucose Point of Care 150 mg/dL (70-110)
[2020-12-16] MEDS: pantoprazole 40 mg SDV IVP ×2 (08:05→21:50)
[2020-12-16] MEDS: polyethylene glycol 3350 Pkt 17 gm PO (08:05)
[2020-12-16] MEDS: midodrine 5 mg TABLET 15 MG PO (08:06)
[2020-12-16] MEDS: levothyroxine 175 mcg Tablet PO (08:06)
[2020-12-16] MEDS: predniSONE 20 mg Tablet 40 MG PO (08:06)
[2020-12-16] MEDS: fluoxetine 20 mg Capsule PO (08:06)
[2020-12-16] MEDS: acetaminophen 325 mg Tablet PO ×2 (08:06→15:11)
[2020-12-16] MEDS: atorvastatin 40 mg Tablet 20 MG PO (08:07)
[2020-12-16] MEDS: apixaban 5 mg Tablet PO ×2 (08:07→21:52)
[2020-12-16] MEDS: ferrous gluconate 324 mg Tablet PO ×2 (08:07→17:31)
[2020-12-16] MEDS: insulin lispro 100 unit/1 mL SUBCUT ×4 (08:07→21:52)
[2020-12-16] MEDS: dilTIAZem 30 mg Tablet 60 MG PO ×3 (10:49→21:51)
[2020-12-16 11:05] LABS: Glucose Point of Care 150 mg/dL (70-110)
--- NOTE | 2020-12-16 12:30 | P.MISC_ITS ---
Miscellaneous Note Purpose of Documentation: Completion of fracture care Note: I was contacted on December 08 regarding this patient and her ongoing fracture care. The patient was in a fast form splint which have been placed on the in my office. Yesterday, I requested follow-up x-rays, and the distal radius fracture appears healed. For this reason, we will discontinue her splint and begin physical therapy. She will not need to follow-up with me in the offic e.
--- NOTE | 2020-12-16 12:37 | P.CONIM_ITS ---
Providers/Reason For Consult Consulting Physician/Specialty*: General Surgery Lucian Araiza MD Reason for Consult*: Anemia, heme positive stool, requesting EGD. Attending Physician: Rafael Kendall MD Primary Care Provider: MarcoA ntonio Thompson MD History of Present Illness History of Present Illness Elzbieta Church is a 75 year old female originally admitted for some pulmonary issues. She says she thinks she is getting better overall but has days that are better and days that are worse. She has been found to have some heme positive stool and some anemia. I was asked to discuss an EGD with her. She denies epigastric discomfort but said she has had some nausea. In fact she said she vomited this morning after getting some milk of magnesia and has not really felt well since. Otherwise, she denies any changes in her bowel habits. She says she does not really look at her bowel movements and cannot tell me with any certainty if she has been having any changes of melena or hematochezia. She says she thinks she was diagnosed with an ulcer a long time ago. She thinks that she has had some EGDs and says the last time it was done they did not find anything. She admits to taking ibuprofen almost every day. She says she rarely takes more than 6 tablets a day. She normally takes an anticoagulant to prevent clots. Review of Systems General: Reports: 10 or more systems reviewed and unremarkable except in HPI and below GI: Reports: nausea and vomiting; Denies: abdominal pain, hematemesis or coffee ground emesis Meds/Allergies Home Medications and Allergies Home Medications Medication Instructions Recorded Confirmed Last Taken Type alprazolam 0.5 mg tablet 0.5 mg PO QID PRN 02/20/19 11/30/20 11/29/20 History atorvastatin 10 mg PO DAILY@0800 10/12/20 11/30/20 11/29/20 History Eliquis 5 mg PO BID@08,199910/30/20 11/30/20 11/30/20 History acetaminophen 325 mg PO QID PRN 10/30/20 11/30/20 11/30/20 History albuterol sulfate 2.5 mg INHALATION Q4H PRN 10/30/20 11/30/20 Unknown History bisacodyl [Dulcolax (bisacodyl)] 10 mg AK DAILY PRN 10/30/20 11/30/20 Unknown History fluoxetine 20 mg PO DAILY@0800 10/30/20 11/30/20 11/30/20 History ipratropium-albuterol 0.5 ml INHALATION TID 10/30/20 11/30/20 11/30/20 History levothyroxine 175 mcg PO DAILY 10/30/20 11/30/20 11/30/20 History Fast Form Cock Up Splint #1 ea 11/17/20 11/30/20 Unknown Rx bisacodyl 10 mg PO DAILY PRN 11/18/20 11/30/20 11/25/20 History calcium carbonate 600 mg PO BID PRN 11/18/20 11/30/20 11/28/20 History amlodipine 10 mg PO DAILY #30 tab 11/21/20 11/30/20 11/30/20 Rx Fleet Enema 118 ml AK DAILY PRN 11/30/20 11/30/20 Unknown History Milk of Magnesia 30 ml PO DAILY PRN 11/30/20 11/30/20 Unknown History Miralax 17 g PO DAILY 11/30/20 11/30/20 11/30/20 History Refresh Tears 2 drp OPHTHALMIC (EYE) BID PRN 11/30/20 11/30/20 Unknown History prednisone 10 mg PO DAILY@0800 11/30/20 11/30/20 11/30/20 History amoxicillin-pot clavulanate 1 tab PO BID 7 Days #14 tab 12/06/20 Unknown Rx [Augmentin] furosemide 40 mg PO BID 30 Days #30 tab 12/06/20 11/30/20 11/30/20 Rx midodrine 10 mg PO Q8H 30 Days #180 tab 12/06/20 Unknown Rx pantoprazole 40 mg PO BIDWM #0 tab 12/06/20 11/30/20 11/30/20 Rx potassium chloride [Klor-Con M20] 20 meq PO BID 30 Days #60 tab 12/06/20 Unknown Rx prednisone 40 mg PO DAILY 5 Days #10 tab 12/06/20 Unknown Rx sucralfate 1 g PO BIDAC 30 Days #60 tab 12/06/20 Unknown Rx Allergies Allergy/AdvReac Type Severity Reaction Status Date / Time codeine Allergy unknown Verified 11/17/20 13:17 ketoprofen [From Oruvail] Allergy unknown Verified 11/17/20 13:17 nitrofurantoin Allergy unknown Verified 11/17/20 13:17 [From Macrobid] olmesartan [From Benicar] Allergy unknown Verified 11/17/20 13:17 quinapril [From Accupril] Allergy unknown Verified 11/17/20 13:17 Yharyby-NXK-BiJ Reductase Allergy unknowm Verified 11/17/20 13:17 Inhibitor [Fkgeesg-Pwa-Ibk Reductase Inhibitor] Current Medications Current Medications Generic Name Dose Route Start Last Admin Trade Name Freq PRN Reason Stop Dose Admin Acetaminophen 325 mg 11/30/20 17:27 12/16/20 08:06 Acetaminophen 325 Mg Tablet PO 325 mg QID PRN Administration Fever Or Pain Albuterol/Ipratropium 3 ml 11/30/20 17:27 12/14/20 21:07 Ipratropium-Albuterol 3 Ml Neb INHALATION 3 ml Q6H.RESPIRATORY PRN Administration SHORTNESS OF BREATH Albuterol/Ipratropium 3 ml 12/15/20 00:00 12/16/20 11:36 Ipratropium-Albuterol 3 Ml Neb INHALATION 3 ml Q4H.RESPIRATORY BEA Administration Apixaban 5 mg 11/30/20 20:00 12/16/20 08:07 Apixaban 5 Mg Tablet PO 5 mg BID@0800,2000 BEA Administration Artificial Tears 1 drop 12/03/20 08:43 12/09/20 08:48 Artificial Tears Op Soln 15 Ml Btl EYE-BOTH 1 drop Q4H PRN Administration DRY EYE(S) Atorvastatin Calcium 20 mg 12/01/20 08:00 12/16/20 08:07 Atorvastatin 40 Mg Tablet PO 20 mg DAILY@0800 BEA Administration Bumetanide 1 mg 12/14/20 20:30 12/14/20 22:17 Bumetanide 1 Mg Tablet PO 1 mg Q24H BEA Administration Calcium Carbonate 1,000 mg 12/04/20 12:00 12/16/20 06:02 Calcium Carbonate 500 Mg Chew Tablet PO 1,000 mg Q4H PRN Administration DISCOMFORT Diltiazem HCl 60 mg 12/16/20 10:30 12/16/20 10:49 Diltiazem 30 Mg Tablet PO 60 mg Q6H BEA Administration Ferrous Gluconate 324 mg 12/15/20 18:00 12/16/20 08:07 Ferrous Gluconate 324 Mg Tablet PO 324 mg BIDWM BEA Administration Fluoxetine HCl 20 mg 12/01/20 08:00 12/16/20 08:06 Fluoxetine 20 Mg Capsule PO 20 mg DAILY@0800 BEA Administration Insulin Glargine 12 unit 12/14/20 21:00 12/15/20 20:45 Insulin Glargine 100 Units/1 Ml SUBCUT 12 unit BEDTIME BEA Administration Insulin Human Lispro 0 unit 12/11/20 08:00 12/16/20 11:19 Insulin Lispro 100 Unit/1 Ml SUBCUT 2 unit WM&BEDTIME BEA Administration Protocol Levothyroxine Sodium 175 mcg 12/01/20 09:00 12/16/20 08:06 Levothyroxine 175 Mcg Tablet PO 175 mcg DAILY BEA Administration Magnesium Hydroxide 30 ml 11/30/20 17:27 12/16/20 04:27 Magnesium Hydroxide 30 Ml Udc PO 30 ml DAILY PRN Administration Constipation Non-Formulary Medication 2 drop 11/30/20 17:27 12/09/20 11:44 Carboxymethylcellulose Sodium [Refresh Tears] EYEAFF 2 drop BID PRN Administration Dry Eyes Ondansetron HCl 4 mg 11/30/20 17:27 12/16/20 04:40 Ondansetron 2 Mg/Ml Sdv 2 Ml IVP 4 mg Q8H PRN Administration vomiting, or N/V if npo Pantoprazole Sodium 40 mg 11/30/20 20:00 12/16/20 08:05 Pantoprazole 40 Mg Sdv IVP 40 mg Q12H BEA Administration Polyethylene Glycol 17 gm 12/01/20 09:00 12/16/20 08:05 Polyethylene Glycol 3350 Pkt 17 Gm PO 17 gm DAILY BEA Administration Prednisone 40 mg 12/11/20 18:55 12/16/20 08:06 Prednisone 20 Mg Tablet PO 40 mg DAILY BEA Administration Sucralfate 1 gm 12/02/20 07:00 12/16/20 06:02 Sucralfate 1 Gm Tablet PO 1 gm BIDAC BEA Administration PFSH Acute PFSH: Medical History Bilateral carotid artery stenosis Carotid atherosclerosis Chronic kidney disease Congestive heart failure COPD (chronic obstructive pulmonary disease) CVA (cerebral vascular accident) Displaced spiral fracture of shaft of right humerus with routine healing Fracture of humerus, proximal, right, closed History of CVA (cerebrovascular accident) Hyperlipidemia Hypertension Hypothyroidism Lung infiltrate on CT Pneumonia Surgical History History of carpal tunnel release of both wrists History of renal stent Hx of cholecystectomy Family History Father Stroke Mother Stroke Social History Smoking and tobacco status: former smoker Alcohol intake: never Female Reproductive History: Date of last menstrual period: 05/08/20 Vitals/I&O/Wt Last Vital Signs Temp 97.4 F L 12/16/20 11:17 Pulse 102 H 12/16/20 11:39 Resp 18 12/16/20 11:39 BP 122/58 12/16/20 11:17 Pulse Ox 95 12/16/20 11:39 12/15/20 12/16/20 12/16/20 22:59 06:59 14:59 Intake Total 120 / 680 320 / 680 50 / 50 Output Total 1000 / 1200 200 / 1200 Balance -880 / -520 120 / -520 50 / 50 Weight last 48 hrs Weight 186 lb 7 oz Weight 182 lb 3.2 oz Physical Exam Narrative: EXAM NARRATIVE: The patient was encountered in her hospital room. She is sitting in her bed with a nasal cannula on. She does not appear to be in any acute distress. The pupils seem equal. No carotid bruits are heard. The lungs reveal some scattered rhonchi. The heart is irregularly irregular. The abdomen is moderately obese but seems soft. She does not have any appreciable tenderness on my exam today. The extremities reveal no edema. Neurologically the patient appears to be grossly intact. Urinary Catheter Management^: Buck: Cath Placed During This Visit: yes Reason for Continuing Indwelling Catheter: Acute Urinary Retention or Obstruction Urinary Catheter Date of Insertion: 11/30/20 Urinary Catheter Time of Insertion: 14:48 Data Micro: Micro: Microbiology 12/12/20 13:59 Occult Blood (FIT) - Final Stool Routine Col lection A&P Assessment and plan (1) Anemia: We discussed possible sources of bleeding. The patient does have an ongoing need for anticoagulation. She has a remote history of but probable empiric diagnosis of peptic ulcer disease. We discussed an EGD in some detail. The patient says that she has not really felt well ever since throwing up ear lier today. I told her I would come back and discuss this with her later. We may have to wait another day or 2 to get the EGD done but I will see how she is doing in the next 24 hours. Status: Acute (2) Heme positive stool: Status: Acute (3) NSAID long-term use: The patient says that she is accustomed to taking about 6 ibuprofen tablets a day and has been doing this for quite a while. While she says she does not do this absolutely every day it sounds like a fairly regular thing for her. Status: Acute Consult Attestations Medical Necessity Statement: See admitting service's notation. Coding Level of Care Code Acute Regulator Assembler for g Fwd Diagnoses Anemia D64.9 Heme positive stool R19.5 NSAID long-term use Z79.1
--- NOTE | 2020-12-16 13:00 | P.PN_ITS ---
Subjective Subjective: Interval history: No acute events overnight. Patient did have a rough night. Yesterday in the evening during getting blood transfusion heart rate went up to 160s. Patient has been having atrial fibrillation with rapid response during hospitalization. Started on Cardizem yesterday. Heart rate mildly better controlled today. Today morning states she had an episode of vomiting after drinking milk of magnesia. Denies any nausea vomiting, headache. Oxygen supplementation down to 4 L to maintain saturation over 95. Working with occupational therapy during examination today. Vitals/I&O/Wt Last Vital Signs Temp 97.4 F L 12/16/20 11:17 Pulse 102 H 12/16/20 11:39 Resp 18 12/16/20 11:39 BP 122/58 12/16/20 11:17 Pulse Ox 95 12/16/20 11:39 12/15/20 12/16/20 12/16/20 22:59 06:59 14:59 Intake Total 120 / 360 320 / 680 50 / 50 Output Total 1000 / 1000 200 / 1200 Balance -880 / -640 120 / -520 50 / 50 Weight last 48 hrs Weight 84.567 kg Weight 82.645 kg Physical Exam Const: COMMON NORMALS: no acute distress, patient oriented x3 and alert GENERAL APPEARANCE: cooperative and comfortable NUTRITIONAL APPEARANCE: obese ORIENTATION/CONSCIOUSNESS: Yes awake, Yes oriented to person, Yes oriented to place and Yes oriented to time HENMT: COMMON NORMALS: normocephalic and oropharynx normal HEAD & SCALP: normocephalic Eye: COMMON NORMALS: Equal, round and reactive pupils present and EOMs intact bilaterally GENERAL EYE: appearance normal, both eyes and all related stru ctures PUPIL: Yes Equal, round and reactive pupils present Neck/C-Spine: COMMON NORMALS: full ROM, no lymphadenopathy, no JVD and Thyroid normal THYROID: Thyroid normal Lymph: LYMPHATIC: no lymphadenopathy noted Resp: COMMON NORMALS: normal respiratory effort, No retractions and No use of accessory muscles AUSCULTATION: crackles, wheezes and diminished lung sounds Cardio: COMMON NORMALS: no JVD, regular rate, regular rhythm, S1 normal heart sound present, S2 normal heart sound present and No murmurs present (Cardio) RATE: regular rate RHYTHM: regular rhythm HEART SOUNDS: S1 normal heart sound present and S2 normal heart sound present GI: COMMON NORMALS: Normal to inspection, nondistended, normoactive bowel sounds present, Soft to palpation and non-tender PALPATION: Yes Soft to palpa tion Extremity: COMMON NORMALS: normal to inspection, full ROM, no joint enlargement and no pedal edema NARRATIVE EXTREMITY EXAM: 1+ edema OTHER: R wrist splint Neuro: COMMON NORMALS: patient oriented x3, CN's II-XII intact bilaterally and moves all extremities SENSORIUM/ORIENTATION: Yes alert, Yes oriented to person, Yes oriented to place and Yes oriented to time OTHER: Right upper extremity, right lower extremity weakness Psych: COMMON NORMALS: mental status grossly normal, Normal thought process present and cooperative THOUGHT PROCESS: Normal thought process present Skin: COMMON NORMALS: no rashes or lesions noted GENERAL SKIN EXAM: no rashes or lesions noted Urinary Catheter Management^: Buck: Cath Placed During This Visit: yes Reason for Continuing Indwelling Catheter: Acute Urinary Retention or Obstruction Urinary Catheter Date of Insertion: 11/30/20 Urinary Catheter Time of Insertion: 14:48 Data : 12/16/20 04:33 12/16/20 04:33 Micro: Microbiology 12/12/20 13:59 Occult Blood (FIT) - Final Stool Routine Collection A&P Assessment and plan (1) Acute and chronic respiratory failure with hypoxia: Does not feel as congested as yesterday. No phlegm today, no rhonchi. Sounds diminished, wheezing. Appears to be also having some orthopnea. Discussed with her cautiously resuming diuretic given improvement in renal function. Attempt to resume Bumex. Please reassess, monitor renal function closely. Monitor blood pressures. Continue fluid restriction. With wheezing, diminished air entry, will also increase scheduled breathing treatment frequency to every 4 hours. Continues to require 6 L of oxygen. Prior to the recent worsening reported 3-4 L. Multifactorial respiratory failure secondary to diastolic CHF exacerbation, with valvular heart disease, aspiration pneumonia, COPD exacerbation, with underlying pulmonary hypertension. Tracheomalacia. Continue Augmentin. Continue steroid at this time, although discussed with her possible acute blood loss anemia, with rising BUN possible slow upper GI bleed, with mild decrease in hemoglobin. Has been the escalated to prednisone. Continuing on PPI. Held Eliquis. Continue aspiration precautions, speech therapy. Antibiotics, steroid, breathing treatments for COPD exacerbation. Discussed her multiple medical problems and slow progress and chronic process on her request with her friend Mr. Krasuski. Discussed concerns of slow recovery leading to further deconditioning and functional decline, further worsening prognosis. Continue PT, OT. As per prior discussion poor response to diuretic with renal failure unfortunately may portend poor prognosis given lack of further response to diuresis despite CHF, also in the setting of mitral regurgitation, pulmonary hypertension. Continue antibiotic for now for pneumonia, possible aspiration. Repeat chest x-ray with some improvement in right base infiltrate. Unchanged small right pleural effusion. MBS with mild pooling noted with mild difficulty initiating swallowing process with elevating the tongue. Nightly BiPAP support as usual. -Chest CT shows 1. Small bilateral pleural effusions with compressive atelectasis in the lung bases slightly increased compared to November 17, 2020. 2. Enlarged right infrahilar lymph node measuring 2 cm unchanged since November 17, 2020. Bilateral bronchovascular thickening. 3. Cardiomegaly with dense coronary calcification and vascular calcification. 4. Slight hazy groundglass infiltrates in both upper lobes with interstitial thickening can be seen with pulmonary edema versus pneumonitis. CT scan shows evidence of tracheomalacia, tracheal compression, will require CPAP at home, she tells me that she uses CPAP regularly Status: Acute (2) Fracture of right distal radius: Right wrist fracture, continue splint. Will need to continue for 6 weeks. May be taken off for range of motion exercises with PT. Status: Acute (3) Physical deconditioning: Status: Acute (4) Severe pulmonary hypertension: Status: Acute (5) Healthcare-associated pneumonia: Status: Acute (6) Steroid-induced hyperglycemia: SSI. Added Lantus. Increased to 12 units. Status: Acute Additional A&P Information Chronic kidney disease, with acute kidney injury creatinine with slight improvement to 1.4, improving BUN. Continue to monitor. With acute anemia, BUN elevation could be secondary to slow GI bleed as well. Acute on chronic anemia, responded well to transfusion of PRBC. Hemoglobin with mild decrease. Hold Eliquis. Continue PPI. Was transfused with 1 unit PRBC. Ferritin 92, iron 23, evidence of iron deficiency, continue to monitor, likely multifactorial from chronic kidney disease, pneumonia, continue Protonix, Hemoccult stool requested. Attempting to de-escalate steroid. Atrial fibrillation, hold Eliquis due to acute anemia Anxiety depression, continue fluoxetine, alprazolam CVA, 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 Hypothyroidism, continue levothyroxine Plan for the day: For atrial fibrillation with rapid ventricular response increase Cardizem to 60 mg 4 times daily. If not getting tolerated will start on Cardizem drip. Continue with home dose of Eliquis. Will monitor hemoglobin. Monitor blood pressures. For hypoxia hold off on diuretics given euvolemic status. Continue with prednisone 40 mg daily. Overall net 12 L negative since admission. Awaiting repeat swallow evaluation. High concern for aspiration. Decrease midodrine from 15 mg 4 times daily to 10 mg 3 times a day given atrial fibrillation with rapid ventricular response and to avoid going higher than 30 mg daily dose. HbA1c, lipid panel, procalcitonin results appreciated. Given long-term NSAID use, remote history of ulcer, hemoglobin on the lower side since admission with BUN trending up high consideration given to possible GI bleed. Have consulted surgery for possible EGD. Continue Protonix and Carafate. Attestations Medical Necessity Statement*: Requires further hospitalization for management of atrial fibrillation with rapid ventricular response, ongoing anemia with a concern of GI bleed in setting of atrial fibrillation with rapid ventricular response on Eliquis as an outpatient Time Spent in Patient Care: Greater than 35 minutes (>than 50% of time spent in counselling and/or direct pt care on unit) . Coding Level of Care Code Acute Classics Teacher for Chg Fwd Diagnoses Acute and chronic respiratory failure with hypoxia J96.21 Fracture of right distal radius S52.501A Physical deconditioning R53.81 Severe pulmonary hypertension I27.20 Healthcare-associated pneumonia J18.9 Steroid-induced hyperglycemia R73.9; T38.0X5A
[2020-12-16] MEDS: midodrine 5 mg TABLET 10 MG PO ×2 (15:07→21:51)
[2020-12-16 17:07] LABS: Glucose Point of Care 191 mg/dL (70-110)
[2020-12-16 20:39] LABS: Glucose Point of Care 156 mg/dL (70-110)
[2020-12-16] MEDS: insulin glargine 100 units/1 mL 12 UNIT SUBCUT (21:52)
[2020-12-17] VITALS (18 sets, daily range): BP systolic 94–141; BP diastolic 57–79; PULSE 81–138; RESP 16–22; TEMP 36.4–37.3; O2SAT 89–98
[2020-12-17] MEDS: ipratropium-albuterol 3 mL Neb INHALATION ×5 (03:22→19:22)
[2020-12-17] MEDS: dilTIAZem 30 mg Tablet 60 MG PO ×4 (04:09→20:26)
[2020-12-17 05:08] LABS: Basophils % 0.2 %; Eosinophils % 0.1 %; Hematocrit 31.3 % (37.0-47.0); Hemoglobin 9.7 g/dL (11.5-15.3); Lymphocytes % 5.4 %; Mean Corpuscular Hemoglobin 26.6 pg (28.0-34.0); Mean Corpuscular Volume 85.8 fl (81-99); Mean Platelet Volume 11.3 fL (7.4-10.4); Monocytes # 0.6 10^3/uL (0.2-0.9); Monocytes % 3.5 %; Neutrophils # 15.97 10^3/uL (1.8-7.7); Neutrophils % 89.2 %; Nucleated Red Blood Cells # 0.1 /100WBC; Nucleated Red Blood Cells % 0.7 %; Platelet Count 259 10^3/cmm (130-400); Red Blood Count 3.65 10^6/uL (4.1-5.3); Red Cell Distribution Width 17.2 % (12.1-15.1); White Blood Count 17.9 10^3/uL (4.0-10.0)
--- NOTE | 2020-12-17 05:12 | P.PN_ITS ---
Subjective Subjective: Interval history: The patient tells me that she is feeling a little bit better today. Vitals/I&O/Wt Last Vital Signs Temp 99.1 F 12/17/20 04:00 Pulse 127 H 12/17/20 04:00 Resp 20 H 12/17/20 04:00 BP 117/79 12/17/20 04:00 Pulse Ox 94 12/17/20 04:00 12/16/20 12/16/20 12/17/20 14:59 22:59 06:59 Intake Total 50 / 430 360 / 430 20 / 430 Output Total 650 / 1250 600 / 1250 Balance 50 / -820 -290 / -820 -580 / -820 Weight last 48 hrs Weight 181 lb 9 oz Weight 186 lb 7 oz Physical Exam Narrative: EXAM NARRATIVE: The patient remains tachycardic but this is nothing new. Abdomen is soft. Urinary Catheter Management^: Buck: Cath Placed During This Visit: yes Reason for Continuing Indwelling Catheter: Acute Urinary Retention or Obstruction Urinary Catheter Date of Insertion: 11/30/20 Urinary Catheter Time of Insertion: 14:48 Data : 12/17/20 04:29 12/16/20 04:33 Micro: Microbiology 12/12/20 13:59 Occult Blood (FIT) - Final Stool Routine Collection A&P Assessment and plan (1) Anemia: We discussed possible sources of bleeding. The patient does have an ongoing need for anticoagulation. She has a remote history of but probable empiric diagnosis of peptic ulcer disease. We have discussed an EGD in some detail. The patient has been drinking water during the night. She says her BiPAP mask m akes her thirsty. I told her I would like to try to schedule an EGD for first thing tomorrow morning and so she is going to try to hold off on drinking anything tonight. Status: Acute (2) Heme positive stool: Status: Acute (3) NSAID long-term use: The patient says that she is accustomed to taking about 6 ibuprofen tablets a day and has been doing this for quite a while. While she says she does not do this absolutely every day it sounds like a fairly regular thing for her. Status: Acute Attestations Medical Necessity Statement*: See admitting service's notation. Coding Level of Care Code Acute Tavern Car Attendant for [facility] Fwd Diagnoses Anemia D64.9 Heme positive stool R19.5 NSAID long-term use Z79.1
[2020-12-17 05:36] LABS: NT Pro B Type Natriuretic Pept 4075 pg/mL (0-450)
[2020-12-17 05:37] LABS: Alanine Aminotransferase 99 U/L (0-33); Albumin Level 3.9 g/dL (3.5-5.2); Alkaline Phosphatase 310 IU/L (35-105); Carbon Dioxide 30 mmol/L (22-29); Chloride 87 mmol/L (98-107); Globulin 2.2 g/dL (1.3-4.6); Glucose 83 mg/dL (65-115); Osmolality Calculated 303 mOsm/kg (285-295); Sodium 133 mmol/L (136-145); Total Bilirubin 1.5 mg/dL (0.15-1.2); Total Protein 6.1 g/dL (6.6-8.7)
[2020-12-17 05:41] LABS: Anion Gap 20.1 (5-19); Aspartate Amino Transferase 55 U/L (0-32); Potassium 4.1 mmol/L (3.5-5.1)
[2020-12-17 05:43] LABS: Blood Urea Nitrogen 91 mg/dL (8-23)
[2020-12-17] MEDS: sucralfate 1 gm Tablet PO ×2 (06:27→16:31)
[2020-12-17 06:34] LABS: Glucose Point of Care 94 mg/dL (70-110)
[2020-12-17] MEDS: apixaban 5 mg Tablet PO (08:43)
[2020-12-17] MEDS: midodrine 5 mg TABLET 10 MG PO ×3 (08:50→20:27)
[2020-12-17] MEDS: predniSONE 20 mg Tablet 40 MG PO (08:51)
[2020-12-17] MEDS: ferrous gluconate 324 mg Tablet PO ×2 (08:51→16:31)
[2020-12-17] MEDS: fluoxetine 20 mg Capsule PO (08:52)
[2020-12-17] MEDS: levothyroxine 175 mcg Tablet PO (08:52)
[2020-12-17] MEDS: polyethylene glycol 3350 Pkt 17 gm PO (08:52)
[2020-12-17] MEDS: atorvastatin 40 mg Tablet 20 MG PO (08:52)
--- NOTE | 2020-12-17 08:53 | PC.SOCIAL ---
IMM update IMM updated with patient. Verbalized an understanding. Copy Pg 2 provided. Initialled, dated, timed, and placed in chart.
[2020-12-17] MEDS: pantoprazole 40 mg SDV IVP ×2 (09:24→20:27)
[2020-12-17 12:32] LABS: Glucose Point of Care 141 mg/dL (70-110)
--- NOTE | 2020-12-17 14:06 | PC.NURSE ---
Pt up to chair with assist from PT and RT.
--- NOTE | 2020-12-17 17:35 | PC.NURSE ---
Dr. Velez notified that patient tele back in afibb 120-130's.
[2020-12-17 18:00] LABS: Glucose Point of Care 252 mg/dL (70-110)
[2020-12-17] MEDS: insulin lispro 100 unit/1 mL SUBCUT (18:03)
--- NOTE | 2020-12-17 18:27 | P.PN_ITS ---
Subjective Subjective: Interval history: Noted have respiratory distress this morning. Oxygen saturation around low 80s. Was not able to maintain on 6 L and transition to heated high-flow. Noted to be in atrial fibrillation. Denies chest pain or shortness of breath. Medications: Reviewed: Yes Vitals/I&O/Wt Last Vital Signs Temp 97.6 F 12/17/20 16:00 Pulse 138 H 12/17/20 16:00 Resp 17 12/17/20 16:00 BP 94/67 12/17/20 16:00 Pulse Ox 98 12/17/20 16:00 12/17/20 12/17/20 12/17/20 06:59 14:59 22:59 Intake Total 20 / 430 50 / 50 Output Total 600 / 1250 Balance -580 / -820 50 / 50 Weight last 48 hrs Weight 82.355 kg Weight 84.567 kg Physical Exam Narrative: EXAM NARRATIVE: General- alert awake oriented, mild respiratory distress HEENT- grossly unremarkable CVS- atrial fibrillation Chest: mild labored respiration Abdomen- soft nontender nondistended Extremities- mild bilateral lower extremity edema Urinary Catheter Management^: Buck: Cath Placed During This Visit: yes Reason for Continuing Indwelling Catheter: Acute Urinary Retention or Obstruction Urinary Catheter Date of Insertion: 11/30/20 Urinary Catheter Time of Insertion: 14:48 Data : 12/17/20 04:29 12/17/20 04:29 A&P Assessment and plan (1) Acute and chronic respiratory failure with hypoxia: Etiology multi-factorial - CHF vs COPD vs Pneumonia O2 sats low 80s, mild respiratory distress. Transition to heated high flow Wean off oxygen as tolerated BIPAP Qhs CT Chest: small b/l pleural effusions with compressive atelectasis in ame lung bases slightly increased, slightly hazy groundglass infiltrates in upper lobes. Pulmonary edema vs pneumoniitis Will likely need diuretics Neb tx Steroids CXR in am Status: Acute (2) Fracture of right distal radius: Right wrist fracture, continue splint. Will need to continue for 6 weeks. May be taken off for range of motion exercises with PT/OT Status: Acute (3) Physical deconditioning: Status: Acute (4) Severe pulmonary hypertension: Status: Acute (5) Healthcare-associated pneumonia: Status: Acute (6) Steroid-induced hyperglycemia: SSI. Added Lantus. Increased to 12 units. Status: Acute Additional A&P Information Chronic kidney disease, with acute kidney injury - Creatinine increase to 1.7 - Consider nephrology consult - Renal dosing - Monitor u/o - Cautious use of diuretics. 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 Time Spent in Patient Care: Greater than 35 minutes (>than 50% of time spent in counselling and/or direct pt care on unit) . Coding Level of Care Code Acute Cnc Mill And Lathe Operator for 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 Steroid-induced hyperglycemia R73.9; T38.0X5A
[2020-12-18] VITALS (18 sets, daily range): BP systolic 88–134; BP diastolic 54–74; PULSE 58–122; RESP 16–20; TEMP 36.4–37.3; O2SAT 92–100; BMI 36.3
[2020-12-18] MEDS: ipratropium-albuterol 3 mL Neb INHALATION ×6 (00:08→19:49)
[2020-12-18] MEDS: insulin lispro 100 unit/1 mL SUBCUT ×3 (00:21→16:57)
[2020-12-18] MEDS: insulin glargine 100 units/1 mL 12 UNIT SUBCUT ×2 (00:21→21:23)
[2020-12-18] MEDS: dilTIAZem 30 mg Tablet 60 MG PO ×3 (04:51→21:25)
[2020-12-18] MEDS: sucralfate 1 gm Tablet PO ×2 (06:08→16:57)
--- NOTE | 2020-12-18 06:51 | PM.PN ---
Subjective Subjective: Interval history: The patient apparently had to be placed on 30 L of heated oxygen yesterday to keep adequate oxygenation. She is wearing her BiPAP mask this morning. Vitals/I&O/Wt Last Vital Signs Temp 99.2 F 12/18/20 04:00 Pulse 102 H 12/18/20 04:40 Resp 16 12/18/20 04:39 BP 112/73 12/18/20 04:00 Pulse Ox 93 12/18/20 04:40 12/17/20 12/17/20 12/18/20 14:59 22:59 06:59 Intake Total 50 / 270 200 / 270 20 / 270 Balance 50 / 270 200 / 270 20 / 270 Weight last 48 hrs Weight 186 lb Weight 181 lb 9 oz Physical Exam Narrative: EXAM NARRATIVE: The patient is wearing her BiPAP mask. Respiratory took that off this morning and placed her back on her high flow oxygen to keep her oxygen levels up. Urinary Catheter Management^: Buck: Cath Placed During This Visit: yes Reason for Continuing Indwelling Catheter: Acute Urinary Retention or Obstruction Urinary Catheter Date of Insertion: 11/30/20 Urinary Catheter Time of Insertion: 14:48 Data : 12/17/20 04:29 12/17/20 04:29 A&P Assessment and plan (1) Anemia: We discussed possible sources of bleeding. The patient does have an ongoing need for anticoagulation. She has a remote history of but probable empiric diagnosis of peptic ulcer disease. We have discussed an EGD in some detail. Given her respiratory difficulties yesterday and the fact that she has to be kept on high flow oxygen this morning, I am hesitant to proceed with the patient's EGD this morning. She continues on her PPI. Hopefully in the coming days her respiratory status will be a little bit more stable and this can be achieved, but unfortunately I have to leave town after today and someone else will have to be involved in her endoscopy. Status: Acute (2) Heme positive stool: Status: Acute (3) NSAID long-term use: The patient says that she is accustomed to taking about 6 ibuprofen tablets a day and has been doing this for quite a while. While she says she does not do this absolutely every day it sounds like a fairly regular thing for her. Status: Acute Attestations Medical Necessity Statement*: See admitting service's notation. Coding Level of Care Code Acute Executive Office Manager for Chg Fwd Diagnoses Anemia D64.9 Heme positive stool R19.5 NSAID long-term use Z79.1
[2020-12-18] MEDS: levothyroxine 175 mcg Tablet PO (08:14)
[2020-12-18] MEDS: pantoprazole 40 mg SDV IVP ×2 (08:14→21:23)
[2020-12-18] MEDS: ferrous gluconate 324 mg Tablet PO ×2 (08:14→16:57)
[2020-12-18] MEDS: predniSONE 20 mg Tablet 40 MG PO (08:14)
[2020-12-18] MEDS: atorvastatin 40 mg Tablet 20 MG PO (08:14)
[2020-12-18] MEDS: fluoxetine 20 mg Capsule PO (08:15)
[2020-12-18] MEDS: midodrine 5 mg TABLET 10 MG PO ×3 (08:15→21:25)
[2020-12-18 10:37] LABS: Glucose Point of Care 273 mg/dL (70-110)
[2020-12-18 12:02] LABS: Glucose Point of Care 188 mg/dL (70-110)
[2020-12-18 14:54] LABS: Coronavirus Test Green County Not Detected
--- NOTE | 2020-12-18 16:29 | P.PN_ITS ---
Subjective Subjective: Interval history: Remained on high flow with bipap last night. Improving respiratory status, no fever or chills. Planned for EGD however due to respiratory failure this was held. Medications: Reviewed: Yes Vitals/I&O/Wt Last Vital Signs Temp 97.6 F 12/18/20 15:49 Pulse 63 12/18/20 16:02 Resp 20 H 12/18/20 16:02 BP 104/68 12/18/20 15:49 Pulse Ox 96 12/18/20 16:02 12/18/20 12/18/20 12/18/20 06:59 14:59 22:59 Intake Total 20 / 270 360 / 360 720 / 1080 Output Total 400 / 400 Balance 20 / 270 360 / 360 320 / 680 Weight last 48 hrs Weight 84.368 kg Weight 82.355 kg Physical Exam Narrative: EXAM NARRATIVE: General- alert awake oriented, no respiratory distress sitting in chair HEENT- grossly unremarkable CVS- atrial fibrillation Chest: mild labored respiration Abdomen- soft nontender nondistended Extremities- mild bilateral lower extremity edema Urinary Catheter Management^: Buck: Cath Placed During This Visit: yes Reason for Continuing Indwelling Catheter: Other Urinary Catheter Date of Insertion: 11/30/20 Urinary Catheter Time of Insertion: 14:48 Data : 12/17/20 04:29 12/17/20 04:29 A&P Assessment and plan (1) Acute and chronic respiratory failure with hypoxia: Etiology multi-factorial - CHF vs COPD vs Pneumonia O2 sats stable on high flow, weaning fio2 BIPAP Qhs CT Chest: small b/l pleural effusions with compressive atelectasis in ame lung bases slightly increased, slightly hazy groundglass infiltrates in upper lobes. Pulmonary edema vs pneumoniitis Will likely need diuretics Neb tx Steroids CXR in am Continue current management as noted above. Status: Acute (2) Fracture of right distal radius: Right wrist fracture, continue splint. Will need to continue for 6 weeks. May be taken off for range of motion exercises with PT/OT Status: Acute (3) Physical deconditioning: Status: Acute (4) Severe pulmonary hypertension: Status: Acute (5) Healthcare-associated pneumonia: Status: Acute (6) Steroid-induced hyperglycemia: SSI. Added Lantus. Increased to 12 units. Status: Acute Additional A&P Information Chronic kidney disease, with acute kidney injury - Creatinine increase to 1.7 - Consider nephrology consult - Renal dosing - Monitor u/o - Cautious use of diuretics. - Repeat BMP Pending Acute on chronic anemia - Hb stable - Eliquis on hold - S/p transfusion of 1 unit - PPI - General surgery consult - Pt refused outpt colonoscopy - EGD was HELD - monitor h/h Atrial fibrillation with RVR ] - Improving. 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 Coding Level of Care Code Acute Manufacturing Intern for Chg Fwd Diagnoses Acute and chronic respiratory failure with hypoxia J96.21 Fracture of right distal radius S52.501A Physical deconditioning R53.81 Severe pulmonary hypertension I27.20 Healthcare-associated pneumonia J18.9 Steroid-induced hyperglycemia R73.9; T38.0X5A
[2020-12-18 17:03] LABS: Glucose Point of Care 226 mg/dL (70-110)
--- NOTE | 2020-12-18 19:00 | XRR_ITS ---
PROCEDURE INFORMATION: Exam: XR Chest Exam date and time: 12/18/2020 7:00 PM Age: 75 years old Clinical indication: Shortness of breath; Additional info: Respiratory distres TECHNIQUE: Imaging protocol: XR of the chest. Views: 1 view. COMPARISON: CT chest con [id number] 12/15/2020 1:32 PM FINDINGS: Tubes, catheters and devices: Right PICC line with tip over the mid SVC. Lungs: Vascular congestion. Diffuse interstitial opacities in both lungs and ground-glass opacities in the right lung base. Pleural spaces: Small right pleural effusion. Heart/Mediastinum: Calcified mediastinal and right hilar lymph nodes. Cardiomegaly. 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 XR/XR chest 1V [id number] IMPRESSION: 1. Congestive heart failure pattern. Radiation Dose CTDIVOL = (mGy): DLP = (mGy-cm)
[2020-12-18 20:15] LABS: Glucose Point of Care 183 mg/dL (70-110)
[2020-12-18 20:39] LABS: Blood Urea Nitrogen 72 mg/dL (8-23); Calcium 9.2 mg/dL (8.5-10.5); Carbon Dioxide 30 mmol/L (22-29); Chloride 86 mmol/L (98-107); Glucose 168 mg/dL (65-115); Osmolality Calculated 289 mOsm/kg (285-295); Sodium 127 mmol/L (136-145)
[2020-12-18 20:42] LABS: Anion Gap 15.2 (5-19); Potassium 4.2 mmol/L (3.5-5.1)
--- NOTE | 2020-12-18 22:55 | PC.NURSE ---
Assessment. TAR STOOL ASSESSMENT COMPLETE. PT AAOX4 AND ABLE TO VERBALIZE NEEDS. PT TRANSFERRED FROM CHAIR TO BED. LARGE TAR-LIKE BM NOTED. FRANSISCO CARE AND CATHETER CARE DONE HAND HYGIENE PERFORMED AND PICC DRESSING CHANGED USING STERILE TECHNIQUE-- CAPS CHANGED.
[2020-12-19] VITALS (20 sets, daily range): BP systolic 80–97; BP diastolic 55–63; PULSE 18–111; RESP 16–92; TEMP 36.4–36.7; O2SAT 86–100
[2020-12-19] MEDS: ipratropium-albuterol 3 mL Neb INHALATION ×7 (00:15→23:06)
--- NOTE | 2020-12-19 03:44 | PC.NURSE ---
REASSESSMENT PT RESTING WITH EYES CLOSED. NO S/S OF PAIN NOTED. CONNECTED TO BIPAP 01/20 fIO2 40%-- PULSE OX 100% NO S/S OF ACUTE DISTRESS.
[2020-12-19 04:59] LABS: Basophils % 0.2 %; Hematocrit 25.8 % (37.0-47.0); Hemoglobin 8.1 g/dL (11.5-15.3); Lymphocytes # 0.5 10^3/uL (0.8-4.8); Lymphocytes % 4.5 %; Mean Corpuscular HGB Conc 31.4 g/dL (30.0-36.0); Mean Corpuscular Hemoglobin 26.6 pg (28.0-34.0); Mean Corpuscular Volume 84.6 fl (81-99); Mean Platelet Volume 11.2 fL (7.4-10.4); Monocytes # 0.4 10^3/uL (0.2-0.9); Monocytes % 3.3 %; Neutrophils # 10.18 10^3/uL (1.8-7.7); Neutrophils % 90.4 %; Nucleated Red Blood Cells % 0.4 %; Platelet Count 232 10^3/cmm (130-400); Red Blood Count 3.05 10^6/uL (4.1-5.3); Red Cell Distribution Width 17.3 % (12.1-15.1); White Blood Count 11.3 10^3/uL (4.0-10.0)
[2020-12-19 05:27] LABS: Alanine Aminotransferase 58 U/L (0-33); Albumin Level 3.3 g/dL (3.5-5.2); Alkaline Phosphatase 187 IU/L (35-105); Anion Gap 16.6 (5-19); Aspartate Amino Transferase 22 U/L (0-32); Blood Urea Nitrogen 72 mg/dL (8-23); Calcium 9.2 mg/dL (8.5-10.5); Carbon Dioxide 30 mmol/L (22-29); Chloride 87 mmol/L (98-107); Globulin 2.3 g/dL (1.3-4.6); Glucose 151 mg/dL (65-115); Osmolality Calculated 294 mOsm/kg (285-295); Potassium 3.6 mmol/L (3.5-5.1); Sodium 130 mmol/L (136-145); Total Bilirubin 0.9 mg/dL (0.15-1.2); Total Protein 5.6 g/dL (6.6-8.7)
[2020-12-19] MEDS: sucralfate 1 gm Tablet PO ×2 (05:55→17:29)
[2020-12-19 06:32] LABS: Glucose Point of Care 147 mg/dL (70-110)
[2020-12-19] MEDS: insulin lispro 100 unit/1 mL SUBCUT ×3 (08:18→20:58)
[2020-12-19] MEDS: atorvastatin 40 mg Tablet 20 MG PO (08:40)
[2020-12-19] MEDS: ferrous gluconate 324 mg Tablet PO ×2 (08:41→17:29)
[2020-12-19] MEDS: predniSONE 20 mg Tablet 40 MG PO (08:41)
[2020-12-19] MEDS: levothyroxine 175 mcg Tablet PO (08:41)
[2020-12-19] MEDS: pantoprazole 40 mg SDV IVP ×2 (08:42→20:58)
[2020-12-19] MEDS: fluoxetine 20 mg Capsule PO (08:42)
[2020-12-19] MEDS: midodrine 5 mg TABLET 10 MG PO ×3 (08:42→20:58)
[2020-12-19] MEDS: polyethylene glycol 3350 Pkt 17 gm PO (08:43)
--- NOTE | 2020-12-19 10:53 | PC.SOCIAL ---
IMM update IMM updated with patient. Copy Pg 2 provided. Verbalized an understanding. Initialled, dated, timed, and placed in chart.
--- NOTE | 2020-12-19 10:59 | PC.NURSE ---
Notified respiratory therapist, John, that pt's O2 sat 79-81% on 35 L 40% heated high flow. John to floor to assess. Nurse stayed with pt until RT arrived.
[2020-12-19 12:15] LABS: Glucose Point of Care 114 mg/dL (70-110)
--- NOTE | 2020-12-19 13:28 | PM.PN ---
Subjective Subjective: Interval history: Patient was seen and examined this morning continue to require 40 % FiO2 on heated high flow, continue to be hypotensive, since admission she has been 15 Ls negative. Heart rate is currently well controlled. Patient was seen sitting in the chair all day today. Medications: Reviewed: Yes Vitals/I&O/Wt Last Vital Signs Temp 97.5 F L 12/19/20 12:00 Pulse 61 12/19/20 12:00 Resp 17 12/19/20 12:00 BP 83/55 12/19/20 12:00 Pulse Ox 93 12/19/20 12:00 12/18/20 12/19/20 12/19/20 22:59 06:59 14:59 Intake Total 840 / 1200 250 / 250 Output Total 650 / 650 175 / 825 Balance 190 / 550 -175 / 375 250 / 250 Weight last 48 hrs Weight 85.094 kg Weight 84.368 kg Physical Exam Const: COMMON NORMALS: patient oriented x3 HENMT: COMMON NORMALS: normocephalic and atraumatic HEAD & SCALP: normocephalic and atraumatic Resp: EFFORT & INSPECTION: Yes symmetric chest movement OTHER: Diminished air entry bilaterally, minimal expiratory wheezing bilaterally, Cardio: COMMON NORMALS: regular rate, regular rhythm, S1 normal heart sound present, S2 normal heart sound present, No gallops present (Cardio) and No rub (Cardio) RATE: regular rate RHYTHM: regular rhythm HEART SOUNDS: S1 normal heart sound present and S2 normal heart sound present OTHER: Pansystolic murmur in mitral area GI: COMMON NORMALS: Normal to inspection, nondistended, normoactive bowel sounds present, Soft to palpation, non-tender, No hepatosplenomegaly present and no masses AUSCULTATION: Yes normoactive bowel sounds PALPATION: Yes Soft to palpation and Yes No hepatosplenomegaly present RECTAL EXAM: deferred Extremity: COMMON NORMALS: no clubbing, cyanosis or edema and no pedal edema Neuro: COMMON NORMALS: patient oriented x3 Urinary Catheter Management^: Buck: Cath Placed During This Visit: yes Reason for Continuing Indwelling Catheter: Other Urinary Catheter Date of Insertion: 11/30/20 Urinary Catheter Time of Insertion: 14:48 Data : 12/19/20 04:15 12/19/20 04:15 A&P Assessment and plan (1) Acute and chronic respiratory failure with hypoxia: Etiology multi-factorial - CHF vs COPD vs Pneumonia O2 sats stable on high flow, weaning fio2 BIPAP Qhs CT Chest: small b/l pleural effusions with compressive atelectasis in ame lung bases slightly increased, slightly hazy groundglass infiltrates in upper lobes. Pulmonary edema vs pneumoniitis Neb tx Steroids CXR Continue to hold Bumex as the patient is euvolemic Patient has been on multiple antibiotics and has missed (vancomycin, cefepime, Zosyn, imipenem, Augmentin), will keep antibiotics on hold for now. Gentle IV hydration NS 50 cc an hour Status: Acute (2) Fracture of right distal radius: Right wrist fracture, continue splint. Will need to continue for 6 weeks. May be taken off for range of motion exercises with PT/OT Status: Acute (3) Physical deconditioning: Status: Acute (4) Severe pulmonary hypertension: Status: Acute (5) Healthcare-associated pneumonia: Status: Acute (6) Steroid-induced hyperglycemia: SSI. Added Lantus. Increased to 12 units. Status: Acute Additional A&P Information Chronic kidney disease, with acute kidney injury - Creatinine increase to 1.7 - Consider nephrology consult - Renal dosing - Monitor u/o - Cautious use of diuretics. - Repeat BMP Pending Acute on chronic anemia - Hb stable - Eliquis on hold - S/p transfusion of 1 unit - PPI - General surgery consult - Pt refused outpt colonoscopy - EGD was HELD - monitor h/h Atrial fibrillation with RVR ] - Improving. 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 Coding Level of Care Code Acute Resource Program Teacher for Chg Fwd Exam Detailed Diagnoses Acute and chronic respiratory failure with hypoxia J96.21 Fracture of right distal radius S52.501A Physical deconditioning R53.81 Severe pulmonary hypertension I27.20 Healthcare-associated pneumonia J18.9 Steroid-induced hyperglycemia R73.9; T38.0X5A
[2020-12-19] MEDS: acetaminophen 325 mg Tablet PO (15:23)
[2020-12-19 17:03] LABS: Glucose Point of Care 208 mg/dL (70-110)
[2020-12-19] MEDS: sodium chloride 0.9% 1,000 ML 50 ML IV (18:47)
[2020-12-19 20:21] LABS: Glucose Point of Care 210 mg/dL (70-110)
[2020-12-19] MEDS: insulin glargine 100 units/1 mL 12 UNIT SUBCUT (20:58)
[2020-12-20] VITALS (21 sets, daily range): BP systolic 78–106; BP diastolic 56–74; PULSE 83–118; RESP 16–22; TEMP 36.4–36.7; O2SAT 90–977
[2020-12-20] MEDS: ipratropium-albuterol 3 mL Neb INHALATION ×6 (04:04→23:39)
[2020-12-20 06:49] LABS: Glucose Point of Care 150 mg/dL (70-110)
[2020-12-20 11:19] LABS: Glucose Point of Care 244 mg/dL (70-110)
[2020-12-20] MEDS: levothyroxine 175 mcg Tablet PO (11:25)
[2020-12-20] MEDS: fluoxetine 20 mg Capsule PO (11:25)
[2020-12-20] MEDS: midodrine 5 mg TABLET 10 MG PO ×3 (11:25→21:10)
[2020-12-20] MEDS: ferrous gluconate 324 mg Tablet PO ×2 (11:25→17:52)
[2020-12-20] MEDS: insulin lispro 100 unit/1 mL SUBCUT ×3 (11:26→21:11)
[2020-12-20] MEDS: atorvastatin 40 mg Tablet 20 MG PO (11:26)
[2020-12-20] MEDS: pantoprazole 40 mg SDV IVP (11:26)
--- NOTE | 2020-12-20 14:39 | PM.PN ---
Subjective Subjective: Interval history: Patient was seen and examined this morning, overall she is doing better, shortness of breath is much improved, currently she is requiring 4 to 6 L oxygen through nasal cannula, blood pressure is better with 1.5ls IV fluids, heart rate is better. Good urine output. Medications: Reviewed: Yes Vitals/I&O/Wt Last Vital Signs Temp 97.6 F 12/20/20 10:50 Pulse 103 H 12/20/20 11:32 Resp 20 H 12/20/20 11:32 BP 93/60 12/20/20 10:50 Pulse Ox 99 12/20/20 11:32 12/19/20 12/20/20 12/20/20 22:59 06:59 14:59 Intake Total 200 / 450 140 / 590 480 / 480 Output Total 650 / 650 Balance 200 / 450 -510 / -60 480 / 480 Weight last 48 hrs Weight 84.538 kg Weight 85.094 kg Physical Exam Const: COMMON NORMALS: patient oriented x3 HENMT: COMMON NORMALS: normocephalic and atraumatic HEAD & SCALP: normocephalic and atraumatic Resp: COMMON NORMALS: clear to auscultation bilaterally EFFORT & INSPECTION: Yes symmetric chest movement AUSCULTATION: clear to auscultation bilaterally Cardio: COMMON NORMALS: regular rate, regular rhythm, S1 normal heart sound present, S2 normal heart sound present, No gallops present (Cardio) and No rub (Cardio) RATE: regular rate RHYTHM: regular rhythm HEART SOUNDS: S1 normal heart sound present and S2 normal heart sound present OTHER: Pansystolic murmur in mitral area GI: COMMON NORMALS: Normal to inspection, nondistended, normoactive bowel sounds present, Soft to palpation, non-tender, No hepatosplenomegaly present and no masses AUSCULTATION: Yes normoactive bowel sounds PALPATION: Yes Soft to palpation and Yes No hepatosplenomegaly present RECTAL EXAM: deferred Extremity: COMMON NORMALS: no clubbing, cyanosis or edema and no pedal edema Neuro: COMMON NORMALS: patient oriented x3 Urinary Catheter Management^: Buck: Cath Placed During This Visit: yes Reason for Continuing Indwelling Catheter: Other Urinary Catheter Date of Insertion: 11/30/20 Urinary Catheter Time of Insertion: 14:48 Data : 12/19/20 04:15 12/19/20 04:15 A&P Assessment and plan (1) Acute and chronic respiratory failure with hypoxia: Etiology multi-factorial - CHF vs COPD vs Pneumonia O2 sats stable on high flow, weaning fio2 BIPAP Qhs CT Chest: small b/l pleural effusions with compressive atelectasis in ame lung bases slightly increased, slightly hazy groundglass infiltrates in upper lobes. Pulmonary edema vs pneumoniitis Neb tx Steroids CXR Continue to hold Bumex as the patient is euvolemic Patient has been on multiple antibiotics and has missed (vancomycin, cefepime, Zosyn, imipenem, Augmentin), will keep antibiotics on hold for now. Gentle IV hydration NS 50 cc an hour Status: Acute (2) Fracture of right distal radius: Right wrist fracture, continue splint. Will need to continue for 6 weeks. May be taken off for range of motion exercises with PT/OT Status: Acute (3) Physical deconditioning: Status: Acute (4) Severe pulmonary hypertension: Status: Acute (5) Healthcare-associated pneumonia: Status: Acute (6) Steroid-induced hyperglycemia: SSI. Added Lantus. Increased to 12 units. Status: Acute Additional A&P Information Chronic kidney disease, with acute kidney injury - Creatinine increase to 1.7 - Consider nephrology consult - Renal dosing - Monitor u/o - Cautious use of diuretics. - Repeat BMP Pending Acute on chronic anemia - Hb stable - Eliquis on hold - S/p transfusion of 1 unit - PPI - General surgery consult - Pt refused outpt colonoscopy - EGD was HELD - monitor h/h Atrial fibrillation with RVR ] - Improving. 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 Coding Level of Care Code Acute Mobile Equipment Mechanic for Chg Fwd Exam Detailed Diagnoses Acute and chronic respiratory failure with hypoxia J96.21 Fracture of right distal radius S52.501A Physical deconditioning R53.81 Severe pulmonary hypertension I27.20 Healthcare-associated pneumonia J18.9 Steroid-induced hyperglycemia R73.9; T38.0X5A
[2020-12-20] MEDS: sodium chloride 0.9% 500 ML 50 ML IV (14:47)
[2020-12-20 17:11] LABS: Glucose Point of Care 191 mg/dL (70-110)
[2020-12-20] MEDS: sucralfate 1 gm Tablet PO (17:52)
[2020-12-20 20:40] LABS: Glucose Point of Care 264 mg/dL (70-110)
[2020-12-20] MEDS: insulin glargine 100 units/1 mL 12 UNIT SUBCUT (21:11)
[2020-12-21] VITALS (16 sets, daily range): BP systolic 101–116; BP diastolic 60–71; PULSE 72–119; RESP 16–21; TEMP 36.5–36.8; O2SAT 90–96
[2020-12-21] MEDS: ipratropium-albuterol 3 mL Neb INHALATION ×5 (03:09→23:43)
[2020-12-21 05:27] LABS: Basophils % 0.1 %; Hematocrit 26.4 % (37.0-47.0); Hemoglobin 8.1 g/dL (11.5-15.3); Lymphocytes # 0.2 10^3/uL (0.8-4.8); Lymphocytes % 1.7 %; Mean Corpuscular HGB Conc 30.7 g/dL (30.0-36.0); Mean Corpuscular Hemoglobin 26.6 pg (28.0-34.0); Mean Corpuscular Volume 86.8 fl (81-99); Mean Platelet Volume 10.2 fL (7.4-10.4); Monocytes # 0.3 10^3/uL (0.2-0.9); Monocytes % 2.1 %; Neutrophils # 11.36 10^3/uL (1.8-7.7); Nucleated Red Blood Cells % 0.2 %; Platelet Count 229 10^3/cmm (130-400); Red Blood Count 3.04 10^6/uL (4.1-5.3); Red Cell Distribution Width 17.6 % (12.1-15.1); White Blood Count 12.1 10^3/uL (4.0-10.0)
[2020-12-21 05:52] LABS: Blood Urea Nitrogen 64 mg/dL (8-23); Calcium 9.1 mg/dL (8.5-10.5); Carbon Dioxide 30 mmol/L (22-29); Chloride 92 mmol/L (98-107); Glucose 146 mg/dL (65-115); Osmolality Calculated 295 mOsm/kg (285-295); Sodium 132 mmol/L (136-145)
--- NOTE | 2020-12-21 06:34 | PC.NURSE ---
pt requested this nurse order her breakfast: milk, cheerios, banana, and yogurt with berries. Order called to the cafeteria at this time.
[2020-12-21 06:36] LABS: Glucose Point of Care 168 mg/dL (70-110)
[2020-12-21] MEDS: midodrine 5 mg TABLET 10 MG PO ×3 (08:35→20:42)
[2020-12-21] MEDS: insulin lispro 100 unit/1 mL SUBCUT ×4 (08:35→20:42)
[2020-12-21] MEDS: sucralfate 1 gm Tablet PO ×2 (08:35→17:15)
[2020-12-21] MEDS: ferrous gluconate 324 mg Tablet PO ×2 (08:35→17:15)
--- NOTE | 2020-12-21 10:30 | PC.SOCIAL ---
IMM Update Discussed medicare rights with patient and provided her with a copy. Verbalized understanding. Initialed,timed, dated copy placed in chart.
[2020-12-21 11:03] LABS: Glucose Point of Care 252 mg/dL (70-110)
[2020-12-21 17:01] LABS: Glucose Point of Care 193 mg/dL (70-110)
[2020-12-21] MEDS: guaiFENesin 600 mg Tablet PO (17:15)
--- NOTE | 2020-12-21 18:06 | P.PN_ITS ---
Subjective Subjective: Interval history: Patient was seen and examined this morning, no acute events overnight.Currently she is saturating well on 4ls Oxygen via [place].This is her home oxygen.Blood Pressure has improved,continue t be in a.fib but H/r is better conolled. Will plan o initiate low dose metopolol tartrate. Medications: Reviewed: Yes Vitals/I&O/Wt Last Vital Signs Temp 97.8 F 12/21/20 15:26 Pulse 89 12/21/20 16:11 Resp 17 12/21/20 16:02 BP 105/62 12/21/20 15:26 Pulse Ox 93 12/21/20 16:02 12/21/20 12/21/20 12/21/20 06:59 14:59 22:59 Intake Total 840 / 840 480 / 1320 Output Total 650 / 650 Balance 840 / 840 -170 / 670 Weight last 48 hrs Weight 86.863 kg Weight 84.538 kg Physical Exam Const: COMMON NORMALS: patient oriented x3 HENMT: COMMON NORMALS: normocephalic and atraumatic HEAD & SCALP: normocephalic and atraumatic Resp: COMMON NORMALS: clear to auscultation bilaterally EFFORT & INSPECTION: Yes symmetric chest movement AUSCULTATION: clear to auscultation bilaterally OTHER: Diminished air entry bilaterally, minimal expiratory wheezing bilaterally, Cardio: COMMON NORMALS: regular rate, regular rhythm, S1 normal heart sound present, S2 normal heart sound present, No gallops present (Cardio) and No rub (Cardio) RATE: regular rate RHYTHM: regular rhythm HEART SOUNDS: S1 normal heart sound present and S2 normal heart sound present OTHER: Pansystolic murmur in mitral area GI: COMMON NORMALS: Normal to inspection, nondistended, normoactive bowel sounds present, Soft to palpation, non-tender, No hepatosplenomegaly present and no masses AUSCULTATION: Yes normoactive bowel sounds PALPATION: Yes Soft to palpation and Yes No hepatosplenomegaly present RECTAL EXAM: deferred Extremity: COMMON NORMALS: no clubbing, cyanosis or edema and no pedal edema Neuro: COMMON NORMALS: patient oriented x3 Urinary Catheter Management^: Buck: Cath Placed During This Visit: yes Reason for Continuing Indwelling Catheter: Assist healing open wound Urinary Catheter Date of Insertion: 11/30/20 Urinary Catheter Time of Insertion: 14:48 Data : 12/21/20 04:20 12/21/20 04:20 A&P Assessment and plan (1) Acute and chronic respiratory failure with hypoxia: Etiology multi-factorial - CHF vs COPD vs Pneumonia O2 sats stable on high flow, weaning fio2 BIPAP Qhs CT Chest: small b/l pleural effusions with compressive atelectasis in ame lung bases slightly increased, slightly hazy groundglass infiltrates in upper lobes. Pulmonary edema vs pneumoniitis Neb tx Steroids CXR Continue to hold Bumex as the patient is euvolemic Patient has been on multiple antibiotics and has missed (vancomycin, cefepime, Zosyn, imipenem, Augmentin), will keep antibiotics on hold for now. Status: Acute (2) Fracture of right distal radius: Right wrist fracture, continue splint. Will need to continue for 6 weeks. May be taken off for range of motion exercises with PT/OT Status: Acute (3) Physical deconditioning: Status: Acute (4) Severe pulmonary hypertension: Status: Acute (5) Healthcare-associated pneumonia: Status: Acute (6) Steroid-induced hyperglycemia: SSI. Added Lantus. Increased to 12 units. Status: Acute Additional A&P Information Chronic kidney disease, with acute kidney injury - Creatinine increase to 1.7 - Consider nephrology consult - Renal dosing - Monitor u/o - Cautious use of diuretics. - Repeat BMP Pending Acute on chronic anemia - monitor h/h - Eliquis on hold - S/p transfusion of 1 unit - PPI - General surgery consult - Pt refused outpt colonoscopy - EGD was HELD Atrial fibrillation with RVR - Improving. 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 Coding Level of Care Code Acute Dealer Compliance Representative for Chg Fwd Diagnoses Acute and chronic respiratory failure with hypoxia J96.21 Fracture of right distal radius S52.501A Physical deconditioning R53.81 Severe pulmonary hypertension I27.20 Healthcare-associated pneumonia J18.9 Steroid-induced hyperglycemia R73.9; T38.0X5A
[2020-12-21 20:22] LABS: Glucose Point of Care 183 mg/dL (70-110)
[2020-12-21] MEDS: insulin glargine 100 units/1 mL 12 UNIT SUBCUT (20:42)
[2020-12-22] VITALS (18 sets, daily range): BP systolic 85–109; BP diastolic 57–70; PULSE 76–111; RESP 17–20; TEMP 36.4–36.9; O2SAT 90–99
[2020-12-22] MEDS: ipratropium-albuterol 3 mL Neb INHALATION ×6 (03:26→23:08)
[2020-12-22 06:01] LABS: Basophils % 0.1 %; Eosinophils % 0.1 %; Hematocrit 26.5 % (37.0-47.0); Lymphocytes # 0.3 10^3/uL (0.8-4.8); Lymphocytes % 1.8 %; Mean Corpuscular HGB Conc 30.2 g/dL (30.0-36.0); Mean Platelet Volume 10.3 fL (7.4-10.4); Monocytes # 0.3 10^3/uL (0.2-0.9); Neutrophils % 93.7 %; Nucleated Red Blood Cells % 0.3 %; Platelet Count 209 10^3/cmm (130-400); Red Blood Count 3.08 10^6/uL (4.1-5.3); Red Cell Distribution Width 17.3 % (12.1-15.1); White Blood Count 14.6 10^3/uL (4.0-10.0)
[2020-12-22 06:25] LABS: Anion Gap 12.5 (5-19); Blood Urea Nitrogen 58 mg/dL (8-23); Calcium 9.2 mg/dL (8.5-10.5); Carbon Dioxide 30 mmol/L (22-29); Chloride 94 mmol/L (98-107); Glucose 142 mg/dL (65-115); Osmolality Calculated 293 mOsm/kg (285-295); Potassium 4.5 mmol/L (3.5-5.1); Sodium 132 mmol/L (136-145)
[2020-12-22 06:52] LABS: Glucose Point of Care 166 mg/dL (70-110)
[2020-12-22] MEDS: ferrous gluconate 324 mg Tablet PO ×2 (08:31→17:31)
[2020-12-22] MEDS: insulin lispro 100 unit/1 mL SUBCUT ×3 (08:31→21:56)
[2020-12-22] MEDS: guaiFENesin 600 mg Tablet PO ×2 (08:31→17:31)
[2020-12-22] MEDS: digoxin 250 mcg/ml INJ 2 mL IVP ×2 (09:29→19:59)
[2020-12-22] MEDS: metoprolol tartrate 25 mg Tablet 12.5 MG PO (09:30)
[2020-12-22 11:37] LABS: Glucose Point of Care 119 mg/dL (70-110)
--- NOTE | 2020-12-22 12:53 | P.PN_ITS ---
Subjective Subjective: Interval history: Patient was seen and examined this morning, no acute events overnight.Currently she is saturating well on 4ls Oxygen via [place].This is her home oxygen.Blood Pressure has improved, plan is to do EGD likely tomorrow in the morning. Cardiology consulted for Management of A. fib , severe pulmonary hypertension , heart failure Medications: Reviewed: Yes Vitals/I&O/Wt Last Vital Signs Temp 98.5 F 12/22/20 11:09 Pulse 91 12/22/20 11:28 Resp 20 H 12/22/20 11:20 BP 109/70 12/22/20 11:09 Pulse Ox 99 12/22/20 11:20 12/21/20 12/22/20 12/22/20 22:59 06:59 14:59 Intake Total 480 / 1320 Output Total 650 / 650 400 / 1050 Balance -170 / 670 -400 / 270 Weight last 48 hrs Weight 87.861 kg Weight 86.863 kg Physical Exam Const: COMMON NORMALS: patient oriented x3 HENMT: COMMON NORMALS: normocephalic and atraumatic HEAD & SCALP: normocephalic and atraumatic Resp: COMMON NORMALS: clear to auscultation bilaterally EFFORT & INSPECTION: Yes symmetric chest movement AUSCULTATION: clear to auscultation bilaterally OTHER: Diminished air entry bilaterally, minimal expiratory wheezing bilaterally, Cardio: COMMON NORMALS: regular rate, regular rhythm, S1 normal heart sound present, S2 normal heart sound present, No gallops present (Cardio) and No rub (Cardio) RATE: regular rate RHYTHM: regular rhythm HEART SOUNDS: S1 normal heart sound present and S2 normal heart sound present OTHER: Pansystolic murmur in mitral area GI: COMMON NORMALS: Normal to inspection, nondistended, normoactive bowel sounds present, Soft to palpation, non-tender, No hepatosplenomegaly present and no masses AUSCULTATION: Yes normoactive bowel sounds PALPATION: Yes Soft to palpation and Yes No hepatosplenomegaly present RECTAL EXAM: deferred Extremity: COMMON NORMALS: no clubbing, cyanosis or edema and no pedal edema Neuro: COMMON NORMALS: patient oriented x3 Urinary Catheter Management^: Buck: Cath Placed During This Visit: yes Reason for Continuing Indwelling Catheter: Acute Urinary Retention or Obstruction Urinary Catheter Date of Insertion: 11/30/20 Urinary Catheter Time of Insertion: 14:48 Data : 12/22/20 04:12 12/22/20 04:12 A&P Assessment and plan (1) Acute and chronic respiratory failure with hypoxia: Etiology multi-factorial - CHF vs COPD vs Pneumonia O2 sats stable on high flow, weaning fio2 BIPAP Qhs CT Chest: small b/l pleural effusions with compressive atelectasis in ame lung bases slightly increased, slightly hazy groundglass infiltrates in upper lobes. Pulmonary edema vs pneumoniitis Neb tx Steroids CXR Continue to hold Bumex as the patient is euvolemic Patient has been on multiple antibiotics and has missed (vancomycin, cefepime, Zosyn, imipenem, Augmentin), will keep antibiotics on hold for now. Status: Acute (2) Fracture of right distal radius: Right wrist fracture, continue splint. Will need to continue for 6 weeks. May be taken off for range of motion exercises with PT/OT Status: Acute (3) Physical deconditioning: Status: Acute (4) Severe pulmonary hypertension: Status: Acute (5) Healthcare-associated pneumonia: Status: Acute (6) Steroid-induced hyperglycemia: SSI. Added Lantus. Increased to 12 units. Status: Acute Additional A&P Information Chronic kidney disease, with acute kidney injury - Creatinine increase to 1.7 - Consider nephrology consult - Renal dosing - Monitor u/o - Cautious use of diuretics. - Repeat BMP Pending Acute on chronic anemia - monitor h/h - Eliquis on hold - S/p transfusion of 1 unit - PPI - General surgery consult - Pt refused outpt colonoscopy - EGD was HELD Atrial fibrillation with RVR -Continue rate is well controlled. Given the patient soft blood pressure, will start the patient on digoxin. -Digoxin 250 MCG IV x1 dose, followed by another dose 6 hours later. 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 Coding Level of Care Code Acute Trailer Sections Assembler for Chg Fwd Exam Detailed Diagnoses Acute and chronic respiratory failure with hypoxia J96.21 Fracture of right distal radius S52.501A Physical deconditioning R53.81 Severe pulmonary hypertension I27.20 Healthcare-associated pneumonia J18.9 Steroid-induced hyperglycemia R73.9; T38.0X5A
[2020-12-22 17:09] LABS: Glucose Point of Care 146 mg/dL (70-110)
--- NOTE | 2020-12-22 18:34 | P.CONIM_ITS ---
Providers/Reason For Consult Consulting Physician/Specialty*: Dr. Galindo, Cardiology Reason for Consult*: A. 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 She has had recurrent hospitalizations in the last few months. She has recent history of right wrist fracture, recent admission with CHF exacerbation and was discharged on 21 November. She presented again on 12/01/2019 and pneumonia with complaints of shortness of breath. She has had a prolonged hospitalizations. She has received 1 unit of packed red blood cells. She was diuresed and is -15 L. She is due to have EGD. Review of Systems General: Reports: 10 or more systems reviewed and unremarkable except in HPI and below Card: Reports: dyspnea on exertion; Denies: chest pain or irregular heart rhythm GI: Reports: nausea and vomiting; Denies: abdominal pain, hematemesis or coffee ground emesis Skin/Breast: Denies: rash Neuro: Denies: weakness in extremities Psych: Denies: anxiety or depression Meds/Allergies Home Medications and Allergies Home Medications Medication Instructions Recorded Confirmed Last Taken Type alprazolam 0.5 mg tablet 0.5 mg PO QID PRN 02/20/19 11/30/20 11/29/20 History atorvastatin 10 mg PO DAILY@0800 10/12/20 11/30/20 11/29/20 History Eliquis 5 mg PO BID@0800,199910/30/20 11/30/20 11/30/20 History acetaminophen 325 mg PO QID PRN 10/30/20 11/30/20 11/30/20 History albuterol sulfate 2.5 mg INHALATION Q4H PRN 10/30/20 11/30/20 Unknown History bisacodyl [Dulcolax (bisacodyl)] 10 mg AL DAILY PRN 10/30/20 11/30/20 Unknown History fluoxetine 20 mg PO DAILY@0800 10/30/20 11/30/20 11/30/20 History ipratropium-albuterol 0.5 ml INHALATION TID 10/30/20 11/30/20 11/30/20 History levothyroxine 175 mcg PO DAILY 10/30/20 11/30/20 11/30/20 History Fast Form Cock Up Splint #1 ea 11/17/20 11/30/20 Unknown Rx bisacodyl 10 mg PO DAILY PRN 11/18/20 11/30/20 11/25/20 History calcium carbonate 600 mg PO BID PRN 11/18/20 11/30/20 11/28/20 History amlodipine 10 mg PO DAILY #30 tab 11/21/20 11/30/20 11/30/20 Rx Fleet Enema 118 ml AL DAILY PRN 11/30/20 11/30/20 Unknown History Milk of Magnesia 30 ml PO DAILY PRN 11/30/20 11/30/20 Unknown History Miralax 17 g PO DAILY 11/30/20 11/30/20 11/30/20 History Refresh Tears 2 drp OPHTHALMIC (EYE) BID PRN 11/30/20 11/30/20 Unknown History prednisone 10 mg PO DAILY@0800 11/30/20 11/30/20 11/30/20 History amoxicillin-pot clavulanate 1 tab PO BID 7 Days #14 tab 12/06/20 Unknown Rx [Augmentin] furosemide 40 mg PO BID 30 Days #30 tab 12/06/20 11/30/20 11/30/20 Rx midodrine 10 mg PO Q8H 30 Days #180 tab 12/06/20 Unknown Rx pantoprazole 40 mg PO BIDWM #0 tab 12/06/20 11/30/20 11/30/20 Rx potassium chloride [Klor-Con M20] 20 meq PO BID 30 Days #60 tab 12/06/20 Unknown Rx prednisone 40 mg PO DAILY 5 Days #10 tab 12/06/20 Unknown Rx sucralfate 1 g PO BIDAC 30 Days #60 tab 12/06/20 Unknown Rx Allergies Allergy/AdvReac Type Severity Reaction Status Date / Time codeine Allergy unknown Verified 11/17/20 13:17 ketoprofen [From Oruvail] Allergy unknown Verified 11/17/20 13:17 nitrofurantoin Allergy unknown Verified 11/17/20 13:17 [From Macrobid] olmesartan [From Benicar] Allergy unknown Verified 11/17/20 13:17 quinapril [From Accupril] Allergy unknown Verified 11/17/20 13:17 Oaqlxcf-[id number]-CuJ Reductase Allergy unknowm Verified 11/17/20 13:17 Inhibitor [Ejgwqtj-Vgi-Tuz Reductase Inhibitor] Current Medications Current Medications Generic Name Dose Route Start Last Admin Trade Name Freq PRN Reason Stop Dose Admin Albuterol/Ipratropium 3 ml 12/15/20 00:00 12/22/20 15:55 Ipratropium-Albuterol 3 Ml Neb INHALATION 3 ml Q4H.RESPIRATORY BEA Administration Apixaban 5 mg 11/30/20 20:00 12/17/20 08:43 Apixaban 5 Mg Tablet PO 5 mg BID@0800,2000 BEA Administration Artificial Tears 1 drop 12/03/20 08:43 12/09/20 08:48 Artificial Tears Op Soln 15 Ml Btl EYE-BOTH 1 drop Q4H PRN Administration DRY EYE(S) Bumetanide 1 mg 12/14/20 20:30 12/14/20 22:17 Bumetanide 1 Mg Tablet PO 1 mg Q24H BEA Administration Calcium Carbonate 1,000 mg 12/04/20 12:00 12/16/20 06:02 Calcium Carbonate 500 Mg Chew Tablet PO 1,000 mg Q4H PRN Administration DISCOMFORT Ferrous Gluconate 324 mg 12/15/20 18:00 12/22/20 17:31 Ferrous Gluconate 324 Mg Tablet PO 324 mg BIDWM BEA Administration Guaifenesin 600 mg 12/21/20 18:00 12/22/20 17:31 Guaifenesin 600 Mg Tablet PO 600 mg BID BEA Administration Insulin Glargine 12 unit 12/14/20 21:00 12/21/20 20:42 Insulin Glargine 100 Units/1 Ml SUBCUT 12 unit BEDTIME BEA Administration Insulin Human Lispro 0 unit 12/11/20 08:00 12/22/20 17:31 Insulin Lispro 100 Unit/1 Ml SUBCUT 2 unit WM&BEDTIME BEA Administration Protocol Methylprednisolone Sodium Succinate 40 mg 12/19/20 18:45 12/22/20 17:31 Methylprednisolone Sod Succ 40 Mg/Ml Inj IVP 40 mg DAILY@1800 BEA Administration Non-Formulary Medication 2 drop 11/30/20 17:27 12/09/20 11:44 Carboxymethylcellulose Sodium [Refresh Tears] EYEAFF 2 drop BID PRN Administration Dry Eyes PFSH Acute PFSH: Medical History (Updated 12/23/20 @ 21:49 by Leticia Galindo MD) Atrial fibrillation with rapid ventricular response Bilateral carotid artery stenosis Carotid atherosclerosis Chronic kidney disease Congestive heart failure COPD (chronic obstructive pulmonary disease) CVA (cerebral vascular accident) Displaced spiral fracture of shaft of right humerus with routine healing Fracture of humerus, proximal, right, closed History of CVA (cerebrovascular accident) Hyperlipidemia Hypertension Hypothyroidism Lung infiltrate on CT Pneumonia Surgical History History of carpal tunnel release of both wrists History of renal stent Hx of cholecystectomy Family History Father Stroke Mother Stroke Social History Smoking and tobacco status: former smoker Alcohol intake: never Female Reproductive History: Date of last menstrual period: 05/08/20 Vitals/I&O/Wt Last Vital Signs Temp 98.3 F 12/22/20 15:31 Pulse 101 H 12/22/20 16:41 Resp 18 12/22/20 15:31 BP 93/60 12/22/20 15:31 Pulse Ox 90 12/22/20 15:31 12/22/20 12/22/20 12/22/20 06:59 14:59 22:59 Intake Total 360 / 360 120 / 480 Output Total 400 / 1050 550 / 550 Balance -400 / 270 360 / 360 -430 / -70 Weight last 48 hrs Weight 193 lb 11.2 oz Weight 191 lb 8 oz Physical Exam Narrative: EXAM NARRATIVE: GENERAL: obese woman sitting propped up in bed in no acute distress HEENT: Mild pallor, No icterus. NECK: No JVD. No carotid bruit. CARDIOVASCULAR SYSTEM: S1-S2 regular. No S3 or S4 present. No murmur or gallops. RESPIRATORY SYSTEM: Chest clear to auscultation except at bases. No wheezes rhonchi or rubs heard. No use of accessory muscles. ABDOMEN: Soft, nontender and nondistended. Normal bowel sounds present. EXTREMITIES: No edema. SALON SALES CONSULTANT: Patient is alert oriented ?3. Right sided weakness+ Urinary Catheter Management^: Buck: Cath Placed During This Visit: yes Reason for Continuing Indwelling Catheter: Acute Urinary Retention or Obstruction Urinary Catheter Date of Insertion: 11/30/20 Urinary Catheter Time of Insertion: 14:48 Data Other Data: Attestation for Other Data: I personally reviewed and interpreted the following: Other data: TTE (11/18/20) CONCLUSIONS Normal left ventricular size and systolic function, EF 55 %. Segmental wall motion analysis difficult because of the poor ultrasonic window. However no gross abnormalities noted.Grade I/IV diastolic dysfunction (abnormal relaxation filling pattern), normal to mildly elevated filling pressures. Mild-moderate mitral valve regurgitation. Moderate tricuspid valve regurgitation. Estimated pulmonary artery peak systolic pressure was 60 mmHg. There is no pericardial effusion. There are no intracardiac masses. Compared to the study from 01/03/2019, the pulmonary hypertension, mitral and tricuspid regurgitation, etc. appear to be new A&P Assessment and plan (1) Congestive heart failure: Likely a combination of RV failure and HFpEF -lasix 20 mg PO x1 tonight. -I/O charting. Status: Acute Qualifiers: Heart failure chronicity: acute on chronic Heart failure type: diastolic Qualified Code(s): I50.33 - Acute on chronic diastolic (congestive) heart failure (2) Atrial fibrillation with rapid ventricular response: agree with digoxin. -continue to monitor on telemetry. -Given high fall risk with h/o recent fall and chronic anemia; probably will be better off staying OAC. I will speak to her about it tomorrow. Status: Acute (3) Severe pulmonary hypertension: Status: Acute (4) Anemia: Status: Acute Additional A&P Information HTN: BP soft. Dyslipidemia H/o CVA Obesity Carotid artery disease: right internal carotid artery with velocity elevation consistent with 80-99% stenosis. Features of total occlusion of the left internal carotid artery. Hypothyroidism Severe CAROLYN Thank you for allowing me to participate in patient's care. Please feel free to call with questions or concerns. Consult Attestations Time Spent in Patient Care: Greater than 35 minutes (>than 50% of time spent in counselling and/or direct pt care on unit) . Coding Level of Care Code Acute Benefits Clerk for Pattie Cisneros Diagnoses Congestive heart failure I50.33 Heart failure chronicity: acute on chronic Heart failure type: diastolic Atrial fibrillation with rapid ventricular response I48.91 Severe pulmonary hypertension I27.20 Anemia D64.9
[2020-12-22] MEDS: FUROsemide 20 mg Tablet PO (19:36)
--- NOTE | 2020-12-22 20:29 | PC.NURSE ---
i reported to nurse of low temp 97.5
[2020-12-22 21:37] LABS: Glucose Point of Care 240 mg/dL (70-110)
[2020-12-22] MEDS: insulin glargine 100 units/1 mL 12 UNIT SUBCUT (21:55)
[2020-12-22] MEDS: acetaminophen 325 mg Tablet 650 MG PO (22:10)
[2020-12-23] VITALS (20 sets, daily range): BP systolic 82–117; BP diastolic 47–77; PULSE 78–128; RESP 16–21; TEMP 36.3–36.8; O2SAT 90–100
[2020-12-23] MEDS: ipratropium-albuterol 3 mL Neb INHALATION ×6 (03:30→23:50)
--- NOTE | 2020-12-23 04:36 | PC.NURSE ---
i reported low temp 97.4 to nurse
[2020-12-23 05:59] LABS: Basophils % 0.2 %; Hematocrit 27.3 % (37.0-47.0); Hemoglobin 8.3 g/dL (11.5-15.3); Lymphocytes # 0.3 10^3/uL (0.8-4.8); Mean Corpuscular HGB Conc 30.4 g/dL (30.0-36.0); Mean Corpuscular Hemoglobin 26.2 pg (28.0-34.0); Mean Corpuscular Volume 86.1 fl (81-99); Mean Platelet Volume 10.2 fL (7.4-10.4); Monocytes # 0.2 10^3/uL (0.2-0.9); Monocytes % 1.9 %; Neutrophils # 11.65 10^3/uL (1.8-7.7); Nucleated Red Blood Cells % 0.2 %; Platelet Count 182 10^3/cmm (130-400); Red Blood Count 3.17 10^6/uL (4.1-5.3); Red Cell Distribution Width 17.2 % (12.1-15.1); White Blood Count 12.4 10^3/uL (4.0-10.0)
[2020-12-23 06:12] LABS: Anion Gap 13.7 (5-19); Blood Urea Nitrogen 46 mg/dL (8-23); Calcium 8.9 mg/dL (8.5-10.5); Carbon Dioxide 30 mmol/L (22-29); Chloride 95 mmol/L (98-107); Glucose 113 mg/dL (65-115); Osmolality Calculated 291 mOsm/kg (285-295); Potassium 4.7 mmol/L (3.5-5.1); Sodium 134 mmol/L (136-145)
[2020-12-23 06:48] LABS: Glucose Point of Care 135 mg/dL (70-110)
[2020-12-23 07:23] LABS: Glucose Point of Care 126 mg/dL (70-110)
[2020-12-23] MEDS: FUROsemide 40 mg Tablet PO (10:27)
[2020-12-23 11:24] LABS: Glucose Point of Care 116 mg/dL (70-110)
--- NOTE | 2020-12-23 11:49 | ANES.PREANE2 ---
Pre-Anesthetic Assessment Pre-Anesthetic Assessment: Height/Weight: Height 1.52 m Weight 87.543 kg Temp Pulse Resp BP Pulse Ox 98.2 F 81 18 111/70 94 12/23/20 10:57 12/23/20 11:11 12/23/20 11:11 12/23/20 10:57 12/23/20 11:11 Preop Diagnosis: gi bleed Proposed Procedure: Operation Date: 12/18/20 07:45 Proposed Procedures p EGD(Not Applicable) - Lucian Araiza MD Operation Date: 12/23/20 12:00 Proposed Procedures p EGD(Not Applicable) - Vincenzo Burgess MD Was Beta Damián taken within 24 hours: N/A Was Clonidine taken within 24 hours: N/A Social: Social History: No alcohol and No tobacco Comment: former smoker Exam: Pre-Anes Outpt Exam: alert and oriented x 3 Airway: Submandibular: WNL Cervical ROM: WNL Dentition: Other (many missing) History/ROS: No significant history except as noted Pulmonary: Pulmonary: Asthma, COPD, CARTER, Sleep apnea and SOB CV/HEM: CV/HEM: Afib and HTN : : Chronic renal Insufficiency Hepatic: Hepatic: None reported GI: GI: GERD Metabolic: Metabolic: Hyperlipidemia and Thyroid Musc/skel: Musc/skel: Weakness (deconditioning) Neuropsych: Neuropsych: None reported Anesthetic Plan: ASA status: 4 Anesthesia: Anesthesia Evaluation and MAC Risk of > 500 ml blood loss (7ml/kg in children): No Meds/Allergies Current Medications: Current Medications Generic Name Dose Route Start Last Admin Trade Name Freq PRN Reason Stop Dose Admin Acetaminophen 650 mg 12/22/20 22:03 12/22/20 22:10 Acetaminophen 32 5 Mg Tablet PO 650 mg Q6H PRN Administration MILD PAIN OR INCR EASE TEMP Albuterol/Ipratrop ium 3 ml 12/15/20 00:00 12/23/20 11:10 Ipratropium-Albu terol 3 Ml Neb INHALATION 3 ml Q4H.RESPIRATORY S CH Administration Apixaban 5 mg 11/30/20 20:00 12/17/20 08:43 Apixaban 5 Mg Ta blet PO 5 mg BID@0800,2000 BEA Administration Bumetanide 1 mg 12/14/20 20:30 12/14/20 22:17 Bumetanide 1 Mg Tablet PO 1 mg Q24H BEA Administration Calcium Carbonate 1,000 mg 12/04/20 12:00 12/16/20 06:02 Calcium Carbonat e 500 Mg Chew Tabl et PO 1,000 mg Q4H PRN Administration DISCOMFORT Ferrous Gluconate 324 mg 12/15/20 18:00 12/23/20 07:52 Ferrous Gluconat e 324 Mg Tablet PO Not Given BIDWM BEA Guaifenesin 600 mg 12/21/20 18:00 12/23/20 07:52 Guaifenesin 600 Mg Tablet PO Not Given BID BEA Insulin Glargine 12 unit 12/14/20 21:00 12/22/20 21:55 Insulin Glargine 100 Units/1 Ml SUBCUT 12 unit BEDTIME BEA Administration Insulin Human Lisp ro 0 unit 12/11/20 08:00 12/23/20 07:28 Insulin Lispro 1 00 Unit/1 Ml SUBCUT Not Given WM&BEDTIME BEA Protocol Methylprednisolone Sodium Succinate 40 mg 12/19/20 18:45 12/22/20 17:31 Methylprednisolo ne Sod Succ 40 Mg/ Ml Inj IVP 40 mg DAILY@1800 BEA Administration Non-Formulary Medi cation 2 drop 11/30/20 17:27 12/09/20 11:44 Carboxymethylcel lulose Sodium [Ref resh Tears] EYEAFF 2 drop BID PRN Administration Dry Eyes PFSH Anesthesia PFSH: Medical History Bilateral carotid artery stenosis Carotid atherosclerosis Chronic kidney disease Congestive heart failure COPD (chronic obstructive pulmonary disease) CVA (cerebral vascular accident) Displaced spiral fracture of shaft of right humerus with routine healing Fracture of humerus, proximal, right, closed History of CVA (cerebrovascular accident) Hyperlipidemia Hypertension Hypothyroidism Lung infiltrate on CT Pneumonia Surgical History History of carpal tunnel release of both wrists History of renal stent Hx of cholecystectomy Family History Father Stroke Mother Stroke Social History Smoking and tobacco status: former smoker Alcohol intake: never Female Reproductive History: Date of last menstrual period: 05/08/20 Data Anesthesia CBC & Chem 7: 12/23/20 05:40 12/23/20 05:40 Other Labs: Laboratory Results - last 48 hr 12/21/20 12/21/20 12/22/20 16:50 20:14 04:12 WBC 14.6 H RBC 3.08 L Hgb 8.0 L Hct 26.5 L MCV 86.0 MCH 26.0 L MCHC 30.2 RDW 17.3 H Plt Count 209 MPV 10.3 Neut % (Auto) 93.7 Lymph % (Auto) 1.8 [place] % (Auto) 2.0 Eos % (Auto) 0.1 Baso % (Auto) 0.1 Neut # (Auto) 13.70 H Lymph # (Auto) 0.3 L [place] # (Auto) 0.3 Eos # (Auto) 0.0 Baso # (Auto) 0.0 Nucleated RBC % (auto) 0.3 Nucleated RBCs # 0.0 Sodium Potassium Chloride Carbon Dioxide Anion Gap BUN Creatinine GFR Calculation Glucose POC Glucose 193 H 183 H Calculated Osmolality Calcium 12/22/20 12/22/20 12/22/20 04:12 06:45 11:10 WBC RBC Hgb Hct MCV MCH MCHC RDW Plt Count MPV Neut % (Auto) Lymph % (Auto) [place] % (Auto) Eos % (Auto) Baso % (Auto) Neut # (Auto) Lymph # (Auto) [place] # (Auto) Eos # (Auto) Baso # (Auto) Nucleated RBC % (auto) Nucleated RBCs # Sodium 132 L Potassium 4.5 Chloride 94 L Carbon Dioxide 30 H Anion Gap 12.5 BUN 58 H Creatinine 1.1 H GFR Calculation Not Reportable Glucose 142 H POC Glucose 166 H 119 H Calculated Osmolality 293 Calcium 9.2 12/22/20 12/22/20 12/23/20 16:53 21:35 05:40 WBC 12.4 H RBC 3.17 L Hgb 8.3 L Hct 27.3 L MCV 86.1 MCH 26.2 L MCHC 30.4 RDW 17.2 H Plt Count 182 MPV 10.2 Neut % (Auto) 94.0 Lymph % (Auto) 2.0 [place] % (Auto) 1.9 Eos % (Auto) 0.0 Baso % (Auto) 0.2 Neut # (Auto) 11.65 H Lymph # (Auto) 0.3 L [place] # (Auto) 0.2 Eos # (Auto) 0.0 Baso # (Auto) 0.0 Nucleated RBC % (auto) 0.2 Nucleated RBCs # 0.0 Sodium Potassium Chloride Carbon Dioxide Anion Gap BUN Creatinine GFR Calculation Glucose POC Glucose 146 H 240 H Calculated Osmolality Calcium 12/23/20 12/23/20 12/23/20 05:40 06:44 07:15 WBC RBC Hgb Hct MCV MCH MCHC RDW Plt Count MPV Neut % (Auto) Lymph % (Auto) [place] % (Auto) Eos % (Auto) Baso % (Auto) Neut # (Auto) Lymph # (Auto) [place] # (Auto) Eos # (Auto) Baso # (Auto) Nucleated RBC % (auto) Nucleated RBCs # Sodium 134 L Potassium 4.7 Chloride 95 L Carbon Dioxide 30 H Anion Gap 13.7 BUN 46 H Creatinine 1.0 H GFR Calculation Not Reportable Glucose 113 POC Glucose 135 H 126 H Calculated Osmolality 291 Calcium 8.9 12/23/20 11:00 WBC RBC Hgb Hct MCV MCH MCHC RDW Plt Count MPV Neut % (Auto) Lymph % (Auto) [place] % (Auto) Eos % (Auto) Baso % (Auto) Neut # (Auto) Lymph # (Auto) [place] # (Auto) Eos # (Auto) Baso # (Auto) Nucleated RBC % (auto) Nucleated RBCs # Sodium Potassium Chloride Carbon Dioxide Anion Gap BUN Creatinine GFR Calculation Glucose POC Glucose 116 H Calculated Osmolality Calcium Cardiac Studies: Echocardiogram 11/18/20
[2020-12-23] MEDS: sodium chloride 0.9% 1,000 ML 30 ML IV (12:03)
--- NOTE | 2020-12-23 12:08 | PM.PN ---
Subjective Subjective: Interval history: no issues overnight, no evidence of GI bleed Vitals/I&O/Wt Last Vital Signs Temp 97.5 F L 12/23/20 11:45 Pulse 97 12/23/20 11:45 Resp 18 12/23/20 11:45 BP 99/67 12/23/20 11:45 Pulse Ox 100 12/23/20 11:45 12/22/20 12/23/20 12/23/20 22:59 06:59 14:59 Intake Total 120 / 480 Output Total 550 / 550 700 / 700 Balance -430 / -70 -700 / -700 Weight last 48 hrs Weight 193 lb Weight 193 lb 11.2 oz Physical Exam Narrative: EXAM NARRATIVE: Abdomen: soft NT, ND Urinary Catheter Management^: Buck: Cath Placed During This Visit: yes Reason for Continuing Indwelling Catheter: Other Urinary Catheter Date of Insertion: 11/30/20 Urinary Catheter Time of Insertion: 14:48 Data : 12/23/20 05:40 12/23/20 05:40 A&P Assessment and plan (1) Anemia: Plan for EGD under MAC today Status: Acute Attestations Medical Necessity Statement*: anemia, FOBT Coding Level of Care Code Acute Insurance Verify Rep for Chg Fwd Diagnoses Anemia D64.9
--- NOTE | 2020-12-23 13:00 | PC.NURSE ---
Patient back to floor at this time from GI lab.
[2020-12-23] MEDS: digoxin 250 mcg/ml INJ 2 mL 125 MCG IVP ×2 (13:20→20:12)
[2020-12-23 17:04] LABS: Glucose Point of Care 213 mg/dL (70-110)
[2020-12-23] MEDS: ferrous gluconate 324 mg Tablet PO (17:09)
[2020-12-23] MEDS: insulin lispro 100 unit/1 mL SUBCUT ×2 (17:09→21:27)
[2020-12-23] MEDS: guaiFENesin 600 mg Tablet PO (17:09)
--- NOTE | 2020-12-23 18:04 | P.PN_ITS ---
Subjective Subjective: Interval history: Patient was seen and examined this morning, H/R is better controlled.At baseline home oxygen. No acute events overnight. Awaiting EGD. Medications: Reviewed: Yes Vitals/I&O/Wt Last Vital Signs Temp 98.1 F 12/23/20 15:13 Pulse 85 12/23/20 15:20 Resp 18 12/23/20 15:20 BP 88/54 12/23/20 15:13 Pulse Ox 93 12/23/20 15:20 12/23/20 12/23/20 12/23/20 06:59 14:59 22:59 Intake Total 100 / 100 Output Total 700 / 700 Balance -600 / -600 Weight last 48 hrs Weight 87.543 kg Weight 87.861 kg Physical Exam Const: COMMON NORMALS: patient oriented x3 HENMT: COMMON NORMALS: normocephalic and atraumatic HEAD & SCALP: normocephalic and atraumatic Resp: OTHER: Coarse Breath sounds B/L Cardio: COMMON NORMALS: regular rate, regular rhythm, S1 normal heart sound present, S2 normal heart sound present, No gallops present (Cardio) and No rub (Cardio) RATE: regular rate RHYTHM: regular rhythm HEART SOUNDS: S1 normal heart sound present and S2 normal heart sound present OTHER: Pansystolic murmur in mitral area GI: COMMON NORMALS: Normal to inspection, nondistended, normoactive bowel sounds present, Soft to palpation, non-tender, No hepatosplenomegaly present and no masses AUSCULTATION: Yes normoactive bowel sounds PALPATION: Yes Soft to palpation and Yes No hepatosplenomegaly present RECTAL EXAM: deferred Extremity: COMMON NORMALS: no clubbing, cyanosis or edema and no pedal edema Neuro: COMMON NORMALS: patient oriented x3 Urinary Catheter Management^: Buck: Cath Placed During This Visit: yes Reason for Continuing Indwelling Catheter: Chronic Indwelling Urinary Catheter on Admission Urinary Catheter Date of Insertion: 11/30/20 Urinary Catheter Time of Insertion: 14:48 Data : 12/23/20 05:40 12/23/20 05:40 A&P Assessment and plan (1) Acute and chronic respiratory failure with hypoxia: Etiology multi-factorial - CHF vs COPD vs Pneumonia O2 sats stable on high flow, weaning fio2 BIPAP Qhs CT Chest: small b/l pleural effusions with compressive atelectasis in ame lung bases slightly increased, slightly hazy groundglass infiltrates in upper lobes. Pulmonary edema vs pneumoniitis Neb tx Steroids CXR Continue to hold Bumex as the patient is euvolemic Patient has been on multiple antibiotics and has missed (vancomycin, cefepime, Zosyn, imipenem, Augmentin), will keep antibiotics on hold for now. Status: Acute (2) Fracture of right distal radius: Right wrist fracture, continue splint. Will need to continue for 6 weeks. May be taken off for range of motion exercises with PT/OT Status: Acute (3) Physical deconditioning: Status: Acute (4) Severe pulmonary hypertension: Status: Acute (5) Healthcare-associated pneumonia: Status: Acute (6) Steroid-induced hyperglycemia: SSI. Added Lantus. Increased to 12 units. Status: Acute Additional A&P Information Chronic kidney disease, with acute kidney injury - Creatinine increase to 1.7 - Consider nephrology consult - Renal dosing - Monitor u/o - Cautious use of diuretics. - Repeat BMP Pending Acute on chronic anemia -S/p transfusion of 1 unit - monitor h/h - Will resume Eliquis from am and monitor H&H -S/P EGD: Mild erosive gastritis in the body of stomach -Protonix 40 mg po daily Atrial fibrillation with RVR -Continue rate is well controlled. Given the patient soft blood pressure, will start the patient on digoxin. -Digoxin 250 MCG IV x1 dose, followed by another dose 6 hours later. -Received 125 mcg I.V *1 Dose today.Will switch to po digoxin -Metoprolol tartrate IV as needed - Anticoagulation on hold - On tele - ECHO noted - Appreciate Cardiology consult. Anxiety/depression, - continue fluoxetine, alprazolam CVA, 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 - PT/OT Hypothyroidism - Continue levothyroxine Attestations Medical Necessity Statement*: Patient needs to be in hospital for EGD and above defined problems. Coding Level of Care Code Acute Screening Specialist for Chg Fwd Diagnoses Acute and chronic respiratory failure with hypoxia J96.21 Fracture of right distal radius S52.501A Physical deconditioning R53.81 Severe pulmonary hypertension I27.20 Healthcare-associated pneumonia J18.9 Steroid-induced hyperglycemia R73.9; T38.0X5A
[2020-12-23 20:33] LABS: Glucose Point of Care 229 mg/dL (70-110)
[2020-12-23] MEDS: insulin glargine 100 units/1 mL 12 UNIT SUBCUT (21:27)
--- NOTE | 2020-12-23 22:03 | P.PN_ITS ---
Subjective Subjective: Interval history: She had EGD today. Feels better Medications: Reviewed: Yes Vitals/I&O/Wt Last Vital Signs Temp 97.7 F 12/23/20 18:58 Pulse 92 12/23/20 18:58 Resp 17 12/23/20 18:58 BP 82/57 12/23/20 18:58 Pulse Ox 97 12/23/20 18:58 12/23/20 12/23/20 12/23/20 06:59 14:59 22:59 Intake Total 100 / 100 120 / 220 Output Total 700 / 700 Balance -600 / -600 120 / -480 Weight last 48 hrs Weight 193 lb Weight 193 lb 11.2 oz Physical Exam Narrative: EXAM NARRATIVE: GENERAL: obese woman sitting propped up in bed in no acute distress HEENT: Mild pallor, No icterus. NECK: No JVD. No carotid bruit. CARDIOVASCULAR SYSTEM: S1-S2 regular. No murmur or gallops. RESPIRATORY SYSTEM: Chest clear to auscultation except at bases. No wheezes rhonchi or rubs heard. No use of accessory muscles. ABDOMEN: Soft, nontender and nondistended. Normal bowel sounds present. EXTREMITIES: No edema. 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 Right sided weakness+ Urinary Catheter Management^: Buck: Cath Placed During This Visit: yes Reason for Continuing Indwelling Catheter: Chronic Indwelling Urinary Catheter on Admission Urinary Catheter Date of Insertion: 11/30/20 Urinary Catheter Time of Insertion: 14:48 Data : 12/23/20 05:40 12/23/20 05:40 A&P Assessment and plan (1) Congestive heart failure: Likely a combination of RV failure and HFpEF -lasix 40 mg PO x1 this morning. -I/O charting. Status: Acute Qualifiers: Heart failure chronicity: acute on chronic Heart failure type: diastolic Qualified Code(s): I50.33 - Acute on chronic diastolic (congestive) heart failure (2) Atrial fibrillation with rapid ventricular response: agree with digoxin. -continue to monitor on telemetry. -Given high fall risk with h/o recent fall and chronic anemia; probably will be better off staying OAC. I will speak to her DPOA and friend about it tomorrow. Status: Acute (3) Severe pulmonary hypertension: Status: Acute (4) Anemia: Status: Acute Additional A&P Information HTN: BP soft. Dyslipidemia H/o CVA Obesity Carotid artery disease: right internal carotid artery with velocity elevation consistent with 80-99% stenosis. Features of total occlusion of the left internal carotid artery. Hypothyroidism Severe CAROLYN Physical deconditioning Thank you for allowing me to participate in patient's care. Please feel free to call with questions or concerns. Attestations Medical Necessity Statement*: needs hospital stay for A. fib RVR, CHF and anemia Time Spent in Patient Care: 16 - 35 minutes (>than 50% of time spent in counselling and/or direct pt care on unit) . Coding Level of Care Code Acute Single Needle Operator for Pattie Cisneros Diagnoses Congestive heart failure I50.33 Heart failure chronicity: acute on chronic Heart failure type: diastolic Atrial fibrillation with rapid ventricular response I48.91 Severe pulmonary hypertension I27.20 Anemia D64.9
[2020-12-24] VITALS (22 sets, daily range): BP systolic 86–158; BP diastolic 50–74; PULSE 77–110; RESP 16–24; TEMP 36.4–36.6; O2SAT 87–98
[2020-12-24] MEDS: ipratropium-albuterol 3 mL Neb INHALATION ×5 (03:30→20:26)
[2020-12-24 04:56] LABS: Basophils % 0.1 %; Hemoglobin 8.1 g/dL (11.5-15.3); Lymphocytes # 0.2 10^3/uL (0.8-4.8); Lymphocytes % 1.8 %; Mean Corpuscular Hemoglobin 25.8 pg (28.0-34.0); Mean Platelet Volume 9.8 fL (7.4-10.4); Monocytes # 0.3 10^3/uL (0.2-0.9); Monocytes % 2.3 %; Neutrophils # 10.04 10^3/uL (1.8-7.7); Nucleated Red Blood Cells % 0.2 %; Platelet Count 163 10^3/cmm (130-400); Red Blood Count 3.14 10^6/uL (4.1-5.3); Red Cell Distribution Width 17.1 % (12.1-15.1); White Blood Count 10.7 10^3/uL (4.0-10.0)
[2020-12-24 05:17] LABS: Anion Gap 12.7 (5-19); Blood Urea Nitrogen 45 mg/dL (8-23); Calcium 8.9 mg/dL (8.5-10.5); Carbon Dioxide 30 mmol/L (22-29); Chloride 94 mmol/L (98-107); Glucose 167 mg/dL (65-115); Osmolality Calculated 289 mOsm/kg (285-295); Potassium 4.7 mmol/L (3.5-5.1); Sodium 132 mmol/L (136-145)
[2020-12-24 05:22] LABS: Creatinine Clr Calc Pharmacy 46.3484
[2020-12-24 06:32] LABS: Glucose Point of Care 158 mg/dL (70-110)
[2020-12-24] MEDS: guaiFENesin 600 mg Tablet PO ×2 (09:02→17:57)
[2020-12-24] MEDS: insulin lispro 100 unit/1 mL SUBCUT ×4 (09:02→22:00)
[2020-12-24] MEDS: ferrous gluconate 324 mg Tablet PO ×2 (09:02→17:57)
[2020-12-24] MEDS: pantoprazole DR 40 mg Tablet PO (09:02)
[2020-12-24] MEDS: FUROsemide 40 mg Tablet PO (09:24)
[2020-12-24] MEDS: digoxin 250 mcg/ml INJ 2 mL 125 MCG IVP (09:25)
--- NOTE | 2020-12-24 09:35 | P.PN_ITS ---
Subjective Subjective: Interval history: Patient was seen and examined this morning, continues to be in A. fib, heart rate in 110s, working with physical therapy, says that she get SOB with physical therapy but but improves in some time. Current plan is to transfuse her 1 more unit of blood today. Medications: Reviewed: Yes Vitals/I&O/Wt Last Vital Signs Temp 97.8 F 12/24/20 08:00 Pulse 80 12/24/20 08:00 Resp 16 12/24/20 08:00 BP 106/74 12/24/20 08:00 Pulse Ox 94 12/24/20 08:00 12/23/20 12/24/20 12/24/20 22:59 06:59 14:59 Intake Total 120 / 220 120 / 340 Output Total 1500 / 2200 Balance 120 / -480 -1380 / -1860 Weight last 48 hrs Weight 89.018 kg Weight 87.543 kg Physical Exam Const: COMMON NORMALS: patient oriented x3 HENMT: COMMON NORMALS: normocephalic and atraumatic HEAD & SCALP: normocephalic and atraumatic Resp: COMMON NORMALS: clear to auscultation bilaterally EFFORT & INSPECTION: Yes symmetric chest movement AUSCULTATION: clear to auscultation bilaterally OTHER: Coarse Breath sounds B/L Cardio: COMMON NORMALS: regular rate, regular rhythm, S1 normal heart sound present, S2 normal heart sound present, No gallops present (Cardio) and No rub (Cardio) RATE: regular rate RHYTHM: regular rhythm HEART SOUNDS: S1 normal heart sound present and S2 normal heart sound present OTHER: Pansystolic murmur in mitral area GI: COMMON NORMALS: Normal to inspection, nondistended, normoactive bowel sounds present, Soft to palpation, non-tender, No hepatosplenomegaly present and no masses AUSCULTATION: Yes normoactive bowel sounds PALPATION: Yes Soft to palpation and Yes No hepatosplenomegaly present RECTAL EXAM: deferred Extremity: COMMON NORMALS: no clubbing, cyanosis or edema and no pedal edema Neuro: COMMON NORMALS: patient oriented x3 Urinary Catheter Management^: Buck: Cath Placed During This Visit: yes Reason for Continuing Indwelling Catheter: Acute Urinary Retention or Obstruction Urinary Catheter Date of Insertion: 11/30/20 Urinary Catheter Time of Insertion: 14:48 Data : 12/24/20 04:27 12/24/20 04:27 A&P Assessment and plan (1) Acute and chronic respiratory failure with hypoxia: Etiology multi-factorial - CHF vs COPD vs Pneumonia O2 sats stable on high flow, weaning fio2 BIPAP Qhs CT Chest: small b/l pleural effusions with compressive atelectasis in ame lung bases slightly increased, slightly hazy groundglass infiltrates in upper lobes. Pulmonary edema vs pneumoniitis Neb tx Steroids CXR Continue to hold Bumex as the patient is euvolemic Patient has been on multiple antibiotics and has missed (vancomycin, cefepime, Zosyn, imipenem, Augmentin), will keep antibiotics on hold for now. Status: Acute (2) Fracture of right distal radius: Right wrist fracture, continue splint. Will need to continue for 6 weeks. May be taken off for range of motion exercises with PT/OT Status: Acute (3) Physical deconditioning: Status: Acute (4) Severe pulmonary hypertension: Status: Acute (5) Healthcare-associated pneumonia: Status: Acute (6) Steroid-induced hyperglycemia: SSI. Added Lantus. Increased to 12 units. Status: Acute Additional A&P Information SHILPA on CKD Stage 3:Resolved - Creatinine increased to 1.7. -Currently SCR is at baseline - Renal dosing - Monitor u/o - Cautious use of diuretics. - Monitor BMP Pending Acute on chronic anemia -S/p transfusion of 2 unit prbc - monitor h/h -S/P EGD: Mild erosive gastritis in the body of stomach -Recent colonoscopy: -Protonix 40 mg po daily Paroxysmal atrial fibrillation with RVR -Given the patient soft blood pressure, she was loaded with Digoxin -Currently on digoxin 125 mcg p.o daily. -Amiodarone 400 mg p.o. twice daily -Metoprolol tartrate IV as needed -Anticoagulation which was on hold has been resumed (Eliquis 5 mg every 12 hours ) - On tele - ECHO noted - Appreciate Cardiology consult. HFpEF : Currently euvolemic Lasix 40 mg po daily I/0 Charting Daily weight K>4, Mg>2 Anxiety/depression, - continue fluoxetine, alprazolam h/o recent CVA, 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. Status post TPA. - PT/OT Hypothyroidism - Continue levothyroxine Attestations Medical Necessity Statement*: Patient is to be in hospital for management of above defined problems. Coding Level of Care Code Acute Zinc Plate Cutter for Chg Fwd Exam Detailed Diagnoses Acute and chronic respiratory failure with hypoxia J96.21 Fracture of right distal radius S52.501A Physical deconditioning R53.81 Severe pulmonary hypertension I27.20 Healthcare-associated pneumonia J18.9 Steroid-induced hyperglycemia R73.9; T38.0X5A
[2020-12-24 11:34] LABS: Glucose Point of Care 290 mg/dL (70-110)
[2020-12-24] MEDS: amiodarone 200 mg Tablet 400 MG PO ×2 (14:25→20:04)
[2020-12-24] MEDS: apixaban 5 mg Tablet PO ×2 (14:25→20:04)
[2020-12-24] MEDS: acetaminophen 325 mg Tablet 650 MG PO (14:25)
--- NOTE | 2020-12-24 16:04 | PC.OT ---
OT tx attempted this date but patient declined due to stress over O2 level. With directed deep pursed lip breathing patient returned to 90% O2. Patient not easily redirected and hyperfocused on O2 levels. Insisted respiratory be called so charge nurse informed. Will attempt again tomorrow.
--- NOTE | 2020-12-24 16:57 | P.PN_ITS ---
Subjective Subjective: Interval history: Patient denies any complaints but remains remains tachycardic with heart rate in 110s to 120s on telemetry. Medications: Reviewed: Yes Vitals/I&O/Wt Last Vital Signs Temp 98 F 12/24/20 16:40 Pulse 105 H 12/24/20 16:40 Resp 18 12/24/20 16:40 BP 102/67 12/24/20 16:40 Pulse Ox 93 12/24/20 16:40 12/24/20 12/24/20 12/24/20 06:59 14:59 22:59 Intake Total 120 / 340 300 / 300 0 / 300 Output Total 1500 / 2200 Balance -1380 / -1860 300 / 300 0 / 300 Weight last 48 hrs Weight 196 lb 4 oz Weight 193 lb Physical Exam Narrative: EXAM NARRATIVE: GENERAL: obese woman sitting propped up in bed in no acute distress HEENT: Mild pallor, No icterus. NECK: No JVD. No carotid bruit. CARDIOVASCULAR SYSTEM: S1-S2 irregular. No murmur or gallops. RESPIRATORY SYSTEM: Chest clear to auscultation except at bases. No wheezes rhonchi or rubs heard. No use of accessory muscles. ABDOMEN: Soft, nontender and nondistended. Normal bowel sounds present. EXTREMITIES: No edema. 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 Right sided weakness+ Urinary Catheter Management^: Buck: Cath Placed During This Visit: yes Reason for Continuing Indwelling Catheter: Acute Urinary Retention or Obstruction Urinary Catheter Date of Insertion: 11/30/20 Urinary Catheter Time of Insertion: 14:48 Data : 12/24/20 04:27 12/24/20 04:27 A&P Assessment and plan (1) Congestive heart failure: Likely a combination of RV failure and HFpEF -Received Lasix 20 mg IV x1 -I/O charting. Status: Acute Qualifiers: Heart failure chronicity: acute on chronic Heart failure type: diastolic Qualified Code(s): I50.33 - Acute on chronic diastolic (congestive) heart failure (2) Atrial fibrillation with rapid ventricular response: Paroxysmal atrial fibrillation with rapid ventricle response. She is asymptomatic with that. -Blood pressure too soft try beta-ariadna or calcium channel ariadna. -Digoxin by itself is not controlling her heart rate. I will start her on amiodarone 400 mg twice a day. Dilemma here is that she has been off anticoagulation for almost 3 weeks now. When she was admitted she was in sinus rhythm and the earliest EKG documentation that I can see of atrial fibrillation is from 15 December. She had a recent CVA requiring tPA administration in September 2020. -I will get her started on Eliquis 5 mg twice a day for now. -She may need JORGE/cardioversion if she does not convert and remains tachycardic. -Given high fall risk with h/o recent fall and chronic anemia; probably will be better off staying O[facility] custodial. She will be a good candidate for left atrial appendage occlusion procedure if she can get her stable enough to have that. -I will speak to her DPOA and friend about it tomorrow. Status: Acute (3) Severe pulmonary hypertension: Status: Acute (4) Anemia: Agree with transfusing her with another unit of packed red blood cell. 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 Features of total occlusion of the left internal carotid artery. Mild to moderate mitral valve regurgitation/moderate tricuspid valve regurgitation HTN: History of BP soft. Dyslipidemia Hypothyroidism Severe CAROLYN Obesity Physical deconditioning Thank you for allowing me to participate in patient's care. Please feel free to call with questions or concerns. Attestations Medical Necessity Statement*: Needs hospital stay for A. fib with RVR and anemia Time Spent in Patient Care: Greater than 35 minutes (>than 50% of time spent in counselling and/or direct pt care on unit) . Coding Level of Care Code Acute Cd Storage And Materials Make Up Helper for Pattie Cisneros Diagnoses Congestive heart failure I50.33 Heart failure chronicity: acute on chronic Heart failure type: diastolic Atrial fibrillation with rapid ventricular response I48.91 Severe pulmonary hypertension I27.20 Anemia D50.0 Anemia type: iron deficiency Iron deficiency anemia type: chronic blood loss
[2020-12-24 17:38] LABS: Glucose Point of Care 153 mg/dL (70-110)
--- NOTE | 2020-12-24 19:45 | PC.NURSE ---
i reported high pulse 106 to nurse
[2020-12-24] MEDS: FUROsemide 10 mg/mL SDV 2mL 20 MG IVP (20:04)
[2020-12-24] MEDS: insulin glargine 100 units/1 mL 12 UNIT SUBCUT (20:05)
[2020-12-24 21:08] LABS: Glucose Point of Care 162 mg/dL (70-110)
[2020-12-25] VITALS (20 sets, daily range): BP systolic 91–109; BP diastolic 54–75; PULSE 66–96; RESP 16–20; TEMP 36.4–37.1; O2SAT 90–99
[2020-12-25] MEDS: ipratropium-albuterol 3 mL Neb INHALATION ×6 (00:22→20:08)
[2020-12-25 04:51] LABS: Hematocrit 30.4 % (37.0-47.0); Hemoglobin 9.5 g/dL (11.5-15.3); Lymphocytes # 0.2 10^3/uL (0.8-4.8); Lymphocytes % 2.4 %; Mean Corpuscular HGB Conc 31.3 g/dL (30.0-36.0); Mean Corpuscular Hemoglobin 27.3 pg (28.0-34.0); Mean Corpuscular Volume 87.4 fl (81-99); Mean Platelet Volume 9.7 fL (7.4-10.4); Monocytes # 0.1 10^3/uL (0.2-0.9); Monocytes % 1.4 %; Neutrophils # 9.37 10^3/uL (1.8-7.7); Neutrophils % 93.8 %; Nucleated Red Blood Cells % 0.2 %; Platelet Count 130 10^3/cmm (130-400); Red Blood Count 3.48 10^6/uL (4.1-5.3); Red Cell Distribution Width 16.6 % (12.1-15.1)
[2020-12-25 05:14] LABS: Anion Gap 13.8 (5-19); Blood Urea Nitrogen 46 mg/dL (8-23); Calcium 8.6 mg/dL (8.5-10.5); Carbon Dioxide 31 mmol/L (22-29); Chloride 95 mmol/L (98-107); Glucose 183 mg/dL (65-115); Osmolality Calculated 297 mOsm/kg (285-295); Potassium 4.8 mmol/L (3.5-5.1); Sodium 135 mmol/L (136-145)
[2020-12-25 06:44] LABS: Glucose Point of Care 166 mg/dL (70-110)
--- NOTE | 2020-12-25 07:37 | XR_ITS ---
WS: [id number] Portable AP upright chest, 12/25/2020 Clinical Data: SOB, pulmonary congestion Comparison: Portable chest, 12/18/2020. Findings: There is a right pleural effusion along with probable atelectasis. No definite pneumonia is seen. There is a left lower lobe opacity which may represent atelectasis. The heart is enlarged. The pulmonary vascularity is not increased. No pneumothorax is seen. There is a right PICC line ending i n the superior vena cava. The aortic arch and descending thoracic aorta show calcification and tortuo sity. Monitor leads are on the chest wall. There is osteoarthritis of both shoulders. XR/XR chest 1V portable [id number] Impression: 1. Cardiomegaly and atherosclerosis. 2. Right pleural effusion and probable atelectasis. 3. Left lower lobe atelectasis.
[2020-12-25] MEDS: ferrous gluconate 324 mg Tablet PO ×2 (10:17→17:12)
[2020-12-25] MEDS: digoxin 125 mcg Tablet PO (10:18)
[2020-12-25] MEDS: amiodarone 200 mg Tablet 400 MG PO ×3 (10:18→21:12)
[2020-12-25] MEDS: apixaban 5 mg Tablet PO ×2 (10:18→21:12)
[2020-12-25] MEDS: guaiFENesin 600 mg Tablet PO ×2 (10:21→17:12)
--- NOTE | 2020-12-25 10:23 | PC.SOCIAL ---
IMM Update pg 2 of IMM updated and reviewed w/ patient. Copy provided.
[2020-12-25] MEDS: pantoprazole DR 40 mg Tablet PO (10:24)
[2020-12-25] MEDS: insulin lispro 100 unit/1 mL SUBCUT ×3 (11:25→21:12)
[2020-12-25 11:59] LABS: Glucose Point of Care 259 mg/dL (70-110)
--- NOTE | 2020-12-25 13:11 | P.PN_ITS ---
Subjective Subjective: Interval history: Patient got 1 unit of pRBC. She feels better. Medications: Reviewed: Yes Vitals/I&O/Wt Last Vital Signs Temp 97.5 F L 12/25/20 11:00 Pulse 89 12/25/20 11:20 Resp 17 12/25/20 11:20 BP 105/67 12/25/20 11:00 Pulse Ox 90 12/25/20 11:20 12/24/20 12/25/20 12/25/20 22:59 06:59 14:59 Intake Total 608 / 908 240 / 1148 240 / 240 Output Total 1850 / 1850 Balance 608 / 908 -1610 / -702 240 / 240 Weight last 48 hrs Weight 195 lb 8 oz Weight 196 lb 4 oz Physical Exam Narrative: EXAM NARRATIVE: GENERAL: obese woman sitting propped up in bed in no acute distress HEENT: Mild pallor, No icterus. NECK: No JVD. No carotid bruit. CARDIOVASCULAR SYSTEM: S1-S2 irregular. No murmur or gallops. RESPIRATORY SYSTEM: Chest clear to auscultation except at bases. No wheezes rhonchi or rubs heard. No use of accessory muscles. ABDOMEN: Soft, nontender and nondistended. Normal bowel sounds present. EXTREMITIES: No edema. 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 Right sided weakness+ Urinary Catheter Management^: Buck: Cath Placed During This Visit: yes Reason for Continuing Indwelling Catheter: Acute Urinary Retention or Obstruction Urinary Catheter Date of Insertion: 11/30/20 Urinary Catheter Time of Insertion: 14:48 Data : 12/25/20 04:36 12/25/20 04:36 A&P Assessment and plan (1) Congestive heart failure: Likely a combination of RV failure and HFpEF -lasix held. -I/O charting. Status: Acute Qualifiers: Heart failure chronicity: acute on chronic Heart failure type: diastolic Qualified Code(s): I50.33 - Acute on chronic diastolic (congestive) heart failure (2) Atrial fibrillation with rapid ventricular response: Paroxysmal atrial fibrillation with rapid ventricle response. She is asymptomatic with that. -Blood pressure too soft try beta-ariadna or calcium channel ariadna. -Digoxin by itself is not controlling her heart rate. Increase amiodarone to 400 mg three times a day. Dilemma here is that she has been off anticoagulation for almost 3 weeks now. When she was admitted she was in sinus rhythm and the earliest EKG documentation that I can see of atrial fibrillation is from 15 December. She had a recent CVA requiring tPA administration in September 2020. -I will get her started on Eliquis 5 mg twice a day for now. -I will plan for JORGE/cardioversion tomorrow if she does not convert. 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 She will be a good candidate for left atrial appendage occlusion procedure if she can get her stable enough to have that. -I spoke to her DPOA and friend Chuy Sales about it again Status: Acute (3) Severe pulmonary hypertension: Status: Acute (4) Anemia: Agree with transfusing her with another unit of packed red blood cell. 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 Features of total occlusion of the left internal carotid artery. Mild to moderate mitral valve regurgitation/moderate tricuspid valve regurgitation HTN: History of BP soft. Dyslipidemia Hypothyroidism Severe CAROLYN Obesity Physical deconditioning Thank you for allowing me to participate in patient's care. Please feel free to call with questions or concerns. Attestations Medical Necessity Statement*: Needs hospital stay for A. fib with RVR and anemia Time Spent in Patient Care: 16 - 35 minutes (>than 50% of time spent in counselling and/or direct pt care on unit) . Coding Level of Care Code Acute Entry Level Installation Technician for Chg Fwd Diagnoses Congestive heart failure I50.33 Heart failure chronicity: acute on chronic Heart failure type: diastolic Atrial fibrillation with rapid ventricular response I48.91 Severe pulmonary hypertension I27.20 Anemia D50.0 Anemia type: iron deficiency Iron deficiency anemia type: chronic blood loss
--- NOTE | 2020-12-25 13:22 | PM.PN ---
Subjective Subjective: Interval history: Patient was seen and examined this morning, she was complaining of palpitation overnight, which was causing her shortness of breath, continues to be in A. fib, with slightly improved heart rate. S/p 1 unit PRBC transfusion overnight: H&H is: 9.5/30.4. Current plan is to do JORGE cardioversion, if the patient continues to be in A. fib. Medications: Reviewed: Yes Vitals/I&O/Wt Last Vital Signs Temp 97.5 F L 12/25/20 11:00 Pulse 89 12/25/20 11:20 Resp 17 12/25/20 11:20 BP 105/67 12/25/20 11:00 Pulse Ox 90 12/25/20 11:20 12/24/20 12/25/20 12/25/20 22:59 06:59 14:59 Intake Total 608 / 908 240 / 1148 240 / 240 Output Total 1850 / 1850 Balance 608 / 908 -1610 / -702 240 / 240 Weight last 48 hrs Weight 88.677 kg Weight 89.018 kg Physical Exam Const: COMMON NORMALS: patient oriented x3 HENMT: COMMON NORMALS: normocephalic and atraumatic HEAD & SCALP: normocephalic and atraumatic Resp: COMMON NORMALS: clear to auscultation bilaterally EFFORT & INSPECTION: Yes symmetric chest movement AUSCULTATION: clear to auscultation bilaterally OTHER: Coarse Breath sounds B/L Cardio: COMMON NORMALS: regular rate, regular rhythm, S1 normal heart sound present, S2 normal heart sound present, No gallops present (Cardio) and No rub (Cardio) RATE: regular rate RHYTHM: regular rhythm HEART SOUNDS: S1 normal heart sound present and S2 normal heart sound present OTHER: Pansystolic murmur in mitral area GI: COMMON NORMALS: Normal to inspection, nondistended, normoactive bowel sounds present, Soft to palpation, non-tender, No hepatosplenomegaly present and no masses AUSCULTATION: Yes normoactive bowel sounds PALPATION: Yes Soft to palpation and Yes No hepatosplenomegaly present RECTAL EXAM: deferred Extremity: COMMON NORMALS: no clubbing, cyanosis or edema and no pedal edema Neuro: COMMON NORMALS: patient oriented x3 Urinary Catheter Management^: Buck: Cath Placed During This Visit: yes Reason for Continuing Indwelling Catheter: Acute Urinary Retention or Obstruction Urinary Catheter Date of Insertion: 11/30/20 Urinary Catheter Time of Insertion: 14:48 Data : 12/25/20 04:36 12/25/20 04:36 A&P Assessment and plan (1) Acute and chronic respiratory failure with hypoxia: Etiology multi-factorial - CHF vs COPD vs Pneumonia O2 sats stable on high flow, weaning fio2 BIPAP Qhs CT Chest: small b/l pleural effusions with compressive atelectasis in ame lung bases slightly increased, slightly hazy groundglass infiltrates in upper lobes. Pulmonary edema vs pneumoniitis Neb tx Steroids CXR Continue to hold Bumex as the patient is euvolemic Patient has been on multiple antibiotics and has missed (vancomycin, cefepime, Zosyn, imipenem, Augmentin), will keep antibiotics on hold for now. Status: Acute (2) Fracture of right distal radius: Right wrist fracture, continue splint. Will need to continue for 6 weeks. May be taken off for range of motion exercises with PT/OT Status: Acute (3) Physical deconditioning: Status: Acute (4) Severe pulmonary hypertension: Status: Acute (5) Healthcare-associated pneumonia: Status: Acute (6) Steroid-induced hyperglycemia: SSI. Added Lantus. Increased to 12 units. Status: Acute Additional A&P Information SHILPA on CKD Stage 3:Resolved - Creatinine increased to 1.7. -Currently SCR is at baseline - Renal dosing - Monitor u/o - Cautious use of diuretics. - Monitor BMP Pending Acute on chronic anemia -S/p transfusion of 2 unit prbc - monitor h/h -S/P EGD: Mild erosive gastritis in the body of stomach -Recent colonoscopy: -Protonix 40 mg po daily Paroxysmal atrial fibrillation with RVR -Given the patient soft blood pressure, she was loaded with Digoxin -Currently on digoxin 125 mcg p.o daily. -Amiodarone 400 mg p.o. TID daily -Metoprolol tartrate IV as needed -Anticoagulation which was on hold has been resumed (Eliquis 5 mg every 12 hours ) - On tele - ECHO noted -Cardiology plan to do JORGE cardioversion. If the patient continues to be in A. fib. -They also intend to do watchman device in future as the patient is candidate for that. - Appreciate Cardiology consult. HFpEF : Currently euvolemic Lasix 40 mg po daily I/0 Charting Daily weight K>4, Mg>2 CKD stage III: Continue to monitor serum creatinine Avoid nephrotoxic Anxiety/depression, - continue fluoxetine, alprazolam h/o recent CVA, 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. Status post TPA. - PT/OT Hypothyroidism - Continue levothyroxine Attestations Medical Necessity Statement*: Patient needs to be in hospital for management of above defined problems. Coding Level of Care Code Acute Degreaser Operator for Chg Fwd Exam Detailed Diagnoses Acute and chronic respiratory failure with hypoxia J96.21 Fracture of right distal radius S52.501A Physical deconditioning R53.81 Severe pulmonary hypertension I27.20 Healthcare-associated pneumonia J18.9 Steroid-induced hyperglycemia R73.9; T38.0X5A
[2020-12-25 16:58] LABS: Glucose Point of Care 214 mg/dL (70-110)
[2020-12-25] MEDS: insulin glargine 100 units/1 mL 12 UNIT SUBCUT (21:12)
[2020-12-25 21:20] LABS: Glucose Point of Care 266 mg/dL (70-110)
[2020-12-26] VITALS (21 sets, daily range): BP systolic 97–144; BP diastolic 43–71; PULSE 70–102; RESP 12–20; TEMP 36.2–36.9; O2SAT 90–100; BMI 38.2
[2020-12-26] MEDS: ipratropium-albuterol 3 mL Neb INHALATION ×5 (00:31→20:31)
[2020-12-26 06:45] LABS: Glucose Point of Care 148 mg/dL (70-110)
[2020-12-26] MEDS: apixaban 5 mg Tablet PO ×2 (09:34→21:24)
[2020-12-26] MEDS: amiodarone 200 mg Tablet 400 MG PO ×2 (09:34→18:07)
[2020-12-26] MEDS: pantoprazole DR 40 mg Tablet PO (09:35)
[2020-12-26 09:43] LABS: Basophils % 0.1 %; Hematocrit 31.7 % (37.0-47.0); Hemoglobin 9.8 g/dL (11.5-15.3); Lymphocytes # 0.4 10^3/uL (0.8-4.8); Lymphocytes % 4.1 %; Mean Corpuscular HGB Conc 30.9 g/dL (30.0-36.0); Mean Corpuscular Hemoglobin 26.9 pg (28.0-34.0); Mean Corpuscular Volume 87.1 fl (81-99); Mean Platelet Volume 9.8 fL (7.4-10.4); Monocytes # 0.2 10^3/uL (0.2-0.9); Monocytes % 2.2 %; Neutrophils # 8.38 10^3/uL (1.8-7.7); Neutrophils % 91.7 %; Nucleated Red Blood Cells % 0 %; Platelet Count 126 10^3/cmm (130-400); Red Blood Count 3.64 10^6/uL (4.1-5.3); Red Cell Distribution Width 16.7 % (12.1-15.1); White Blood Count 9.1 10^3/uL (4.0-10.0)
--- NOTE | 2020-12-26 09:57 | PM.PN ---
Subjective Subjective: Interval history: Patient was seen multiple times during the day. Medications: Reviewed: Yes Vitals/I&O/Wt Last Vital Signs Temp 97.8 F 12/26/20 07:15 Pulse 84 12/26/20 07:15 Resp 16 12/26/20 07:15 BP 144/71 12/26/20 07:15 Pulse Ox 97 12/26/20 07:15 12/25/20 12/26/20 12/26/20 22:59 06:59 14:59 Intake Total 240 / 720 120 / 840 Output Total 1150 / 1150 Balance -910 / -430 120 / -310 Weight last 48 hrs Weight 195 lb 8 oz Weight 195 lb 8 oz Physical Exam Narrative: EXAM NARRATIVE: GENERAL: obese woman sitting propped up in bed in no acute distress HEENT: Mild pallor, No icterus. NECK: No JVD. No carotid bruit. CARDIOVASCULAR SYSTEM: S1-S2 irregular. No murmur or gallops. RESPIRATORY SYSTEM: Chest clear to auscultation except at bases. No wheezes rhonchi or rubs heard. No use of accessory muscles. ABDOMEN: Soft, nontender and nondistended. Normal bowel sounds present. EXTREMITIES: No edema. CATH LAB NURSE: Patient is alert oriented ?3. Right sided weakness+ Urinary Catheter Management^: Buck: Cath Placed During This Visit: yes Reason for Continuing Indwelling Catheter: Acute Urinary Retention or Obstruction Urinary Catheter Date of Insertion: 11/30/20 Urinary Catheter Time of Insertion: 14:48 Data : 12/27/20 06:04 12/27/20 06:04 A&P Assessment and plan (1) Congestive heart failure: Likely a combination of RV failure and HFpEF -lasix held today. -Renal function has improved. -I/O charting. Status: Acute Qualifiers: Heart failure chronicity: acute on chronic Heart failure type: diastolic Qualified Code(s): I50.33 - Acute on chronic diastolic (congestive) heart failure (2) Atrial fibrillation with rapid ventricular response: Paroxysmal atrial fibrillation with rapid ventricle response. She is asymptomatic with that. -Blood pressure too soft try beta-ariadna or calcium channel ariadna. -Digoxin by itself is not controlling her heart rate. Increase amiodarone to 400 mg three times a day. Dilemma here is that she has been off anticoagulation for almost 3 weeks now. When she was admitted she was in sinus rhythm and the earliest EKG documentation that I can see of atrial fibrillation is from 15 December. She had a recent CVA requiring tPA administration in September 2020. -I will get her started on Eliquis 5 mg twice a day for now. -I will plan for JORGE/cardioversion tomorrow if she does not convert. -Given high fall risk with h/o recent fall and chronic anemia; probably will be better off staying [facility]. She will be a good candidate for left atrial appendage occlusion procedure if she can get her stable enough to have that. -I spoke to her DPOA and friend Chuy Sales about it again 12/26/20 Patient underwent JORGE with high suspicion of left atrial appendage thrombus and left atrial smoke. Cardioversion was not attempted because of that. Our options at this point to control patient's atrial fibrillation are limited. I discussed with the patient options of staying on amiodarone for rate control with a small risk of stroke in case it converts her versus staying of antiarrhythmic and trying digoxin at a lower dose. I will continue with Eliquis 5 mg twice a day. Patient understands the risk and would like to continue with amiodarone and Eliquis for now. Status: Acute (3) Severe pulmonary hypertension: Status: Acute (4) Anemia: Hemoglobin has been stable. No active bleed. 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 Features of total occlusion of the left internal carotid artery. Mild to moderate mitral valve regurgitation/moderate tricuspid valve regurgitation HTN: BP soft. Dyslipidemia Hypothyroidism Severe CAROLYN Obesity Physical deconditioning Thank you for allowing me to participate in patient's care. Please feel free to call with questions or concerns. Attestations Medical Necessity Statement*: As per primary team Time Spent in Patient Care: Greater than 35 minutes Procedures Time out/Consent Time Out Performed: Yes Consent for Procedure: Consent obtained from patient, Risks & Benefits reviewed and Agrees to proceed with procedure Procedure Narrative JORGE Procedure note Indication: Symptomatic atrial flutter, Sedation: Propofol by anesthesia The patient was brought down to the GI lab. Procedure was explained to the patient in detail and informed consent was obtained. Timeout was called. After achieving adequate sedation, the probe was inserted on first attempt. No blood on the probe post procedure. Prelim report: Normal left ventricle size and systolic function. Smoke in left atrial. Moderately dilated left atrium. High suspicion of left atrial appendage thrombus. No ASD or PFO identified. Grade 5 atheroma noted in proximal descending aorta. full report to follow. Patient tolerated the procedure well and initial recovery in lab assistant and subsequently was transferred to the floor for further management. 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
[2020-12-26 10:10] LABS: Alanine Aminotransferase 37 U/L (0-33); Albumin Level 3.2 g/dL (3.5-5.2); Alkaline Phosphatase 107 IU/L (35-105); Anion Gap 11.5 (5-19); Aspartate Amino Transferase 10 U/L (0-32); Blood Urea Nitrogen 44 mg/dL (8-23); Calcium 8.8 mg/dL (8.5-10.5); Carbon Dioxide 31 mmol/L (22-29); Chloride 92 mmol/L (98-107); Globulin 2.2 g/dL (1.3-4.6); Glucose 111 mg/dL (65-115); NT Pro B Type Natriuretic Pept 3663 pg/mL (0-450); Osmolality Calculated 282 mOsm/kg (285-295); Potassium 4.5 mmol/L (3.5-5.1); Sodium 130 mmol/L (136-145); Total Bilirubin 0.6 mg/dL (0.15-1.2); Total Protein 5.4 g/dL (6.6-8.7)
[2020-12-26 10:17] LABS: Digoxin 2.1 ng/mL (0.6-1.2)
[2020-12-26 10:56] LABS: Glucose Point of Care 124 mg/dL (70-110)
--- NOTE | 2020-12-26 12:00 | USCV_ITS ---
Elzbieta Church Age: 75 Gender: F : 1945 Exam Date: 12/26/2020 12:40 Ordering Phys: Leticia Galindo MD ([email or web address]) Technologist: Fadia Ledbetter Exam Location: [facility] Indication: Atrial fibrillation BP: / HR: Rhythm: Atrial fibrillation Technical Quality: Good MEASUREMENTS (Male / Female) Normal Values Medications Patient given IV sedation by anesthesia service, for details please refer to the anesthesia report. Complications Patient tolerated procedure well. Proc. Components The patient was brought to the JORGE examination room in a fasting state after obtaining an informed consent. The patient tolerated the procedure well and there were no complications. FINDINGS Left Ventricle Normal left ventricular cavity size. Moderate concentric left ventricular hypertrophy. Normal left ventricular systolic function. Left ventricular ejection fraction is estimated at 60- 65 %. No regional wall motion abnormalities. Right Ventricle Normal right ventricular size and systolic function. Right Atrium Normal right atrial size. Left Atrium Moderately increased left atrial size. Smoke noted in left atrium. LA Appendage Normal left atrial appendage. Decreased flow velocities in the left atrial appendage. Possible thrombus in the left atrial appendage. IA Septum Lipomatous hypertrophy of interatrial septum. No patent foramen ovale or atrial septal defect by color Doppler.. Mitral Valve Thickened mitral valve. Moderate mitral annular calcification. No mitral valve stenosis. Mild mitral valve regurgitation. Aortic Valve Thickened and calcified trileaflet aortic valve. No aortic valve stenosis. No aortic valve regurgitation. Tricuspid Valve Structurally normal tricuspid valve. [id number] tricuspid valve regurgitation. Pulmonic Valve Structurally normal pulmonic valve. Trace pulmonary valve regurgitation. Pericardium No pericardial effusion. Aorta Normal size aortic root and proximal ascending aorta. Moderate plaque seen in aorta root. Grade 4 mobile atheroma noted in proximal descending aorta. No aortic dilation aneurysm or dissection. CONCLUSIONS 1. Normal left ventricular cavity size and systolic function. Moderate concentric left ventricular hypertrophy. Left ventricular ejection fraction is estimated at 60-65 %. No regional wall motion abnormalities. 2. Normal right ventricular size and systolic function. 3. Possible thrombus in the left atrial appendage. Left atrial smoke noted. 4. [id number] tricuspid valve regurgitation. 5. Moderate plaque seen in aorta root. Grade 4 mobile atheroma noted in proximal descending aorta. Leticia Galindo MD (Electronically Signed) Final Date: 02 January 2021 14:52 S
--- NOTE | 2020-12-26 12:02 | ANES.PREANE2 ---
Pre-Anesthetic Assessment Pre-Anesthetic Assessment: Height/Weight: Height 1.52 m Weight 88.677 kg Temp Pulse Resp BP Pulse Ox 98.4 F 80 20 H 101/69 95 12/26/20 11:42 12/26/20 11:42 12/26/20 11:42 12/26/20 11:42 12/26/20 11:42 Preop Diagnosis: gi bleed Proposed Procedure: Operation Date: 12/18/20 07:45 Proposed Procedures p EGD(Not Applicable) - Lucian Araiza MD Operation Date: 12/23/20 12:00 Proposed Procedures p EGD(Not Applicable) - Vincenzo Burgess MD Operation Date: 12/26/20 12:00 Proposed Procedures p JORGE(Not Applicable) - Leticia Galindo MD s Cardioversion(Not Applicable) - Leticia Galindo MD Familial anesthetic complications: None Last intake: > 8 hrs Social: Social History: Tobacco Exam: Pre-Anes Outpt Exam: alert, oriented x 3, clear to auscultation bilaterally and regular rate & rhythm Additional Exam Findings (including area of procedure): caorse breath sounds /bl Airway: Cervical ROM: WNL MP: 3 Dentition: Other (multiple missing teeth) Pulmonary: Pulmonary: COPD, CARTER and Sleep apnea Comments: pulm HTN CV/HEM: CV/HEM: Afib, Anemia and HTN : : Chronic renal Insufficiency GI: GI: GERD Metabolic: Metabolic: Hyperlipidemia and Thyroid Neuropsych: Neuropsych: CVA Comments: B/L JT Anesthetic Plan: ASA status: 4 Anesthesia: MAC Risk of > 500 ml blood loss (7ml/kg in children): No Meds/Allergies Current Medications: Current Medications Generic Name Dose Route Start Last Admin Trade Name Freq PRN Reason Stop Dose Admin Acetaminophen 650 mg 12/22/20 22:03 12/24/20 14:25 Acetaminophen 32 5 Mg Tablet PO 650 mg Q6H PRN Administration MILD PAIN OR INCR EASE TEMP Albuterol/Ipratrop ium 3 ml 12/15/20 00:00 12/26/20 09:56 Ipratropium-Albu terol 3 Ml Neb INHALATION 3 ml Q4H.RESPIRATORY S CH Administration Amiodarone HCl 400 mg 12/25/20 15:00 12/26/20 09:34 Amiodarone 200 M g Tablet PO 400 mg TID BEA Administration Apixaban 5 mg 12/24/20 13:05 12/26/20 09:34 Apixaban 5 Mg Ta blet PO 5 mg BID@0900,2100 BEA Administration Calcium Carbonate 1,000 mg 12/04/20 12:00 12/16/20 06:02 Calcium Carbonat e 500 Mg Chew Tabl et PO 1,000 mg Q4H PRN Administration DISCOMFORT Ferrous Gluconate 324 mg 12/15/20 18:00 12/26/20 09:22 Ferrous Gluconat e 324 Mg Tablet PO Not Given BIDWM BEA Furosemide 40 mg 12/24/20 09:15 12/24/20 09:24 Furosemide 40 Mg Tablet PO 40 mg DAILY@0800 BEA Administration Guaifenesin 600 mg 12/21/20 18:00 12/26/20 09:22 Guaifenesin 600 Mg Tablet PO Not Given BID BEA Insulin Glargine 12 unit 12/14/20 21:00 12/25/20 21:12 Insulin Glargine 100 Units/1 Ml SUBCUT 12 unit BEDTIME BEA Administration Insulin Human Lisp ro 0 unit 12/11/20 08:00 12/26/20 11:11 Insulin Lispro 1 00 Unit/1 Ml SUBCUT Not Given WM&BEDTIME BEA Protocol Non-Formulary Medi cation 2 drop 11/30/20 17:27 12/09/20 11:44 Carboxymethylcel lulose Sodium [Ref resh Tears] EYEAFF 2 drop BID PRN Administration Dry Eyes Pantoprazole Sodiu m 40 mg 12/24/20 09:00 12/26/20 09:[address] 40 Mg Tablet PO 40 mg DAILY BEA Administration Prednisone 20 mg 12/26/20 09:00 12/26/20 11:10 Prednisone 20 Mg Tablet PO Not Given DAILY BEA PFSH Anesthesia PFSH: Medical History (Updated 12/24/20 @ 17:03 by Leticia Galindo MD) Atrial fibrillation with rapid ventricular response Bilateral carotid artery stenosis Carotid atherosclerosis Chronic kidney disease Congestive heart failure COPD (chronic obstructive pulmonary disease) CVA (cerebral vascular accident) Displaced spiral fracture of shaft of right humerus with routine healing Fracture of humerus, proximal, right, closed History of CVA (cerebrovascular accident) Hyperlipidemia Hypertension Hypothyroidism Lung infiltrate on CT Pneumonia Surgical History History of carpal tunnel release of both wrists History of renal stent Hx of cholecystectomy Family History Father Stroke Mother Stroke Social History Smoking and tobacco status: former smoker Alcohol intake: never Female Reproductive History: Date of last menstrual period: 05/08/20 Data Anesthesia CBC & Chem 7: 12/26/20 08:57 12/26/20 08:57 Other Labs: Laboratory Results - last 48 hr 12/15/20 12/24/20 12/24/20 11:21 12:52 17:02 WBC RBC Hgb Hct MCV MCH MCHC RDW Plt Count MPV Neut % (Auto) Lymph % (Auto) [place] % (Auto) Eos % (Auto) Baso % (Auto) Neut # (Auto) Lymph # (Auto) [place] # (Auto) Eos # (Auto) Baso # (Auto) Nucleated RBC % (auto) Nucleated RBCs # Sodium Potassium Chloride Carbon Dioxide Anion Gap BUN Creatinine GFR Calculation Glucose POC Glucose 153 H Calculated Osmolality Calcium Magnesium Total Bilirubin AST ALT Alkaline Phosphatase NT-Pro-B Natriuret Pep Total Protein Albumin Globulin Digoxin Blood Type B Positive Rho(D) Type Positive Antibody Screen Negative Crossmatch See Detail See Detail 12/24/20 12/25/20 12/25/20 20:54 04:36 04:36 WBC 10.0 RBC 3.48 L Hgb 9.5 L Hct 30.4 L MCV 87.4 MCH 27.3 L MCHC 31.3 RDW 16.6 H Plt Count 130 MPV 9.7 Neut % (Auto) 93.8 Lymph % (Auto) 2.4 [place] % (Auto) 1.4 Eos % (Auto) 0.0 Baso % (Auto) 0.0 Neut # (Auto) 9.37 H Lymph # (Auto) 0.2 L [place] # (Auto) 0.1 L Eos # (Auto) 0.0 Baso # (Auto) 0.0 Nucleated RBC % (auto) 0.2 Nucleated RBCs # 0.0 Sodium 135 L Potassium 4.8 Chloride 95 L Carbon Dioxide 31 H Anion Gap 13.8 BUN 46 H Creatinine 1.3 H GFR Calculation Not Reportable Glucose 183 H POC Glucose 162 H Calculated Osmolality 297 H Calcium 8.6 Magnesium Total Bilirubin AST ALT Alkaline Phosphatase NT-Pro-B Natriuret Pep Total Protein Albumin Globulin Digoxin Blood Type Rho(D) Type Antibody Screen Crossmatch 12/25/20 12/25/20 12/25/20 06:26 10:57 16:24 WBC RBC Hgb Hct MCV MCH MCHC RDW Plt Count MPV Neut % (Auto) Lymph % (Auto) [place] % (Auto) Eos % (Auto) Baso % (Auto) Neut # (Auto) Lymph # (Auto) [place] # (Auto) Eos # (Auto) Baso # (Auto) Nucleated RBC % (auto) Nucleated RBCs # Sodium Potassium Chloride Carbon Dioxide Anion Gap BUN Creatinine GFR Calculation Glucose POC Glucose 166 H 259 H 214 H Calculated Osmolality Calcium Magnesium Total Bilirubin AST ALT Alkaline Phosphatase NT-Pro-B Natriuret Pep Total Protein Albumin Globulin Digoxin Blood Type Rho(D) Type Antibody Screen Crossmatch 12/25/20 12/26/20 12/26/20 21:01 06:18 08:57 WBC 9.1 RBC 3.64 L Hgb 9.8 L Hct 31.7 L MCV 87.1 MCH 26.9 L MCHC 30.9 RDW 16.7 H Plt Count 126 L MPV 9.8 Neut % (Auto) 91.7 Lymph % (Auto) 4.1 [place] % (Auto) 2.2 Eos % (Auto) 0.0 Baso % (Auto) 0.1 Neut # (Auto) 8.38 H Lymph # (Auto) 0.4 L [place] # (Auto) 0.2 Eos # (Auto) 0.0 Baso # (Auto) 0.0 Nucleated RBC % (auto) 0 Nucleated RBCs # 0.0 Sodium Potassium Chloride Carbon Dioxide Anion Gap BUN Creatinine GFR Calculation Glucose POC Glucose 266 H 148 H Calculated Osmolality Calcium Magnesium Total Bilirubin AST ALT Alkaline Phosphatase NT-Pro-B Natriuret Pep Total Protein Albumin Globulin Digoxin Blood Type Rho(D) Type Antibody Screen Crossmatch 12/26/20 12/26/20 08:57 10:35 WBC RBC Hgb Hct MCV MCH MCHC RDW Plt Count MPV Neut % (Auto) Lymph % (Auto) [place] % (Auto) Eos % (Auto) Baso % (Auto) Neut # (Auto) Lymph # (Auto) [place] # (Auto) Eos # (Auto) Baso # (Auto) Nucleated RBC % (auto) Nucleated RBCs # Sodium 130 L Potassium 4.5 Chloride 92 L Carbon Dioxide 31 H Anion Gap 11.5 BUN 44 H Creatinine 0.9 GFR Calculation Not Reportable Glucose 111 POC Glucose 124 H Calculated Osmolality 282 L Calcium 8.8 Magnesium 2.0 Total Bilirubin 0.6 AST 10 ALT 37 H Alkaline Phosphatase 107 H NT-Pro-B Natriuret Pep 3663 H Total Protein 5.4 L Albumin 3.2 L Globulin 2.2 Digoxin 2.1 H Blood Type Rho(D) Type Antibody Screen Crossmatch Cardiac Studies: Echocardiogram 11/18/20
[2020-12-26] MEDS: sodium chloride 0.9% 1,000 ML 30 ML IV (12:18)
--- NOTE | 2020-12-26 12:19 | PC.OT ---
OT TX ATTEMPTED. PT OFF THE FLOOR FOR MEDICAL PROCEDURE. WILL ATTEMPT LATER TODAY IF POSSIBLE.
--- NOTE | 2020-12-26 12:45 | ECG_ITS ---
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 Measurements Intervals [place] Rate: 84 P: IA: QRS: 86 QRSD: 146 T: 14 QT: 386 QTc: 457 Interpretive Statements ATRIAL FIBRILLATION RIGHT BUNDLE BRANCH BLOCK [120+ ms QRS DURATION, UPRIGHT V1, 40+ ms S IN I/aVL/V4/V5/V6] ST DEPRESSION, CONSIDER SUBENDOCARDIAL INJURY [0.1+ mV ST DEPRESSION] Compared to ECG 12/15/2020 20:12:00 No significant changes Electronically Signed On 12-26-2020 19:49:50 DOFFER by Tariq Gilliam M.D. [id number]
--- NOTE | 2020-12-26 13:31 | ANE.PACU2 ---
Inpatient post-anesthesia follow up: Airway intact: Yes Vital signs: Temperature 98.4 F Pulse Rate [Left A pical] 85 Pulse Rate [Therap y Changed] 118 Pulse Rate [Curren t] 63 Pulse Rate 80 Respiratory Rate [ Therapy 20 Changed] Respiratory Rate [ Current] 20 Respiratory Rate 20 Blood Pressure [Ri ght Arm] 151/63 Blood Pressure 101/69 Pulse Oximetry [Th erapy 92 Changed] Pulse Oximetry [Cu rrent] 96 Pulse Oximetry 95 Oxygen Delivery Me thod Nasal Cannula Oxygen Flow Rate [ Therapy 30 Changed] Oxygen Flow Rate [ Current] 25 Oxygen Flow Rate 4 Fraction of Inspir ed Oxygen [ 30 Therapy Changed] Fraction of Inspir ed Oxygen [ 40 Current] Fraction of Inspir ed Oxygen 4 Hydration adequate: Yes Nausea and vomiting: No Pain level: 1 Mental status: Baseline
--- NOTE | 2020-12-26 13:45 | PC.NURSE ---
Pt to be recovered following JORGE. Cardioversion aborted. Pt alert and oriented. VSS. Report called to Beverley on second floor.
--- NOTE | 2020-12-26 13:52 | PM.PN ---
Subjective Subjective: Interval history: Patient was seen and examined this morning, continues to be in A. fib with heart rate in 90s to high 80s. Dose of digoxin was on hold today, serum dig level was:2.1. Medications: Reviewed: Yes Vitals/I&O/Wt Last Vital Signs Temp 98.4 F 12/26/20 11:42 Pulse 80 12/26/20 11:42 Resp 20 H 12/26/20 11:42 BP 101/69 12/26/20 11:42 Pulse Ox 95 12/26/20 11:42 12/25/20 12/26/20 12/26/20 22:59 06:59 14:59 Intake Total 240 / 720 120 / 840 300 / 300 Output Total 1150 / 1150 Balance -910 / -430 120 / -310 300 / 300 Weight last 48 hrs Weight 88.677 kg Weight 88.677 kg Physical Exam Const: COMMON NORMALS: patient oriented x3 HENMT: COMMON NORMALS: normocephalic and atraumatic HEAD & SCALP: normocephalic and atraumatic Resp: COMMON NORMALS: clear to auscultation bilaterally EFFORT & INSPECTION: Yes symmetric chest movement AUSCULTATION: clear to auscultation bilaterally OTHER: Coarse Breath sounds B/L Cardio: COMMON NORMALS: regular rate, regular rhythm, S1 normal heart sound present, S2 normal heart sound present, No gallops present (Cardio) and No rub (Cardio) RATE: regular rate RHYTHM: regular rhythm HEART SOUNDS: S1 normal heart sound present and S2 normal heart sound present OTHER: Pansystolic murmur in mitral area GI: COMMON NORMALS: Normal to inspection, nondistended, normoactive bowel sounds present, Soft to palpation, non-tender, No hepatosplenomegaly present and no masses AUSCULTATION: Yes normoactive bowel sounds PALPATION: Yes Soft to palpation and Yes No hepatosplenomegaly present RECTAL EXAM: deferred Extremity: COMMON NORMALS: no clubbing, cyanosis or edema and no pedal edema Neuro: COMMON NORMALS: patient oriented x3 Urinary Catheter Management^: Buck: Cath Placed During This Visit: yes Reason for Continuing Indwelling Catheter: Acute Urinary Retention or Obstruction Urinary Catheter Date of Insertion: 11/30/20 Urinary Catheter Time of Insertion: 14:48 Data : 12/26/20 08:57 12/26/20 08:57 A&P Assessment and plan (1) Acute and chronic respiratory failure with hypoxia: Etiology multi-factorial - CHF vs COPD vs Pneumonia O2 sats stable on high flow, weaning fio2 BIPAP Qhs CT Chest: small b/l pleural effusions with compressive atelectasis in ame lung bases slightly increased, slightly hazy groundglass infiltrates in upper lobes. Pulmonary edema vs pneumoniitis Neb tx Steroids CXR Continue to hold Bumex as the patient is euvolemic Patient has been on multiple antibiotics and has missed (vancomycin, cefepime, Zosyn, imipenem, Augmentin), will keep antibiotics on hold for now. Status: Acute (2) Fracture of right distal radius: Right wrist fracture, continue splint. Will need to continue for 6 weeks. May be taken off for range of motion exercises with PT/OT Status: Acute (3) Physical deconditioning: Status: Acute (4) Severe pulmonary hypertension: Status: Acute (5) Healthcare-associated pneumonia: Status: Acute (6) Steroid-induced hyperglycemia: SSI. Added Lantus. Increased to 12 units. Status: Acute Additional A&P Information SHILPA on CKD Stage 3:Resolved - Creatinine increased to 1.7. -Currently SCR is at baseline - Renal dosing - Monitor u/o - Cautious use of diuretics. - Monitor BMP Pending Acute on chronic anemia -S/p transfusion of 2 unit prbc - monitor h/h -S/P EGD: Mild erosive gastritis in the body of stomach -Recent colonoscopy: -Protonix 40 mg po daily Paroxysmal atrial fibrillation with RVR : -Given the patient soft blood pressure, she was loaded with Digoxin -Currently on digoxin 125 mcg p.o daily. -Amiodarone 400 mg p.o. BID daily -Metoprolol tartrate IV as needed -Anticoagulation which was on hold has been resumed (Eliquis 5 mg every 12 hours ) - On tele - ECHO: Normal LV size and systolic function, EF 55%, I/IV diastolic dysfunction (abnormal relaxation filling pattern), normal to mildly elevated filling pressures. Mild-moderate mitral valve regurgitation. Moderate tricuspid valve regurgitation. Estimated pulmonary artery peak systolic pressure was 60 mmHg. -Cardiology initial plan was to do JORGE cardioversion.JORGE has shown possible JEREMIAH thrombus.Cardioversion was aborted. -Patient has been continued on amiodarone which can possible convert the patient to normal sinus rhythm, but - - currently patient is anticoagulated, though there is always a risk of acute embolic CVA.Patient has been updated on that. -They also intend to do watchman device in future as the patient is candidate for that. - Appreciate Cardiology consult. HFpEF : Currently euvolemic Lasix 40 mg po daily I/0 Charting Daily weight K>4, Mg>2 CKD stage III: Continue to monitor serum creatinine Avoid nephrotoxic Anxiety/depression, - continue fluoxetine, alprazolam h/o recent CVA, 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. Status post TPA. - PT/OT Hypothyroidism - Continue levothyroxine Attestations Medical Necessity Statement*: Patient needs to be in hospital for management of the above defined problems. Coding Level of Care Code Acute Fund Director for Chg Fwd Exam Detailed Diagnoses Acute and chronic respiratory failure with hypoxia J96.21 Fracture of right distal radius S52.501A Physical deconditioning R53.81 Severe pulmonary hypertension I27.20 Healthcare-associated pneumonia J18.9 Steroid-induced hyperglycemia R73.9; T38.0X5A
--- NOTE | 2020-12-26 15:49 | PC.NURSE ---
Student Nurse All student nurse documentation verified by this instructor for 12/26/20 shift.
[2020-12-26] MEDS: guaiFENesin 600 mg Tablet PO (18:07)
[2020-12-26] MEDS: ferrous gluconate 324 mg Tablet PO (18:07)
[2020-12-26 20:40] LABS: Glucose Point of Care 214 mg/dL (70-110)
[2020-12-26] MEDS: insulin lispro 100 unit/1 mL SUBCUT (21:24)
[2020-12-26] MEDS: insulin glargine 100 units/1 mL 12 UNIT SUBCUT (21:24)
[2020-12-27] VITALS (16 sets, daily range): BP systolic 104–122; BP diastolic 67–81; PULSE 59–95; RESP 16–23; TEMP 36.3–36.8; O2SAT 92–100
[2020-12-27] MEDS: ipratropium-albuterol 3 mL Neb INHALATION ×7 (00:19→23:24)
[2020-12-27 06:24] LABS: Glucose Point of Care 91 mg/dL (70-110)
[2020-12-27 06:51] LABS: Basophils % 0.1 %; Eosinophils % 0.3 %; Hematocrit 33.1 % (37.0-47.0); Lymphocytes # 0.4 10^3/uL (0.8-4.8); Lymphocytes % 4.7 %; Mean Corpuscular HGB Conc 30.2 g/dL (30.0-36.0); Mean Corpuscular Volume 89.2 fl (81-99); Mean Platelet Volume 10.2 fL (7.4-10.4); Monocytes # 0.2 10^3/uL (0.2-0.9); Monocytes % 2.3 %; Neutrophils # 7.02 10^3/uL (1.8-7.7); Neutrophils % 90.9 %; Nucleated Red Blood Cells % 0 %; Platelet Count 114 10^3/cmm (130-400); Red Blood Count 3.71 10^6/uL (4.1-5.3); Red Cell Distribution Width 17.1 % (12.1-15.1); White Blood Count 7.7 10^3/uL (4.0-10.0)
[2020-12-27 07:12] LABS: Alanine Aminotransferase 34 U/L (0-33); Albumin Level 3.1 g/dL (3.5-5.2); Alkaline Phosphatase 104 IU/L (35-105); Anion Gap 13.6 (5-19); Aspartate Amino Transferase 13 U/L (0-32); Blood Urea Nitrogen 37 mg/dL (8-23); Calcium 8.8 mg/dL (8.5-10.5); Carbon Dioxide 30 mmol/L (22-29); Chloride 95 mmol/L (98-107); Digoxin 1.5 ng/mL (0.6-1.2); Globulin 2.1 g/dL (1.3-4.6); Glucose 84 mg/dL (65-115); Osmolality Calculated 286 mOsm/kg (285-295); Potassium 4.6 mmol/L (3.5-5.1); Sodium 134 mmol/L (136-145); Total Bilirubin 0.7 mg/dL (0.15-1.2); Total Protein 5.2 g/dL (6.6-8.7)
[2020-12-27] MEDS: guaiFENesin 600 mg Tablet PO ×2 (07:39→16:39)
[2020-12-27] MEDS: FUROsemide 40 mg Tablet PO (07:39)
[2020-12-27] MEDS: pantoprazole DR 40 mg Tablet PO (07:39)
[2020-12-27] MEDS: apixaban 5 mg Tablet PO ×2 (07:39→21:32)
[2020-12-27] MEDS: predniSONE 20 mg Tablet PO (07:39)
[2020-12-27] MEDS: ferrous gluconate 324 mg Tablet PO ×2 (07:39→16:40)
[2020-12-27] MEDS: amiodarone 200 mg Tablet PO ×2 (07:39→16:39)
[2020-12-27] MEDS: acetaminophen 325 mg Tablet 650 MG PO (07:41)
[2020-12-27 11:00] LABS: Glucose Point of Care 245 mg/dL (70-110)
--- NOTE | 2020-12-27 11:21 | PC.SOCIAL ---
IMM Update pg 2 of IMM updated and reviewed w/ patient. Copy provided.
[2020-12-27] MEDS: insulin lispro 100 unit/1 mL SUBCUT ×3 (12:36→21:32)
--- NOTE | 2020-12-27 13:45 | PM.PN ---
Subjective Subjective: Interval history: Feels well overall. Heart rate has remained 80-90's on telemetry. She remains in atrial fibrillation. Medications: Reviewed: Yes Vitals/I&O/Wt Last Vital Signs Temp 97.8 F 12/27/20 11:20 Pulse 78 12/27/20 11:42 Resp 18 12/27/20 11:42 BP 113/74 12/27/20 11:20 Pulse Ox 98 12/27/20 11:42 12/26/20 12/27/20 12/27/20 22:59 06:59 14:59 Intake Total 240 / 900 480 / 1380 480 / 480 Output Total 450 / 450 300 / 750 Balance -210 / 450 180 / 630 480 / 480 Weight last 48 hrs Weight 195 lb 8 oz Physical Exam Narrative: EXAM NARRATIVE: GENERAL: obese woman sitting propped up in bed in no acute distress HEENT: Mild pallor, No icterus. NECK: No JVD. No carotid bruit. CARDIOVASCULAR SYSTEM: S1-S2 irregular. No murmur or gallops. RESPIRATORY SYSTEM: Chest clear to auscultation except at bases. No wheezes rhonchi or rubs heard. No use of accessory muscles. ABDOMEN: Soft, nontender and nondistended. Normal bowel sounds present. EXTREMITIES: No edema. RAND MAKER: Patient is alert oriented ?3. Right sided weakness+ Urinary Catheter Management^: Buck: Cath Placed During This Visit: yes Reason for Continuing Indwelling Catheter: Acute Urinary Retention or Obstruction Urinary Catheter Date of Insertion: 11/30/20 Urinary Catheter Time of Insertion: 14:48 Data : 12/27/20 06:04 12/27/20 06:04 A&P Assessment and plan (1) Congestive heart failure: Likely a combination of RV failure and HFpEF -lasix held today. -Renal function has improved. -I/O charting. Status: Acute Qualifiers: Heart failure chronicity: acute on chronic Heart failure type: diastolic Qualified Code(s): I50.33 - Acute on chronic diastolic (congestive) heart failure (2) Atrial fibrillation with rapid ventricular response: Paroxysmal atrial fibrillation with rapid ventricle response. She is asymptomatic with that. -Blood pressure too soft try beta-ariadna or calcium channel ariadna. -Digoxin by itself is not controlling her heart rate. Increase amiodarone to 400 mg three times a day. Dilemma here is that she has been off anticoagulation for almost 3 weeks now. When she was admitted she was in sinus rhythm and the earliest EKG documentation that I can see of atrial fibrillation is from 15 December. She had a recent CVA requiring tPA administration in September 2020. -I will get her started on Eliquis 5 mg twice a day for now. -I will plan for JORGE/cardioversion tomorrow if she does not convert. 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 She will be a good candidate for left atrial appendage occlusion procedure if she can get her stable enough to have that. -I spoke to her DPOA and friend Chuy Sales about it again 12/26/20 Patient underwent JORGE with high suspicion of left atrial appendage thrombus and left atrial smoke. Cardioversion was not attempted because of that. Our options at this point to control patient's atrial fibrillation are limited. I discussed with the patient options of staying on amiodarone for rate control with a small risk of stroke in case it converts her versus staying of antiarrhythmic and trying digoxin at a lower dose. I will continue with Eliquis 5 mg twice a day. Patient understands the risk and would like to continue with amiodarone and Eliquis for now. 12/27/20 Digoxin level high. With her fluctuating renal function may consider at a lower dose of 62.5 mcg every other day at a later date. Continue amiodarone and Eliquis for now. -Recommend outpatient follow-up with me in 2 weeks at [facility] -Based on how she does we will refer her for left atrial appendage occlusion procedure at that time. Patient expresses her desire to go to [facility] for the same. Status: Acute (3) Severe pulmonary hypertension: Status: Acute (4) Anemia: Hemoglobin has been stable. No active bleed. 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 Features of total occlusion of the left internal carotid artery. Mild to moderate mitral valve regurgitation/moderate tricuspid valve regurgitation Grade 5 atheroma in descending aorta High likelihood of left atrial appendage thrombus HTN: BP soft. Dyslipidemia Hypothyroidism Severe CAROLYN Obesity Physical deconditioning Thank you for allowing me to participate in patient's care. Please feel free to call with questions or concerns. Attestations Medical Necessity Statement*: As per primary team Time Spent in Patient Care: 16 - 35 minutes Coding Level of Care Code Acute Dental Office Coordinator for Pattie Fwrima Diagnoses Congestive heart failure I50.33 Heart failure chronicity: acute on chronic Heart failure type: diastolic Atrial fibrillation with rapid ventricular response I48.91 Severe pulmonary hypertension I27.20 Anemia D50.0 Anemia type: iron deficiency Iron deficiency anemia type: chronic blood loss
--- NOTE | 2020-12-27 16:52 | PM.PN ---
Subjective Subjective: Interval history: No acute events overnight, overall she is doing better, continues to be in A. fib, but with well-controlled heart rate. Kidney function has normalized. Hemoglobin has remained stable. Medications: Reviewed: Yes Vitals/I&O/Wt Last Vital Signs Temp 98.1 F 12/27/20 15:10 Pulse 88 12/27/20 16:23 Resp 18 12/27/20 16:10 BP 109/67 12/27/20 15:10 Pulse Ox 98 12/27/20 16:10 12/27/20 12/27/20 12/27/20 06:59 14:59 22:59 Intake Total 480 / 1380 480 / 480 Output Total 300 / 750 Balance 180 / 630 480 / 480 Weight last 48 hrs Weight 88.677 kg Physical Exam Const: COMMON NORMALS: patient oriented x3 HENMT: COMMON NORMALS: normocephalic and atraumatic HEAD & SCALP: normocephalic and atraumatic Resp: COMMON NORMALS: clear to auscultation bilaterally EFFORT & INSPECTION: Yes symmetric chest movement AUSCULTATION: clear to auscultation bilaterally Cardio: COMMON NORMALS: regular rate, regular rhythm, S1 normal heart sound present, S2 normal heart sound present, No gallops present (Cardio) and No rub (Cardio) RATE: regular rate RHYTHM: regular rhythm HEART SOUNDS: S1 normal heart sound present and S2 normal heart sound present OTHER: Pansystolic murmur in mitral area GI: COMMON NORMALS: Normal to inspection, nondistended, normoactive bowel sounds present, Soft to palpation, non-tender, No hepatosplenomegaly present and no masses AUSCULTATION: Yes normoactive bowel sounds PALPATION: Yes Soft to palpation and Yes No hepatosplenomegaly present RECTAL EXAM: deferred Extremity: COMMON NORMALS: no clubbing, cyanosis or edema and no pedal edema Neuro: COMMON NORMALS: patient oriented x3 Urinary Catheter Management^: Buck: Cath Placed During This Visit: yes Reason for Continuing Indwelling Catheter: Acute Urinary Retention or Obstruction Urinary Catheter Date of Insertion: 11/30/20 Urinary Catheter Time of Insertion: 14:48 Data : 12/27/20 06:04 12/27/20 06:04 A&P Assessment and plan (1) Acute and chronic respiratory failure with hypoxia: Etiology multi-factorial - CHF vs COPD vs Pneumonia O2 sats stable on high flow, weaning fio2 BIPAP Qhs CT Chest: small b/l pleural effusions with compressive atelectasis in ame lung bases slightly increased, slightly hazy groundglass infiltrates in upper lobes. Pulmonary edema vs pneumoniitis Neb tx Steroids CXR Continue to hold Bumex as the patient is euvolemic Patient has been on multiple antibiotics and has missed (vancomycin, cefepime, Zosyn, imipenem, Augmentin), will keep antibiotics on hold for now. Status: Acute (2) Fracture of right distal radius: Right wrist fracture, continue splint. Will need to continue for 6 weeks. May be taken off for range of motion exercises with PT/OT Status: Acute (3) Physical deconditioning: Status: Acute (4) Severe pulmonary hypertension: Status: Acute (5) Healthcare-associated pneumonia: Status: Acute (6) Steroid-induced hyperglycemia: SSI. Added Lantus. Increased to 12 units. Status: Acute Additional A&P Information SHILPA on CKD Stage 3:Resolved - Creatinine increased to 1.7. -Currently SCR is at baseline - Renal dosing - Monitor u/o - Cautious use of diuretics. - Monitor BMP Pending Acute on chronic anemia -S/p transfusion of 2 unit prbc - monitor h/h -S/P EGD: Mild erosive gastritis in the body of stomach -Recent colonoscopy: -Protonix 40 mg po daily Paroxysmal atrial fibrillation with RVR : -Given the patient soft blood pressure, she was loaded with Digoxin -Was on digoxin 125 mcg p.o daily.has been stopped as serum digoxin level was high. Monitor serum Digoxin level. -Amiodarone 200 mg p.o. BID daily -Metoprolol tartrate IV as needed -Anticoagulation which was on hold has been resumed (Eliquis 5 mg every 12 hours ) - On tele - ECHO: Normal LV size and systolic function, EF 55%, I/IV diastolic dysfunction (abnormal relaxation filling pattern), normal to mildly elevated filling pressures. Mild-moderate mitral valve regurgitation. Moderate tricuspid valve regurgitation. Estimated pulmonary artery peak systolic pressure was 60 mmHg. -Cardiology initial plan was to do JORGE cardioversion.JOREG has shown possible JEREMIAH thrombus.Cardioversion was aborted. -Patient has been continued on amiodarone which can possible convert the patient to normal sinus rhythm, but - - currently patient is anticoagulated, though there is always a risk of acute embolic CVA.Patient has been updated on that. -They also intend to do watchman device in future as the patient is candidate for that. - Appreciate Cardiology consult. HFpEF : Currently euvolemic will resume Lasix 40 mg po daily on discharge I/0 Charting Daily weight K>4, Mg>2 CKD stage III: Continue to monitor serum creatinine Avoid nephrotoxic Anxiety/depression, - continue fluoxetine, alprazolam h/o recent CVA, 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. Status post TPA. - PT/OT Hypothyroidism - Continue levothyroxine Attestations Medical Necessity Statement*: [facility], currently her hemoglobin has remained stable after starting the Eliquis. Coding Level of Care Code Acute Waste Transportation Technician for Chg Fwd Exam Detailed Diagnoses Acute and chronic respiratory failure with hypoxia J96.21 Fracture of right distal radius S52.501A Physical deconditioning R53.81 Severe pulmonary hypertension I27.20 Healthcare-associated pneumonia J18.9 Steroid-induced hyperglycemia R73.9; T38.0X5A
[2020-12-27 16:54] LABS: Glucose Point of Care 261 mg/dL (70-110)
[2020-12-27 20:45] LABS: Glucose Point of Care 205 mg/dL (70-110)
[2020-12-27] MEDS: insulin glargine 100 units/1 mL 12 UNIT SUBCUT (21:32)
[2020-12-27 23:44] LABS: SARS Covid-2 Antigen Negative (Negative)
[2020-12-28] VITALS: BP 98/65; PULSE 84; RESP 17; TEMP 36.8; O2SAT 98
[2020-12-28] MEDS: ipratropium-albuterol 3 mL Neb INHALATION ×2 (03:07→08:52)
[2020-12-28 03:08] VITALS: PULSE 95; RESP 20; O2SAT 97
[2020-12-28 04:00] VITALS: BP 88/59; PULSE 84; RESP 18; TEMP 36.3; O2SAT 98
[2020-12-28 05:50] LABS: Basophils % 0.1 %; Eosinophils % 0.3 %; Hematocrit 29.9 % (37.0-47.0); Hemoglobin 9.2 g/dL (11.5-15.3); Lymphocytes # 0.4 10^3/uL (0.8-4.8); Lymphocytes % 5.8 %; Mean Corpuscular HGB Conc 30.8 g/dL (30.0-36.0); Mean Corpuscular Hemoglobin 27.2 pg (28.0-34.0); Mean Corpuscular Volume 88.5 fl (81-99); Mean Platelet Volume 10.2 fL (7.4-10.4); Monocytes # 0.2 10^3/uL (0.2-0.9); Monocytes % 2.8 %; Neutrophils # 6.43 10^3/uL (1.8-7.7); Neutrophils % 89.6 %; Nucleated Red Blood Cells % 0 %; Platelet Count 97 10^3/cmm (130-400); Red Blood Count 3.38 10^6/uL (4.1-5.3); White Blood Count 7.2 10^3/uL (4.0-10.0)
[2020-12-28 06:18] LABS: Alanine Aminotransferase 29 U/L (0-33); Albumin Level 2.9 g/dL (3.5-5.2); Alkaline Phosphatase 92 IU/L (35-105); Aspartate Amino Transferase 13 U/L (0-32); Blood Urea Nitrogen 33 mg/dL (8-23); Calcium 7.9 mg/dL (8.5-10.5); Carbon Dioxide 32 mmol/L (22-29); Chloride 95 mmol/L (98-107); Digoxin 1.1 ng/mL (0.6-1.2); Glucose 75 mg/dL (65-115); Osmolality Calculated 284 mOsm/kg (285-295); Sodium 134 mmol/L (136-145); Total Bilirubin 0.4 mg/dL (0.15-1.2); Total Protein 4.9 g/dL (6.6-8.7)
[2020-12-28 06:25] LABS: Anion Gap 11.2 (5-19); Potassium 4.2 mmol/L (3.5-5.1)
[2020-12-28 06:48] LABS: Glucose Point of Care 110 mg/dL (70-110)
[2020-12-28 07:04] VITALS: BP 100/59; PULSE 84; RESP 16; TEMP 36.7; O2SAT 96
[2020-12-28] MEDS: FUROsemide 40 mg Tablet PO (08:43)
[2020-12-28] MEDS: apixaban 5 mg Tablet PO (08:43)
[2020-12-28] MEDS: amiodarone 200 mg Tablet PO (08:43)
[2020-12-28] MEDS: guaiFENesin 600 mg Tablet PO (08:43)
[2020-12-28] MEDS: ferrous gluconate 324 mg Tablet PO (08:43)
[2020-12-28] MEDS: predniSONE 20 mg Tablet PO (08:44)
[2020-12-28] MEDS: pantoprazole DR 40 mg Tablet PO (08:44)
[2020-12-28 08:52] VITALS: PULSE 83; RESP 18; O2SAT 94
--- NOTE | 2020-12-28 10:38 | P.DS_ITS ---
Discharge Providers Date of Admission: 11/30/20 15:06 Date of Discharge: December 28, 2020 Attending Provider at Admission: Ian Castillo MD Attending Provider at Discharge: Fish Armstrong MD Primary Care Provider: Marco Antonio Thompson MD Diagnoses at Discharge Discharge Diagnosis (1) Acute and chronic respiratory failure with hypoxia: (2) Fracture of right distal radius: (3) Physical deconditioning: (4) Severe pulmonary hypertension: (5) Healthcare-associated pneumonia: (6) Steroid-induced hyperglycemia: Reason for Visit Reason for Visit: RESP DISTRESS Hospital Course Hospital Course 75 year old female with past medical history of left ICA/CCA stenosis, severe stenosis of right internal carotid artery, history of left-sided CVA with residual right-sided deficits status post TPA, atrial fibrillation on Eliquis, hypertension, hyperlipidemia, hypothyroidism, COPD chronically on 6 L oxygen, CKD, history of right wrist fracture currently in a splint, with admitted to [facility] for CHF exacerbation on 12/01/2019 and pneumonia, who was admitted to [facility] due to complaints of shortness of breath.She was admitted for the management of Acute on chronic respiratory failure with hypoxia:multifactorial ( PNA,PHT,HFpEF Exacerbation,COPD,A.fib ). She was kept on broad spectrum abxs, aggressive diuresis, conservative respiratory support measures,supplemental oxygen as needed. She also underwent EGD during the hospital stay to rule out G/I Bleed as her H/H was trending down, and she is also on eliquis for h/o atrial fibrillation,EGD was suggestive of Mild erosive gastritis in the body of stomach,h/h remained stable at the time of discharge,and she received 2 Us PRBC during the hospital stay.She was also discharged on protonix. For h/o Paroxysmal atrial fibrillation with RVR she failed cardizem as her b/p was very soft, adding midodrine was not helpful.She was loaded with digoxin as well amidarone po was started , JORGE Cardioversion was in plan, but cardioversion was not attempted as on JORGE there was high suspicion of left atrial appendage thrombus and left atrial smoke.She continued to be in Atrial fibrillation on discharge with well controlled H/R and was discharged on PO amidarone. options at this point to control patient's atrial fibrillation are limited. It was discussed with the patient options of staying on amiodarone for rate control with a small risk of stroke in case it converts her versus staying of antiarrhythmic and trying digoxin at a lower dose. It was agreed upon that we will continue with Eliquis 5 mg twice a day along with amiodarone. Patient understands the risk and would like to continue with amiodarone and Eliquis for now.Digoxin was not continued on discharge due to tenuous renal function . During the hospital stay serum digoxin level was slightly elevated after the lodaing dose and initial few days of maintainence dose.At the time of discharge serum digoxin level was trending towards normal.She is likely a candidate for watchman device which the community product specialist have discussed with her and will likely be pursed as outpatient.Currently eliquis has been continued with close monitoring of H/H.JORGE Showed Mild to moderate mitral valve regurgitation/moderate tricuspid valve regurgitation,Grade 5 atheroma in descending aorta.High likelihood of left atrial appendage thrombus SHILPA on CKD Stage 3 was resolved on discharge.At the time of discharge her she was saturating well at her baseline home oxygen,sob has improved but she was still very week due to long hospital stay and ongoing medical conditions.for her Fracture of right distal radius:Right wrist fracture, continue splint. Will need to continue for 6 weeks. May be taken off for range of motion exercises with PT/OT.for her H/o CVA x 2 (in 1993 and in September/p tpa) Carotid artery disease: right internal carotid artery with velocity elevation consisten t with 80-99% stenosis. Features of total occlusion of the left internal carotid artery.she was continued to be managed conservatively.She was euvolemic on discharge and was discharged on lasix 20 mg po daily and she will continue to follow Her pcp,cardiology as pulmonary medicine as outpatient.Patient responded well to the above medical management and is being discharged in stable condition to retirement. Physical Exam Const: COMMON NORMALS: patient oriented x3 HENMT: COMMON NORMALS: normocephalic and atraumatic HEAD & SCALP: normocephalic and atraumatic Resp: COMMON NORMALS: clear to auscultation bilaterally EFFORT & INSPECTION: Yes symmetric chest movement AUSCULTATION: clear to auscultation bilaterally Cardio: COMMON NORMALS: regular rate, regular rhythm, S1 normal heart sound present, S2 normal heart sound present, No gallops present (Cardio) and No rub (Cardio) RATE: regular rate RHYTHM: regular rhythm HEART SOUNDS: S1 normal heart sound present and S2 normal heart sound present GI: COMMON NORMALS: Normal to inspection, nondistended, normoactive bowel sounds present, Soft to palpation, non-tender, No hepatosplenomegaly present and no masses AUSCULTATION: Yes normoactive bowel sounds PALPATION: Yes Soft to palpation and Yes No hepatosplenomegaly present RECTAL EXAM: deferred Extremity: COMMON NORMALS: no clubbing, cyanosis or edema and no pedal edema Neuro: COMMON NORMALS: patient oriented x3 Urinary Catheter Management^: Buck: Cath Placed During This Visit: yes Reason for Continuing Indwelling Catheter: Acute Urinary Retention or Obstruction Urinary Catheter Date of Insertion: 11/30/20 Urinary Catheter Time of Insertion: 14:48 Discharge Data Data Completed and Pending: Completed Studies During Hospitalization Category Date Time Status CT chest wo con 7 1250 Routine Cat Scan 12/01/20 09:[address] chest wo con 7 1250 Urgent Cat Scan 12/15/20 10:59 Completed CXRP [XR chest 1V portable [id number]] R outine Exams 12/01/20 12:17 Completed FL barium swallow modifd 53225 Rout ine Exams 12/08/20 13:01 Completed XR chest 1V 05362 Routine Exams 12/18/20 19:00 Completed XR chest 1V terry ble 83062 Routine Exams 12/02/20 07:00 Completed XR chest 1V terry ble 07809 Routine Exams 12/05/20 15:19 Completed XR chest 1V terry ble 04702 Routine Exams 12/09/20 06:00 Completed XR chest 1V terry ble 15707 Routine Exams 12/25/20 07:37 Completed XR chest 1V terry ble 67049 Urgent Exams 11/30/20 09:26 Completed XR wrist RT min 3 V* 40314 Routine Exams 12/08/20 08:59 Completed XR wrist RT min 3 V* 34782 Routine Exams 12/15/20 09:07 [place] [id number] Routin e Ultrasound 12/02/20 08:19 Completed Pending at discharge Category Date Time Status Complete Blood Co unt w/Auto AM LABS Lab 12/29/20 04:00 Ordered Comprehensive Met abolic Panel AM LA BS Lab 12/29/20 04:00 Ordered Sputum Culture an d Gram Stain Stat Lab 12/02/20 08:14 Uncollected CV. echo transeso phageal [id number] Rout ine Ultrasound 12/26/20 12:00 Taken Labs from last 24 hours 12/28/20 12/28/20 12/28/20 06:41 04:51 04:51 WBC 7.2 RBC 3.38 L Hgb 9.2 L Hct 29.9 L MCV 88.5 MCH 27.2 L MCHC 30.8 RDW 17.0 H Plt Count 97 L MPV 10.2 Neut % (Auto) 89.6 Lymph % (Auto) 5.8 Hall % (Auto) 2.8 Eos % (Auto) 0.3 Baso % (Auto) 0.1 Neut # (Auto) 6.43 Lymph # (Auto) 0.4 L Hall # (Auto) 0.2 Eos # (Auto) 0.0 Baso # (Auto) 0.0 Nucleated RBC % (a uto) 0 Nucleated RBCs # 0.0 Sodium 134 L Potassium 4.2 Chloride 95 L Carbon Dioxide 32 H Anion Gap 11.2 BUN 33 H Creatinine 0.8 GFR Calculation Not Reportable Glucose 75 POC Glucose 110 Calculated Osmolal ity 284 L Calcium 7.9 L Total Bilirubin 0.4 AST 13 ALT 29 Alkaline Phosphata se 92 Total Protein 4.9 L Albumin 2.9 L Globulin 2.0 Digoxin 1.1 SARS-CoV-2 Ag (Rap id) 12/27/20 12/27/20 12/27/20 22:50 20:31 16:51 WBC RBC Hgb Hct MCV MCH MCHC RDW Plt Count MPV Neut % (Auto) Lymph % (Auto) Hall % (Auto) Eos % (Auto) Baso % (Auto) Neut # (Auto) Lymph # (Auto) Hall # (Auto) Eos # (Auto) Baso # (Auto) Nucleated RBC % (a uto) Nucleated RBCs # Sodium Potassium Chloride Carbon Dioxide Anion Gap BUN Creatinine GFR Calculation Glucose POC Glucose 205 H 261 H Calculated Osmolal ity Calcium Total Bilirubin AST ALT Alkaline Phosphata se Total Protein Albumin Globulin Digoxin SARS-CoV-2 Ag (Rap id) Negative 12/27/20 10:40 WBC RBC Hgb Hct MCV MCH MCHC RDW Plt Count MPV Neut % (Auto) Lymph % (Auto) Hall % (Auto) Eos % (Auto) Baso % (Auto) Neut # (Auto) Lymph # (Auto) Hall # (Auto) Eos # (Auto) Baso # (Auto) Nucleated RBC % (a uto) Nucleated RBCs # Sodium Potassium Chloride Carbon Dioxide Anion Gap BUN Creatinine GFR Calculation Glucose POC Glucose 245 H Calculated Osmolal ity Calcium Total Bilirubin AST ALT Alkaline Phosphata se Total Protein Albumin Globulin Digoxin SARS-CoV-2 Ag (Rap id) Vitals: Last Vital Signs Temp 98.1 F 12/28/20 07:04 Pulse 83 12/28/20 08:52 Resp 18 12/28/20 08:52 BP 100/59 12/28/20 07:04 Pulse Ox 94 12/28/20 08:52 Discharge Plan Discharge Patient Disposition: SNF w Plan Readm Condition: Stable Prescriptions: New sucralfate 1 gram Tablet 1 g PO BIDAC 30 Days Qty: 60 RF: 0 Klor-Con M20 20 mEq tablet,ER particles/crystals 20 meq PO BID 30 Days Qty: 60 RF: 0 Pacerone 200 mg Tablet 200 mg PO BID 30 Days Qty: 60 RF: 1 pantoprazole 40 mg Tablet,Delayed Release (Dr/Ec) 40 mg PO DAILY 30 Days Qty: 30 RF: 1 Continued alprazolam 0.5 mg tablet 0.5 mg PO QID PRN (Reason: Anxiety) RF: 0 (DME) Fast Form Cock Up Splint See Rx Instructions .ROUTE .MEDSUPPLY Qty: 1 RF: 0 levothyroxine 175 mcg Tablet 175 mcg PO DAILY RF: 0 acetaminophen 325 mg Tablet 325 mg PO QID PRN (Reason: Fever Or Pain) RF: 0 ipratropium-albuterol 0.5 mg-3 mg(2.5 mg base)/3 mL Solution For Nebulization 0.5 ml INHALATION TID RF: 0 bisacodyl [Dulcolax (bisacodyl)] 10 mg Suppository 10 mg MO DAILY PRN (Reason: Constipation) RF: 0 fluoxetine 20 mg capsule 20 mg PO DAILY@0800 RF: 0 albuterol sulfate 2.5 mg/0.5 mL Solution For Nebulization 2.5 mg inhalation Q4H PRN (Reason: SOB/WHEEZING) RF: 0 Eliquis 5 mg tablet 5 mg PO BID@0800,1999 RF: 0 Milk of Magnesia 400 mg/5 mL Suspension 30 ml PO DAILY PRN (Reason: Constipation) RF: 0 Refresh Tears 0.5 % Drops 2 drp OPHTHALMIC (EYE) BID PRN (Reason: Dry Eyes) RF: 0 Fleet Enema 19-7 gram/118 mL Enema 118 ml MO DAILY PRN (Reason: Constipation) RF: 0 Miralax 17 gram/dose Powder 17 g PO DAILY RF: 0 atorvastatin 10 mg tablet 10 mg PO DAILY@0800 RF: 0 calcium carbonate 600 mg calcium (1,500 mg) Tablet 600 mg PO BID PRN (Reason: Indigestion) RF: 0 bisacodyl 5 mg Tablet,Delayed Release (Dr/Ec) 10 mg PO DAILY PRN (Reason: Constipation) RF: 0 Changed furosemide 40 mg tablet 20 mg PO DAILY 30 Days Qty: 30 RF: 0 Discontinued prednisone 10 mg Tablet 10 mg PO DAILY@0800 RF: 0 pantoprazole 40 mg Tablet,Delayed Release (Dr/Ec) 40 mg PO DAILY RF: 0 amlodipine 10 mg tablet 10 mg PO DAILY Qty: 30 RF: 0 Discharge Orders: Discharge Order (Routine); Ordered 12/28/20 Ordered By: Fish Armstrong Referrals: [facility] [place] [Outside] Elle Francis FNP [Nurse Practitioner] - 01/07/21 9:45 am Gail Yusuf MD [Physician] - 02/09/21 10:00 am Leticia Galindo MD [Physician] - 1 week (Please schedule a follow up appointment with Dr. Galindo within one week.) Marco Antonio Thompson MD [Primary Care Provider] - 2 weeks (Please schedule an appointment with your primary care provider within the next two weeks.) Discharge Diet: Diabetic Discharge Activity: Increase activity as tolerated Patient Instructions: Sucralfate (By mouth), Potassium Chloride (By mouth), Amiodarone (By mouth), Pantoprazole (By mouth), Opioid Safety Activity Restrictions/Additional Instructions: Splint may be discontinued from right wrist completely. Patient may participate in physical therapy for strengthening or range of motion as tolerated. No need for further follow-up with Dr. Alejandra bean. Discharge Attestations Time Spent in Discharge Care*: greater than 30 min Specific Discharge Activities: educating patient, educating and/or supporting family/caregiver, discussing with pcp/other providers, discussing with business case analyst/social workers/dc planners, documenting/other paperwork and evaluating patient/reviewing data Status at Discharge: Cognitive status at discharge: cognitively intact , Behavioral status at discharge: cooperative , Functional status at discharge: other assisted ambulation Overall status at discharge: patient is progressing back to baseline Quality Metrics Clinical Quality Measures During this hospital stay, did patient experience: None Coding Level of Care Code Acute Chg FW DC note Diagnoses Acute and chronic respiratory failure with hypoxia J96.21 Fracture of right distal radius S52.501A Physical deconditioning R53.81 Severe pulmonary hypertension I27.20 Healthcare-associated pneumonia J18.9 Steroid-induced hyperglycemia R73.9; T38.0X5A
[2020-12-28 10:50] LABS: Glucose Point of Care 166 mg/dL (70-110)
--- NOTE | 2020-12-28 11:00 | PC.NURSE ---
Called report to Pilar ALEGRE at [facility]. No further questions at this time.
--- NOTE | 2020-12-28 11:29 | PC.NURSE ---
EMS here to roller picker patient via stretcher no distress noted.
[2020-12-28 11:56] VITALS: BP 119/75; PULSE 85; RESP 16; TEMP 36.7; O2SAT 94
== END 2020-12-28 11:32 | disposition skilled nursing facility (03) | DRG 291 ==
LOC: ER 15:29 → MEDSURG 16:08 → ICU 12-02 04:50 → MEDSURG 12-05 00:38
PROVIDERS: Hospitalist; Internal Medicine; Internal Medicine Cardiovascular Disease; Student in an Organized Health Care Education/Training Program; Surgery; Admitting Provider Family Medicine; Emergency Provider Emergency Medicine; PCP Family Medicine; Visit Provider Internal Medicine
PROC: 0DJ08ZZ Inspection of Upper Intestinal Tract, Via Natural or Artificial Opening Endoscopic (ICD-10-PCS; CPT 43235; principal; 2020-12-23 12:00)
PROC: (CPT 93312; 2020-12-26 12:00)
DX: I13.0 Hypertensive heart and chronic kidney disease with heart failure and stage 1 through stage 4 chronic kidney disease, or unspecified chronic kidney disease (principal); I50.33 Acute on chronic diastolic (congestive) heart failure; J69.0 Pneumonitis due to inhalation of food and vomit; J96.21 Acute and chronic respiratory failure with hypoxia; J44.1 Chronic obstructive pulmonary disease with (acute) exacerbation; I69.951 Hemiplegia and hemiparesis following unspecified cerebrovascular disease affecting right dominant side; I48.20 Chronic atrial fibrillation, unspecified; N17.9 Acute kidney failure, unspecified; N18.30 Chronic kidney disease, stage 3 unspecified; I65.23 Occlusion and stenosis of bilateral carotid arteries; E78.5 Hyperlipidemia, unspecified; E03.9 Hypothyroidism, unspecified; Z99.81 Dependence on supplemental oxygen; S52.501D Unspecified fracture of the lower end of right radius, subsequent encounter for closed fracture with routine healing; X58.XXXD Exposure to other specified factors, subsequent encounter; Z87.891 Personal history of nicotine dependence; I27.20 Pulmonary hypertension, unspecified; D63.1 Anemia in chronic kidney disease; Z79.01 Long term (current) use of anticoagulants; Z79.51 Long term (current) use of inhaled steroids; I51.3 Intracardiac thrombosis, not elsewhere classified; K29.70 Gastritis, unspecified, without bleeding; Z79.1 Long term (current) use of non-steroidal anti-inflammatories (NSAID); J39.8 Other specified diseases of upper respiratory tract; R73.9 Hyperglycemia, unspecified; T38.0X5A Adverse effect of glucocorticoids and synthetic analogues, initial encounter; F41.8 Other specified anxiety disorders
CPT/HCPCS: 36415; 36416; 36430; 36569; 36592; 36600; 43235; 51702; 71045; 71250; 73110; 74230; 80048; 80051; 80053; 80061; 80162; 80202; 82274; 82330; 82436; 82550; 82728; 82803; 82805; 82962; 83036; 83540; 83605; 83690; 83735; 83880; 84100; 84133; 84145; 84300; 84443; 84484; 85025; 85610; 86140; 86403; 86850; 86900; 86920; 87040; 87070; 87086; 87426; 87635; 87641; 92523; 92526; 92610; 92611; 93005; 93312; 93320; 93325; 93970; 94640; 94660; 94664; 94762; 96365; 96372; 96375; 97110; 97112; 97162; 97166; 97530; 97535; 99291; C1751; C9113; J0692; J0743; J1160; J1815 ×2; J1940; J2060; J2250; J2405; J2543; J2704; J2920; J2930; J3370; J3475; J3490; J7030; J7040; J7050; J7512; P9016; P9047

== ENCOUNTER 2021-01-03 09:12 | Inpatient (IN) | payer MEDICARE, OTHER, SELFPAY ==
[2021-01-03] VITALS (11 sets, daily range): BP systolic 73–100; BP diastolic 47–65; PULSE 76–113; RESP 17–30; TEMP 36.4–37.1; O2SAT 90–99; BMI 39.0; BMI 37.0
--- NOTE | 2021-01-03 09:16 | ED_ITS ---
HPI - General Adult General: Chief complaint: Shortness of Breath/Dyspnea Stated complaint: SOB Time Seen by Provider: 01/03/21 09:13 History of Present Illness: HPI narrative: Ms. Church is a 75-year-old lady with complex past medical history including chronic hypoxic respiratory failure on 4.5 L at baseline who presents emergency department due to shortness of breath. The patient reports that symptom onset was not very long ago. Perhaps related to smoke in the air. She has difficulty characterizing any other features however does endorse shortness of breath. The exact course, provoking, exacerbating, or alleviating factors are not identified by the patient. An initial phone call from the patient's [facility] did mention syncope however the exact circumstances of this are very unclear. Review of Systems General: Reports: 10 or more systems reviewed and unremarkable except in HPI and below PFSH ED PFSH: Medical History (Updated 01/08/21 @ 00:01 by ) Acute and chronic respiratory failure with hypoxia Acute exacerbation of chronic obstructive airways disease Anemia Atrial fibrillation with rapid ventricular response Bilateral carotid artery stenosis Carotid atherosclerosis Chronic kidney disease Congestive heart failure Congestive heart failure COPD (chronic obstructive pulmonary disease) CVA (cerebral vascular accident) Displaced spiral fracture of shaft of right humerus with routine healing DNR (do not resuscitate) Fracture of humerus, proximal, right, closed Fracture of right distal radius Healthcare-associated pneumonia Heme positive stool History of CVA (cerebrovascular accident) Hyperlipidemia Hypertension Hypothyroidism Lung infiltrate on CT NSAID long-term use Physical deconditioning Pneumonia Severe pulmonary hypertension Steroid-induced hyperglycemia Subclavian steal syndrome Thrombus of atrial appendage Surgical History History of carpal tunnel release of both wrists History of renal stent Hx of cholecystectomy Family History Father Stroke Mother Stroke Social History Smoking and tobacco status: former smoker Alcohol intake: never Female Reproductive History: Date of last menstrual period: 05/08/20 Physical Exam Narrative: EXAM NARRATIVE: GENERAL/CONSTITUTIONAL -chronically ill-appearing. No acute distress. Eyes - PERRL, no conjunctival injection ENMT - Atraumatic external nose and ears. Dry mucous membranes NECK - supple. trachea midline CARDIOVASCULAR - regular rate and rhythm. RESPIRATORY -diminished to auscultation bilaterally. Increased respiratory effort and rate. ABDOMEN/GI - Nontender/Nondistended. MSK - Extremities without obvious deformity or tenderness to palpation SKIN - Warm, Dry NEURO - alert and appropriately oriented. No focal neurologic deficits. Cranial nerves II through XII intact. Impaired cognition and memory with limited history which is reportedly baseline. Course ED course: - Patient was seen and evaluated by me at bedside - Patient placed on cardiac monitors, IV access obtained - Initial evaluation notable for chronically ill appearance, increased respiratory effort and rate with diminished lung sounds. Greater than normal oxygen requirement with hypoxemia on room air and patient's baseline oxygen. -Symptom treatment ordered - Labs notable for no leukocytosis, near baseline normocytic anemia. ABG with mildly elevated PCO2, metabolic panel with mildly elevated potassium, baseline elevated creatinine. Fluids ordered. Delta troponin negative. BNP elevated. D-dimer is elevated. - Imaging notable for increased pulmonary vascular congestion. Given positive age-adjusted D-dimer CTA ordered. The patient has multiple findings on this, and discussion with radiology many of these findings have been previous on recent studies even when not commented on. Discussed hilar mass with pulmonary on-call. - Upon serial reexamination after treatment the patient was similar - Based on patient history, evaluation, labs, and imaging as interpreted the most likely cause of the patient's condition is multifactorial. Challenging situation given patient's age and comorbidities, many of evaluation findings are unable to be intervened upon. Upon clarification of history from [facility] the patient had witnessed syncope and was unresponsive for approximately 10 minutes. As such patient requires further evaluation in the inpatient setting as she is not low risk for causes of syncope. - Hospitalist service contacted and agreed admit the patient. - Patient was admitted without further deterioration or significant events. Vital Signs: Vital signs: Vital Signs Temperature 97.9 F 01/07/21 20:00 Pulse Rate 81 01/07/21 20:00 Respiratory Rate 20 H 01/07/21 20:00 Blood Pressure 113/69 01/07/21 20:00 Pulse Oximetry 95 01/07/21 20:00 MDM - General Adult Medical Records: Attestation: I reviewed the patient's medical records. Lab Data: Attestation: I reviewed the patient's lab results. Labs: Lab Results 11/20/21 11/20/21 11/20/21 09:22 09:50 09:50 WBC 5.0 10^3/uL 10^3/ uL (4.0-10.0) RBC 3.13 10^6/uL L 10 ^6/uL (4.1-5.3) Hgb 8.6 g/dL L g/dL (11.5-15.3) Hct 27.9 % L % (37.0-47.0) MCV 89.1 fl fl (81-99) MCH 27.5 pg L pg (28.0-34.0) MCHC 30.8 g/dL g/dL (30.0-36.0) RDW 18.5 % H % (12.1-15.1) Plt Count 179 10^3/cmm 10^3 /cmm (130-400) MPV 10.0 fL fL (7.4-10.4) Neut % (Auto) 76.5 % % Lymph % (Auto) 14.9 % % Emery % (Auto) 7.0 % % Eos % (Auto) 1.2 % % Baso % (Auto) 0.4 % % Neut # (Auto) 3.40 10^3/uL 10^3 /uL (1.8-7.7) Lymph # (Auto) 0.7 10^3/uL L 10^ 3/uL (0.8-4.8) Emery # (Auto) 0.4 10^3/uL 10^3/ uL (0.2-0.9) Eos # (Auto) 0.1 10^3/uL 10^3/ uL (0.0-0.8) Baso # (Auto) 0.0 10^3/uL 10^3/ uL (0.0-0.1) Nucleated RBC % (a uto) 1.6 % % Nucleated RBCs # 0.1 /100WBC /100W BC D-Dimer Specimen Type Arterial Sample Site Radial, left ABG pH 7.44 (7.35-7.45) ABG pCO2 49.0 mmHg H mmHg (35-45) ABG pO2 93.4 mmHg mmHg (80.0-100.0) ABG HCO3 32.8 mmol/L H mmo l/L (22-26) ABG Base Excess 7.8 mmol/L H mmol /L (-2.0-2.0) Julio Test Pos Hematocrit 20.8 % L % (37-47) O2 Delivery Device Nc O2 Liters/Min 4.0 % % FiO2 36.0 % % Campus Monitor ID Cak Sodium 136 mmol/L mmol/L (136-145) Potassium 5.3 mmol/L H mmol /L (3.5-5.1) Chloride 97 mmol/L L mmol/ L (98-107) Carbon Dioxide 28 mmol/L mmol/L (22-29) Anion Gap 16.3 (5-19) BUN 22 mg/dL mg/dL (8-23) Creatinine 1.1 mg/dL H mg/dL (0.5-0.9) GFR Calculation Not Reportable Glucose 164 mg/dL H mg/dL (65-115) Calculated Osmolal ity 289 mOsm/kg mOsm/ kg (285-295) Calcium 8.2 mg/dL L mg/dL (8.5-10.5) Total Bilirubin 0.6 mg/dL mg/dL (0.15-1.2) AST 14 U/L U/L (0-32) ALT 24 U/L U/L (0-33) Alkaline Phosphata se 101 IU/L IU/L (35-105) Troponin T Baselin e Troponin T 120 Min [place] Delta Troponin T NT-Pro-B Natriuret Pep 3587 pg/mL H pg/m L (0-450) Total Protein 5.3 g/dL L g/dL (6.6-8.7) Albumin 3.2 g/dL L g/dL (3.5-5.2) Globulin 2.1 g/dL g/dL (1.3-4.6) Procalcitonin 0.27 ng/mL ng/mL (0-0.5) 01/03/21 01/03/21 01/03/21 09:50 09:50 12:33 WBC RBC Hgb Hct MCV MCH MCHC RDW Plt Count MPV Neut % (Auto) Lymph % (Auto) Emery % (Auto) Eos % (Auto) Baso % (Auto) Neut # (Auto) Lymph # (Auto) Emery # (Auto) Eos # (Auto) Baso # (Auto) Nucleated RBC % (a uto) Nucleated RBCs # D-Dimer 0.84 ug/mIFEU H u g/mIFEU (0-0.59) Specimen Type Sample Site ABG pH ABG pCO2 ABG pO2 ABG HCO3 ABG Base Excess Julio Test Hematocrit O2 Delivery Device O2 Liters/Min FiO2 Campus Monitor ID Sodium Potassium Chloride Carbon Dioxide Anion Gap BUN Creatinine GFR Calculation Glucose Calculated Osmolal ity Calcium Total Bilirubin AST ALT Alkaline Phosphata se Troponin T Baselin e 71 ng/L H ng/L (0-10) Troponin T 120 Min [place] 73.91 ng/L H ng/L (0-10) Delta Troponin T 2.91 ABS# ABS# (0-10) NT-Pro-B Natriuret Pep Total Protein Albumin Globulin Procalcitonin EKG Data^: EKG 1: Attestation: I personally reviewed and interpreted this EKG as follows: EKG interpretation date: 01/03/21 EKG interpretation time: 09:48 Interpretation: Twelve-lead EKG shows a regular rhythm at a rate of 79. WI interval 181, QRS duration 142, QTc 412. Normal axis. Interpretation: Sinus rhythm. Right bundle branch block. Computer generated interpretation: Chest CTA 01/03/21 11:05 IMPRESSION: 1. No pulmonary embolus. 2. A right hilar mass or conglomeration of lymph nodes appears similar to the immediate prior study but larger from more remote examinations. This may be causing obstruction of the right middle lobe bronchus. Consider PET-CT or biopsy for definitive characterization. 3. Worsened mediastinal lymphadenopathy. This may be further assessed on PET-CT. 4. Occlusion of the left common carotid artery. 5. There is severe narrowing of the proximal right brachiocephalic artery and left subclavian arteries. This predisposes to subclavian steal syndrome. 6. There are penetrating ulcers in the distal aortic arch and descending thoracic aorta without evidence of propagating dissection. There is no evidence of rupture. The appearance is similar to prior. 7. 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 There is at least mild narrowing of the proximal superior mesenteric artery. 8. There are a couple dense indeterminate left renal lesions that may represent hemorrhagic cysts. Masses are considered less likely. Recommend nonemergent MR abdomen renal mass protocol with and without contrast to better characterize. 9. Cardiomegaly with small right pleural effusion. 10. New solid pulmonary nodule in the right upper lobe measuring 4.6 mm. As per Fleischner Society 2017 guidelines for follow-up and management of pulmonary nodules: For patients at low risk (minimal or absent history of smoking and of other known risk factors), no routine follow-up. For patient at high risk (history of smoking or of other known risk factors), recommend optional CT at 12 months. 11. Probable pulmonary arterial hypertension. 12. Colonic diverticulosis without evidence of acute diverticulitis. 13. Mild emphysema. 14. Coronary artery disease. COMMENTS: Consistent with the [place] [employer]'s Incidental Findings Committee white paper (J Am Sara Radiol 2018): Any incidental renal lesion less than 1 cm or classified as too small to characterize, or any incidental cystic renal lesion characterized as simple-appearing, is likely benign. No follow-up imaging is recommended for these lesions per consensus recommendations based on imaging criteria. Radiation Dose CTDIVOL = (mGy): DLP = 1066.12 (mGy-cm) ADDENDUM: 01/03/[address] Barba at 01/03/2021 1:27 PM BILINGUAL SPEECH THERAPIST. Radiation Dose CTDIVOL = (mGy): DLP = 1066.12 (mGy-cm) Chest X-Ray 01/06/21 15:32 IMPRESSION: Stable chest. Radiation Dose CTDIVOL = (mGy): DLP = (mGy-cm) EKG 2: Attestation: I personally reviewed and interpreted this EKG as follows: EKG interpretation date: 01/03/21 EKG interpretation time: 11:27 Interpretation: Twelve-lead EKG shows a regular rhythm at a rate of 76. WI interval 150, QRS duration 137, QTc 407. Normal axis. Interpretation: Sinus rhythm. Right bundle branch block. Computer generated interpretation: Chest CTA 01/03/21 11:05 IMPRESSION: 1. No pulmonary embolus. 2. A right hilar mass or conglomeration of lymph nodes appears similar to the immediate prior study but larger from more remote examinations. This may be causing obstruction of the right middle lobe bronchus. Consider PET-CT or biopsy for definitive characterization. 3. Worsened mediastinal lymphadenopathy. This may be further assessed on PET-CT. 4. Occlusion of the left common carotid artery. 5. There is severe narrowing of the proximal right brachiocephalic artery and left subclavian arteries. This predisposes to subclavian steal syndrome. 6. There are penetrating ulcers in the distal aortic arch and descending thoracic aorta without evidence of propagating dissection. There is no evidence of rupture. The appearance is similar to prior. 7. 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 There is at least mild narrowing of the proximal superior mesenteric artery. 8. There are a couple dense indeterminate left renal lesions that may represent hemorrhagic cysts. Masses are considered less likely. Recommend nonemergent MR abdomen renal mass protocol with and without contrast to better characterize. 9. Cardiomegaly with small right pleural effusion. 10. New solid pulmonary nodule in the right upper lobe measuring 4.6 mm. As per Fleischner Society 2017 guidelines for follow-up and management of pulmonary nodules: For patients at low risk (minimal or absent history of smoking and of other known risk factors), no routine follow-up. For patient at high risk (history of smoking or of other known risk factors), recommend optional CT at 12 months. 11. Probable pulmonary arterial hypertension. 12. Colonic diverticulosis without evidence of acute diverticulitis. 13. Mild emphysema. 14. Coronary artery disease. COMMENTS: Consistent with the [place] [employer]'s Incidental Findings Committee white paper (J Am Sara Radiol 2018): Any incidental renal lesion less than 1 cm or classified as too small to characterize, or any incidental cystic renal lesion characterized as simple-appearing, is likely benign. No follow-up imaging is recommended for these lesions per consensus recommendations based on imaging criteria. Radiation Dose CTDIVOL = (mGy): DLP = 1066.12 (mGy-cm) ADDENDUM: 01/03/[address] Barba at 01/03/2021 1:27 PM BILINGUAL SPEECH THERAPIST. Radiation Dose CTDIVOL = (mGy): DLP = 1066.12 (mGy-cm) Chest X-Ray 01/06/21 15:32 IMPRESSION: Stable chest. Radiation Dose CTDIVOL = (mGy): DLP = (mGy-cm) Discharge Plan Discharge Patient Disposition: Admitted As Inpatient Admit Provider: Noah Rojo Condition: Stable Coding Level of Care Code ED [employer] Gunfire Liaison Officer for Pattie Cisneros
--- NOTE | 2021-01-03 09:22 | ECG_ITS ---
[facility] Test Date: 2021-01-03 Pat Name: Elzbieta Church Department: Room: Gender: Female Eye Physician: : 1945 Requested By: Krishna Barba Order Number: [id number] Jas MD: Ganesh Maguire M.D. Measurements Intervals [place] Rate: 79 P: 76 LA: 181 QRS: 88 QRSD: 142 T: -14 QT: 378 QTc: 434 Interpretive Statements Atrial fibrillation with controlled ventricular response rate RIGHT BUNDLE BRANCH BLOCK [120+ ms QRS DURATION, UPRIGHT V1, 40+ ms S IN I/aVL/V4/V5/V6] Compared to ECG 12/26/2020 12:47:52 Atrial fibrillation no longer present ST (T wave) deviation no longer present Electronically Signed On 01-03-2021 22:03:49 RESIDENT SERVICES DIRECTOR by Ganesh Maguire M.D. [id number] f
--- NOTE | 2021-01-03 09:22 | XRR_ITS ---
PROCEDURE INFORMATION: Exam: XR Chest Exam date and time: 01/03/2021 9:22 AM Age: 75 years old Clinical indication: Shortness of breath; Additional info: SOB TECHNIQUE: Imaging protocol: XR of the chest. Views: 1 view. COMPARISON: CR XR chest 1V portable [id number] 12/25/2020 7:43 AM FINDINGS: Tubes, catheters and devices: Surgical clips within the right neck. Lungs: The lungs are symmetrically expanded. Mild pulmonary vascular congestion without evidence of overt edema. No focal consolidation. Pleural spaces: Right pleural effusion noted previously appears to have decreased in size/resolved. Heart/Mediastinum: Cardiac silhouette remains moderately enlarged. Bones/joints: Severe degenerative changes of the shoulders. Old right rib fracture. XR/XR chest 1V portable [id number] IMPRESSION: No acute findings. Pulmonary vascular congestion without overt edema. Radiation Dose CTDIVOL = (mGy): DLP = (mGy-cm)
[2021-01-03] MEDS: ipratropium-albuterol 3 mL Neb INHALATION (09:39)
[2021-01-03 09:52] LABS: ABG PH Result 7.44 (7.35-7.45); Arterial Blood Gas Hematocrit 20.8 % (37-47); Base Excess ABG 7.8 mmol/L (-2.0-2.0); Blood Gas Allen Test Pos; Blood Gas Operator Identificat CAK; Blood Gas Sample Site Radial, left; Blood Gas Sample Type Arterial; HCO3 ABG 32.8 mmol/L (22-26); Oxygen Device NC; PO2 ABG 93.4 mmHg (80.0-100.0)
[2021-01-03 10:47] LABS: Basophils % 0.4 %; Eosinophils # 0.1 10^3/uL (0.0-0.8); Eosinophils % 1.2 %; Hematocrit 27.9 % (37.0-47.0); Hemoglobin 8.6 g/dL (11.5-15.3); Lymphocytes # 0.7 10^3/uL (0.8-4.8); Lymphocytes % 14.9 %; Mean Corpuscular HGB Conc 30.8 g/dL (30.0-36.0); Mean Corpuscular Hemoglobin 27.5 pg (28.0-34.0); Mean Corpuscular Volume 89.1 fl (81-99); Monocytes # 0.4 10^3/uL (0.2-0.9); Nucleated Red Blood Cells # 0.1 /100WBC; Nucleated Red Blood Cells % 1.6 %; Platelet Count 179 10^3/cmm (130-400); Red Blood Count 3.13 10^6/uL (4.1-5.3); Red Cell Distribution Width 18.5 % (12.1-15.1)
[2021-01-03 10:50] LABS: D Dimer 0.84 ug/mIFEU (0-0.59)
[2021-01-03 10:58] LABS: Troponin(5th) Baseline 71 ng/L (0-10)
--- NOTE | 2021-01-03 11:05 | CTR_ITS ---
PROCEDURE INFORMATION: Exam: CTA Chest With Contrast Exam date and time: 01/03/2021 11:05 AM Age: 75 years old Clinical indication: Shortness of breath. Elevated D-dimer. TECHNIQUE: Imaging protocol: Computed tomographic angiography of the chest with contrast. 3D rendering (Not supervised by radiologist): MIP and/or 3D reconstructed images were created by the technologist. Radiation optimization: All CT scans at this facility use at least one of these dose optimization techniques: automated exposure control; mA and/or kV adjustment per patient size (includes targeted exams where dose is matched to clinical indication); or iterative reconstruction. Contrast material: VISI 320; Contrast volume: 60 ml; Contrast route: INTRAVENOUS (IV); COMPARISON: CT angio chest PE protcl [id number] 11/17/2020 9:03 PM RADIATION DOSE METRICS: Total DLP (mGy-cm): 1066.12 FINDINGS: Pulmonary arteries: The main pulmonary artery is enlarged measuring 4 cm. This suggests pulmonary arterial hypertension. No pulmonary embolus. Aorta: No thoracic aortic aneurysm. There are penetrating ulcers in the distal aortic arch and descending thoracic aorta without evidence of propagating dissection. There is no evidence of rupture. The appearance is similar to prior. Great vessels off aortic arch: There is occlusion of the left common carotid artery. There is severe narrowing of the proximal right brachiocephalic artery and left subclavian arteries. This predisposes to subclavian steal syndrome. Lungs: Subsegmental atelectasis in the lingula and right middle lobe. Mild dependent atelectasis bilaterally. Mild centrilobular emphysema. New solid pulmonary nodule in the right upper lobe measuring 4.6 mm. Pleural spaces: Small right pleural effusion. No pneumothorax. Heart: The heart is enlarged. Coronary arterial calcifications are noted. No pericardial effusion. Lymph nodes: There is worsening mediastinal lymphadenopathy. A prevascular lymph node measures 1.2 x 1.5 cm; previously 0.8 x 1.4 cm. A large right hilar lymph node or mass is similar to prior CTA chest from 11/17/2020 measuring 2.2 x 2.8 cm; however, this appears larger than on prior CT from October 2020. This may be causing obstruction of the right middle lobe bronchus. There are calcified mediastinal and bilateral hilar lymph nodes. Diaphragm: No hiatal hernia. Upper abdomen: The gallbladder has been removed. Colonic diverticulosis without evidence of acute diverticulitis. There are a couple dense indeterminate left renal lesions measuring 1.7 and 1.3 cm, respectively. A large simple left renal cyst measures 5.9 cm. There are proximal renal artery stents bilaterally. 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 There is at least mild narrowing of the proximal superior mesenteric artery. Bones/joints: Old, healed right humeral fracture. Moderate compression fracture of T11 that is unchanged from prior. Probable ossified intra-articular body in the posterior right glenohumeral joint likely related to remote fracture. No acute fracture is seen. CT/CT angio chest PE protcl [id number] IMPRESSION: 1. No pulmonary embolus. 2. A right hilar mass or conglomeration of lymph nodes appears similar to the immediate prior study but larger from more remote examinations. This may be causing obstruction of the right middle lobe bronchus. Consider PET-CT or biopsy for definitive characterization. 3. Worsened mediastinal lymphadenopathy. This may be further assessed on PET-CT. 4. Occlusion of the left common carotid artery. 5. There is severe narrowing of the proximal right brachiocephalic artery and left subclavian arteries. This predisposes to subclavian steal syndrome. 6. There are penetrating ulcers in the distal aortic arch and descending thoracic aorta without evidence of propagating dissection. There is no evidence of rupture. The appearance is similar to prior. 7. 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 There is at least mild narrowing of the proximal superior mesenteric artery. 8. There are a couple dense indeterminate left renal lesions that may represent hemorrhagic cysts. Masses are considered less likely. Recommend nonemergent MR abdomen renal mass protocol with and without contrast to better characterize. 9. Cardiomegaly with small right pleural effusion. 10. New solid pulmonary nodule in the right upper lobe measuring 4.6 mm. As per Fleischner Society 2017 guidelines for follow-up and management of pulmonary nodules: For patients at low risk (minimal or absent history of smoking and of other known risk factors), no routine follow-up. For patient at high risk (history of smoking or of other known risk factors), recommend optional CT at 12 months. 11. Probable pulmonary arterial hypertension. 12. Colonic diverticulosis without evidence of acute diverticulitis. 13. Mild emphysema. 14. Coronary artery disease. COMMENTS: Consistent with the [place] [employer]'s Incidental Findings Committee white paper (J Am Sara Radiol 2018): Any incidental renal lesion less than 1 cm or classified as too small to characterize, or any incidental cystic renal lesion characterized as simple-appearing, is likely benign. No follow-up imaging is recommended for these lesions per consensus recommendations based on imaging criteria. Radiation Dose CTDIVOL = (mGy): DLP = 1066.12 (mGy-cm)
[2021-01-03 11:06] LABS: NT Pro B Type Natriuretic Pept 3587 pg/mL (0-450); Procalcitonin 0.27 ng/mL (0-0.5)
[2021-01-03 11:17] LABS: Alanine Aminotransferase 24 U/L (0-33); Albumin Level 3.2 g/dL (3.5-5.2); Alkaline Phosphatase 101 IU/L (35-105); Anion Gap 16.3 (5-19); Aspartate Amino Transferase 14 U/L (0-32); Blood Urea Nitrogen 22 mg/dL (8-23); Calcium 8.2 mg/dL (8.5-10.5); Carbon Dioxide 28 mmol/L (22-29); Chloride 97 mmol/L (98-107); Globulin 2.1 g/dL (1.3-4.6); Glucose 164 mg/dL (65-115); Osmolality Calculated 289 mOsm/kg (285-295); Potassium 5.3 mmol/L (3.5-5.1); Sodium 136 mmol/L (136-145); Total Bilirubin 0.6 mg/dL (0.15-1.2); Total Protein 5.3 g/dL (6.6-8.7)
--- NOTE | 2021-01-03 11:22 | ECG_ITS ---
[facility] Test Date: 2021-01-03 Pat Name: Elzbieta Church Department: Room: Gender: Female Heel Top Lift Splitter: : 1945 Requested By: Krishna Barba Order Number: [id number] Jas MD: Ganesh Maguire M.D. Measurements Intervals [place] Rate: 76 P: -89 MA: 150 QRS: 85 QRSD: 137 T: 37 QT: 377 QTc: 425 Interpretive Statements ECTOPIC ATRIAL RHYTHM RIGHT BUNDLE BRANCH BLOCK [120+ ms QRS DURATION, UPRIGHT V1, 40+ ms S IN I/aVL/V4/V5/V6] Compared to ECG 01/03/2021 09:39:57 Ectopic atrial rhythm now present Sinus rhythm no longer present Electronically Signed On 01-03-2021 22:16:34 PATIENT FINANCIAL REP by Ganesh Maguire M.D. [id number] f
[2021-01-03 11:27] LABS: Neutrophils % 76.5 %; Slide Review Slide Review Perform
[2021-01-03] MEDS: iodixanol 320 mg/mL 100mL Btl IV (12:03)
[2021-01-03 13:30] LABS: Troponin 5 2HR 73.91 ng/L (0-10); Troponin 5 2HR Delta 2.91 ABS# (0-10)
[2021-01-03] MEDS: sodium chloride 0.9% 500 ML 999 ML IV (13:41)
--- NOTE | 2021-01-03 15:22 | ECG_ITS ---
[facility] Test Date: 2021-01-03 Pat Name: Elzbieta Church Department: Room: 275 Gender: Female Firer Helper: : 1945 Requested By: Krishna Barba Order Number: [id number] Jas MD: Ganesh Maguire M.D. Measurements Intervals [place] Rate: 110 P: 201 PA: 210 QRS: 89 QRSD: 145 T: 11 QT: 397 QTc: 538 Interpretive Statements SINUS TACHYCARDIA WITH FIRST DEGREE AV BLOCK RIGHT BUNDLE BRANCH BLOCK [120+ ms QRS DURATION, UPRIGHT V1, 40+ ms S IN I/aVL/V4/V5/V6] ST DEPRESSION, CONSIDER SUBENDOCARDIAL INJURY [0.1+ mV ST DEPRESSION] Compared to ECG 01/03/2021 11:19:17 First degree AV block now present ST (T wave) deviation now present Ectopic atrial rhythm no longer present Electronically Signed On 01-03-2021 22:18:56 FOREST FIRE EQUIPMENT OPERATOR by Ganesh Maguire M.D. [id number]
--- NOTE | 2021-01-03 15:46 | PM.HP ---
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 fib difficult to control heart rate, failed Cardizem secondary to hypotension she was discharged on Eliquis and amiodarone, there was decision to do cardioversion however there is atrial appendage hence cardioversion deferred, patient might be a candidate of watchman device, EGD showed mild erosive gastritis, she received 2 units of PRBC during that hospitalization, hemoglobin remained stable between 8.3-9, recent fracture of right distal radius which was managed conservatively with a splint, she does have history of pulmonary nodules presented today from [facility] after hypotensive and hypoxic event. When I went to interview the patient patient stated that her blood pressure was low and she is not sure what else happened. She is denying syncopal event or new strokelike symptoms. I called prison to get the report, it was night nurse was able to tell me that today when nurse Martha went to check on her she was not arousable her O2 saturation was 40% on 4 L nasal cannula, mostly she sleeps with CPAP, this morning she was only on nasal cannula, with sternal rub she woke up at that time blood pressure was soft, she was put on 10 L nasal cannula which brought her O2 saturation up to 69%, eventually BiPAP was placed, heart rate in 70s, A. fib, and Dr. Gallego was contacted to told the nurses to send her to the ER for further evaluation. In the ER she was awake and alert blood pressure was soft however she was saturating well on 4 L nasal cannula, CT chest did show multiple findings on review of previous records it seems like she does have subclavian steal syndrome, occlusion of left common carotid and stenosis of right carotid with penetrating ulcer in the distal aortic arch and descending aorta without any dissection no change in dimensions, pulmonary nodule size 4.6 mm which is new and there is a cluster of pulmonary nodules which seem to put her risk of obstruction right middle lobe worsened mediastinal lymphadenopathy Documentation from prison showed DNR/DNI status IMPRESSION: 1. No pulmonary embolus. 2. A right hilar mass or conglomeration of lymph nodes appears similar to the immediate prior study but larger from more remote examinations. This may be causing obstruction of the right middle lobe bronchus. Consider PET-CT or biopsy for definitive characterization. 3. Worsened mediastinal lymphadenopathy. This may be further assessed on PET-CT. 4. Occlusion of the left common carotid artery. 5. There is severe narrowing of the proximal right brachiocephalic artery and left subclavian arteries. This predisposes to subclavian steal syndrome. 6. There are penetrating ulcers in the distal aortic arch and descending thoracic aorta without evidence of propagating dissection. There is no evidence of rupture. The appearance is similar to prior. 7. 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 There is at least mild narrowing of the proximal superior mesenteric artery. 8. There are a couple dense indeterminate left renal lesions that may represent hemorrhagic cysts. Masses are considered less likely. Recommend nonemergent MR abdomen renal mass protocol with and without contrast to better characterize. 9. Cardiomegaly with small right pleural effusion. 10. New solid pulmonary nodule in the right upper lobe measuring 4.6 mm. As per Fleischner Society 2017 guidelines for follow-up and management of pulmonary nodules: For patients at low risk (minimal or absent history of smoking and of other known risk factors), no routine follow-up. For patient at high risk (history of smoking or of other known risk factors), recommend optional CT at 12 months. 11. Probable pulmonary arterial hypertension. 12. Colonic diverticulosis without evidence of acute diverticulitis. 13. Mild emphysema. 14. Coronary artery disease Transesophageal echo 12/26/2020 CONCLUSIONS 1. Normal left ventricular cavity size and systolic function. Moderate concentric left ventricular hypertrophy. Left ventricular ejection fraction is estimated at 60-65 %. No regional wall motion abnormalities. 2. Normal right ventricular size and systolic function. 3. Possible thrombus in the left atrial appendage. Left atrial smoke noted. 4. Lgrw-fv-[id number] tricuspid valve regurgitation. 5. Moderate plaque seen in aorta root. Grade 4 mobile atheroma noted in proximal descending aorta. She does have multiple stage I pressure ulcers on sacral and buttocks area Able to move her upper extremities, does have weakness of her legs right greater than left In the ER she received 1 L normal saline bolus and DuoNeb treatment Review of Systems Const: Denies: fever(s) Eyes: Denies: change in vision ENMT: Denies: throat pain Card: Denies: chest pain Resp: Denies: dyspnea GI: Denies: abdominal pain : Denies: flank pain Musc: Denies: neck pain Skin/Breast: Denies: rash Neuro: Reports: weakness in extremities and difficulty walking; Denies: headache(s) Psych: Denies: anxiety Endo: Denies: polyuria Estevan/Lymph: Denies: easy bruising All/Imm: Denies: urticaria Medications/Allergies Home Medications Medication Instructions Recorded Confirmed Last Taken Type alprazolam 0.5 mg tablet 0.5 mg PO QID PRN 02/20/19 11/30/20 11/29/20 History atorvastatin 10 mg PO DAILY@0800 10/12/20 11/30/20 11/29/20 History Eliquis 5 mg PO BID@080010/30/20 11/30/20 11/30/20 History acetaminophen 325 mg PO QID PRN 10/30/20 11/30/20 11/30/20 History albuterol sulfate 2.5 mg INHALATION Q4H PRN 10/30/20 11/30/20 Unknown History bisacodyl [Dulcolax (bisacodyl)] 10 mg OH DAILY PRN 10/30/20 11/30/20 Unknown History fluoxetine 20 mg PO DAILY@0800 10/30/20 11/30/20 11/30/20 History ipratropium-albuterol 0.5 ml INHALATION TID 10/30/20 11/30/20 11/30/20 History levothyroxine 175 mcg PO DAILY 10/30/20 11/30/20 11/30/20 History Fast Form Cock Up Splint #1 ea 11/17/20 11/30/20 Unknown Rx bisacodyl 10 mg PO DAILY PRN 11/18/20 11/30/20 11/25/20 History calcium carbonate 600 mg PO BID PRN 11/18/20 11/30/20 11/28/20 History Fleet Enema 118 ml OH DAILY PRN 11/30/20 11/30/20 Unknown History Milk of Magnesia 30 ml PO DAILY PRN 11/30/20 11/30/20 Unknown History Miralax 17 g PO DAILY 11/30/20 11/30/20 11/30/20 History Refresh Tears 2 drp OPHTHALMIC (EYE) BID PRN 11/30/20 11/30/20 Unknown History potassium chloride [Klor-Con M20] 20 meq PO BID 30 Days #60 tab 12/06/20 Unknown Rx sucralfate 1 g PO BIDAC 30 Days #60 tab 12/06/20 Unknown Rx amiodarone [Pacerone] 200 mg PO BID 30 Days #60 tab 12/27/20 Unknown Rx pantoprazole 40 mg PO DAILY 30 Days #30 tab 12/27/20 Unknown Rx furosemide 20 mg PO DAILY 30 Days #30 tab 12/28/20 11/30/20 11/30/20 Rx Allergies Allergy/AdvReac Type Severity Reaction Status Date / Time codeine Allergy unknown Verified 11/17/20 13:17 ketoprofen [From Oruvail] Allergy unknown Verified 11/17/20 13:17 nitrofurantoin Allergy unknown Verified 11/17/20 13:17 [From Macrobid] olmesartan [From Benicar] Allergy unknown Verified 11/17/20 13:17 quinapril [From Accupril] Allergy unknown Verified 11/17/20 13:17 Rkjdkke-EWT-QuR Reductase Allergy unknowm Verified 11/17/20 13:17 Inhibitor [Arprbko-Jjj-Yjm Reductase Inhibitor] PFSH Acute PFSH: Medical History (Updated 01/03/21 @ 21:05 by Noah Rojo MD) Acute and chronic respiratory failure with hypoxia Acute exacerbation of chronic obstructive airways disease Anemia Atrial fibrillation with rapid ventricular response Bilateral carotid artery stenosis Carotid atherosclerosis Chronic kidney disease Congestive heart failure Congestive heart failure COPD (chronic obstructive pulmonary disease) CVA (cerebral vascular accident) Displaced spiral fracture of shaft of right humerus with routine healing DNR (do not resuscitate) Fracture of humerus, proximal, right, closed Fracture of right distal radius Healthcare-associated pneumonia Heme positive stool History of CVA (cerebrovascular accident) Hyperlipidemia Hypertension Hypothyroidism Lung infiltrate on CT NSAID long-term use Physical deconditioning Pneumonia Severe pulmonary hypertension Steroid-induced hyperglycemia Subclavian steal syndrome Thrombus of atrial appendage Surgical History History of carpal tunnel release of both wrists History of renal stent Hx of cholecystectomy Family History Father Stroke Mother Stroke Social History Smoking and tobacco status: former smoker Alcohol intake: never Female Reproductive History: Date of last menstrual period: 05/08/20 Vitals/I&O/Wt Last Vital Signs Temp 97.6 F 01/03/21 09:16 Pulse 76 01/03/21 13:50 Resp 22 H 01/03/21 13:42 BP 99/64 01/03/21 13:42 Pulse Ox 94 01/03/21 13:50 Weight last 48 hrs Weight 90.718 kg Physical Exam Narrative: EXAM NARRATIVE: Pleasant elderly female She was awake and alert Nonfocal neuro exam She has bilateral extremity weakness right greater than left Able to move upper extremities No cyanosis of the upper extremities I do appreciate radial radial delay A. fib S1-S2 variable I do not hear any murmur Bilateral breath sounds without adventitious rhonchi however mild Rales at the bases he saturating well on 4 L nasal cannula no acute respiratory distress Skin stage I sacral ulcer bilateral buttocks EOMI, PERRLA No carotid or occipital bruit Data : 01/03/21 09:50 01/03/21 09:50 A&P Assessment and plan (1) Atrial fibrillation: Status: Acute (2) Hypotension: Status: Acute (3) Polypharmacy: Status: Acute Additional A&P Information Hypotension related to polypharmacy Hold Lasix, Check TSH She does not have sepsis No signs of PE on CTA, D-dimer 0.8 Does not look fluid overloaded clinically We will give her a trial of fluid We will give her another bolus and keep her on normal saline overnight Check cortisol level History of stroke Occlusion of left common carotid Severe stenosis of right carotid Atherosclerosis and ulcer of thoracic and descending aorta Concern for subclavian steal syndrome however no active new strokelike events, syncopal events, she is bedbound because of recent CVA Considering carotid disease she will not be an ideal candidate for surgical intervention, at this point she is not showing typical symptoms of subclavian steal syndrome Hypoxic event noted at the prison Cholesterol pulmonary nodule with concern for obstruction of bronchus however she is doing fine on 40 nasal cannula, ABG showing PO2 93 CTA results reviewed No acute respiratory distress No signs of tension pneumothorax We will put her on CPAP overnight she does have history of sleep apnea, I do suspect she fell asleep and was not getting CPAP that is why her O2 saturation was low and it improved by the time she arrived in the ER, Left atrial appendage thrombus Currently on Eliquis, history of blood transfusion, received 2 units of PRBC on last visit, on amiodarone for rate control Did develop digoxin toxicity on previous visit Candidate for watchman device? Has been evaluated by Dr. Galindo in the past She has been compliant with her medications DVT prophylaxis currently on Eliquis Cardiac diet Hypothyroidism: Check TSH continue levothyroxine DNR/DNI as per the records from prison A friend Chuy Mimi Saray is her medical DPOA Attestations Medical Necessity Statement*: Anticipating >2 midnights in the hospital Time Spent in Patient Care: Greater than 35 minutes Coding Level of Care Code Acute Elastic Attacher Overlock for Chg Fwd Diagnoses Atrial fibrillation I48.91 Hypotension I95.9 Polypharmacy Z79.899
--- NOTE | 2021-01-03 16:36 | PC.PHAR ---
[facility] HAS BEEN CONTACTED TWICE BY [facility] AND BY NURSING STAFF IN ER. NURSE AT [facility] STATES THEY HAVE SENT THE MED LIST TWICE. HAVE NOT RECEIVED MED LIST OF 163501/03/21
[2021-01-03 19:15] LABS: Troponin 5 6HR 68.47 ng/L (0-10)
[2021-01-03 20:34] LABS: Thyroid Stimulating Hormone 6.98 uIU/mL (0.27-4.20)
[2021-01-03] MEDS: apixaban 5 mg Tablet PO (20:43)
[2021-01-03] MEDS: midodrine 5 mg TABLET PO (21:40)
[2021-01-03] MEDS: lactated ringers 1,000 ML 999 ML IV (22:08)
[2021-01-03 23:49] LABS: Cortisol Random 12.65 ug/dL (2.47-19.5)
[2021-01-04] VITALS (11 sets, daily range): BP systolic 81–99; BP diastolic 48–63; PULSE 67–87; RESP 14–24; TEMP 36.4–36.8; O2SAT 90–100
[2021-01-04] MEDS: sodium chloride 0.9% 1,000 ML 30 ML IV (00:30)
[2021-01-04 01:17] LABS: Prolactin 19.49 ng/mL (4.8-23.3)
[2021-01-04 06:20] LABS: Basophils % 0.5 %; Eosinophils # 0.1 10^3/uL (0.0-0.8); Eosinophils % 1.3 %; Hemoglobin 7.4 g/dL (11.5-15.3); Lymphocytes % 25.9 %; Mean Corpuscular HGB Conc 29.6 g/dL (30.0-36.0); Mean Corpuscular Hemoglobin 27.5 pg (28.0-34.0); Mean Corpuscular Volume 92.9 fl (81-99); Mean Platelet Volume 9.9 fL (7.4-10.4); Monocytes # 0.4 10^3/uL (0.2-0.9); Monocytes % 9.1 %; Neutrophils # 2.14 10^3/uL (1.8-7.7); Nucleated Red Blood Cells # 0.1 /100WBC; Nucleated Red Blood Cells % 1.3 %; Platelet Count 184 10^3/cmm (130-400); Red Blood Count 2.69 10^6/uL (4.1-5.3); Red Cell Distribution Width 18.7 % (12.1-15.1)
[2021-01-04 06:43] LABS: Neutrophils % 63.2 %
[2021-01-04 06:52] LABS: Anion Gap 14.6 (5-19); Blood Urea Nitrogen 22 mg/dL (8-23); C Reactive Protein 51.4 mg/L (0.0-4.9); Calcium 8.2 mg/dL (8.5-10.5); Carbon Dioxide 29 mmol/L (22-29); Chloride 98 mmol/L (98-107); Glucose 119 mg/dL (65-115); Magnesium 1.9 mg/dL (1.7-2.3); Osmolality Calculated 288 mOsm/kg (285-295); Potassium 4.6 mmol/L (3.5-5.1); Sodium 137 mmol/L (136-145)
[2021-01-04] MEDS: sennosides-docusate Tablet 1 TAB PO (09:11)
[2021-01-04] MEDS: levothyroxine 175 mcg Tablet PO (09:12)
[2021-01-04] MEDS: apixaban 5 mg Tablet PO ×2 (09:12→20:59)
[2021-01-04] MEDS: amiodarone 200 mg Tablet PO ×2 (09:12→17:16)
[2021-01-04] MEDS: midodrine 5 mg TABLET PO ×3 (09:12→20:59)
[2021-01-04] MEDS: pantoprazole DR 40 mg Tablet PO (09:12)
[2021-01-04] MEDS: levothyroxine 200 mcg Tablet PO (09:19)
[2021-01-04 10:01] LABS: Hematocrit 26.9 % (37.0-47.0); Hemoglobin 7.7 g/dL (11.5-15.3)
--- NOTE | 2021-01-04 10:02 | PC.CHAP ---
Pastoral Care Encounter/Spiritual Assessment Type of Contact [] Declined clinical training coordinator visit [] Patient/Family/Request visit [] Outpatient visit [] Follow-up visit [] Physician referral [] Code/Alert [x] Routine visit [] Staff referral [] Actively dying [] Patient sleeping [] Family support [] [] Out of room [] Palliative care [] [] Receiving care in room [] Pre-surgical visit [] Trauma [] Long length of stay [] ICU visit [] Other: Relational/Emotional Strength [x] Patient feels connected with others/family/visitors/staff [] Distress [] Loneliness/isolation [] Abandonment Spirituality of Patient [x] Person of Erika [] Attends Scientology of their Erika [x] Believes in Prayer [] Reads Bible or Yazidism materials [] There are Spiritual issues to be addressed Product Management Specialist Interventions [x] Prayer [x] Active listening [x] Non-anxious presence [x] Spiritual/emotional support [] Crisis/trauma care [] Spiritual counseling [] Bereavement support [] Provided bereavement packet [] Provided Bible/devotional materials [] Provided toy/stuffed animal, coloring book to patient or family member [] Provided Communion [] Anointing/Orange [] Salvation [x] Completed spiritual assessment [] Other: Impact on Illness or Injury [] Angry [] Fearful [] Anxious [] Often cries [] Exhaustion [] Unable to work [] Unable to attend orthodox [] Unable to walk/stand [] Unable to read [] Unable to drive [] Unable to eat/drink [] Unable to sleep [] Unable to be with family [] Patient intubated [] Other: Summary Product Management Specialist prayed with patient and staff member. Time spent with patient 7 minutes.
--- NOTE | 2021-01-04 15:38 | P.PN_ITS ---
Subjective Subjective: Interval history: Patient was seen and examined this morning, she is getting fluids for low blood pressure Afebrile no symptoms She had uneventful night 1 diarrhea this morning TSH is high increase her levothyroxine dose 200 mcg 175 mcg We'll touch base with Dr. Galindo for further plan regarding left atrial appendage thrombus Vitals/I&O/Wt Last Vital Signs Temp 97.6 F 01/04/21 15:14 Pulse 70 01/04/21 15:14 Resp 17 01/04/21 15:14 BP 99/63 01/04/21 15:14 Pulse Ox 96 01/04/21 15:14 01/04/21 01/04/21 01/04/21 06:59 14:59 22:59 Intake Total 1000 / 1860 240 / 240 Balance 1000 / 1610 240 / 240 Weight last 48 hrs Weight 86.046 kg Weight 90.718 kg Physical Exam Narrative: EXAM NARRATIVE: Pleasant cooperative Doing well on 4 L nasal cannula S1, S2 No audible stridor or wheezing Abdomen soft Lower 70 weakness right lower than left Able to move upper extremities No new focal deficit Pleasant and cooperative Data : 01/04/21 09:39 01/04/21 05:26 A&P Assessment and plan (1) Polypharmacy: Status: Acute (2) Hypotension: Status: Acute (3) Atrial fibrillation: Status: Acute (4) Hypoxemia: Status: Acute Additional A&P Information Hypotension related to polypharmacy Hold Lasix, Check TSH She does not have sepsis No signs of PE on CTA, D-dimer 0.8 Does not look fluid overloaded clinically Does respond to IV fluid hydration, continue midodrine Repeat H&H, will check FOBT, tsh high, inc dose of levothyroxine History of stroke Occlusion of left common carotid Severe stenosis of right carotid Atherosclerosis and ulcer of thoracic and descending aorta Concern for subclavian steal syndrome however no active new strokelike events, syncopal events, she is bedbound because of recent CVA Considering carotid disease she will not be an ideal candidate for surgical intervention, at this point she is not showing typical symptoms of subclavian steal syndrome Hypoxic event noted at the long-term Cluster of pulmonary nodule with concern for obstruction of bronchus however she is doing fine on 4L nasal cannula, ABG showing PO2 93 CTA results reviewed No acute respiratory distress No signs of tension pneumothorax We will put her on CPAP overnight she does have history of sleep apnea, I do suspect she fell asleep and was not getting CPAP that is why her O2 saturation was low and it improved by the time she arrived in the ER, Left atrial appendage thrombus Currently on Eliquis Received 2 units of PRBC on previous visit, hemoglobin trickling down, check FOBT DVT prophylaxis currently is on Eliquis As per the report from long-term she is DNR/DNI, will ask long-term to fax 1 more time as we have not received, her CODE STATUS was notified to me by the nurse at the long-term as well DPOA is a friend Attestations Medical Necessity Statement*: Continue medical management, trend hemoglobin Time Spent in Patient Care: 16 - 35 minutes Coding Level of Care Code Acute Revenue Integrity Analyst for Moriahg Fwd Diagnoses Polypharmacy Z79.899 Hypotension I95.9 Atrial fibrillation I48.91 Hypoxemia R09.02
[2021-01-04] MEDS: acetaminophen 500 mg Tablet PO (17:15)
[2021-01-04] MEDS: sodium chloride 0.9% 1,000 ML 100 ML IV (21:01)
[2021-01-05] VITALS (19 sets, daily range): BP systolic 101–172; BP diastolic 66–82; PULSE 62–86; RESP 14–28; TEMP 36.3–37.3; O2SAT 88–99
[2021-01-05 03:59] LABS: Basophils % 0.9 %; Eosinophils # 0.1 10^3/uL (0.0-0.8); Eosinophils % 1.5 %; Hematocrit 25.1 % (37.0-47.0); Hemoglobin 7.3 g/dL (11.5-15.3); Lymphocytes # 1.3 10^3/uL (0.8-4.8); Lymphocytes % 28.9 %; Mean Corpuscular HGB Conc 29.1 g/dL (30.0-36.0); Mean Corpuscular Hemoglobin 26.5 pg (28.0-34.0); Mean Corpuscular Volume 91.3 fl (81-99); Monocytes # 0.4 10^3/uL (0.2-0.9); Monocytes % 9.3 %; Neutrophils # 2.17 10^3/uL (1.8-7.7); Neutrophils % 47.2 %; Nucleated Red Blood Cells # 0.1 /100WBC; Nucleated Red Blood Cells % 1.7 %; Platelet Count 216 10^3/cmm (130-400); Red Blood Count 2.75 10^6/uL (4.1-5.3); Red Cell Distribution Width 18.8 % (12.1-15.1); White Blood Count 4.6 10^3/uL (4.0-10.0)
[2021-01-05 04:18] LABS: Anion Gap 10.5 (5-19); Blood Urea Nitrogen 23 mg/dL (8-23); Calcium 7.8 mg/dL (8.5-10.5); Carbon Dioxide 29 mmol/L (22-29); Chloride 101 mmol/L (98-107); Glucose 125 mg/dL (65-115); Osmolality Calculated 287 mOsm/kg (285-295); Potassium 4.5 mmol/L (3.5-5.1); Sodium 136 mmol/L (136-145)
[2021-01-05 04:38] LABS: Slide Review Slide Review Perform
[2021-01-05] MEDS: sodium chloride 0.9% 1,000 ML 100 ML IV (06:13)
[2021-01-05] MEDS: acetaminophen 500 mg Tablet PO ×2 (09:09→14:14)
[2021-01-05] MEDS: levothyroxine 200 mcg Tablet PO (09:09)
[2021-01-05] MEDS: pantoprazole DR 40 mg Tablet PO ×2 (09:10→17:27)
[2021-01-05] MEDS: sennosides-docusate Tablet 1 TAB PO (09:10)
[2021-01-05] MEDS: midodrine 5 mg TABLET PO ×3 (09:10→20:23)
[2021-01-05] MEDS: apixaban 5 mg Tablet PO ×2 (09:10→20:23)
[2021-01-05] MEDS: amiodarone 200 mg Tablet PO ×2 (09:10→17:27)
[2021-01-05] MEDS: sodium chloride 0.9% (100 ml) 100 ML 50 ML (12:34)
--- NOTE | 2021-01-05 14:19 | P.PN_ITS ---
Subjective Subjective: Interval history: Seen this morning. She is on baseline of 4 L oxygen. Patient denies any symptoms. Denies any bloody bowel movements or melanotic stools. Patient did have 1 bowel movement which was dark green. Vitals/I&O/Wt Last Vital Signs Temp 97.4 F L 01/05/21 14:00 Pulse 72 01/05/21 14:00 Resp 16 01/05/21 14:00 BP 108/70 01/05/21 14:00 Pulse Ox 95 01/05/21 14:00 01/04/21 01/05/21 01/05/21 22:59 06:59 14:59 Intake Total 1320 / 1560 920 / 2480 200 / 200 Balance 1320 / 1560 920 / 2480 200 / 200 Weight last 48 hrs Weight 86.046 kg Physical Exam Narrative: EXAM NARRATIVE: General: Alert oriented x3, patient seen sitting up in bed appearing very comfortable on 4 L nasal cannula which is her baseline. HEENT: Normocephalic, atraumatic, EOMI, Cardio: Irregularly irregular, normal S1-S2, Respiratory: Good bilateral air entry, no wheezes no rhonchi appreciated GI: Abdomen soft, nontender, bowel sounds + Behavior: Appropriate and cooperative Extremities: Trace bilateral lower extremity edema, no cyanosis Data : 01/05/21 03:28 01/05/21 03:28 Micro: Microbiology 01/04/21 18:04 Occult Blood (FIT) - Final Stool A&P Assessment and plan (1) Polypharmacy: Status: Acute (2) Hypotension: Status: Acute (3) Atrial fibrillation: Status: Acute (4) Hypoxemia: Status: Acute (5) Anemia: Status: Acute Additional A&P Information #Hypotension related to polypharmacy #Anemia Hold Lasix, She does not have sepsis No signs of PE on CTA, D-dimer 0.8 Does not look fluid overloaded clinically Does respond to IV fluid hydration, continue midodrine Repeat H&H, FOBT positive, hemoglobin 7.2 this a.m. I have ordered 1 unit of packed RBC. Will check posttransfusion CBC 2 hours later. We will continue to monitor hemoglobin. tsh high, inc dose of levothyroxine I will stop Lasix at this point. Patient does appear clinically euvolemic. 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 Concern for subclavian steal syndrome however no active new strokelike events, syncopal events, she is bedbound because of recent CVA Considering carotid disease she will not be an ideal candidate for surgical intervention, at this point she is not showing typical symptoms of subclavian steal syndrome #Hypoxic event noted at the senior living Cluster of pulmonary nodule with concern for obstruction of bronchus however she is doing fine on 4L nasal cannula, ABG showing PO2 93 CTA results reviewed No acute respiratory distress No signs of tension pneumothorax We will put her on CPAP overnight she does have history of sleep apnea, I do suspect she fell asleep and was not getting CPAP that is why her O2 saturation was low and it improved by the time she arrived in the ER, Continue CPAP at night. #Left atrial appendage thrombus #Anemia Currently on Eliquis Received 2 units of PRBC on previous visit, hemoglobin trickling down, FOBT positive. FOBT was positive at previous admission as well. She was placed on Protonix twice daily and Carafate. ?I will continue Protonix twice daily and increase dose of Carafate to 1 g 4 times daily at this point. ?Discussed case with GI. Patient will potentially need a colonoscopy, enteroscopy and capsule endoscopy in the future. It is better if it is done at the same time rather than patient going to requiring anesthesia at separate timings. Patient was also given fluids this hospital stay and Lasix was held. I will stop fluids transfuse 1 unit of blood and watch the trend of hemoglobin. Patient is having green bowel movement and there is no evidence of melena. Unsure if this is true acute on chronic anemia versus just dilutional anemia. We will continue to monitor patient for now. -Cannot stop Eliquis due to atrial thrombus. Discussed with Dr. Galindo over the phone. Patient would potentially need a watchman device after 4 weeks of anticoagulation. She recommended that we can potentially transfer patient to [facility] due to her complex case. I have called [facility] but there is no bed available. If patient's hemoglobin does remain stable during this hospital admission and acute GI bleed has been ruled out we can potentially discharge patient to have her follow-up with electrophysiology as an outpatient with serial CBCs and close monitoring with her primary care doctor. DVT prophylaxis currently is on Eliquis As per the report from senior living she is DNR/DNI, will ask senior living to fax 1 more time as we have not received, her CODE STATUS was notified to me by the nurse at the senior living as well DPSARAH is a friend Mona So DPOA: [phone] - I called to update as per pt request but unable to get through. Will try again later. Attestations Medical Necessity Statement*: > 48 hour stay Coding Level of Care Code Acute Senior Litigation Paralegal for Chg Fwd Diagnoses Polypharmacy Z79.899 Hypotension I95.9 Atrial fibrillation I48.91 Hypoxemia R09.02 Anemia D64.9
--- NOTE | 2021-01-05 16:54 | PC.RESP ---
Pulmonary Rehab information sent to patient.
[2021-01-05] MEDS: sucralfate 1 gm Tablet PO ×2 (17:27→20:23)
[2021-01-05 18:12] LABS: Basophils # 0.1 10^3/uL (0.0-0.1); Basophils % 1.6 %; Eosinophils # 0.1 10^3/uL (0.0-0.8); Hematocrit 32.8 % (37.0-47.0); Hemoglobin 9.4 g/dL (11.5-15.3); Lymphocytes # 1.4 10^3/uL (0.8-4.8); Lymphocytes % 24.9 %; Mean Corpuscular HGB Conc 28.7 g/dL (30.0-36.0); Mean Corpuscular Hemoglobin 27.7 pg (28.0-34.0); Mean Corpuscular Volume 96.8 fl (81-99); Mean Platelet Volume 10.2 fL (7.4-10.4); Monocytes # 0.5 10^3/uL (0.2-0.9); Monocytes % 8.9 %; Neutrophils # 3.09 10^3/uL (1.8-7.7); Neutrophils % 53.8 %; Nucleated Red Blood Cells # 0.1 /100WBC; Nucleated Red Blood Cells % 1.6 %; Platelet Count 194 10^3/cmm (130-400); Red Blood Count 3.39 10^6/uL (4.1-5.3); Red Cell Distribution Width 18.6 % (12.1-15.1); White Blood Count 5.7 10^3/uL (4.0-10.0)
[2021-01-06] VITALS (16 sets, daily range): BP systolic 103–136; BP diastolic 62–83; PULSE 66–82; RESP 18–32; TEMP 36.4–36.9; O2SAT 89–98
--- NOTE | 2021-01-06 05:30 | PC.NURSE ---
SHIFT SUMMARY Has had a good night. BIPAP in place all shift. Says she is feeling much better than when she came to the hospital. Is incont urine and changed as needed. Will let nurse know when she is wet but says she does not know in time to use bedpan. Has been pleasant and cooperative.
[2021-01-06 08:42] LABS: Hematocrit 29.2 % (37.0-47.0); Hemoglobin 8.8 g/dL (11.5-15.3); Mean Corpuscular HGB Conc 30.1 g/dL (30.0-36.0); Mean Corpuscular Hemoglobin 26.8 pg (28.0-34.0); Mean Platelet Volume 9.7 fL (7.4-10.4); Platelet Count 244 10^3/cmm (130-400); Red Blood Count 3.28 10^6/uL (4.1-5.3); Red Cell Distribution Width 18.3 % (12.1-15.1); White Blood Count 5.5 10^3/uL (4.0-10.0)
[2021-01-06 09:05] LABS: Anion Gap 13.4 (5-19); Blood Urea Nitrogen 21 mg/dL (8-23); Carbon Dioxide 27 mmol/L (22-29); Chloride 101 mmol/L (98-107); Glucose 89 mg/dL (65-115); Osmolality Calculated 286 mOsm/kg (285-295); Potassium 4.4 mmol/L (3.5-5.1); Sodium 137 mmol/L (136-145)
[2021-01-06 09:10] LABS: Slide Review Slide Review Perform
[2021-01-06 09:13] LABS: Absolute Eosinophils 0.1 10^3/cmm (0.0-0.7); Absolute Neutrophil 3.5 10^3/cmm (1.4-6.5); Absolute Segmented Neutrophil 2.1 10/cmm (1.6-7.1); Band Neutrophils Absolute 1.4 10^3/cmm (0.0-1.2); Eosinophils 2 %; Giant Platelets Trace; Lymphocytes 22 %; Lymphocytes Absolute 1.2 10^3/cmm (1.2-3.4); Monocytes Absolute 0.4 10^3/cmm (0.1-0.6); Platelet Estimate Normal (Normal); Segmented Neutrophils 39 %; Total Cells Counted 100 (0-100)
[2021-01-06] MEDS: apixaban 5 mg Tablet PO ×2 (10:10→20:36)
[2021-01-06] MEDS: levothyroxine 200 mcg Tablet PO (10:10)
[2021-01-06] MEDS: midodrine 5 mg TABLET PO ×3 (10:10→20:36)
[2021-01-06] MEDS: pantoprazole DR 40 mg Tablet PO ×2 (10:10→17:20)
[2021-01-06] MEDS: amiodarone 200 mg Tablet PO ×2 (10:10→17:20)
[2021-01-06] MEDS: acetaminophen 500 mg Tablet PO (10:11)
[2021-01-06] MEDS: sucralfate 1 gm Tablet PO ×4 (10:11→20:36)
[2021-01-06] MEDS: ipratropium-albuterol 3 mL Neb INHALATION (10:40)
--- NOTE | 2021-01-06 11:54 | PC.SOCIAL ---
Pg 2 IMM Explained to pt on Pg 2 IMM. No questions voiced. Provided pt a copy. Initialed, dated, & timed a copy & placed in chart.
--- NOTE | 2021-01-06 15:32 | XRR_ITS ---
PROCEDURE INFORMATION: Exam: XR Chest Exam date and time: 01/06/2021 3:32 PM Age: 75 years old Clinical indication: Shortness of breath; Additional info: SOB TECHNIQUE: Imaging protocol: XR of the chest. Views: 1 view. Total images: 1 COMPARISON: 1. CR XR chest 1V portable [id number] 01/03/2021 9:[address] angio chest PE protcl [id number] 01/03/2021 11:37:37 AM FINDINGS: Lungs: Centrilobular emphysema. Senile fibrosis. Calcified granulomas of antecedent disease. No visible active consolidated alveolar airspace disease. Pleural spaces: . Suspected small right pleural effusion. Heart/Mediastinum: Marked cardiomegaly with arteriosclerosis. Bones/joints: Advanced degenerative disease of the left shoulder again identified. Mild scoliotic curvature. Old right rib fracture. Other findings: Obesity. Motion artifact. XR/XR chest 1V portable [id number] IMPRESSION: Stable chest. Radiation Dose CTDIVOL = (mGy): DLP = (mGy-cm)
--- NOTE | 2021-01-06 15:34 | PM.PN ---
Subjective Subjective: Interval history: Seen this morning. Patient is on bipap. She was saturating 85% according to respiratory therapist. I have put in for chest x-ray. Patient did have 1 unit of blood yesterday and was also on fluids. Her EF from prior visit recent echo is normal. She denies a cough denies shortness of breath today. She was wearing BiPAP when I walked in. She does wear her BiPAP at night. Hemoglobin has remained stable overnight. Is at 8.8 today. Still awaiting records from [facility] and [place]. Patient's friend Mr. Vera was updated in detail yesterday at bedside when patient was reseen in the afternoon. Vitals/I&O/Wt Last Vital Signs Temp 97.9 F 01/06/21 11:50 Pulse 73 01/06/21 11:50 Resp 18 01/06/21 11:50 BP 136/83 01/06/21 11:50 Pulse Ox 97 01/06/21 11:50 01/06/21 01/06/21 01/06/21 06:59 14:59 22:59 Intake Total 150 / 2380 360 / 360 Balance 150 / 2380 360 / 360 Physical Exam Narrative: EXAM NARRATIVE: General: Alert oriented x3, patient seen sitting up in bed appearing very comfortable on BiPAP HEENT: Normocephalic, atraumatic, EOMI, Cardio: Irregularly irregular, normal S1-S2, Respiratory: Good bilateral air entry, no wheezes no rhonchi appreciated GI: Abdomen soft, nontender, bowel sounds + Behavior: Appropriate and cooperative Extremities: Trace bilateral lower extremity edema, no cyanosis Data : 01/06/21 08:30 01/06/21 08:30 A&P Assessment and plan (1) Polypharmacy: Status: Acute (2) Hypotension: Status: Acute (3) Atrial fibrillation: Status: Acute (4) Hypoxemia: Status: Acute (5) Anemia: Status: Acute Additional A&P Information #Hypotension related to polypharmacy #Anemia Hold Lasix, She does not have sepsis No signs of PE on CTA, D-dimer 0.8 Does not look fluid overloaded clinically Does respond to IV fluid hydration, continue midodrine Repeat H&H, FOBT positive, hemoglobin 7.2 this a.m. I have ordered 1 unit of packed RBC. Will check posttransfusion CBC 2 hours later. We will continue to monitor hemoglobin. tsh high, inc dose of levothyroxine I will stop Lasix at this point. Patient does appear clinically euvolemic. 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 Concern for subclavian steal syndrome however no active new strokelike events, syncopal events, she is bedbound because of recent CVA Considering carotid disease she will not be an ideal candidate for surgical intervention, at this point she is not showing typical symptoms of subclavian steal syndrome #Hypoxic event noted at the [facility] Cluster of pulmonary nodule with concern for obstruction of bronchus however she is doing fine on 4L nasal cannula, ABG showing PO2 93 CTA results reviewed No acute respiratory distress No signs of tension pneumothorax We will put her on CPAP overnight she does have history of sleep apnea, I do suspect she fell asleep and was not getting CPAP that is why her O2 saturation was low and it improved by the time she arrived in the ER, Continue CPAP at night. -I will recheck chest x-ray today due to patient's desaturation on 4 L to 85%. Clinically she does not appear to have a pneumonia. White count is okay and she has been afebrile denies shortness of breath denies cough. Lasix was stopped at admission due to hypotension. I can restart that today. Clinically however the patient did look euvolemic. #Left atrial appendage thrombus #Anemia Currently on Eliquis Received 2 units of PRBC on previous visit, hemoglobin trickling down, FOBT positive. FOBT was positive at previous admission as well. She was placed on Protonix twice daily and Carafate. ?I will continue Protonix twice daily and increase dose of Carafate to 1 g 4 times daily at this point. ?Discussed case with GI. Patient will potentially need a colonoscopy, enteroscopy and capsule endoscopy in the future. It is better if it is done at the same time rather than patient going to requiring anesthesia at separate timings. Patient was also given fluids this hospital stay and Lasix was held. I will stop fluids transfuse 1 unit of blood and watch the trend of hemoglobin. Patient is having green bowel movement and there is no evidence of melena. Unsure if this is true acute on chronic anemia versus just dilutional anemia. We will continue to monitor patient for now. -Cannot stop Eliquis due to atrial thrombus. Discussed with Dr. Galindo over the phone. Patient would potentially need a watchman device after 4 weeks of anticoagulation. She recommended that we can potentially transfer patient to [facility] due to her complex case. I have called [facility] but there is no bed available. If patient's hemoglobin does remain stable during this hospital admission and acute GI bleed has been ruled out we can potentially discharge patient to have her follow-up with electrophysiology as an outpatient with serial CBCs and close monitoring with her primary care doctor. -Patient's hemoglobin does appear to be stable. If it continues to be stable by tomorrow we can potentially discharge the patient to have her follow-up outpatient with GI for possible small capsule endoscopy. But I will review records from [facility] in [place] before making that determination. I have talked to party plan sales unit sales leader. We will recall those places today to request for records. We did call yesterday and records are not here yet. DVT prophylaxis currently is on Eliquis As per the report from [facility] she is DNR/DNI, will ask [facility] to fax 1 more time as we have not received, her CODE STATUS was notified to me by the nurse at the [facility] as well DPOA is a friend Mona So DPOA: [phone] - I called to update as per pt request but unable to get through. Will try again later. Attestations Medical Necessity Statement*: > 24 hour stay Coding Level of Care Code Acute String Studies Director for Chg Fwd Diagnoses Polypharmacy Z79.899 Hypotension I95.9 Atrial fibrillation I48.91 Hypoxemia R09.02 Anemia D64.9
[2021-01-06 16:14] LABS: Hematocrit 27.7 % (37.0-47.0); Hemoglobin 8.4 g/dL (11.5-15.3); Mean Corpuscular HGB Conc 30.3 g/dL (30.0-36.0); Mean Corpuscular Hemoglobin 27.2 pg (28.0-34.0); Mean Corpuscular Volume 89.6 fl (81-99); Mean Platelet Volume 9.5 fL (7.4-10.4); Platelet Count 252 10^3/cmm (130-400); Red Blood Count 3.09 10^6/uL (4.1-5.3); Red Cell Distribution Width 18.9 % (12.1-15.1); White Blood Count 5.4 10^3/uL (4.0-10.0)
[2021-01-07] VITALS (11 sets, daily range): BP systolic 103–116; BP diastolic 62–72; PULSE 63–101; RESP 17–25; TEMP 36.6–37; O2SAT 94–100
[2021-01-07 05:22] LABS: Basophils % 0.6 %; Eosinophils % 0.8 %; Hematocrit 24.9 % (37.0-47.0); Hemoglobin 7.5 g/dL (11.5-15.3); Lymphocytes # 1.5 10^3/uL (0.8-4.8); Lymphocytes % 30.7 %; Mean Corpuscular HGB Conc 30.1 g/dL (30.0-36.0); Mean Corpuscular Hemoglobin 27.6 pg (28.0-34.0); Mean Corpuscular Volume 91.5 fl (81-99); Mean Platelet Volume 9.9 fL (7.4-10.4); Monocytes # 0.5 10^3/uL (0.2-0.9); Monocytes % 9.8 %; Neutrophils # 2.24 10^3/uL (1.8-7.7); Neutrophils % 46.5 %; Nucleated Red Blood Cells # 0.1 /100WBC; Nucleated Red Blood Cells % 1.2 %; Platelet Count 233 10^3/cmm (130-400); Red Blood Count 2.72 10^6/uL (4.1-5.3); Red Cell Distribution Width 19.1 % (12.1-15.1); White Blood Count 4.8 10^3/uL (4.0-10.0)
[2021-01-07 05:44] LABS: Anion Gap 10.4 (5-19); Blood Urea Nitrogen 21 mg/dL (8-23); Carbon Dioxide 29 mmol/L (22-29); Chloride 101 mmol/L (98-107); Glucose 86 mg/dL (65-115); Osmolality Calculated 284 mOsm/kg (285-295); Potassium 4.4 mmol/L (3.5-5.1); Sodium 136 mmol/L (136-145)
[2021-01-07 06:11] LABS: Slide Review Slide Review Perform
[2021-01-07] MEDS: sucralfate 1 gm Tablet PO ×4 (07:36→20:08)
[2021-01-07] MEDS: pantoprazole DR 40 mg Tablet PO ×2 (07:36→18:04)
[2021-01-07] MEDS: midodrine 5 mg TABLET PO ×3 (07:36→20:08)
[2021-01-07] MEDS: FUROsemide 40 mg Tablet PO (07:36)
[2021-01-07] MEDS: levothyroxine 200 mcg Tablet PO (07:37)
[2021-01-07] MEDS: amiodarone 200 mg Tablet PO ×2 (07:37→18:04)
[2021-01-07] MEDS: apixaban 5 mg Tablet PO ×2 (07:37→20:08)
[2021-01-07] MEDS: sennosides-docusate Tablet 1 TAB PO (07:37)
[2021-01-07 14:18] LABS: Basophils % 0.7 %; Eosinophils # 0.1 10^3/uL (0.0-0.8); Eosinophils % 0.9 %; Hematocrit 26.5 % (37.0-47.0); Hemoglobin 7.9 g/dL (11.5-15.3); Lymphocytes # 1.5 10^3/uL (0.8-4.8); Lymphocytes % 26.5 %; Mean Corpuscular HGB Conc 29.8 g/dL (30.0-36.0); Mean Corpuscular Hemoglobin 27.1 pg (28.0-34.0); Mean Corpuscular Volume 91.1 fl (81-99); Mean Platelet Volume 9.7 fL (7.4-10.4); Monocytes # 0.5 10^3/uL (0.2-0.9); Monocytes % 8.7 %; Neutrophils # 2.98 10^3/uL (1.8-7.7); Neutrophils % 52.6 %; Nucleated Red Blood Cells # 0.1 /100WBC; Nucleated Red Blood Cells % 0.9 %; Platelet Count 266 10^3/cmm (130-400); Red Blood Count 2.91 10^6/uL (4.1-5.3); Red Cell Distribution Width 18.6 % (12.1-15.1); White Blood Count 5.7 10^3/uL (4.0-10.0)
--- NOTE | 2021-01-07 14:29 | P.TS_ITS ---
Transfer Summary Providers Date of Admission: 01/03/21 15:45 Date of Discharge: 01/07/21 Attending Provider at Admission: Noah Rojo MD Attending Provider at Transfer: Carlyn Hatfield MD Primary Care Provider: Marco Antonio Thompson MD Anticipated Date of Transfer: Anticipated date of transfer: 01/07/21 Receiving Facility & Provider: Receiving Provider: [Dr. Greco] Receiving facility: [facility]] Diagnoses at Discharge Discharge Diagnosis (1) Polypharmacy: Status: Acute (2) Hypotension: Status: Acute (3) Atrial fibrillation: Status: Acute (4) Hypoxemia: Status: Acute (5) Anemia: Status: Acute Reason for Visit Reason for Visit: SOB Hospital Course Hospital Course HPI as per Dr. 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 fib difficult to control heart rate, failed Cardizem secondary to hypotension she was discharged on Eliquis and amiodarone, there was decision to do cardioversion however there is atrial appendage hence cardioversion deferred, patient might be a candidate of watchman device, EGD showed mild erosive gastritis, she received 2 units of PRBC during that hospitalization, hemoglobin remained stable between 8.3-9, recent fracture of right distal radius which was managed conservatively with a splint, she does have history of pulmonary nodules presented today from [facility] after hypotensive and hypoxic event. When I went to interview the patient patient stated that her blood pressure was low and she is not sure what else happened. She is denying syncopal event or new strokelike symptoms. I called [facility] to get the report, it was night nurse was able to tell me that today when nurse Thomas went to check on her she was not arousable her O2 saturation was 40% on 4 L nasal cannula, mostly she sleeps with CPAP, this morning she was only on nasal cannula, with sternal rub she woke up at that time blood pressure was soft, she was put on 10 L nasal cannula which brought her O2 saturation up to 69%, eventually BiPAP was placed, heart rate in 70s, A. fib, and Dr. Gallego was contacted to told the nurses to send her to the ER for further evaluation. In the ER she was awake and alert blood pressure was soft however she was saturating well on 4 L nasal cannula, CT chest did show multiple findings on review of previous records it seems like she does have subclavian steal syndrome, occlusion of left common carotid and stenosis of right carotid with penetrating ulcer in the distal aortic arch and descending aorta without any dissection no change in dimensions, pulmonary nodule size 4.6 mm which is new and there is a cluster of pulmonary nodules which seem to put her risk of obstruction right middle lobe worsened mediastinal lymphadenopathy Documentation from [facility] showed DNR/DNI status Course During hospital stay patient has received 1 blood transfusion so far as her hemoglobin has been trickling down from 9-7 range. After hemoglobin went up started to decrease again. From respiratory standpoint she has been okay baseline 4 L nasal cannula. No evidence of pneumonia at this time. Case was discussed extensively with general surgery. We have obtained records from [facility] where she had EGD and colonoscopy done. EGD was unremarkable and colonoscopy did have polyps that were removed. All her records will be sent with her to [facility] when she leaves today. She also had a repeat EGD done at her previous hospital stay with us which showed nonerosive gastritis. Since source of bleeding with positive FOBT was not identified on prior scopes our general surgeon has recommended that patient needs a repeat colonoscopy with possible enteroscopy and potential small capsule endoscopy to identify source. She is currently on Protonix 40 twice daily along with Carafate 1 g 4 times daily. Patient is currently on Eliquis for atrial thrombus. I have discussed with softlines supervisor and since her diagnosis of atrial thrombus is less than 4 weeks old we cannot discontinue her Eliquis. With patient's history of stroke she would be a very high risk for another stroke of Eliquis were to be stopped. Foxer also recommended that patient needs to be evaluated for watchman device. So far we have just been monitoring her hemoglobin and transfusing as needed. All the above was discussed in detail with the patient as well and decision was made to transfer patient to higher level of care where gastroenterology service would be available. Patient has been hemodynamically vitally stable throughout her hospital stay here. Additionally she has been recommended to have a watchman device placed after her previous hospitalization 2 weeks ago and she was to get evaluated at [place] as an outpatient. Prior to that happening however she came to the hospital for an apneic episode. Patient does have a history of obstructive sleep apnea. She wears CPAP at night. He has not had any respiratory issues during this hospital stay. Transfer line was called from [facility] and Dr. Greco accepted the patient for transfer. Patient's friend Mr. Vera has been updated upon the patient's request. Of note: Patient will require outpatient pulmonology follow-up after her hospital stay for CT scan findings. I have discussed with our reservation sales agent here and he recommends to follow-up outpatient for further work-up. There is a question of right middle lobe bronchus obstruction but after reservation sales agent reviewed the images he does not believe there is an obstruction there. He states there is enlarged lymph node shadow. Patient will need to follow-up as an outpatient once her acute issues of GI bleed are resolved. CTA done 01/03/2021 IMPRESSION: 1. No pulmonary embolus. 2. A right hilar mass or conglomeration of lymph nodes appears similar to the immediate prior study but larger from more remote examinations. This may be causing obstruction of the right middle lobe bronchus. Consider PET-CT or biopsy for definitive characterization. 3. Worsened mediastinal lymphadenopathy. This may be further assessed on PET-CT. 4. Occlusion of the left common carotid artery. 5. There is severe narrowing of the proximal right brachiocephalic artery and left subclavian arteries. This predisposes to subclavian steal syndrome. 6. There are penetrating ulcers in the distal aortic arch and descending thoracic aorta without evidence of propagating dissection. There is no evidence of rupture. The appearance is similar to prior. 7. 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 There is at least mild narrowing of the proximal superior mesenteric artery. 8. There are a couple dense indeterminate left renal lesions that may represent hemorrhagic cysts. Masses are considered less likely. Recommend nonemergent MR abdomen renal mass protocol with and without contrast to better characterize. 9. Cardiomegaly with small right pleural effusion. 10. New solid pulmonary nodule in the right upper lobe measuring 4.6 mm. As per Fleischner Society 2017 guidelines for follow-up and management of pulmonary nodules: For patients at low risk (minimal or absent history of smoking and of other known risk factors), no routine follow-up. For patient at high risk (history of smoking or of other known risk factors), recommend optional CT at 12 months. 11. Probable pulmonary arterial hypertension. 12. Colonic diverticulosis without evidence of acute diverticulitis. 13. Mild emphysema. 14. Coronary artery disease. JORGE 12/26/2020 FINDINGS Left Ventricle Normal left ventricular cavity size. Moderate concentric left ventricular hypertrophy. Normal left ventricular systolic function. Left ventricular ejection fraction is estimated at 60- 65 %. No regional wall motion abnormalities. Right Ventricle Normal right ventricular size and systolic function. Right Atrium Normal right atrial size. Left Atrium Moderately increased left atrial size. Smoke noted in left atrium. LA Appendage Normal left atrial appendage. Decreased flow velocities in the left atrial appendage. Possible thrombus in the left atrial appendage. IA Septum Lipomatous hypertrophy of interatrial septum. No patent foramen ovale or atrial septal defect by color Doppler.. Mitral Valve Thickened mitral valve. Moderate mitral annular calcification. No mitral valve stenosis. Mild mitral valve regurgitation. Aortic Valve Thickened and calcified trileaflet aortic valve. No aortic valve stenosis. No aortic valve regurgitation. Tricuspid Valve Structurally normal tricuspid valve. [id number] tricuspid valve regurgitation. Pulmonic Valve Structurally normal pulmonic valve. Trace pulmonary valve regurgitation. Pericardium No pericardial effusion. Aorta Normal size aortic root and proximal ascending aorta. Moderate plaque seen in aorta root. Grade 4 mobile atheroma noted in proximal descending aorta. No aortic dilation aneurysm or dissection. CONCLUSIONS 1. Normal left ventricular cavity size and systolic function. Moderate concentric left ventricular hypertrophy. Left ventricular ejection fraction is estimated at 60-65 %. No regional wall motion abnormalities. 2. Normal right ventricular size and systolic function. 3. Possible thrombus in the left atrial appendage. Left atrial smoke noted. 4. [id number] tricuspid valve regurgitation. 5. Moderate plaque seen in aorta root. Grade 4 mobile atheroma noted in proximal descending aorta. Discharge Summary from 12/28/2020 75 year old female with past medical history of left ICA/CCA stenosis, severe stenosis of right internal carotid artery, history of left-sided CVA with residual right-sided deficits status post TPA, atrial fibrillation on Eliquis, hypertension, hyperlipidemia, hypothyroidism, COPD chronically on 6 L oxygen, CKD, history of right wrist fracture currently in a splint, with admitted to [facility] for CHF exacerbation on 12/01/2019 and pneumonia, who was admitted to [facility] due to complaints of shortness of breath.She was admitted for the management of Acute on chronic respiratory failure with hypoxia:multifactorial ( PNA,PHT,HFpEF Exacerbation,COPD,A.fib ). She was kept on broad spectrum abxs, aggressive diuresis, conservative respiratory support measures,supplemental oxygen as needed. She also underwent EGD during the hospital stay to rule out G/I Bleed as her H/H was trending down, and she is also on eliquis for h/o atrial fibrillation,EGD was suggestive of Mild erosive gastritis in the body of stomach,h/h remained stable at the time of discharge,and she received 2 Us PRBC during the hospital stay.She was also discharged on protonix. For h/o Paroxysmal atrial fibrillation with RVR she failed cardizem as her b/p was very soft, adding midodrine was not helpful.She was loaded with digoxin as well amidarone po was started , JORGE Cardioversion was in plan, but cardioversion was not attempted as on JORGE there was high suspicion of left atrial appendage thrombus and left atrial smoke.She continued to be in Atrial fibrillation on discharge with well controlled H/R and was discharged on PO amidarone. options at this point to control patient's atrial fibrillation are limited. It was discussed with the patient options of staying on amiodarone for rate control with a small risk of stroke in case it converts her versus staying of antiarrhythmic and trying digoxin at a lower dose. It was agreed upon that we will continue with Eliquis 5 mg twice a day along with amiodarone. Patient understands the risk and would like to continue with amiodarone and Eliquis for now.Digoxin was not continued on discharge due to tenuous renal function . During the hospital stay serum digoxin level was slightly elevated after the lodaing dose and initial few days of maintainence dose.At the time of discharge serum digoxin level was trending towards normal.She is likely a candidate for watchman device which the softlines supervisor have discussed with her and will likely be pursed as outpatient.Currently eliquis has been continued with close damon toring of H/H.JORGE Showed Mild to moderate mitral valve regurgitation/moderate tricuspid valve regurgitation,Grade 5 atheroma in descending aorta.High likelihood of left atrial appendage thrombus SHILPA on CKD Stage 3 was resolved on discharge.At the time of discharge her she was saturating well at her baseline home oxygen,sob has improved but she was still very week due to long hospital stay and ongoing medical conditions.for her Fracture of right distal radius:Right wrist fracture, continue splint. Will need to continue for 6 weeks. May be taken off for range of motion exercises with PT/OT.for her H/o CVA x 2 (in 1993 and in September/p tpa) Carotid artery disease: right internal carotid artery with velocity elevation consistent with 80-99% stenosis. Features of total occlusion of the left internal carotid artery.she was continued to be managed conservatively.She was euvolemic on discharge and was discharged on lasix 20 mg po daily and she will continue to follow Her pcp,cardiology as pulmonary medicine as outpatient.Patient responded well to the above medical management and is being discharged in stable condition to [facility]. Physical Exam Narrative: EXAM NARRATIVE: General: Alert oriented x3, patient seen sitting up in bed appearing comfortable on 4 L nasal cannula. HEENT: Normocephalic, atraumatic, EOMI, Cardio: Irregularly irregular, normal S1-S2, Respiratory: Good bilateral air entry, no wheezes no rhonchi appreciated GI: Abdomen soft, nontender, bowel sounds + Behavior: Appropriate and cooperative Extremities: Trace bilateral lower extremity edema, no cyanosis TS Data Data Completed and Pending: Completed Studies During Hospitalization Category Date Time Status CT angio chest PE protcl [id number] Urge nt Cat Scan 01/03/21 11:05 Completed XR chest 1V terry ble [id number] Routine Exams 01/06/21 15:32 Completed XR chest 1V terry ble [id number] Urgent Exams 01/03/21 09:22 Completed Pending at discharge Category Date Time Status Complete Blood Co unt w/Auto Routine Lab 01/07/21 14:10 Results Leukocyte Reduced RBC Routine Lab 01/05/21 08:41 Results Type and Screen R outine Lab 01/05/21 08:41 Results Labs from last 24 hours 01/07/21 01/07/21 01/07/21 14:10 04:50 04:50 WBC Pending 4.8 RBC Pending 2.72 L Hgb Pending 7.5 L Hct Pending 24.9 L MCV Pending 91.5 MCH Pending 27.6 L MCHC Pending 30.1 RDW Pending 19.1 H Plt Count Pending 233 MPV Pending 9.9 Neut % (Auto) 46.5 Lymph % (Auto) Pending 30.7 [place] % (Auto) Pending 9.8 Eos % (Auto) 0.8 Baso % (Auto) 0.6 Neut # (Auto) 2.24 Lymph # (Auto) Pending 1.5 [place] # (Auto) Pending 0.5 Eos # (Auto) 0.0 Baso # (Auto) 0.0 Nucleated RBC % (a uto) 1.2 Nucleated RBCs # 0.1 Sodium 136 Potassium 4.4 Chloride 101 Carbon Dioxide 29 Anion Gap 10.4 BUN 21 Creatinine 1.1 H GFR Calculation Not Reportable Glucose 86 Calculated Osmolal ity 284 L Calcium 8.0 L Magnesium 2.0 Blood Type Rho(D) Type Antibody Screen Crossmatch 01/06/21 01/04/21 15:52 09:39 WBC 5.4 RBC 3.09 L Hgb 8.4 L Hct 27.7 L MCV 89.6 MCH 27.2 L MCHC 30.3 RDW 18.9 H Plt Count 252 MPV 9.5 Neut % (Auto) Lymph % (Auto) Not Reportable [place] % (Auto) Not Reportable Eos % (Auto) Baso % (Auto) Neut # (Auto) Lymph # (Auto) Not Reportable [place] # (Auto) Not Reportable Eos # (Auto) Baso # (Auto) Nucleated RBC % (a uto) Nucleated RBCs # Sodium Potassium Chloride Carbon Dioxide Anion Gap BUN Creatinine GFR Calculation Glucose Calculated Osmolal ity Calcium Magnesium Blood Type B Positive Rho(D) Type Positive Antibody Screen Negative Crossmatch See Detail Vitals: Last Vital Signs Temp 97.8 F 01/07/21 12:00 Pulse 75 01/07/21 12:00 Resp 18 01/07/21 12:00 BP 108/70 01/07/21 12:00 Pulse Ox 96 01/07/21 12:00 TS Medications Medications Home Medications alprazolam 0.5 mg tablet 0.5 mg PO QID PRN 02/20/19 [History Confirmed 01/04/21] atorvastatin 10 mg PO DAILY 10/12/20 [History Confirmed 01/04/21] Eliquis 5 mg PO BID@0800,199910/30/20 [History Confirmed 01/04/21] acetaminophen 325 mg PO QID PRN 10/30/20 [History Confirmed 01/04/21] albuterol sulfate 2.5 mg INHALATION Q4H PRN 10/30/20 [History Confirmed 01/04/21] bisacodyl [Dulcolax (bisacodyl)] 10 mg VA DAILY PRN 10/30/20 [History Confirmed 01/04/21] fluoxetine 20 mg PO DAILY@0800 10/30/20 [History Confirmed 01/04/21] ipratropium-albuterol 0.5 ml INHALATION TID 10/30/20 [History Confirmed 01/04/21] levothyroxine 175 mcg PO DAILY 10/30/20 [History Confirmed 01/04/21] bisacodyl 10 mg PO DAILY PRN 11/18/20 [History Confirmed 01/04/21] calcium carbonate 600 mg PO BID PRN 11/18/20 [History Confirmed 01/04/21] Fleet Enema 118 ml VA DAILY PRN 11/30/20 [History Confirmed 01/04/21] carboxymethylcellulose sodium [Refresh Tears] 2 drp OPHTHALMIC (EYE) BID PRN 11/30/20 [History Confirmed 01/04/21] magnesium hydroxide [Milk of Magnesia] 30 ml PO DAILY PRN 11/30/20 [History Confirmed 01/04/21] polyethylene glycol 3350 [Miralax] 17 g PO DAILY 11/30/20 [History Confirmed 01/04/21] potassium chloride [Klor-Con M20] 20 meq PO BID 30 Days #60 tab 12/06/20 [Rx Confirmed 01/04/21] sucralfate 1 g PO BIDAC 30 Days #60 tab 12/06/20 [Rx Confirmed 01/04/21] amiodarone [Pacerone] 200 mg PO BID 30 Days #60 tab 12/27/20 [Rx Confirmed 01/04/21] pantoprazole 40 mg PO DAILY 30 Days #30 tab 12/27/20 [Rx Confirmed 01/04/21] furosemide [Lasix] 40 mg PO DAILY 01/04/21 [History Confirmed 01/04/21] Active Medications Acetaminophen (Acetaminophen 500 Mg Tablet) 500 mg PO Q4H PRN PRN Reason: fever Last Admin: 01/06/21 10:11 Dose: 500 mg Documented by: Albuterol/Ipratropium (Ipratropium-Albuterol 3 Ml Neb) 3 ml INHALATION Q6H.RESPIRATORY PRN PRN Reason: SHORTNESS OF BREATH Last Admin: 01/06/21 10:40 Dose: 3 ml Documented by: Amiodarone HCl (Amiodarone 200 Mg Tablet) 200 mg PO BID [facility] Last Admin: 01/07/21 07:37 Dose: 200 mg Documented by: Apixaban (Apixaban 5 Mg Tablet) 5 mg PO BID@0900,2100 [facility] Last Admin: 01/07/21 07:37 Dose: 5 mg Documented by: Furosemide (Furosemide 40 Mg Tablet) 40 mg PO DAILY [facility] Last Admin: 01/07/21 07:36 Dose: 40 mg Documented by: Levothyroxine Sodium (Levothyroxine 200 Mcg Tablet) 200 mcg PO DAILY [facility] Last Admin: 01/07/21 07:37 Dose: 200 mcg Documented by: Midodrine (Midodrine 5 Mg Tablet) 5 mg PO TID [facility] Last Admin: 01/07/21 07:36 Dose: 5 mg Documented by: Ondansetron HCl (Ondansetron 2 Mg/Ml Sdv 2 Ml) 4 mg IVP Q6H PRN PRN Reason: NAUSEA AND VOMITING Pantoprazole Sodium (Pantoprazole Dr 40 Mg Tablet) 40 mg PO BID [facility] Last Admin: 01/07/21 07:36 Dose: 40 mg Documented by: Senna/Docusate Sodium (Sennosides-Docusate Tablet) 1 tab PO DAILY [facility] Last Admin: 01/07/21 07:37 Dose: 1 tab Documented by: Sucralfate (Sucralfate 1 Gm Tablet) 1 gm PO QID [facility] Last Admin: 01/07/21 12:56 Dose: 1 gm Documented by: Discharge Plan Discharge Patient Disposition: Home Condition: Stable Prescriptions: No Action alprazolam 0.5 mg tablet 0.5 mg PO QID PRN (Reason: Anxiety) RF: 0 levothyroxine 175 mcg Tablet 175 mcg PO DAILY RF: 0 acetaminophen 325 mg Tablet 325 mg PO QID PRN (Reason: Fever Or Pain) RF: 0 ipratropium-albuterol 0.5 mg-3 mg(2.5 mg base)/3 mL Solution For Nebulization 0.5 ml INHALATION TID RF: 0 bisacodyl [Dulcolax (bisacodyl)] 10 mg Suppository 10 mg VA DAILY PRN (Reason: Constipation) RF: 0 fluoxetine 20 mg capsule 20 mg PO DAILY@0800 RF: 0 albuterol sulfate 2.5 mg/0.5 mL Solution For Nebulization 2.5 mg inhalation Q4H PRN (Reason: SOB/WHEEZING) RF: 0 Eliquis 5 mg tablet 5 mg PO BID@0800,2000 RF: 0 magnesium hydroxide [Milk of Magnesia] 400 mg/5 mL Suspension 30 ml PO DAILY PRN (Reason: Constipation) RF: 0 carboxymethylcellulose sodium [Refresh Tears] 0.5 % Drops 2 drp OPHTHALMIC (EYE) BID PRN (Reason: Dry Eyes) RF: 0 Fleet Enema 19-7 gram/118 mL Enema 118 ml VA DAILY PRN (Reason: Constipation) RF: 0 polyethylene glycol 3350 [Miralax] 17 gram/dose Powder 17 g PO DAILY RF: 0 sucralfate 1 gram Tablet 1 g PO BIDAC 30 Days Qty: 60 RF: 0 potassium chloride [Klor-Con M20] 20 mEq tablet,ER particles/crystals 20 meq PO BID 30 Days Qty: 60 RF: 0 amiodarone [Pacerone] 200 mg Tablet 200 mg PO BID 30 Days Qty: 60 RF: 1 pantoprazole 40 mg Tablet,Delayed Release (Dr/Ec) 40 mg PO DAILY 30 Days Qty: 30 RF: 1 Lasix 40 mg Tablet 40 mg PO DAILY RF: 0 atorvastatin 10 mg tablet 10 mg PO DAILY RF: 0 calcium carbonate 600 mg calcium (1,500 mg) Tablet 600 mg PO BID PRN (Reason: Indigestion) RF: 0 bisacodyl 5 mg Tablet,Delayed Release (Dr/Ec) 10 mg PO DAILY PRN (Reason: Constipation) RF: 0 Discharge Orders: Transfer Out of Facility (Order); Ordered 01/07/21 Ordered By: Carlyn Hatfield Patient Instructions: Opioid Safety Transfer Attestations Time Spent in Transfer Care*: greater than 30 min Status at Transfer: Cognitive status at transfer: cognitively intact , Behavioral status at transfer: cooperative , Quality Metrics Clinical Quality Measures: During this hospital stay, did patient experience: None Coding Level of Care Code Acute Braid Pattern Setter for Chg Fwd Diagnoses Polypharmacy Z79.899 Hypotension I95.9 Atrial fibrillation I48.91 Hypoxemia R09.02 Anemia D64.9
[2021-01-07 15:01] LABS: Slide Review Slide Review Perform
[2021-01-07] MEDS: ipratropium-albuterol 3 mL Neb INHALATION (15:30)
--- NOTE | 2021-01-07 17:12 | PC.NURSE ---
Rcvd order from Dr Hatfield to change Lasix from 40mg daily to 20mg daily and ok to insert brennan catheter. underwriter mortgage loan put orders in.
--- NOTE | 2021-01-07 20:41 | PC.NURSE ---
Call to [facility] at [phone]. Gave report to Tamir Santizo RN. Denied questions or concerns at this time.
--- NOTE | 2021-01-07 21:23 | PC.NURSE ---
Pt exiting unit at this time via EMS. Call placed to Chuy Myrick to update. Appreciative of call.
== END 2021-01-07 21:25 | disposition short-term general hospital (02) | DRG 312 ==
LOC: ER 09:30 → MEDSURG 16:05
PROVIDERS: Admitting Provider Internal Medicine; Emergency Provider Emergency Medicine; PCP Family Medicine; Visit Provider Internal Medicine
DX: I95.2 Hypotension due to drugs (principal); J96.11 Chronic respiratory failure with hypoxia; I69.351 Hemiplegia and hemiparesis following cerebral infarction affecting right dominant side; I48.20 Chronic atrial fibrillation, unspecified; I13.0 Hypertensive heart and chronic kidney disease with heart failure and stage 1 through stage 4 chronic kidney disease, or unspecified chronic kidney disease; T50.915A Adverse effect of multiple unspecified drugs, medicaments and biological substances, initial encounter; I50.9 Heart failure, unspecified; I70.0 Atherosclerosis of aorta; G47.30 Sleep apnea, unspecified; R91.1 Solitary pulmonary nodule; I51.3 Intracardiac thrombosis, not elsewhere classified; I12.9 Hypertensive chronic kidney disease with stage 1 through stage 4 chronic kidney disease, or unspecified chronic kidney disease; N18.9 Chronic kidney disease, unspecified; D63.1 Anemia in chronic kidney disease; R19.5 Other fecal abnormalities; K29.70 Gastritis, unspecified, without bleeding; E03.9 Hypothyroidism, unspecified; L89.151 Pressure ulcer of sacral region, stage 1; L89.321 Pressure ulcer of left buttock, stage 1; L89.311 Pressure ulcer of right buttock, stage 1; I65.23 Occlusion and stenosis of bilateral carotid arteries; E78.5 Hyperlipidemia, unspecified; J44.9 Chronic obstructive pulmonary disease, unspecified; Z79.01 Long term (current) use of anticoagulants; Z79.899 Other long term (current) drug therapy; Z74.01 Bed confinement status; Z87.891 Personal history of nicotine dependence; Z96.0 Presence of urogenital implants; Z99.81 Dependence on supplemental oxygen
CPT/HCPCS: 36415; 36430; 51702; 71045; 71275; 80048; 80053; 82274; 82533; 82803; 83735; 83880; 84145; 84146; 84443; 84484; 85007; 85014; 85018; 85025; 85378; 86140; 86850; 86900; 86920; 93005; 94640; 94660; 94664; 99291; J7030; J7040; P9016; Q9967